=== PATIENT | male | born 1950 | race Caucasian/White ===

== ENCOUNTER → 2017-06-18 10:27 | Outpatient (REF) | payer MEDICARE, SELFPAY ==
[2017-06-18 14:22] LABS: Alanine Aminotransferase 31 U/L (12-78); Albumin Level 3.8 gm/dL (3.4-5.0); Albumin/Globulin Ratio 0.8 (1.1-1.8); Alkaline Phosphatase 78 U/L (46-116); Anion Gap 9.2 mEq/L (5-15); Aspartate Amino Transferase 27 U/L (15-37); Bilirubin,Total 0.5 mg/dL (0.2-1.0); Blood Urea Nitrogen 22 mg/dL (7-18); Calcium 9.1 mg/dL (8.5-10.1); Carbon Dioxide 30 mmol/L (21.0-32.0); Chloride 99 mmol/L (98-107); Chol/HDL Ratio 2.9 (1-3.5); Cholesterol 134 mg/dL (140-200); Creatinine,Serum 1.19 mg/dL (0.70-1.30); Estimated Glomerular Filt Rate 61 ml/min (>60); Free T4 (Free Thyroxine) 1.35 ng/dl (0.76-1.46); GFR (African American) 73 ML/MIN (>60); Globulin 4.5 gm/dl (1.3-3.2); Glucose 113 mg/dL (74-106); HDL Cholesterol 46 mg/dL (27-67); LDL Cholesterol 68 mg/dL (0-130); Potassium 4.2 mmoL/L (3.5-5.1); Sodium 134 mmol/L (136-145); Thyroid Stimulating Hormone 0.31 uIU/ml (0.358-3.740); Total Protein,Serum 8.3 gm/dL (6.4-8.2); Triglycerides 102 mg/dL (30-200); VLDL Cholesterol 20 mg/dL (0-40)
[2017-06-18 14:38] LABS: Basophils % 0.4 % (0.1-2.0); Eosinophils # 0.2 K/mm3 (0.0-0.4); Eosinophils % 1.6 % (0.1-12.0); Hematocrit 43.2 % (42.0-52.0); Hemoglobin 14.2 g/dL (14.1-18.0); Lymphocytes # 1.2 K/mm3 (0.7-4.5); Lymphocytes % 11.5 K/mm3 (10-50); Mean Corpuscular HGB Conc 32.9 g/dL (31.8-35.4); Mean Corpuscular Hemoglobin 28.8 pg (27.0-31.2); Mean Corpuscular Volume 87.6 fl (80-94); Mean Platelet Volume 8.9 fl (7.4-10.4); Monocytes # 0.6 K/mm3 (0.1-1.0); Neutrophils # 8.5 K/mm3 (1.8-7.8); Neutrophils % 80.6 % (37.0-80.0); Platelet Count 291 K/mm3 (142-424); Red Blood Count 4.93 M/mm3 (4.60-6.20); Red Cell Distribution Width 12.7 % (11.5-17.5); White Blood Count 10.6 K/mm3 (4.8-10.8)
[2017-06-21 11:53] LABS: PSA, Free 0.17 ng/mL; Prostate Specific Ag 5.3 ng/mL (0.0-4.0)
== END ==
LOC: LAB 10:27
PROVIDERS: Visit Provider Emergency Medicine
DX: R20.0 Anesthesia of skin (principal); R20.2 Paresthesia of skin; R53.83 Other fatigue; E78.5 Hyperlipidemia, unspecified; M25.562 Pain in left knee
CPT/HCPCS: 80053; 80061; 84153; 84154; 84439; 84443; 85025

== ENCOUNTER → 2017-06-27 13:09 | Outpatient (CLI) | payer MEDICARE, SELFPAY ==
--- NOTE | 2017-06-27 13:14 | US_ITS ---
US thyroid HISTORY: ITS.REASON: MULTINODULAR GOITER ORDERING PHYSICIAN: Claudy Colmenares MD PATIENT AGE: 67 years COMPARISON: None FINDINGS: There is a isoechoic isthmus nodule which measures 1.6 x 1.3 cm not significant changed. The isthmus is thickened at 6 mm. The right lobe is 4.7 x 2 x 2.1 cm. 2 small cysts are present in the upper pole. An 8 mm hypoechoic nodules present in the lower pole. An additional 9 mm mixed nodules present in the lower pole unchanged. The left lobe is 4.7 x 2.3 x 2.1 cm. A septated cyst is present in the upper pole of 4 mm. Isoechoic nodule upper follow-up 5 mm. Additional smaller cysts noted on the left unchanged. There is a millimeter hypoechoic nodule deep in the lower pole unchanged. IMPRESSION: Overall no change multinodular goiter
== END ==
PROVIDERS: PCP Emergency Medicine; Visit Provider Otolaryngology
DX: E04.2 Nontoxic multinodular goiter (principal)
CPT/HCPCS: 76536

== ENCOUNTER → 2017-08-08 09:42 | Outpatient (CLI) | payer MEDICARE, SELFPAY ==
[2017-08-08 10:57] LABS: Blood Urea Nitrogen 17 mg/dL (7-18); Creatinine,Serum 1.07 mg/dL (0.70-1.30); Estimated Glomerular Filt Rate 69 ml/min (>60); GFR (African American) 83 ML/MIN (>60)
--- NOTE | 2017-08-08 11:04 | CT_ITS ---
CT abdomen pelvis w con CLINICAL INDICATION: Prostate cancer ITS.REASON: PROSTATE CA ORDERING PHYSICIAN: Kapil Smith MD PATIENT AGE: 67 years COMPARISON: 04/11/2010 TECHNIQUE: Axial images obtained with sagittal and coronal reformats. All CT scans at the facility use one or more dose reduction, viz: automated exposure control; ma/kV adjustment per patient size (including targeted exams where dose is matched to indication; i.e. head); or iterative reconstruction technique. PROCEDURE: Oral Contrast: Redicat IV Contrast: 75 mL's of Isovue-370 performed in conjunction with the chest CT. FINDINGS: No focal liver lesion evident. There is been prior cholecystectomy without ductal dilatation. There is a small hiatal hernia. The spleen, adrenal glands, and pancreas have an unremarkable appearance. There are small bilateral renal cortical cysts the largest within the nature aspect of the left kidney at 3 cm. No obstructing renal or ureteral calculi. Unremarkable appendix. No intestinal obstruction or free air. No pelvic mass or abnormal fluid collection or focal inflammatory change. No evidence of abdominal or pelvic adenopathy. There is been prior prostatectomy. There are degenerative changes in the lumbar spine. No lytic or blastic changes evident. IMPRESSION: 1. No convincing evidence of metastatic disease. 2. Prior prostatectomy. 3. Bilateral renal cysts. 4. Small hiatal hernia
--- NOTE | 2017-08-08 11:04 | CT_ITS ---
CT chest w con HISTORY: Follow-up prostate cancer, evaluate for metastatic disease ITS.REASON: PROSTATE CA ORDERING PHYSICIAN: Kapil Smith MD PATIENT AGE: 67 years TECHNIQUE: Axial images obtained following the administration of 75 mL of Isovue 370 . Sagittal, and coronal reformatted images are also generated and reviewed. All CT scans at the facility use one or more dose reduction, viz: automated exposure control; ma/kV adjustment per patient size (including targeted exams where dose is matched to indication; i.e. head); or iterative reconstruction technique. FINDINGS: There are a few small mediastinal lymph nodes. No mediastinal or hilar adenopathy or mass is evident. Coronary artery stent is present in the first diagonal. Normal heart size. No evidence of pericardial effusion. There is a small hiatal hernia. No evidence of aortic aneurysm or central pulmonary embolus. Minimal atelectatic or fibrotic changes are present within the lingula. No suspicious pulmonary nodules. There are a few small lucencies within the right upper lobe superior segment of the right lower lobe nonspecific. No effusions or infiltrates. Mild degenerative changes in the thoracic spine. No lytic or blastic lesions. Mild thoracic kyphosis. IMPRESSION: Essentially negative CT of the chest with no acute finding and no convincing evidence of metastatic disease
== END ==
PROVIDERS: PCP Emergency Medicine; Visit Provider Urology
DX: Z03.89 Encounter for observation for other suspected diseases and conditions ruled out (principal); C61 Malignant neoplasm of prostate
CPT/HCPCS: 36415; 71260; 74177; 82565; 84520; Q9967

== ENCOUNTER → 2017-08-10 08:58 | Outpatient (CLI) | payer MEDICARE, SELFPAY ==
--- NOTE | 2017-08-10 09:01 | NM_ITS ---
NM bone scan whole body Ordering Physician: Kapil Smith MD Patient Age: 67 years: Male HISTORY: ITS.REASON: PROSTATE CArecent increased. Elevated PSA. TECHNIQUE: Body bone scan performed 3 hours after administration of 25.2 mCi Tc MDP The entire body was scanned. With additional oblique views at the SCM joint & sternal notch COMPARISON : CT chest 08/08/2017 FINDINGS I see no definitive metastatic disease., no good evidence of metastatic disease. There is increased activity at the both sides the superior sternum, right greater than left. This reflects degenerative changes scm joint as well as as well as first anterior rib ends. Activity related patient's kyphosis & cervical thoracic junction noted & dissipates on oblique views here. Slight increased activity is seen at the AC joints right greater than left reflecting mild degenerative changes here as well. Increased activity at the knees and ankles bilaterally compatible with degenerative changes. Appears be most pronounced at the left patellofemoral joint more so than right Minimal focus activity at the right mid mid T-spine most likely reflecting marginal osteophytes and possibly degenerative disc features here. Approximately T9. Kidneys function bilaterally. Skull appears intact. I would also note that a repeat spot images of pelvis were obtained immediate post void. I see no metastatic disease at the pelvic basin. ===== IMPRESSION: ========= 1. No areas suspect for metastatic disease 2. Areas of increased activity seen related to degenerative features as detailed in text
== END ==
PROVIDERS: PCP Emergency Medicine; Visit Provider Urology
DX: C61 Malignant neoplasm of prostate (principal)
CPT/HCPCS: 78306; A9539

== ENCOUNTER → 2017-09-18 15:17 | Outpatient (CLI) | payer MEDICARE, SELFPAY | PROVIDERS: Visit Provider Urology | DX: C61 Malignant neoplasm of prostate (principal) | CPT/HCPCS: 36415; 84153 ==

== ENCOUNTER → 2017-10-31 11:45 | Outpatient (CLI) | payer MEDICARE, SELFPAY ==
[2017-10-31 12:13] LABS: Basophils % 0.7 % (0.1-2.0); Eosinophils # 0.1 K/mm3 (0.0-0.4); Eosinophils % 2.7 % (0.1-12.0); Hematocrit 42.7 % (42.0-52.0); Hemoglobin 14.1 g/dL (14.1-18.0); Lymphocytes # 1.5 K/mm3 (0.7-4.5); Lymphocytes % 28.8 K/mm3 (10-50); Mean Platelet Volume 7.2 fl (7.4-10.4); Monocytes # 0.4 K/mm3 (0.1-1.0); Monocytes % 8.3 % (1.7-9.3); Neutrophils % 59.5 % (37.0-80.0); Platelet Count 236 K/mm3 (142-424); Red Blood Count 5.03 M/mm3 (4.60-6.20); Red Cell Distribution Width 12.9 % (11.5-17.5); White Blood Count 5.1 K/mm3 (4.8-10.8)
[2017-10-31 13:16] LABS: Anion Gap 8.3 mEq/L (5-15); Blood Urea Nitrogen 19 mg/dL (7-18); CKMB Relative Index 1.7 U/L (0-4.0); Calcium 9.2 mg/dL (8.5-10.1); Carbon Dioxide 31 mmol/L (21.0-32.0); Chloride 103 mmol/L (98-107); Creatine Kinase 255 U/L (39-308); Creatine Kinase MB 4.3 ng/ml (0.0-3.6); Creatinine,Serum 0.99 mg/dL (0.70-1.30); Estimated Glomerular Filt Rate 75 ml/min (>60); GFR (African American) 91 ML/MIN (>60); Glucose 99 mg/dL (74-106); Potassium 4.3 mmoL/L (3.5-5.1); Sodium 138 mmol/L (136-145); Troponin I < 0.02 ng/ml (0.00-0.06)
== END ==
PROVIDERS: Visit Provider Physician Assistant
DX: R07.9 Chest pain, unspecified (principal)
CPT/HCPCS: 36415; 80048; 82550; 82553; 84484; 85025

== ENCOUNTER → 2017-11-06 14:16 | Outpatient (CLI) | payer MEDICARE, SELFPAY ==
--- NOTE | 2017-11-06 14:17 | CA_ITS ---
PROCEDURE: 2-D M-mode and color Doppler study INDICATIONS FOR THE TEST: Chest pain X COPD Heart Murmur Tobacco Smoking Palpitations Fatigue Syncope Edema HypertensionXDiabetes Mellitus Rheumatic Fever SOBXDOE Obesity HyperlipidemiaX Family History HD Additional History CAD,BRADYCARDIA,ARRHYTHMIA PATIENT INFORMATION HEIGHT: 74 WEIGHT:250 GENDER: Male B/P:133/79 2-D/M-MODE INTERPRETATION: 2-D MEASUREMENTS OBSERVED VALUES IN CMS Right Ventricular Dimension (RVDd) 1.8 Interventricular Septum (Thickness)(IVsd) 1.2 Left Ventricular Internal Dimensions(LVIDd) 4.6 Left Ventricular Posterior Wall (Thickness)(LVPWd) 1.1 Aortic Root 3.7 Aortic Cusp Separation 1.8 Left Atrial Dimensions (LAD) 3.2 2D 1. Left atrium is mildly enlarged, left ventricle is normal size, mild concentric left ventricular hypertrophy, visually estimated ejection fraction 55% with no obvious regional wall motion abnormality. 2. The right atrium ventricular normal size and contractility. 3. The aortic valve is minimally thickened and fibrosed. 4. The mitral and tricuspid valve leaflets are minimally thickened. 5. The pulmonic valve is poorly visualized. 6. No significant pericardial effusion noted. DOPPLER INTERROGATION: Doppler interrogation of the aortic, mitral and tricuspid valvular presence of mild mitral and tricuspid regurgitation, calculated right ventricular systolic pressure is 44 mmHg consistent with moderate pulmonary hypertension, grade 1 diastolic dysfunction seen with tissue Doppler evidence of raised left atrial pressure. CONCLUSION: 1. Mildly, normal left ventricular size, mild concentric left ventricular hypertrophy, visually estimated ejection fraction 55% with no obvious regional wall motion abnormality, grade 1 diastolic dysfunction seen with tissue Doppler evidence of raised left atrial pressure. 2. Mild mitral and tricuspid regurgitation, calculated right ventricular systolic pressure is 44 mmHg consistent with moderate pulmonary hypertension. 3. No significant pericardial effusion noted.
== END ==
PROVIDERS: PCP Emergency Medicine; Visit Provider Internal Medicine
DX: R07.9 Chest pain, unspecified (principal); I25.10 Atherosclerotic heart disease of native coronary artery without angina pectoris
CPT/HCPCS: 93306

== ENCOUNTER → 2017-11-12 11:40 | Outpatient (CLI) | payer MEDICARE, SELFPAY ==
[2017-11-12 12:32] LABS: Blood Urea Nitrogen 17 mg/dL (7-18); Creatinine,Serum 0.98 mg/dL (0.70-1.30); Estimated Glomerular Filt Rate 76 ml/min (>60); GFR (African American) 92 ML/MIN (>60)
== END ==
PROVIDERS: Visit Provider Internal Medicine Cardiovascular Disease
DX: Z01.812 Encounter for preprocedural laboratory examination (principal)
CPT/HCPCS: 36415; 82565; 84520

== ENCOUNTER → 2017-11-13 10:27 | Outpatient (CLI) | payer MEDICARE, SELFPAY ==
--- NOTE | 2017-11-13 10:28 | CT_ITS ---
CT angio chest HISTORY: Chest pain, dyspnea on exertion, history of pulmonary embolus ITS.REASON: LEDESMA, chest pain, History of PE ORDERING PHYSICIAN: Leeroy Erwin MD PATIENT AGE: 67 years COMPARISON: TECHNIQUE: Axial images obtained following the administration of 75 mL of Isovue 370 . Sagittal, and coronal reformatted images are also generated and reviewed. All CT scans at the facility use one or more dose reduction, viz: automated exposure control, ma/kV adjustment per patient size (including targeted exams where dose is matched to indication, i.e. head), or iterative reconstruction technique. FINDINGS: There is nodularity along the isthmus slightly toward the right at 1 cm. No mediastinal or hilar mass or adenopathy is evident. Coronary artery stent/calcification noted. No evidence of pulmonary embolus or aortic aneurysm. There is a small hiatal hernia. No lobar consolidation or collapse. There is a 12 mm opacity within the lingula which is developed since the previous exam. This could be due to an area of atelectasis or focal consolidation. Developing nodule is an additional consideration. [address] follow-up recommended in this patient with history of pancreatic cancer. Upper abdominal images show bilateral renal cysts There are degenerative changes in the thoracic spine with mild kyphosis. IMPRESSION: 1. No evidence of pulmonary embolus or aortic aneurysm. 2. 12 mm nodular opacity within the lingula which may be due to an area of focal atelectasis or infiltrate. Consider 3 month follow-up to confirm stability or resolution.
== END ==
PROVIDERS: PCP Emergency Medicine; Visit Provider Internal Medicine Cardiovascular Disease
DX: R07.9 Chest pain, unspecified (principal); R06.09 Other forms of dyspnea; Z86.711 Personal history of pulmonary embolism
CPT/HCPCS: 71275; Q9967

== ENCOUNTER → 2018-01-15 13:47 | Outpatient (CLI) | payer MEDICARE, SELFPAY ==
[2018-01-17 09:32] LABS: PSA, Free 0.23 ng/mL; Prostate Specific Ag 6.2 ng/mL (0.0-4.0)
== END ==
PROVIDERS: PCP Emergency Medicine; Visit Provider Urology
DX: N39.9 Disorder of urinary system, unspecified (principal); C61 Malignant neoplasm of prostate
CPT/HCPCS: 36415; 84153; 84154

== ENCOUNTER → 2018-05-13 09:44 | Outpatient (CLI) | payer MEDICARE, SELFPAY ==
[2018-05-13 12:07] LABS: Blood Urea Nitrogen 22 mg/dL (7-18); Creatinine,Serum 0.97 mg/dL (0.70-1.30); Estimated Glomerular Filt Rate 77 ml/min (>60); GFR (African American) 93 ML/MIN (>60)
[2018-05-13 12:17] LABS: Alanine Aminotransferase 31 U/L (12-78); Albumin Level 3.5 gm/dL (3.4-5.0); Alkaline Phosphatase 75 U/L (46-116); Aspartate Amino Transferase 30 U/L (15-37); Bilirubin,Direct 0.1 mg/dL (0.0-0.2); Bilirubin,Indirect 0.3 mg/dL (0.0-0.9); Bilirubin,Total 0.4 mg/dL (0.2-1.0); Chol/HDL Ratio 3.3 (1-3.5); Cholesterol 138 mg/dL (140-200); HDL Cholesterol 42 mg/dL (27-67); LDL Cholesterol 83 mg/dL (0-130); Total Protein,Serum 8.2 gm/dL (6.4-8.2); Triglycerides 67 mg/dL (30-200); VLDL Cholesterol 13 mg/dL (0-40)
== END ==
PROVIDERS: Internal Medicine; Visit Provider Nurse Practitioner Family
DX: E78.5 Hyperlipidemia, unspecified (principal); G47.33 Obstructive sleep apnea (adult) (pediatric); I25.10 Atherosclerotic heart disease of native coronary artery without angina pectoris; I44.0 Atrioventricular block, first degree; I48.0 Paroxysmal atrial fibrillation; R00.1 Bradycardia, unspecified; R06.00 Dyspnea, unspecified; R91.1 Solitary pulmonary nodule
CPT/HCPCS: 36415; 80061; 80076; 82565; 84520

== ENCOUNTER → 2018-05-14 12:50 | Outpatient (CLI) | payer MEDICARE, SELFPAY ==
--- NOTE | 2018-05-14 12:51 | CT_ITS ---
CT chest w con HISTORY: Follow-up lung nodule ITS.REASON: . ORDERING PHYSICIAN: Misha Hughes MD PATIENT AGE: 68 years COMPARISON: 11/13/2017 TECHNIQUE: Axial images obtained following the administration of 75 mL of Isovue 370 . Sagittal, and coronal reformatted images are also generated and reviewed. All CT scans at the facility use one or more dose reduction, viz: automated exposure control, ma/kV adjustment per patient size (including targeted exams where dose is matched to indication, i.e. head), or iterative reconstruction technique. FINDINGS: No mediastinal or hilar mass or adenopathy. Coronary artery calcifications and stents are noted. There is a small hiatal hernia. No evidence of aortic aneurysm or dissection. No evidence of central pulmonary embolus. No suspicious pulmonary nodules are evident. Previously noted nodular opacity in the lingula is no longer apparent. There is some patchy atelectasis or infiltrate within the lingula. There are a few scattered small pneumatoceles in the lower lung zones. Upper abdominal images reveal no acute finding. No acute bony anomalies are evident. There is mild thoracic kyphosis. IMPRESSION: 1. Previously noted nodular opacity within the lingula no longer apparent. 2. There is patchy atelectasis or infiltrate within the lingula 3. Coronary artery disease
== END ==
PROVIDERS: PCP Emergency Medicine; Visit Provider Internal Medicine
DX: G47.33 Obstructive sleep apnea (adult) (pediatric) (principal); I25.10 Atherosclerotic heart disease of native coronary artery without angina pectoris; I44.0 Atrioventricular block, first degree; I48.0 Paroxysmal atrial fibrillation; R00.1 Bradycardia, unspecified; R06.00 Dyspnea, unspecified
CPT/HCPCS: 71260; Q9967

== ENCOUNTER → 2018-05-21 12:08 | Outpatient (CLI) | payer MEDICARE, SELFPAY ==
[2018-05-21 13:17] LABS: Prostate Specific Ag, Diagnost 9.32 ng/mL (0.0-4.0)
== END ==
PROVIDERS: Visit Provider Urology
DX: C61 Malignant neoplasm of prostate (principal)
CPT/HCPCS: 36415; 84153

== ENCOUNTER → 2018-06-26 10:23 | Outpatient (CLI) | payer MEDICARE, SELFPAY ==
--- NOTE | 2018-06-26 10:29 | US_ITS ---
US thyroid HISTORY: Follow-up multinodular goiter ITS.REASON: Goiter ORDERING PHYSICIAN: Claudy Colmenares MD PATIENT AGE: 68 years Comparison: 06/27/2017 FINDINGS: The isthmus is thickened at 5 mm. There is a 1.5 x 1.2 cm solid-appearing nodule within the right aspect of the isthmus unchanged. The right lobe is 5.1 x 2.3 x 3 cm. A stable 1.2 cm nodule is present in the upper pole posteriorly. Other smaller hypoechoic nodules are present. A solid-appearing nodule is noted inferiorly at 8 mm unchanged. The left lobe is 4.3 x 2.2 x 2.5 cm. 5 mm complex cystic nodules present in the upper pole unchanged. 5 mm isoechoic nodule mid polar region unchanged. A 6 mm hypoechoic nodule is present in the lower pole unchanged. 1 cm isoechoic nodule is present in the lower pole unchanged. IMPRESSION: No change multinodular goiter
[2018-06-26 13:08] LABS: Free T4 (Free Thyroxine) 1.25 ng/dl (0.76-1.46); Thyroid Stimulating Hormone 0.33 uIU/ml (0.358-3.740)
== END ==
PROVIDERS: PCP Emergency Medicine; Visit Provider Otolaryngology
DX: E04.9 Nontoxic goiter, unspecified (principal); E04.1 Nontoxic single thyroid nodule
CPT/HCPCS: 36415; 76536; 84439; 84443

== ENCOUNTER → 2018-09-13 09:03 | Outpatient (CLI) | payer MEDICARE, SELFPAY ==
[2018-09-13 11:47] LABS: Prostate Specific Ag, Diagnost 8.38 ng/mL (0.0-4.0)
== END ==
PROVIDERS: Visit Provider Urology
DX: C61 Malignant neoplasm of prostate (principal)
CPT/HCPCS: 36415; 84153

== ENCOUNTER → 2019-05-13 09:38 | Outpatient (CLI) | payer MEDICARE, SELFPAY | PROVIDERS: PCP Emergency Medicine; Visit Provider Physician Assistant | DX: I25.10 Atherosclerotic heart disease of native coronary artery without angina pectoris (principal) | CPT/HCPCS: 93225; 93226 ==

== ENCOUNTER → 2019-05-15 10:49 | Outpatient (CLI) | payer MEDICARE, SELFPAY ==
--- NOTE | 2019-05-15 10:50 | CA_ITS ---
APPROVED REPORT EXAM: Comprehensive 2D, Doppler, and color-flow Echocardiogram Stone Polisher: Janny Grady RVT Ht: 6 ft 2 in Wt: 257lbs BSA: 2.42 BP: 126/77 mmHg Indications: Chest Pain, Palpitations, CAD, Hyperlipidemia, Hypertension,Stent 2D Dimensions LVOT 1.72 cm (M/F) 1.5-2.5 M-Mode Dimensions RVDd 2.86 cm (0.9-2.6) LVDd 3.14 cm (3.5-5.7) LVDs 1.53 cm (3.5-5.7) IVSd 0.93 cm (0.6-1.1) PWd 1.05 cm (0.6-1.1) EF (Teich) 83.60% FS 51.30% EDV (Teich) 39.10 mL ESV (Teich) 6.40 mL LV Diastology E/A Ratio 0.69 Aortic Valve LVOT Max 141.00 (70-110 cm/s) LVOT VTI 39.06 cm Mitral Valve MV A Velocity 52.00 (40-130 cm/s) Left Ventricle Left atrium is mildly enlarged, left ventricle is normal size, mild concentric left ventricular hypertrophy, visually estimated ejection fraction 55% with no regional wall motion abnormality. Diastolic parameters are inconclusive. Right Ventricle Right atrium and right ventricle are mildly enlarged with normal contractility. Aortic Valve Aortic valve is minimally thickened and fibrosed, there is no aortic stenosis or aortic insufficiency. Mitral Valve Mitral valve is grossly normal, there is mild mitral regurgitation. Tricuspid Valve Tricuspid valve is grossly normal, there is mild tricuspid regurgitation. Tricuspid radiation jet velocity is inadequate for calculation of the right ventricular systolic pressure. Pulmonic Valve Pulmonic valve is poorly visualized. Great Vessels Aortic root is normal size. Pericardium No significant pericardial effusion noted. Conclusion 1. Mild mitral enlargement, normal left ventricular size, mild concentric left ventricular hypertrophy, visually estimated ejection fraction 55% with no regional wall motion abnormality, diastolic parameters are inconclusive. 2. Mildly enlarged right ventricle with normal contractility. 3. Mild mitral and tricuspid regurgitation. 4. No significant pericardial effusion noted. Electronically signed by : Leeroy Erwin, 05/16/2019 15:15:39
== END ==
PROVIDERS: PCP Emergency Medicine; Visit Provider Physician Assistant
DX: I25.10 Atherosclerotic heart disease of native coronary artery without angina pectoris (principal)
CPT/HCPCS: 93306

== ENCOUNTER → 2019-07-07 09:50 | Outpatient (CLI) | payer MEDICARE, SELFPAY ==
--- NOTE | 2019-07-07 09:50 | US_ITS ---
PROCEDURE: US THYROID CLINICAL INDICATION: Thyroid nodule Follow-up thyroid nodules COMPARISON: THY US thyroid from 06/26/2018 FINDINGS: Right lobe: 4.7 x 2.3 x 2 cm. There is a complex nodule in the right aspect of the isthmus measuring 15 x 9 mm not significantly change with of small cystic area laterally. There are few small cysts in the right lobe of the thyroid gland. In the lower pole there is a 10 mm ill-defined hypoechoic nodule not significantly changed. Left lobe: 4.3 x 1.5 x 2.3 cm. There are scattered small cysts present. A 10 x 7 mm hypoechoic nodule is present inferiorly IMPRESSION: Overall no change in the bilateral nodules with mildly enlarged thyroid gland Dictated by: Henri Daly MD 07/07/2019 15:01 Electronically signed by Henri Daly MD in [facility] 07/07/2019 15:01
== END ==
PROVIDERS: PCP Emergency Medicine; Visit Provider Otolaryngology
DX: E04.1 Nontoxic single thyroid nodule (principal)
CPT/HCPCS: 76536

== ENCOUNTER → 2019-09-17 12:42 | Outpatient (CLI) | payer MEDICARE, SELFPAY ==
[2019-09-17 14:18] LABS: Basophils % 0.7 % (0.1-2.0); Eosinophils # 0.1 K/mm3 (0.0-0.4); Eosinophils % 2.7 % (0.1-12.0); Lymphocytes # 1.3 K/mm3 (0.7-4.5); Lymphocytes % 25.7 % (10-50); Mean Corpuscular HGB Conc 33.5 g/dL (31.8-35.4); Mean Corpuscular Hemoglobin 28.8 pg (27.0-31.2); Mean Platelet Volume 8.9 fl (7.4-10.4); Monocytes # 0.5 K/mm3 (0.1-1.0); Monocytes % 9.7 % (1.7-9.3); Neutrophils % 61.2 % (37.0-80.0); Platelet Count 290 K/mm3 (142-424); Red Blood Count 4.88 M/mm3 (4.60-6.20); Red Cell Distribution Width 13.3 % (11.5-17.5); White Blood Count 4.9 K/mm3 (4.8-10.8)
[2019-09-17 14:34] LABS: Chloride 102 mmol/L (98-107)
[2019-09-17 14:35] LABS: Potassium 4.2 mmoL/L (3.5-5.1); Sodium 139 mmol/L (136-145)
[2019-09-17 14:37] LABS: Alanine Aminotransferase 42 U/L (12-78); Alkaline Phosphatase 82 U/L (38-126); Anion Gap 12.2 mEq/L (5-15); Aspartate Amino Transferase 49 U/L (17-59); Bilirubin,Total 0.7 mg/dl (0.2-1.3); Blood Urea Nitrogen 27 mg/dl (9-20); Carbon Dioxide 29 mmol/L (22.0-30.0); Cholesterol 157 mg/dl (140-200); Estimated Glomerular Filt Rate 66 ml/min (>60); GFR (African American) 80 ML/MIN (>60); Triglycerides 130 mg/dl (30-150); VLDL Cholesterol 26 mg/dL (0-40)
[2019-09-17 14:38] LABS: Albumin Level 4.3 g/dl (3.5-5.0); Calcium 9.9 mg/dl (8.4-10.2); Chol/HDL Ratio 3.7 (1-3.5); Globulin 4.1 g/dL (1.3-3.2); Glucose 108 mg/dl (74-100); HDL Cholesterol 43 mg/dl (40-60); Total Protein,Serum 8.4 g/dl (6.3-8.2)
[2019-09-17 14:53] LABS: Free T4 (Free Thyroxine) 1.72 ng/dl (0.78-2.19)
[2019-09-17 15:24] LABS: Direct LDL Cholesterol 78.76 mg/dL (100-129)
[2019-09-17 15:47] LABS: Thyroid Stimulating Hormone 0.15 uIU/mL (0.465-4.68)
[2019-09-18 10:00] LABS: Vitamin D 25 Hydroxy 39.1 ng/mL (30.0-100.0)
== END ==
PROVIDERS: Visit Provider Emergency Medicine
DX: I48.0 Paroxysmal atrial fibrillation (principal); E66.9 Obesity, unspecified
CPT/HCPCS: 80053; 80061; 82652; 84439; 84443; 85025

== ENCOUNTER → 2019-10-06 08:17 | Outpatient (CLI) | payer MEDICARE, SELFPAY ==
[2019-10-06 11:29] LABS: Thyroid Stimulating Hormone 0.41 uIU/mL (0.465-4.68)
== END ==
PROVIDERS: Visit Provider Physician Assistant
DX: R00.2 Palpitations (principal)
CPT/HCPCS: 36415; 84443

== ENCOUNTER 2020-04-17 12:47 | Emergency (ER) | payer MEDICARE, SELFPAY ==
[2020-04-17 12:48] VITALS: BP 100/64; PULSE 87; RESP 16; TEMP 37.2; O2SAT 98; BMI 31.6
--- NOTE | 2020-04-17 13:56 | XR_ITS ---
PROCEDURE: XR CHEST PORTABLE CLINICAL HISTORY: covid 19 Generalized weakness COMPARISON: CR CXR1 CHEST-PORTABLE from 08/03/[address] chest w con from 05/14/2018 FINDINGS: The cardiomediastinal silhouette and pulmonary vascularity are within normal limits. The lungs are clear without infiltrates, suspicious nodules, or pleural effusions. There is partial eventration right hemidiaphragm No acute bony abnormalities. IMPRESSION: No acute findings. Dictated by: Dr. Devon Palacio MD 04/17/2020 17:20 Dr. Devon Palacio MD in [facility] 04/17/2020 17:20
--- NOTE | 2020-04-17 14:12 | [facility].EDGENADL ---
ED Disposition Clinical Impression: Pneumonia due to COVID-19 virus Disposition: Home, Self-Care Condition on Discharge: Fair Additional Instructions: Rest, drink plenty of fluids. Return to the emergency department if increasing shortness of breath, severe weakness, or vomiting so that you are unable to hold down fluids. Outpatient monoclonal antibody infusion as arranged. Referrals: Justen Palomo MD [Primary Care Provider] - - Critical Care Critical Care Time: No Attestation: On 04/17/20, the high probability of a clinically significant, sudden or life threatening deterioration of the following system(s) required my full and direct attention, intervention and personal management. The time I documented below is in addition to time spent performing reported procedures but includes the following listed in this critical care notation. Medical Decision Making - [place]avo Inquiry Pt receiving controlled substance: No Vital Signs: 04/17/20 12:48 04/17/20 14:24 04/17/20 15:47 Temperature 98.9 F Temperature Source Oral Pulse Rate [Right] 87 68 64 Respiratory Rate 16 20 18 Blood Pressure [Right Arm] 100/64 L 115/70 106/76 L Blood Pressure Mean [Right Arm] 76 85 86 Blood Pressure Source [Right Arm] Automatic Cuff Automatic Cuff Blood Pressure Position [Right Arm] Sitting Sitting 02 Sat by Pulse Oximetry 98 97 99 Oxygen Delivery Method Room Air 04/17/20 16:30 04/17/20 17:01 Temperature Temperature Source Pulse Rate [Right] 67 70 Respiratory Rate 20 20 Blood Pressure [Right Arm] 113/77 106/74 L Blood Pressure Mean [Right Arm] 89 84 Blood Pressure Source [Right Arm] Automatic Cuff Automatic Cuff Blood Pressure Position [Right Arm] Sitting Sitting 02 Sat by Pulse Oximetry 100 98 Oxygen Delivery Method Room Air - Lab Data Lab Results 04/17/20 14:36: WBC 5.2, RBC 5.22, Hgb 14.9, Hct 44.2, MCV 84.6, MCH 28.4, MCHC 33.6, RDW 14.1, Plt Count 153, MPV 7.9, Neut % (Auto) 70.7, Lymph % (Auto) 16.9, [place] % (Auto) 11.1 H, Eos % (Auto) 0.4, Baso % (Auto) 0.9, Neut # (Auto) 3.7, Lymph # (Auto) 0.9, [place] # (Auto) 0.6, Eos # (Auto) 0.0, Baso # (Auto) 0.1 04/17/20 14:36: Sodium 135 L, Potassium 4.0, Chloride 96 L, Carbon Dioxide 30, Anion Gap 13.0, BUN 31 H, Creatinine 1.40 H, Estimated Creat Clear 73, Estimated GFR 50 L, Est GFR ( Amer) 60, Glucose 125 H, Calcium 9.6, Total Bilirubin 0.7, AST 84 H, ALT 76, Alkaline Phosphatase 90, Total Protein 9.5 H, Albumin 4.5, Globulin 5.0 H, Albumin/Globulin Ratio 0.9 L Result diagrams: 04/17/20 14:36 04/17/20 14:36 Orders (Tests/Meds): ED MEDICATIONS Discontinued Medications Generic Name Dose Route Start Last Admin Trade Name Freq PRN Reason Stop Dose Admin Iopamidol 60 ml 04/17/20 15:37 04/17/20 15:38 Iopamidol-370 (76%);100ml Bottle IV 04/17/20 15:38 60 ml ONCE ONE Administration Sodium Chloride 50 ml 04/17/20 15:37 04/17/20 15:38 0.9 % Sodium Chloride 50 Ml Vial IV 04/17/20 15:38 50 ml ONCE ONE Administration Sodium Chloride 10 ml 04/17/20 15:37 04/17/20 15:38 Sodium Chloride 0.9% 10ml Syr (Rad Only) IV 04/17/20 15:38 10 ml ONCE ONE Administration ORDERS Category Date Time Status CXR --portable [XR chest portable] Stat Exams 04/17/20 13:56 Taken - CT Data CT Scan: Chest (CTA) Time Received: 16:[address] Reviewed: Yes: I have viewed the radiologist's interpretation Findings Narrative: PROCEDURE: CT ANGIO CHEST (Volume slab post processing reconstruction images included) The Referring Doctor: Cesar Wen Patient Age:70Y CLINCIAL INDICATION: sob Covid positive as of Sunday period weaker today COMPARISON: CT CHESTW CT chest w con from 08/08/[address] angio chest from 11/13/2017 TECHNIQUE: IV Contrast: 70ML Isovue 370 Thin-section helical axial images obtained with mi the thick slab volume MIP sagittal and coronal reformats on CT workstation. All CT scans
[2020-04-17 14:24] VITALS: BP 115/70; PULSE 68; RESP 20; O2SAT 97
--- NOTE | 2020-04-17 14:40 | CT_ITS ---
PROCEDURE: CT ANGIO CHEST (Volume slab post processing reconstruction images included) The Referring Doctor: Cesar Wen Patient Age:70Y CLINCIAL INDICATION: sob Covid positive as of Sunday period weaker today COMPARISON: CT CHESTW CT chest w con from 08/08/[address] angio chest from 11/13/2017 TECHNIQUE: IV Contrast: 70ML Isovue 370 Thin-section helical axial images obtained with mi the thick slab volume MIP sagittal and coronal reformats on CT workstation. All CT scans at the facility use one or more dose reduction, viz: automated exposure control, ma/kV adjustment per patient size (including targeted exams where dose is matched to indication, i.e. head), or iterative reconstruction technique. FINDINGS: PULMONARY ARTERIES: No pulmonary embolus evident. AORTA: . size and contour no aneurysm. No dissection. LUNGS: Numerous peripheral patchy and small round areas of low-density infiltrates; period-. This pattern suggestive and typical of developing early covid pneumonia. These infiltrates and findings are a changed from previous 10/15/2017 CT chest as well. The PLEURAL SPACES: No significant effusion. No evidence of pneumothorax. HEART: U coronary artery calcification and possible stents. Able. Normal heart size. No significant pericardial effusion. MEDIASTINAL AND HILAR STRUCTURES: No mediastinal or hilar mass evident. No dominant adenopathy a few precarinal nodes are slightly more prominent but are still within normal limits and merely reflects some reactive nodes.. BONY STRUCTURES: No acute bony abnormalities apparent.. Degenerative changes thoracic spine no lesions. LYMPH NODES: No enlarged lymph nodes evident. Suspect small slight hiatal hernia upper normal thickness at the distal esophagus. Nonspecific could reflect reflux or mild esophagitis if symptoms period UPPER ABDOMEN: . fatty changes liver Small cysts upper pole right kidney. 14 mm cyst lateral upper pole with 21 mm cyst at the medial upper pole on right. Left kidney stable benign cyst anteriorly 3.5 mm. There is some air-fluid levels and liquid stool seen at transverse colon and appendix flexure could reflect some developing loose stool common diarrhea. There also is a small I believe diverticulum off the posterior fundus of the stomach of measuring 20 mm. IMPRESSION: 1..Numerous small peripheral patchy areas of infiltrate bilaterally-More numerous areas noted along periphery right lung than left. . Pattern suggestive and typical of developing early covid pneumonia pattern 2... No evidence of pulmonary embolism. Aorta unremarkable. No significant mediastinal nor hilar adenopathy or mass. 3. Incidental note-liquid stool appearance at the transverse and right colon which may reflect impending loose stool/diarrhea The Other minor incidental findings and body of report: The Dictated by: Thang Simon MD 04/17/2020 15:57 Thang Simon MD in [facility] 04/17/2020 15:57
[2020-04-17 14:45] LABS: Basophils # 0.1 K/mm3 (0-0.2); Basophils % 0.9 % (0.1-2.0); Eosinophils % 0.4 % (0.1-12.0); Hematocrit 44.2 % (42.0-52.0); Hemoglobin 14.9 g/dL (14.1-18.0); Lymphocytes # 0.9 K/mm3 (0.7-4.5); Lymphocytes % 16.9 % (10-50); Mean Corpuscular HGB Conc 33.6 g/dL (31.8-35.4); Mean Corpuscular Hemoglobin 28.4 pg (27.0-31.2); Mean Corpuscular Volume 84.6 fl (80-94); Mean Platelet Volume 7.9 fl (7.4-10.4); Monocytes # 0.6 K/mm3 (0.1-1.0); Monocytes % 11.1 % (1.7-9.3); Neutrophils # 3.7 K/mm3 (1.8-7.8); Neutrophils % 70.7 % (37.0-80.0); Platelet Count 153 K/mm3 (142-424); Red Blood Count 5.22 M/mm3 (4.60-6.20); Red Cell Distribution Width 14.1 % (11.5-17.5); White Blood Count 5.2 K/mm3 (4.8-10.8)
[2020-04-17 14:55] LABS: Alanine Aminotransferase 76 U/L (12-78); Albumin Level 4.5 g/dl (3.5-5.0); Albumin/Globulin Ratio 0.9 (1.1-1.8); Alkaline Phosphatase 90 U/L (38-126); Aspartate Amino Transferase 84 U/L (17-59); Bilirubin,Total 0.7 mg/dl (0.2-1.3); Blood Urea Nitrogen 31 mg/dl (9-20); Calcium 9.6 mg/dl (8.4-10.2); Carbon Dioxide 30 mmol/L (22.0-30.0); Chloride 96 mmol/L (98-107); Creatinine Clearance Estimated 73 mL/min (50-200); Estimated Glomerular Filt Rate 50 ml/min (>60); GFR (African American) 60 ML/MIN (>60); Glucose 125 mg/dl (74-100); Sodium 135 mmol/L (136-145); Total Protein,Serum 9.5 g/dl (6.3-8.2)
--- NOTE | 2020-04-17 15:11 | PC.NURSE ---
Pt going to rad
[2020-04-17 15:47] VITALS: BP 106/76; PULSE 64; RESP 18; O2SAT 99
[2020-04-17 16:30] VITALS: BP 113/77; PULSE 67; RESP 20; O2SAT 100
[2020-04-17 17:01] VITALS: BP 106/74; PULSE 70; RESP 20; O2SAT 98
--- NOTE | 2020-04-17 17:08 | PC.NURSE ---
Spoke with Dr. Johnston who gave me a verbal order for the bam infusion. Spoke wiht pt and scheduled pt to come in at 8am on Sunday. Notified pharmacy via email.
[2020-04-17 17:28] VITALS: BP 113/79; PULSE 69; RESP 16; TEMP 36.6; O2SAT 98
== END 2020-04-17 17:29 | disposition home or self-care (01) ==
PROVIDERS: Emergency Provider Emergency Medicine; PCP Emergency Medicine
DX: J12.82 Pneumonia due to coronavirus disease 2019 (principal); I25.10 Atherosclerotic heart disease of native coronary artery without angina pectoris; I10 Essential (primary) hypertension; K21.9 Gastro-esophageal reflux disease without esophagitis; E78.5 Hyperlipidemia, unspecified; Z79.899 Other long term (current) drug therapy
CPT/HCPCS: 71045; 71275; 80053; 85025; 99283; Q9967

== ENCOUNTER 2020-04-19 07:54 | Outpatient (CLI) | payer MEDICARE, SELFPAY | END 2020-04-19 11:02 | disposition home or self-care (01) | PROVIDERS: PCP Emergency Medicine; Visit Provider Emergency Medicine | DX: U07.1 COVID-19 (principal) | CPT/HCPCS: 96365 ==

== ENCOUNTER 2020-04-22 13:58 | Emergency (ER) | payer MEDICARE, SELFPAY ==
[2020-04-22 14:00] VITALS: BP 128/93; PULSE 78; RESP 22; TEMP 36.5; O2SAT 98; BMI 30.2
[2020-04-22 14:27] LABS: Basophils % 0.5 % (0.1-2.0); Eosinophils % 0.4 % (0.1-12.0); Hematocrit 42.1 % (42.0-52.0); Hemoglobin 14.1 g/dL (14.1-18.0); Lymphocytes # 0.7 K/mm3 (0.7-4.5); Lymphocytes % 13.1 % (10-50); Mean Corpuscular HGB Conc 33.5 g/dL (31.8-35.4); Mean Corpuscular Hemoglobin 28.3 pg (27.0-31.2); Mean Corpuscular Volume 84.3 fl (80-94); Mean Platelet Volume 8.5 fl (7.4-10.4); Monocytes # 0.4 K/mm3 (0.1-1.0); Monocytes % 8.2 % (1.7-9.3); Neutrophils # 4.1 K/mm3 (1.8-7.8); Neutrophils % 77.8 % (37.0-80.0); Platelet Count 191 K/mm3 (142-424); Red Cell Distribution Width 13.1 % (11.5-17.5); White Blood Count 5.3 K/mm3 (4.8-10.8)
[2020-04-22 14:32] VITALS: BP 130/82; PULSE 71; RESP 18; O2SAT 96
[2020-04-22 14:35] LABS: Chloride 94 mmol/L (98-107); Sodium 136 mmol/L (136-145)
[2020-04-22 14:36] LABS: Potassium 3.7 mmoL/L (3.5-5.1)
[2020-04-22 14:38] LABS: Alanine Aminotransferase 67 U/L (12-78); Albumin Level 4.3 g/dl (3.5-5.0); Albumin/Globulin Ratio 0.8 (1.1-1.8); Alkaline Phosphatase 91 U/L (38-126); Anion Gap 15.7 mEq/L (5-15); Aspartate Amino Transferase 83 U/L (17-59); Bilirubin,Total 1.1 mg/dl (0.2-1.3); Blood Urea Nitrogen 33 mg/dl (9-20); Carbon Dioxide 30 mmol/L (22.0-30.0); Creatinine Clearance Estimated 84 mL/min (50-200); Estimated Glomerular Filt Rate 60 ml/min (>60); GFR (African American) 72 ML/MIN (>60); Globulin 5.2 g/dL (1.3-3.2); Total Protein,Serum 9.5 g/dl (6.3-8.2)
[2020-04-22 14:39] LABS: Calcium 9.8 mg/dl (8.4-10.2); Glucose 131 mg/dl (74-100)
--- NOTE | 2020-04-22 14:51 | ECG_ITS ---
APPROVED REPORT Exam: Resting ECG HR:70 bpm ECG Measurements Heart Rate 70 AXES QRSd 98 QRS -34 QT 420 T 21 QTc 453 Conclusion Accelerated Junctional rhythm Left axis deviation Abnormal ECG Electronically signed by : Yohannes Millan, 04/23/2020 15:21:19
--- NOTE | 2020-04-22 14:56 | CT_ITS ---
PROCEDURE: CT HEAD/BRAIN WO CON CLINICAL INDICATION: FALL Head injury with headache/pain, contusion, abrasion or hematoma COMPARISON: No exams were available for comparison TECHNIQUE: Axial images obtained. All CT scans at the facility use one or more dose reduction, viz: automated exposure control, ma/kV adjustment per patient size (including targeted exams where dose is matched to indication, i.e. head), or iterative reconstruction technique. FINDINGS: No midline shift, mass effect, intracranial hemorrhage, hydrocephalus, or extra-axial fluid collection is evident. The calvarium has an unremarkable appearance. No mastoid effusion. No sinus air-fluid level. IMPRESSION: No acute intracranial finding Dictated by: Henri Daly MD 04/22/2020 16:10 Henri Daly MD in [facility] 04/22/2020 16:10
--- NOTE | 2020-04-22 14:56 | CT_ITS ---
PROCEDURE: CT CERVICAL SPINE WO CON CLINICAL INDICATION: FALL Posttraumatic pain, scalp laceration COMPARISON: CT CT HEAD/BRAIN WO CON from 04/22/2020 TECHNIQUE: Axial images obtained with sagittal and coronal reformats. All CT scans at the facility use one or more dose reduction, viz: automated exposure control, ma/kV adjustment per patient size (including targeted exams where dose is matched to indication, i.e. head), or iterative reconstruction technique. Axial spiral CT scanning performed of the cervical spine beginning at the base of the skull and continuing to the upper T-spine. 3-D multiplanar reconstruction with 3-D manipulation of volumetric data set in image rendering was completed by the radiologist and/or technologist with the supervision of the radiologist on independent workstation. FINDINGS: There is normal alignment. No acute fracture or dislocation is evident. There is mild exaggeration of the cervical lordosis. Mild multilevel cervical spondylosis is present. Small anterior osteophytes noted. No bony canal stenosis. Lung apices are clear. IMPRESSION: No acute fracture. Cervical spondylosis Dictated by: Henri Daly MD 04/22/2020 16:14 Henri Daly MD in [place] 04/22/2020 16:14
--- NOTE | 2020-04-22 15:09 | HMH.EDGENADL ---
ED Disposition Clinical Impression: Scalp laceration Qualifiers: Encounter type: initial encounter Qualified Code(s): S01.01XA - Laceration without foreign body of scalp, initial encounter Disposition: Home, Self-Care Condition on Discharge: Good Instructions: DI for Laceration Repair -- [place] Additional Instructions: Additional instructions for SCALP LACERATION: Clean the wound daily with soap and water. You may shower and shampoo your hair. Avoid submerging the wound. No swimming.. Apply a thin film of antibiotic ointment such as neosporin, polysporin, or triple antibiotic daily after showering. Be careful when combing or brushing hair so that you so not snag the maria dolores with a comb or brush. See your primary care physician or return to the [facility] in 7 days for staple removal. The [facility] is open 9 AM to 9 PM 7 days a week. Return if any signs of infection including increasing pain, pus drainage, swelling, redness, red streaks, or fever. Additional instructions for HEAD INJURY: See your physician as soon as possible for further evaluation. Return immediately if severe headache, vomiting, problems with vision or speech, numbness or weakness of the extremities, or severe neck pain. Referrals: PCP,No [Primary Care Provider] - - Critical Care Critical Care Time: No Attestation: On 04/22/20, the high probability of a clinically significant, sudden or life threatening deterioration of the following system(s) required my full and direct attention, intervention and personal management. The time I documented below is in addition to time spent performing reported procedures but includes the following listed in this critical care notation. Medical Decision Making - Chavo Inquiry Pt receiving controlled substance: No Vital Signs: 04/22/20 14:00 04/22/20 14:32 04/22/20 15:37 Temperature 97.7 F Temperature Source Oral Pulse Rate Pulse Rate [Radial] 78 71 74 Respiratory Rate 22 18 18 Blood Pressure Blood Pressure [Right Radial Artery] 128/93 H 130/82 157/102 H Blood Pressure Mean [Right Radial Artery] 104 98 120 Blood Pressure Source Blood Pressure Source [Right Radial Artery] Automatic Cuff Automatic Cuff Blood Pressure Position Blood Pressure Position [Right Radial Artery] Sitting Sitting Sitting 02 Sat by Pulse Oximetry 98 96 98 Oxygen Delivery Method Room Air 04/22/20 16:10 04/22/20 17:05 04/22/20 17:28 Temperature 98 F Temperature Source Pulse Rate 72 Pulse Rate [Radial] 73 72 Respiratory Rate 20 18 16 Blood Pressure 156/90 H Blood Pressure [Right Radial Artery] 162/101 H 156/94 H Blood Pressure Mean [Right Radial Artery] 121 114 Blood Pressure Source Automatic Cuff Blood Pressure Source [Right Radial Artery] Automatic Cuff Blood Pressure Position Sitting Blood Pressure Position [Right Radial Artery] Sitting Sitting 02 Sat by Pulse Oximetry 97 97 Oxygen Delivery Method Room Air - Lab Data Lab results reviewed: Yes: I reviewed the patient's lab results. Lab Results 04/22/20 14:00: WBC 5.3, RBC 5.00, Hgb 14.1, Hct 42.1, MCV 84.3, MCH 28.3, MCHC 33.5, RDW 13.1, Plt Count 191, MPV 8.5, Neut % (Auto) 77.8, Lymph % (Auto) 13.1, Johnson % (Auto) 8.2, Eos % (Auto) 0.4, Baso % (Auto) 0.5, Neut # (Auto) 4.1, Lymph # (Auto) 0.7, Johnson # (Auto) 0.4, Eos # (Auto) 0.0, Baso # (Auto) 0.0 04/22/20 14:00: Sodium 136, Potassium 3.7, Chloride 94 L, Carbon Dioxide 30, Anion Gap 15.7 H, BUN 33 H, Creatinine 1.20, Estimated Creat Clear 84, Estimated GFR 60, Est GFR ( Amer) 72, Glucose 131 H, Calcium 9.8, Total Bilirubin 1.1, AST 83 H, ALT 67, Alkaline Phosphatase 91, Total Protein 9.5 H, Albumin 4.3, Globulin 5.2 H, Albumin/Globulin Ratio 0.8 L 04/22/20 14:00: Troponin I < 0.01 Result diagrams: 04/22/20 14:00 04/22/20 14:00 Orders (Tests/Meds): ED MEDICATIONS Discontinued Medications Generic Name Dose Route Start Last Admin
[2020-04-22 15:15] LABS: Troponin I < 0.01 ng/ml (0.00-0.034)
[2020-04-22 15:37] VITALS: BP 157/102; PULSE 74; RESP 18; O2SAT 98
[2020-04-22 16:10] VITALS: BP 162/101; PULSE 73; RESP 20; O2SAT 97
[2020-04-22 17:05] VITALS: BP 156/94; PULSE 72; RESP 18; O2SAT 97
[2020-04-22 17:28] VITALS: BP 156/90; PULSE 72; RESP 16; TEMP 36.6; O2SAT 98
== END 2020-04-22 17:29 | disposition home or self-care (01) ==
PROVIDERS: Emergency Provider Emergency Medicine
DX: S01.01XA Laceration without foreign body of scalp, initial encounter (principal); J12.82 Pneumonia due to coronavirus disease 2019; W18.39XA Other fall on same level, initial encounter; Y92.019 Unspecified place in single-family (private) house as the place of occurrence of the external cause; I25.10 Atherosclerotic heart disease of native coronary artery without angina pectoris; K21.9 Gastro-esophageal reflux disease without esophagitis; E78.5 Hyperlipidemia, unspecified; I10 Essential (primary) hypertension; Z79.899 Other long term (current) drug therapy; Z23 Encounter for immunization
CPT/HCPCS: 12002; 70450; 72125; 80053; 84484; 85025; 90471; 90714; 93005; 99284

== ENCOUNTER 2020-04-29 13:17 | Emergency (ER) | payer MEDICARE, SELFPAY ==
[2020-04-29 14:00] VITALS: BP 142/88; PULSE 82; RESP 18; TEMP 36.8; O2SAT 99; BMI 26.2
[2020-04-29 14:04] VITALS: BP 142/88; PULSE 82; RESP 18; TEMP 36.8; O2SAT 99
== END 2020-04-29 14:05 | disposition home or self-care (01) ==
LOC: UTC 13:37
PROVIDERS: Emergency Provider Nurse Practitioner; PCP Emergency Medicine
DX: S01.01XD Laceration without foreign body of scalp, subsequent encounter (principal)

== ENCOUNTER → 2020-06-22 13:15 | Outpatient (CLI) | payer MEDICARE, SELFPAY ==
--- NOTE | 2020-06-22 13:15 | US_ITS ---
PROCEDURE: US THYROID CLINICAL INDICATION: hypothyroid COMPARISON: US THY US thyroid from 06/26/2018 US US THYROID from 07/07/2019 FINDINGS: The right lobe measures 4.5 x 2.3 x 2.7 cm in demonstrates heterogeneous echogenicity. There is a 3 mm hypoechoic nodule in the mid polar region unchanged. In the lower pole there is a 6 mm hypoechoic nodule not previously demonstrated. Additionally in the lower pole there is a 7 mm mixed nodule unchanged. The left lobe is 4 x 2.5 x 2.6 cm. A 7 mm cyst is present in the upper pole. 3 mm cyst is present in the mid polar region. 8 mm hypoechoic nodules present in the mid polar area which appears solid unchanged. 4 mm cyst is present in the lower pole. The isthmus is slightly thickened. A 12 mm solid-appearing nodules present in the right aspect of the isthmus not significantly changed. IMPRESSION: No change multiple bilateral thyroid nodules Dictated by: Henri Daly MD 06/22/2020 18:20 Henri Daly MD in [place] 06/22/2020 18:20
== END ==
PROVIDERS: PCP Emergency Medicine; Visit Provider Otolaryngology
DX: E03.9 Hypothyroidism, unspecified (principal)
CPT/HCPCS: 76536

== ENCOUNTER → 2020-09-14 18:07 | Outpatient (CLI) | payer MEDICARE, SELFPAY ==
[2020-09-14 18:57] LABS: Basophils % 0.4 % (0.1-2.0); Eosinophils # 0.1 K/mm3 (0.0-0.4); Eosinophils % 2.4 % (0.1-12.0); Hematocrit 40.6 % (42.0-52.0); Hemoglobin 13.5 g/dL (14.1-18.0); Lymphocytes # 1.5 K/mm3 (0.7-4.5); Lymphocytes % 25.9 % (10-50); Mean Corpuscular HGB Conc 33.2 g/dL (31.8-35.4); Mean Corpuscular Hemoglobin 28.6 pg (27.0-31.2); Mean Corpuscular Volume 86.1 fl (80-94); Monocytes # 0.5 K/mm3 (0.1-1.0); Monocytes % 9.3 % (1.7-9.3); Neutrophils # 3.5 K/mm3 (1.8-7.8); Platelet Count 252 K/mm3 (142-424); Red Blood Count 4.72 M/mm3 (4.60-6.20); Red Cell Distribution Width 13.6 % (11.5-17.5); White Blood Count 5.6 K/mm3 (4.8-10.8)
[2020-09-14 19:47] LABS: Alanine Aminotransferase 31 U/L (12-78); Albumin Level 4.4 g/dl (3.5-5.0); Albumin/Globulin Ratio 1.1 (1.1-1.8); Alkaline Phosphatase 80 U/L (38-126); Anion Gap 10.7 mEq/L (5-15); Aspartate Amino Transferase 42 U/L (17-59); Bilirubin,Total 0.7 mg/dl (0.2-1.3); Blood Urea Nitrogen 24 mg/dl (9-20); Calcium 9.6 mg/dl (8.4-10.2); Carbon Dioxide 29 mmol/L (22.0-30.0); Chloride 103 mmol/L (98-107); Chol/HDL Ratio 4.9 (1-3.5); Cholesterol 190 mg/dl (140-200); Estimated Glomerular Filt Rate 66 ml/min (>60); GFR (African American) 80 ML/MIN (>60); Globulin 3.9 g/dL (1.3-3.2); Glucose 92 mg/dl (74-100); HDL Cholesterol 39 mg/dl (40-60); Potassium 4.7 mmoL/L (3.5-5.1); Sodium 138 mmol/L (136-145); Total Protein,Serum 8.3 g/dl (6.3-8.2); Triglycerides 226 mg/dl (30-150); VLDL Cholesterol 45 mg/dL (0-40)
[2020-09-14 19:58] LABS: Direct LDL Cholesterol 65.86 mg/dL (100-129)
[2020-09-14 20:11] LABS: Thyroid Stimulating Hormone 0.26 uIU/mL (0.465-4.68)
[2020-09-14 20:22] LABS: Prostate Specific Ag Screen 12.9 ng/ml (0.0-4.0)
== END ==
PROVIDERS: Visit Provider Emergency Medicine
DX: E66.9 Obesity, unspecified (principal); E78.5 Hyperlipidemia, unspecified; G47.33 Obstructive sleep apnea (adult) (pediatric); I11.9 Hypertensive heart disease without heart failure; I25.10 Atherosclerotic heart disease of native coronary artery without angina pectoris; S90.32XA Contusion of left foot, initial encounter; Z12.5 Encounter for screening for malignant neoplasm of prostate; Z68.32 Body mass index [BMI] 32.0-32.9, adult
CPT/HCPCS: 80053; 80061; 84436; 84443; 85025; G0103

== ENCOUNTER → 2020-11-02 15:16 | Outpatient (CLI) | payer MEDICARE, SELFPAY | PROVIDERS: Visit Provider Urology | DX: C61 Malignant neoplasm of prostate (principal); R97.20 Elevated prostate specific antigen [PSA] | CPT/HCPCS: 36415; 84153 ==

== ENCOUNTER → 2020-11-18 11:16 | Outpatient (CLI) | payer MEDICARE, SELFPAY ==
--- NOTE | 2020-11-18 11:16 | NM_ITS ---
APPROVED REPORT Exam: Nuclear Stress Test Indication: Abnormal EKG, SOB, Syncope, HTN, High cholesterol, CAD, Dysrhythmia Patient Location: Outpatient Stress Tech: Sun Valdivia [place] Tech:GUSTAVO Molina RT(R)(N) Ht: 6 ft 2 in Wt: 250 lbs HR: 48 bpm BP: 152/78 mmHg BSA: 2.39 m2 BMI: 32.0 History: Abnormal EKG, SOB, Syncope, HTN, High cholesterol, CAD, Dysrhythmia Procedure: Patient received a 0.4 mg of intravenous Lexiscan, resting heart rate 48 bpm, resting blood pressure 152/78 mmHg, with Lexiscan maximum heart rate achived was 67 bpm which is Less than 85 % of the maximum predicted heart rate and blood pressure was 164/86 mmHg. With Lexiscan, patient denied any complaint of chest pain. Electrocardiogram Resting electrocardiogram shows sinus rhythm with Lexiscan there is less than 1.[address] segment depression noted from the baseline EKG. The EKG portion of the Lexiscan is nondiagnostic. Cardiac Stress and Resting SPECT Images: Cardiac Stress and Resting SPECT images were obtained using technetium 99m Myoview 31.2 mCi stress and 10.28 mCi at rest. Gated SPECT for analysis of segmental wall motion and calculation of the ejection fraction also done. Prone images were also obtained. Cardiac stress and resting SPECT images show partial reversible defect involving a moderate sized area in the inferior wall consistent with mixed ischemia and scar, computer derived ejection fraction is 53% with moderate inferior wall hypokinesis, right ventricle is mildly enlarged with normal contractility. Conclusion: 1. The EKG portion of the Lexiscan is nondiagnostic. 2. Scintigraphic evidence of mixed ischemia and scar involving the inferior wall, computer derived ejection fraction is 53% with segmental wall motion abnormality described above, right ventricle is mildly enlarged with normal contractility. 3. Abnormal Lexiscan Myoview study. Electronically signed by : Leeroy Erwin MD 11/19/2020 10:13:57
--- NOTE | 2020-11-18 14:25 | CA_ITS ---
APPROVED REPORT Exam: Pharmacologic Technologist: Sun Valdivia, Ht: 6 ft 2 in Wt: 254 lbs BSA: 2.41 m2 HR: 48 bpm BP: 152/78 mmHg Medical History Medications: Aspirin,,,,, Pravastatin,,,,, Pantoprazole,,,,, Carvedilol,,,,, Nitroglycerin,,,,, Lisinopril HCTZ,,,,, Stress Test Details Test: LEXISCAN HR Resting HR: 56 bpm Max Heart Rate (APMHR): 148 bpm Max HR Achieved: 95 bpm Target HR (85% APMHR): 125 bpm % of APMHR: 64 Recovery HR: 67 bpm BP Resting BP: 152/78 mmHg Max BP: 176/76 mmHg Recovery BP: 165.0/86.0 mmHg ECG Resting ECG: Sinus daily, PVC's, PAC's, 1 degree AVB, early repolarization changes Clinical Exercise duration: 04:01 min Highest Stage Achieved: Exercise capacity: 1.0 METs Stress ECG Conclusion Symptoms: SOA, malaise, mild stomach discomfort. Arrhythmias/Ectopy: Occ PVC. 1.8 second sinus pause vs non-conducted PAC. ST-T Changes: No significant changes. Conclusion: Non-diagnostic Lexiscan stress. Myoview images reported separately. Electronically signed by : Leeroy Erwin MD 11/18/2020 14:56:56
--- NOTE | 2020-11-18 14:53 | HMH.ITSHM ---
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 []PRAVASTATIN PANTOPRAZOLE NITRO LISINOPRIL CARVEDILOL ASA
== END ==
PROVIDERS: PCP Emergency Medicine; Visit Provider Physician Assistant
DX: E78.2 Mixed hyperlipidemia (principal); G47.33 Obstructive sleep apnea (adult) (pediatric); I11.9 Hypertensive heart disease without heart failure; I25.10 Atherosclerotic heart disease of native coronary artery without angina pectoris; I48.0 Paroxysmal atrial fibrillation; R53.83 Other fatigue; R94.31 Abnormal electrocardiogram [ECG] [EKG]
CPT/HCPCS: 78452; 93017; A9502; J2785

== ENCOUNTER → 2020-11-24 16:32 | Outpatient (CLI) | payer MEDICARE, SELFPAY ==
[2020-11-24 17:01] LABS: Basophils % 0.7 % (0.1-2.0); Eosinophils # 0.2 K/mm3 (0.0-0.4); Eosinophils % 3.2 % (0.1-12.0); Hematocrit 37.7 % (42.0-52.0); Hemoglobin 12.7 g/dL (14.1-18.0); Lymphocytes # 1.5 K/mm3 (0.7-4.5); Lymphocytes % 27.4 % (10-50); Mean Corpuscular HGB Conc 33.8 g/dL (31.8-35.4); Mean Corpuscular Hemoglobin 28.8 pg (27.0-31.2); Mean Corpuscular Volume 85.2 fl (80-94); Mean Platelet Volume 7.7 fl (7.4-10.4); Monocytes # 0.4 K/mm3 (0.1-1.0); Monocytes % 7.3 % (1.7-9.3); Neutrophils # 3.5 K/mm3 (1.8-7.8); Neutrophils % 61.4 % (37.0-80.0); Platelet Count 224 K/mm3 (142-424); Red Blood Count 4.43 M/mm3 (4.60-6.20); Red Cell Distribution Width 14.1 % (11.5-17.5); White Blood Count 5.6 K/mm3 (4.8-10.8)
[2020-11-24 17:25] LABS: Chloride 101 mmol/L (98-107); Potassium 4.1 mmoL/L (3.5-5.1); Sodium 138 mmol/L (136-145)
[2020-11-24 17:28] LABS: Blood Urea Nitrogen 20 mg/dl (9-20); Calcium 9.2 mg/dl (8.4-10.2); Estimated Glomerular Filt Rate 73 ml/min (>60); GFR (African American) 89 ML/MIN (>60); Glucose 118 mg/dl (74-100)
[2020-11-24 17:51] LABS: Anion Gap 14.1 mEq/L (5-15); Carbon Dioxide 27 mmol/L (22.0-30.0)
== END ==
PROVIDERS: Visit Provider Physician Assistant
DX: E78.5 Hyperlipidemia, unspecified (principal); G47.33 Obstructive sleep apnea (adult) (pediatric); I11.9 Hypertensive heart disease without heart failure; I25.10 Atherosclerotic heart disease of native coronary artery without angina pectoris; I48.0 Paroxysmal atrial fibrillation; R53.83 Other fatigue; Z01.812 Encounter for preprocedural laboratory examination; Z20.822 Contact with and (suspected) exposure to COVID-19
CPT/HCPCS: 36415; 80048; 85025; U0003

== ENCOUNTER 2020-11-25 08:04 | Day surgery (SDC) | payer MEDICARE, SELFPAY ==
[2020-11-25] VITALS (11 sets, daily range): BP systolic 122–167; BP diastolic 62–98; PULSE 43–68; RESP 18; O2SAT 94–97; BMI 32.7
--- NOTE | 2020-11-25 | IR_ITS ---
APPROVED REPORT Patient Location: Outpatient PROCEDURES Left heart catheterization Left ventriculogram Selective coronary angiogram INDICATION Preoperative evaluation, Abnormal Myoview Informed consent was obtained prior to the procedure. COMPLICATIONS NONE Estimated Blood Loss: LESS THAN 10 ML TECHNIQUE One percent lidocaine used to anesthetize the right anterior aspect of the wrist. The right radial artery was accessed via the Seldinger technique. A 6 Kinyarwanda sheath was placed in the right radial artery. 2.5 mg of verapamil, 800 mcg of nitroglycerin, 1mg Lidocaine and 5000 U Heparin were given through the arterial sheath. The trap catheter was also used to perform left heart catheterization, left ventriculogram and selective coronary angiogram. At the end of the procedure the sheath was removed good hemostasis was achieved using Traclet band, patient was transferred to the postop holding area in stable condition. ANGIOGRAPHIC RESULTS The left main artery Normal The left anterior descending artery Has proximal and mid vessel concentric 30% stenosis. The circumflex artery Gives rise to a large ramus intermedius which has a stent in the proximal segment which has mild concentric 30 to 40% in-stent restenosis it is otherwise widely patent. The circumflex artery is nondominant with mild 10% luminal irregularities The right coronary artery Is a large dominant vessel with mild diffuse 10 to 20% luminal irregularities The CLEANING ventriculogram reveals Normal 60% The left ventricular end-diastolic pressure 10 to 15 mmHg IMPRESSION Widely patent stent in the ramus intermedius with mild nonflow limiting in stent restenosis Mild nonflow limiting coronary disease Normal ejection fraction Borderline elevated LVEDP PLAN 1. Patient is alone acceptable risk to proceed with elective prostate procedure 2. Continue medical management for coronary disease Electronically signed by : Misha Hughes MD 11/25/2020 11:16:04
== END 2020-11-25 14:20 | disposition home or self-care (01) ==
LOC: CATHLAB 08:06
PROVIDERS: PCP Emergency Medicine; Visit Provider Internal Medicine
DX: I48.0 Paroxysmal atrial fibrillation (principal); I44.0 Atrioventricular block, first degree; I25.10 Atherosclerotic heart disease of native coronary artery without angina pectoris; Z79.899 Other long term (current) drug therapy; I10 Essential (primary) hypertension; E78.5 Hyperlipidemia, unspecified; Z95.5 Presence of coronary angioplasty implant and graft; T82.855A Stenosis of coronary artery stent, initial encounter; Y83.1 Surgical operation with implant of artificial internal device as the cause of abnormal reaction of the patient, or of later complication, without mention of misadventure at the time of the procedure
CPT/HCPCS: 93225; 93458; 99152; C1725; C1769; J1644; Q9967

== ENCOUNTER → 2021-02-28 09:36 | Outpatient (CLI) | payer MEDICARE, SELFPAY ==
[2021-02-28 11:57] LABS: Prostate Specific Ag, Diagnost 0.292 ng/ml (0.0-4.0)
== END ==
PROVIDERS: Visit Provider Urology
DX: C61 Malignant neoplasm of prostate (principal); R97.20 Elevated prostate specific antigen [PSA]
CPT/HCPCS: 36415; 84153

== ENCOUNTER → 2021-05-03 13:02 | Outpatient (CLI) | payer MEDICARE, SELFPAY | PROVIDERS: Visit Provider Nurse Practitioner | DX: Z20.822 Contact with and (suspected) exposure to COVID-19 (principal) | CPT/HCPCS: C9803; U0003; U0005 ==

== ENCOUNTER → 2021-06-28 09:04 | Outpatient (CLI) | payer MEDICARE, SELFPAY ==
--- NOTE | 2021-06-28 09:15 | XR_ITS ---
FINAL REPORT CLINICAL HISTORY: 4 view WB; knee pain FINDINGS: 4 views of the left knee were obtained. There is no acute fracture or dislocation. There are mild and moderate degenerative changes worse in the patellofemoral compartment. The soft tissues are unremarkable. IMPRESSION: Mild and moderate degenerative changes. Reviewed, Interpreted and Dictated by Jens Vergara III, MD Transcribed by Nikolai Mercer Authenticated by Jens Vergara III, MD on 06/28/2021 10:45:06 AM [facility]
== END ==
PROVIDERS: PCP Emergency Medicine; Visit Provider Orthopaedic Surgery
DX: M25.562 Pain in left knee (principal)
CPT/HCPCS: 73564

== ENCOUNTER → 2021-10-12 16:29 | Outpatient (CLI) | payer MEDICARE, SELFPAY ==
[2021-10-12 14:14] LABS: Basophils % 0.6 % (0.1-2.0); Eosinophils # 0.2 K/mm3 (0.0-0.4); Eosinophils % 3.3 % (0.1-12.0); Hemoglobin 12.4 g/dL (14.1-18.0); Lymphocytes # 1.3 K/mm3 (0.7-4.5); Lymphocytes % 27.9 % (10-50); Mean Corpuscular HGB Conc 33.6 g/dL (31.8-35.4); Mean Corpuscular Hemoglobin 28.3 pg (27.0-31.2); Mean Corpuscular Volume 84.2 fl (80-94); Mean Platelet Volume 7.6 fl (7.4-10.4); Monocytes # 0.4 K/mm3 (0.1-1.0); Monocytes % 8.9 % (1.7-9.3); Neutrophils # 2.7 K/mm3 (1.8-7.8); Neutrophils % 59.2 % (37.0-80.0); Platelet Count 245 K/mm3 (142-424); Red Cell Distribution Width 13.1 % (11.5-17.5); White Blood Count 4.6 K/mm3 (4.8-10.8)
[2021-10-12 14:22] LABS: Alanine Aminotransferase 37 U/L (12-78); Albumin Level 3.8 g/dl (3.5-5.0); Alkaline Phosphatase 95 U/L (38-126); Anion Gap 13.8 mEq/L (5-15); Aspartate Amino Transferase 50 U/L (17-59); Bilirubin,Total 0.2 mg/dl (0.2-1.3); Blood Urea Nitrogen 20 mg/dl (9-20); Calcium 9.6 mg/dl (8.4-10.2); Carbon Dioxide 27 mmol/L (22.0-30.0); Chloride 100 mmol/L (98-107); Chol/HDL Ratio 4.2 (1-3.5); Cholesterol 173 mg/dl (140-200); Estimated Glomerular Filt Rate 111 ml/min (>60); GFR (African American) 134 ML/MIN (>60); Globulin 3.9 g/dL (1.3-3.2); Glucose 119 mg/dl (74-100); HDL Cholesterol 41 mg/dl (40-60); Potassium 3.8 mmoL/L (3.5-5.1); Sodium 137 mmol/L (136-145); Total Protein,Serum 7.7 g/dl (6.3-8.2); Triglycerides 163 mg/dl (30-150); VLDL Cholesterol 33 mg/dL (0-40)
[2021-10-12 14:32] LABS: Direct LDL Cholesterol 60.36 mg/dL (100-129)
[2021-10-12 14:37] LABS: Free T4 (Free Thyroxine) 1.64 ng/dl (0.78-2.19)
[2021-10-12 14:39] LABS: 25-OH Vitamin D, Total 42.8 ng/mL (30-100)
[2021-10-12 14:52] LABS: Prostate Specific Ag Screen < 0.1 ng/ml (0.0-4.0); Thyroid Stimulating Hormone 0.46 uIU/mL (0.465-4.68)
== END ==
PROVIDERS: Visit Provider Emergency Medicine
DX: R53.83 Other fatigue (principal); Z00.00 Encounter for general adult medical examination without abnormal findings; Z68.32 Body mass index [BMI] 32.0-32.9, adult; E66.9 Obesity, unspecified; Z12.5 Encounter for screening for malignant neoplasm of prostate; Z79.899 Other long term (current) drug therapy
CPT/HCPCS: 80053; 80061; 82306; 84439; 84443; 85025; G0103

== ENCOUNTER 2021-12-19 13:41 | Emergency (ER) | payer MEDICARE, SELFPAY ==
--- NOTE | 2021-12-19 14:36 | EXP.UTC ---
Discharge Plan Disposition Patient Disposition: Home, Self-Care Condition: Good Prescriptions Prescriptions: New cephalexin [cephalexin] 500 mg capsule 500 mg PO Q6H 10 Days Qty: 40 0RF mupirocin 2 % ointment 1 applic topical TID 7 Days Qty: 1 0RF No Action aspirin [Adult Low Dose Aspirin] 81 mg tablet,delayed release (DR/EC) 81 mg PO QDAY lisinopril-hydrochlorothiazide 20-12.5 mg tablet 1 tab PO BID Qty: 180 3RF nitroglycerin 0.4 mg tablet, sublingual 0.4 mg SUBLINGUAL Q5-15M PRN (Reason: chest pain) Qty: 30 6RF Rx Instructions: until response; do not exceed 3 doses per episode pantoprazole 40 mg tablet,delayed release (DR/EC) 40 mg PO DAILY Qty: 90 3RF pravastatin 10 mg tablet 10 mg PO HS Qty: 90 3RF carvedilol 25 mg tablet See Rx Instructions .ROUTE .COMPLEX Qty: 180 1RF Dose Instruction: TAKE 1 TABLET BY MOUTH TWICE DAILY Rx Instructions: TAKE 1 TABLET BY MOUTH TWICE DAILY Referrals Follow up/Referrals: Justen Palomo MD [Primary Care Provider] - See instructions Gardenia Posey DPM [Staff Physician] - See instructions Activity Restrictions/Add. Instructions Additional Instructions/Restrictions: Rest the extremity, apply ice for 15 minutes as tolerated three or four times per day, Wear the chava wrap for compression, Elevate the extremity as tolerated while you are resting. Take ibuprofen for pain. I sent in a prescription to your pharmacy. Follow up with Dr. Posey (podiatry). I put in a referral but you need to call her office and schedule an appointment. Follow up with your regular doctor. GO TO THE ER FOR ANY WORSENING SYMPTOMS Clinical Impressions Clinical Impression: Foot ulcer, right, Cellulitis Instructions Patient Instructions: Cellulitis Discharge ED Provider: Valeriy Carlos [facility] General Stated complaint: blister on R foot Time Seen by Provider: 12/19/21 14:37 History of Present Illness Provider Complaint: He has a small wound on the lateral side of his right foot that has been present for the past week. He states that he scraped it on something and he then developed the wound. He denies any foreign body. He is not a diabetic. Related Data Home Medications Medication Instructions Recorded Confirmed aspirin 81 mg tablet,delayed 81 mg PO QDAY thinner 04/25/17 12/20/21 release (Adult Low Dose Aspirin) Previous Rx's Medication Instructions Recorded nitroglycerin 0.4 mg sublingual 0.4 mg sublingual Q5-15M PRN chest 11/01/17 tablet pain #30 tabs pantoprazole 40 mg tablet,delayed 40 mg PO DAILY #90 tabs 04/11/21 release pravastatin 10 mg tablet 10 mg PO HS #90 tabs 04/11/21 lisinopril 20 1 tab PO BID #180 tabs 05/10/21 mg-hydrochlorothiazide 12.5 mg tablet carvedilol 25 mg tablet See Rx Instructions .Route 10/26/21 .COMPLEX #180 tabs cephalexin 500 mg capsule 500 mg PO Q6H 10 days #40 caps 12/19/21 mupirocin 2 % topical ointment 1 applic topical TID 7 days #1 g 12/19/21 Allergies Allergy/AdvReac Type Severity Reaction Status Date / Time pecan nut Allergy Intermediate Rash Verified 12/20/21 15:05 [facility] Medical History Fatigue First degree AV block CAYETANO (obstructive sleep apnea) PAF (paroxysmal atrial fibrillation) Prostate cancer genetic susceptibility Sinus bradycardia Social History Smoking Status: Never smoker second hand exposure: No alcohol intake: never counseling provided: none substance use type: denies use current occupational status: employed Travel in the last 8 weeks: Inside the [place] household members: spouse housing: house current occupational exposures/hazards: No caffeine: Yes ROS Obtained: Yes All systems reviewed & no additional complaints except as documented Constitutional Constitutional: Denies chills and Denies fever(s)
[2021-12-19 14:46] VITALS: BP 152/80; PULSE 60; RESP 15; TEMP 36.6; O2SAT 98; BMI 32.1
[2021-12-19 15:11] VITALS: BP 152/80; PULSE 60; RESP 15; TEMP 36.6
== END 2021-12-19 15:12 | disposition home or self-care (01) ==
PROVIDERS: Emergency Provider Nurse Practitioner Family; PCP Emergency Medicine
DX: L98.499 Non-pressure chronic ulcer of skin of other sites with unspecified severity; L03.115 Cellulitis of right lower limb; B96.89 Other specified bacterial agents as the cause of diseases classified elsewhere; Z79.82 Long term (current) use of aspirin; I48.0 Paroxysmal atrial fibrillation; G47.33 Obstructive sleep apnea (adult) (pediatric); R00.1 Bradycardia, unspecified; I44.0 Atrioventricular block, first degree; I25.10 Atherosclerotic heart disease of native coronary artery without angina pectoris; E78.5 Hyperlipidemia, unspecified
CPT/HCPCS: 87070; 87077; 87186; 87205; 99212; G0463

== ENCOUNTER → 2022-01-12 11:00 | Outpatient (CLI) | payer MEDICARE, SELFPAY ==
--- NOTE | 2022-01-12 11:32 | XR_ITS ---
FINAL REPORT CLINICAL HISTORY: abn chest ct COMPARISON: April 17, 2020 FINDINGS: CHEST TWO-VIEW The lungs are clear. There is no evidence of effusion or other pleural disease. The mediastinum as a normal appearance. The cardiac silhouette is unremarkable. IMPRESSION: UNREMARKABLE CHEST EXAM. Reviewed, Interpreted and Dictated by Keila Campos MD Transcribed by Nikolai Mercer Authenticated and [facility]
--- NOTE | 2022-01-12 11:32 | XR_ITS ---
FINAL REPORT CLINICAL HISTORY: acute pain, history of cancer FINDINGS: Cervical spine 5 views were obtained. There is no acute fracture. Alignment is normal. Mild diffuse degenerative disc disease. IMPRESSION: Mild degenerative disc disease. Thoracic spine 2 views were obtained. There is no acute fracture. Alignment is normal. Thoracic kyphosis. Moderate spondylosis. IMPRESSION: Moderate spondylosis. Lumbar spine 5 views were obtained. There is no acute fracture. Alignment is normal. Advanced degenerative disc disease at L5-S1. Moderate degenerative disc disease at L4-L5. Moderate facet arthropathy. IMPRESSION: Advanced degenerative changes in the lower lumbar spine. Reviewed, Interpreted and Dictated by Keila Campos MD Transcribed by Nikolai Mercer Authenticated and [facility]
[2022-01-12 11:58] LABS: Basophils % 0.5 % (0.1-2.0); Eosinophils # 0.2 K/mm3 (0.0-0.4); Eosinophils % 3.1 % (0.1-12.0); Hematocrit 39.4 % (42.0-52.0); Hemoglobin 12.7 g/dL (14.1-18.0); Lymphocytes # 1.3 K/mm3 (0.7-4.5); Lymphocytes % 24.9 % (10-50); Mean Corpuscular HGB Conc 32.3 g/dL (31.8-35.4); Mean Corpuscular Hemoglobin 28.3 pg (27.0-31.2); Mean Corpuscular Volume 87.6 fl (80-94); Mean Platelet Volume 7.5 fl (7.4-10.4); Monocytes # 0.4 K/mm3 (0.1-1.0); Neutrophils # 3.3 K/mm3 (1.8-7.8); Neutrophils % 63.5 % (37.0-80.0); Platelet Count 264 K/mm3 (142-424); Red Cell Distribution Width 13.8 % (11.5-17.5); White Blood Count 5.2 K/mm3 (4.8-10.8)
[2022-01-12 12:08] LABS: Hemoglobin A1C 5.7 % (4.0-6.0)
[2022-01-12 12:22] LABS: Alanine Aminotransferase 31 U/L (12-78); Albumin Level 3.9 g/dl (3.5-5.0); Albumin/Globulin Ratio 1.1 (1.1-1.8); Alkaline Phosphatase 99 U/L (38-126); Aspartate Amino Transferase 43 U/L (17-59); Bilirubin,Total 0.4 mg/dl (0.2-1.3); Blood Urea Nitrogen 17 mg/dl (9-20); Calcium 9.7 mg/dl (8.4-10.2); Carbon Dioxide 30 mmol/L (22.0-30.0); Chloride 98 mmol/L (98-107); Estimated Glomerular Filt Rate 95 ml/min (>60); GFR (African American) 115 ML/MIN (>60); Globulin 3.7 g/dL (1.3-3.2); Glucose 102 mg/dl (74-100); Sodium 138 mmol/L (136-145); Total Protein,Serum 7.6 g/dl (6.3-8.2)
[2022-01-12 12:27] LABS: C-Reactive Protein 2.9 mg/L (0-4)
[2022-01-12 13:02] LABS: Erythrocyte Sedimentation Rate 72 mm/hr (0-20)
[2022-01-12 15:14] LABS: Folate > 20.00 ng/mL
[2022-01-12 16:14] LABS: Vitamin B12 670 pg/mL (239-931)
[2022-01-14 18:36] LABS: Antinuclear Antibodies (ANA) Negative
[2022-01-18 19:09] LABS: 1,25 Dihydroxy Vitamin D 26 pg/mL (.); 1,25-Dihydroxy, Vitamin D-2 <10 pg/mL (.); 1,25-Dihydroxy, Vitamin D-3 26 pg/mL (.)
[2022-02-03 10:47] LABS: AChR Blocking Abs 65%
== END ==
PROVIDERS: PCP Emergency Medicine; Visit Provider Specialist
DX: C61 Malignant neoplasm of prostate (principal); E78.2 Mixed hyperlipidemia; G47.33 Obstructive sleep apnea (adult) (pediatric); G70.9 Myoneural disorder, unspecified; I11.9 Hypertensive heart disease without heart failure; I25.10 Atherosclerotic heart disease of native coronary artery without angina pectoris; I44.0 Atrioventricular block, first degree; I48.0 Paroxysmal atrial fibrillation; R00.1 Bradycardia, unspecified; R73.9 Hyperglycemia, unspecified; Z95.5 Presence of coronary angioplasty implant and graft; Z51.81 Encounter for therapeutic drug level monitoring; M54.9 Dorsalgia, unspecified
CPT/HCPCS: 36415; 71046; 72084; 80053; 82607; 82652; 82746; 83036; 84238; 84443; 85025; 85651; 86038; 86140

== ENCOUNTER → 2022-01-16 09:01 | Outpatient (CLI) | payer MEDICARE, SELFPAY ==
--- NOTE | 2022-01-16 09:53 | FL_ITS ---
FINAL REPORT CLINICAL HISTORY: . difficulty swallowing FINDINGS: ESOPHAGRAM HISTORY: Dysphagia PROCEDURE: The patient ingested barium. Effervescent crystals were also administered. Spot and overhead films were obtained. FINDINGS: The esophagus has a normal mucosa. There is a small to moderate size sliding type hiatal hernia. There is no gastroesophageal reflux. Peristalsis is normal. a gastric fundal diverticulum is incidentally noted. IMPRESSION: 1. Small sliding type hiatal hernia. 2. Gastric fundal diverticulum. Films reviewed , interpreted and dictated by Dr. Vergara Transcribed by Navjot Khan PA-C. Reviewed, Interpreted and Dictated by Jens Vergara III, MD Transcribed by NGUYỄN Linder Authenticated and [facility]
[2022-01-18 19:09] LABS: QuantiFERON-TB Gold Plus Negative (Negative)
== END ==
PROVIDERS: PCP Emergency Medicine; Visit Provider Specialist
DX: R13.10 Dysphagia, unspecified (principal); G70.9 Myoneural disorder, unspecified; I48.0 Paroxysmal atrial fibrillation; R73.9 Hyperglycemia, unspecified; C61 Malignant neoplasm of prostate; Z11.1 Encounter for screening for respiratory tuberculosis
CPT/HCPCS: 36415; 74220; 86480

== ENCOUNTER → 2022-01-20 12:54 | Outpatient (CLI) | payer MEDICARE, SELFPAY ==
[2022-01-20 14:05] VITALS: PULSE 61
== END ==
PROVIDERS: PCP Emergency Medicine; Visit Provider Specialist
DX: R13.10 Dysphagia, unspecified (principal); R06.02 Shortness of breath
CPT/HCPCS: 94060; 94618; 94640; 94727; 94729

== ENCOUNTER → 2022-01-23 12:55 | Outpatient (CLI) | payer MEDICARE, SELFPAY ==
--- NOTE | 2022-01-23 12:55 | MR_ITS ---
FINAL REPORT CLINICAL HISTORY: ptosis, weakness, diplopia, hx of ca. HX PROSTATE CANCER IN 2003. BLURRED VISION. 20ML PROHANCE GIVEN. FINDINGS: Multiplanar MR imaging of the brain was performed without and with contrast. There is mild age-appropriate atrophy. Scattered foci of increased T2 signal are seen in the cerebral white matter that have a nonspecific appearance but likely represent mild chronic ischemic/gliotic changes. There is no evidence of intracranial hemorrhage or mass. No abnormal ventricular dilatation is identified. There is no evidence of shift of the midline structures. No abnormal extra-axial fluid collection is seen. No area of abnormal restricted diffusion is identified. The posterior fossa and brainstem have an unremarkable appearance. No abnormal contrast enhancement is seen. Normal major vessel vascular flow voids are seen. IMPRESSION: Mild atrophy and chronic ischemic/gliotic changes. No acute intracranial abnormality. Reviewed, Interpreted and Dictated by Jens Vergara III, MD Transcribed by Mickie Jose Authenticated and [facility]
== END ==
PROVIDERS: PCP Emergency Medicine; Visit Provider Specialist
DX: C61 Malignant neoplasm of prostate (principal); E78.2 Mixed hyperlipidemia; G47.33 Obstructive sleep apnea (adult) (pediatric); I11.9 Hypertensive heart disease without heart failure; I25.10 Atherosclerotic heart disease of native coronary artery without angina pectoris; I44.0 Atrioventricular block, first degree; I48.0 Paroxysmal atrial fibrillation; R00.1 Bradycardia, unspecified; R73.9 Hyperglycemia, unspecified; Z95.5 Presence of coronary angioplasty implant and graft; G70.89 Other specified myoneural disorders
CPT/HCPCS: 70553; A9576

== ENCOUNTER → 2022-01-27 08:58 | Outpatient (CLI) | payer MEDICARE, SELFPAY ==
--- NOTE | 2022-01-27 08:58 | NM_ITS ---
FINAL REPORT CLINICAL HISTORY: Prostate cancer FINDINGS: EXISTING RELEVANT IMAGING STUDIES: Chest x-ray from December 2021; bone scan July 2017 TECHNIQUE: The patient was injected with 25.9 mCi of technetium 99-MDP. 3 hour delayed images were obtained. FINDINGS: There is increased tracer activity in the shoulders, wrists, knees, thoracic spine, and right foot. These are stable and felt to represent degenerative change. There are foci of increased tracer activity in the bilateral anterior 6th rib ends that appears symmetric. Due to the configuration this is felt to be posttraumatic. There is no convincing evidence of metastatic bone disease. IMPRESSION: No convincing evidence of metastatic bone disease. Increased tracer activity in the bilateral anterior 6th rib ends is felt to be posttraumatic. If indicated this could be further evaluated with CT or follow-up bone scan. Reviewed, Interpreted and Dictated by Jens Vergara III, MD Transcribed by Nikolai Mercer Authenticated and [facility]
== END ==
PROVIDERS: PCP Emergency Medicine; Visit Provider Specialist
DX: M89.8X9 Other specified disorders of bone, unspecified site (principal)
CPT/HCPCS: 78306; A9503

== ENCOUNTER → 2022-01-30 12:43 | Outpatient (CLI) | payer MEDICARE, SELFPAY ==
--- NOTE | 2022-01-30 12:43 | CT_ITS ---
FINAL REPORT TECHNIQUE: Pre and post contrast axial imaging of the chest was obtained. This study was performed with techniques to keep radiation doses as low as reasonably achievable (ALARA). Individualized dose reduction techniques using automated exposure control or adjustment of mA and/or kV according to the patient's size were employed. CLINICAL HISTORY: ptosis, weakness, diplopia, hx of ca COMPARISON: 04/17/2020 FINDINGS: There is no pulmonary mass or adenopathy. Mild pulmonary scarring is noted. The lungs are otherwise clear. There is no pleural or pericardial effusion. The heart is normal in size. Thoracic aorta is normal in caliber. There is a 17 mm mass in the upper pole of the right kidney measuring 25-30 Hounsfield units on postcontrast imaging concerning for neoplasm. IMPRESSION: 17 mm right renal mass worrisome for neoplasm. These findings were discussed with patient's nurse, Dena Weinstein at 2:34 p.m.. Reviewed, Interpreted and Dictated by Jens Vergara III, MD Transcribed by Kristy Nix Authenticated and [facility]
== END ==
PROVIDERS: PCP Emergency Medicine; Visit Provider Specialist
DX: C61 Malignant neoplasm of prostate (principal); E78.2 Mixed hyperlipidemia; G47.33 Obstructive sleep apnea (adult) (pediatric); G70.9 Myoneural disorder, unspecified; I11.9 Hypertensive heart disease without heart failure; I25.10 Atherosclerotic heart disease of native coronary artery without angina pectoris; I44.0 Atrioventricular block, first degree; I48.0 Paroxysmal atrial fibrillation; R00.1 Bradycardia, unspecified; R73.9 Hyperglycemia, unspecified; Z95.5 Presence of coronary angioplasty implant and graft
CPT/HCPCS: 71270; Q9967

== ENCOUNTER 2022-01-31 09:01 | Outpatient (CLI) | payer MEDICARE, SELFPAY ==
[2022-01-31] VITALS (7 sets, daily range): BP systolic 130–158; BP diastolic 59–87; PULSE 58–66; RESP 18–20; TEMP 36.3–36.4; O2SAT 97–99
== END 2022-01-31 13:34 | disposition home or self-care (01) ==
LOC: INF 09:03
PROVIDERS: PCP Emergency Medicine; Visit Provider Specialist
DX: G70.00 Myasthenia gravis without (acute) exacerbation (principal)
CPT/HCPCS: 96365; 96366; J1459

== ENCOUNTER 2022-05-03 08:57 | Outpatient (CLI) | payer MEDICARE, SELFPAY ==
[2022-05-03 10:05] VITALS: BP 132/73; PULSE 55; RESP 18; TEMP 36.1; O2SAT 99
[2022-05-03 10:35] VITALS: BP 114/64; PULSE 55; RESP 18; O2SAT 99
[2022-05-03 11:15] VITALS: BP 132/66; PULSE 58; RESP 18; O2SAT 99
[2022-05-03 11:45] VITALS: BP 124/69; PULSE 61; RESP 18; O2SAT 99
[2022-05-03 12:15] VITALS: BP 132/71; PULSE 64; RESP 18; O2SAT 98
[2022-05-03 13:05] VITALS: BP 127/71; PULSE 74; RESP 18; O2SAT 99
== END 2022-05-03 13:05 | disposition home or self-care (01) ==
LOC: INF 08:57
PROVIDERS: PCP Emergency Medicine; Visit Provider Specialist
DX: G70.9 Myoneural disorder, unspecified; G70.00 Myasthenia gravis without (acute) exacerbation
CPT/HCPCS: 96365; 96366; J1459

== ENCOUNTER 2022-07-26 09:52 | Outpatient (CLI) | payer MEDICARE, SELFPAY ==
[2022-07-26] VITALS (9 sets, daily range): BP systolic 121–146; BP diastolic 69–90; PULSE 53–65; RESP 20; TEMP 36.6; O2SAT 96–97
== END 2022-07-26 13:50 | disposition home or self-care (01) ==
PROVIDERS: PCP Emergency Medicine; Visit Provider Specialist
DX: G70.00 Myasthenia gravis without (acute) exacerbation (principal); Z51.12 Encounter for antineoplastic immunotherapy
CPT/HCPCS: 96365; 96366; J1459

== ENCOUNTER → 2022-07-27 10:01 | Outpatient (CLI) | payer MEDICARE, SELFPAY ==
--- NOTE | 2022-07-27 10:06 | XR_ITS ---
FINAL REPORT CLINICAL HISTORY: knee pain FINDINGS: Three views of the left knee reveal no evidence of fracture or dislocation. The bony alignment is normal. There are mild degenerative changes. There is no evidence of joint effusion. No localized soft tissue abnormality is seen. IMPRESSION: Mild degenerative change with no acute bony abnormality. Reviewed, Interpreted and Dictated by Jens Vergara III, MD Transcribed by Rosa Powers Authenticated and [facility]
== END ==
PROVIDERS: PCP Emergency Medicine; Visit Provider Orthopaedic Surgery
DX: M25.562 Pain in left knee (principal)
CPT/HCPCS: 73562

== ENCOUNTER → 2022-09-12 10:56 | Outpatient (CLI) | payer MEDICARE, SELFPAY ==
--- NOTE | 2022-09-12 11:05 | XR_ITS ---
FINAL REPORT CLINICAL HISTORY: rt knee pain FINDINGS: RIGHT KNEE 3 views of the right knee were obtained. There is no acute fracture or dislocation. Visualized joint spaces are normally aligned. Soft tissues are unremarkable. There is mild narrowing of the medial compartment joint space. Osteophytes are present on the superior margin of the patella. IMPRESSION: No acute bony abnormality. Mild changes of osteoarthritis particularly in the medial and patellofemoral compartments. Reviewed, Interpreted and Dictated by Jarad Gil MD Transcribed by Shamika White Authenticated and [facility]
== END ==
PROVIDERS: PCP Emergency Medicine; Visit Provider Orthopaedic Surgery
DX: M25.561 Pain in right knee (principal)
CPT/HCPCS: 73562

== ENCOUNTER 2022-10-18 09:59 | Outpatient (CLI) | payer MEDICARE, SELFPAY ==
[2022-10-18] VITALS (8 sets, daily range): BP systolic 121–132; BP diastolic 59–75; PULSE 51–58; RESP 18; TEMP 36.9; O2SAT 98
== END 2022-10-18 14:07 | disposition home or self-care (01) ==
LOC: INF 10:00
PROVIDERS: PCP Emergency Medicine; Visit Provider Specialist
DX: Z51.12 Encounter for antineoplastic immunotherapy; G70.00 Myasthenia gravis without (acute) exacerbation
CPT/HCPCS: 96365; 96366; J1459

== ENCOUNTER → 2022-11-09 13:54 | Outpatient (CLI) | payer MEDICARE, SELFPAY ==
[2022-11-09 14:26] LABS: Basophils % 0.3 % (0.1-2.0); Eosinophils % 0.5 % (0.1-12.0); Hematocrit 35.9 % (42.0-52.0); Hemoglobin 11.7 g/dL (14.1-18.0); Lymphocytes # 0.8 K/mm3 (0.7-4.5); Lymphocytes % 11.8 % (10-50); Mean Corpuscular HGB Conc 32.5 g/dL (31.8-35.4); Mean Corpuscular Hemoglobin 28.5 pg (27.0-31.2); Mean Corpuscular Volume 87.9 fl (80-94); Mean Platelet Volume 7.6 fl (7.4-10.4); Monocytes # 0.4 K/mm3 (0.1-1.0); Monocytes % 5.3 % (1.7-9.3); Neutrophils # 5.8 K/mm3 (1.8-7.8); Neutrophils % 81.9 % (37.0-80.0); Platelet Count 272 K/mm3 (142-424); Red Blood Count 4.09 M/mm3 (4.60-6.20)
[2022-11-09 15:13] LABS: Free T4 (Free Thyroxine) 1.54 ng/dl (0.78-2.19)
[2022-11-09 16:24] LABS: Chloride 104 mmol/L (98-107)
[2022-11-09 16:25] LABS: Potassium 4.4 mmoL/L (3.5-5.1); Sodium 138 mmol/L (136-145)
[2022-11-09 16:27] LABS: Alanine Aminotransferase 35 U/L (12-78); Anion Gap 7.4 mEq/L (5-15); Aspartate Amino Transferase 51 U/L (17-59); Bilirubin,Unconjugated 0.6 mg/dL (0.0-1.1); Blood Urea Nitrogen 22 mg/dl (9-20); Carbon Dioxide 31 mmol/L (22.0-30.0); Estimated Glomerular Filt Rate 110 ml/min (>60); GFR (African American) 133 ML/MIN (>60)
[2022-11-09 16:28] LABS: Alkaline Phosphatase 57 U/L (38-126); Bilirubin,Direct 0.3 mg/dl (0.0-0.4); Bilirubin,Indirect 0.6 mg/dL (0.0-0.9); Bilirubin,Total 0.9 mg/dl (0.2-1.3); Calcium 9.9 mg/dl (8.4-10.2); Chol/HDL Ratio 2.6 (1-3.5); Cholesterol 178 mg/dl (140-200); Glucose 113 mg/dl (74-100); HDL Cholesterol 69 mg/dl (40-60); Total Protein,Serum 7.8 g/dl (6.3-8.2); Triglycerides 161 mg/dl (30-150); VLDL Cholesterol 32 mg/dL (0-40)
[2022-11-09 16:39] LABS: Direct LDL Cholesterol 59.12 mg/dL (100-129)
[2022-11-09 16:58] LABS: Thyroid Stimulating Hormone 0.13 uIU/mL (0.465-4.68)
[2022-11-13 10:44] LABS: Iron 117 ug/dL (49-181)
[2022-11-13 10:53] LABS: Total Iron Binding Capacity 288 ug/dL (261-462)
[2022-11-13 11:20] LABS: Ferritin 283 ng/ml (17.9-464)
== END ==
PROVIDERS: PCP Emergency Medicine; Visit Provider Internal Medicine
DX: E78.5 Hyperlipidemia, unspecified (principal); G47.33 Obstructive sleep apnea (adult) (pediatric); I11.9 Hypertensive heart disease without heart failure; I25.10 Atherosclerotic heart disease of native coronary artery without angina pectoris; I48.0 Paroxysmal atrial fibrillation; R00.2 Palpitations; R06.00 Dyspnea, unspecified; I63.9 Cerebral infarction, unspecified; E11.9 Type 2 diabetes mellitus without complications; J12.82 Pneumonia due to coronavirus disease 2019
CPT/HCPCS: 36415; 80048; 80061; 80076; 82728; 83540; 83550; 84439; 84443; 85025

== ENCOUNTER → 2022-11-21 11:12 | Outpatient (POV) | payer MEDICARE, SELFPAY | PROVIDERS: Visit Provider Dermatology | DX: Z00.00 Encounter for general adult medical examination without abnormal findings (principal) ==

== ENCOUNTER 2022-12-15 19:58 | Inpatient (IN) | payer MEDICARE, SELFPAY ==
[2022-12-15] VITALS (8 sets, daily range): BP systolic 130–171; BP diastolic 67–99; PULSE 91–97; RESP 20–29; TEMP 37.1; O2SAT 98–99; BMI 34.7
--- NOTE | 2022-12-15 20:08 | ECG_ITS ---
APPROVED REPORT Exam: Resting ECG HR:82 bpm ECG Measurements Heart Rate 82 AXES QRSd 101 QRS -26 QT 341 T 47 QTc 379 Conclusion ATRIAL FIBRILLATION BORDERLINE LEFT AXIS DEVIATION [QRS AXIS < -20] VOLTAGE CRITERIA FOR LVH [MEETS CRITERIA IN ONE OF: R(aVL), S(V1), R(V5), R(V5/V6)+S(V1)] ABNORMAL ECG UNCONFIRMED REPORT Electronically signed by : Yohannes Millan MD 12/18/2022 15:55:10
--- NOTE | 2022-12-15 20:32 | CT_ITS ---
PROCEDURE INFORMATION: Exam: CTA Chest With Contrast Exam date and time: 12/15/2022 9:30 PM Age: 72 years old Clinical indication: Shortness of breath and tachypnea; Additional info: Recent surgery status post nephrectomy, tachypnea TECHNIQUE: Imaging protocol: Computed tomographic angiography of the chest with contrast. Exam focused on the arteries. 3D rendering (Not supervised by radiologist): MIP and/or 3D reconstructed images were created by the technologist. Radiation optimization: All CT scans at this facility use at least one of these dose optimization techniques: automated exposure control; mA and/or kV adjustment per patient size (includes targeted exams where dose is matched to clinical indication); or iterative reconstruction. Contrast material: ISOVUE; Contrast volume: 70 ml; Contrast route: INTRAVENOUS (IV); REPORTING DATA: Count of CT and Cardiac NM exams in prior 12 months: This patient has received [address] and 0 known cardiac nuclear medicine studies in the 12 months prior to the current study. COMPARISON: CT ANGIO CHEST 04/17/2020 3:16 PM FINDINGS: Pulmonary arteries: Acute pulmonary emboli within the right middle lobe pulmonary artery and its branches. No other definite pulmonary emboli. Main pulmonary artery is upper normal in caliber measuring 3 cm in diameter. Aorta: No aortic aneurysm. No aortic dissection or evidence of acute aortic abnormality. Mild scattered calcified plaque. Lungs: Scattered subsegmental atelectasis in the lungs. Mild right basilar opacities. Pleural spaces: No pneumothorax. No pleural effusion. Heart: Heart size is normal. No pericardial effusion. Heart RV/LV ratio: RV-LV ratio: 1.04. Coronary arteries: Mild/moderate coronary artery calcifications. Lymph nodes: No adenopathy. Bones/joints: No acute abnormality. Multilevel degenerative changes of the included spine are again demonstrated. Soft tissues: Unremarkable. Other findings: Scattered foci of free air in the included upper abdomen. Mild fat stranding/fluid within the included right renal bed. Indeterminate partially imaged soft tissue density adjacent to cholecystectomy clips along the anterior margin of the inferior liver, note this is only partially imaged and further imaging of the abdomen could be obtained to further evaluate as clinically indicated. Diverticulum at the gastric fundus is redemonstrated. Colonic diverticulosis. IMPRESSION: 1. Acute pulmonary emboli within the right middle lobe pulmonary artery and its branches. No other definite pulmonary emboli. RV:LV ratio: 1.04. Main pulmonary artery is upper normal caliber. 2. Scattered foci of free air in the included upper abdomen and mild fat stranding/fluid in the included right renal fossa, presumably related to recent surgery. 3. Scattered subsegmental atelectasis in the lungs. Mild right basilar opacities which may be due to atelectasis versus infectious/inflammatory process. 4. Indeterminate partially imaged soft tissue density adjacent to cholecystectomy clips along the anterior margin of the inferior liver, note this is only partially imaged and further imaging of the abdomen could be obtained to further evaluate as clinically indicated. 5. Multiple other chronic and incidental findings as above. THIS REPORT CONTAINS FINDINGS THAT MAY BE CRITICAL TO PATIENT CARE. The findings were verbally communicated via telephone conference at 10:06 PM EDT on 12/15/2022 with Reece Carmona. The findings were acknowledged and understood.
--- NOTE | 2022-12-15 20:32 | HMH.EDGENADL ---
Discharge Plan Disposition Patient Disposition: Admitted Chief Complaint: Shortness of Breath/Dyspnea Clinical Impressions Clinical Impression: Pulmonary embolism on right, Acute respiratory distress Discharge ED Provider: Reece Carmona General Adult HPI General Chief complaint: Shortness of Breath/Dyspnea Stated complaint: SOA Time Seen by Provider: 12/15/22 20:00 Mode of Arrival: Family Vehicle Source of Information: Patient and Spouse Limitations: No Limitations Description of Symptoms (Recalled from ER Triage Doc. 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 Pt stated that he feels like he cannot take a full breath. He feels like he is struggling for air. 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 Patient states that he had surgery on Sunday at [facility]. Since that time, has felt short of breath. Was discharged while feeling mildly short of breath, but not this bad. Assumed it would get better, but has gotten worse over the past couple of days. Came for further evaluation. Denies chest pain, nausea or vomiting, fevers or chills, or any other concerns. Related Data Home Medications Medication Instructions Recorded Confirmed aspirin 81 mg tablet,delayed 81 mg PO QDAY thinner 04/25/17 12/15/22 release (Adult Low Dose Aspirin) carvedilol 25 mg tablet 25 mg PO BID heart rate 07/26/22 12/15/22 pantoprazole 40 mg tablet,delayed 40 mg PO DAILY gerd 07/26/22 12/15/22 release pravastatin 10 mg tablet 10 mg PO HS Cholesterol 07/26/22 12/15/22 prednisone 10 mg tablet 15 mg PO DIRECTED Myasthenia 10/10/22 12/15/22 gravis lisinopril 20 See Rx Instructions .Route 12/15/22 12/15/22 mg-hydrochlorothiazide 12.5 mg .COMPLEX . tablet Previous Rx's Medication Instructions Recorded nitroglycerin 0.4 mg sublingual 0.4 mg sublingual Q5-15M PRN chest 11/01/17 tablet pain #30 tabs pyridostigmine bromide 60 mg 60 mg PO TID Myasthenia #360 tabs 03/27/22 tablet (Mestinon) Allergies Allergy/AdvReac Type Severity Reaction Status Date / Time pecan nut Allergy Intermediate Rash Verified 11/23/22 14:16 [facility] Disclaimer: The information contained in this section may have been updated after the patient was seen, as this information can be updated by other users. Medical History Fatigue First degree AV block Myasthenic syndrome Neurology consult 01/12/2022: Subacute onset of slowly progressive muscle weakness over the last month. 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 He was initially treated with prednisone 60 mg daily currently on 20 mg daily. Advised to decrease to 15 mg poqd as 07/10/2022, (upon returning from vacation in 2 weeks). Mestinon initially 30 mg p.o. 3 times daily for symptomatic therapy currently on 60 mg p.o. 3-4 times daily since 01/24/2022 and occasionally 30 mg in between doses. CAYETANO (obstructive sleep apnea) Back on AutoPap with excellent compliance, asymptomatic. Weight loss adviced today, (AHI >8). PAF (paroxysmal atrial fibrillation) Active follow-up with [facility] cardiology. Stable Prostate cancer genetic susceptibility Sinus bradycardia Surgical History H/O heart artery stent H/O vasectomy Hx of cholecystectomy Family History Other Cancer Coronary artery disease Heart attack Stroke Social History Smoking Status: Never smoker second hand exposure: No alcohol i
--- NOTE | 2022-12-15 20:33 | XR_ITS ---
PROCEDURE INFORMATION: Exam: XR Chest Exam date and time: 12/15/2022 9:14 PM Age: 72 years old Clinical indication: Tachypnea; Additional info: Recent surgery, tachypnea TECHNIQUE: Imaging protocol: Radiologic exam of the chest. Views: 1 view. COMPARISON: CT CHEST WO/W CON 01/30/2022 1:05 PM FINDINGS: Lungs: Hypoaeration of the lungs. Scattered subsegmental atelectasis in the left lung. Pleural spaces: No pleural effusion. No pneumothorax. Heart/Mediastinum: Cardiomediastinal silhouette is normal. Diaphragm: Mild asymmetric elevation of the left hemidiaphragm. Bones/joints: No acute abnormality. Intraperitoneal space: Known small amount of pneumoperitoneum below the right hemidiaphragm from recent surgery. IMPRESSION: 1. Scattered subsegmental atelectasis in the lungs. 2. Known small amount of pneumoperitoneum below the right hemidiaphragm from recent surgery.
[2022-12-15 20:43] LABS: Basophils % 0.1 % (0.1-2.0); Eosinophils # 0.2 K/mm3 (0.0-0.4); Eosinophils % 1.5 % (0.1-12.0); Hemoglobin 11.4 g/dL (14.1-18.0); Lymphocytes # 1.2 K/mm3 (0.7-4.5); Lymphocytes % 8.1 % (10-50); Mean Corpuscular HGB Conc 33.5 g/dL (31.8-35.4); Mean Corpuscular Volume 89.5 fl (80-94); Mean Platelet Volume 7.9 fl (7.4-10.4); Monocytes % 7.2 % (1.7-9.3); Neutrophils # 11.9 K/mm3 (1.8-7.8); Platelet Count 356 K/mm3 (142-424); Red Cell Distribution Width 14.1 % (11.5-17.5); White Blood Count 14.3 K/mm3 (4.8-10.8)
[2022-12-15 20:44] LABS: Lactic Acid 1.4 mmol/L (0.7-2.1)
[2022-12-15 20:45] LABS: Alanine Aminotransferase 42 U/L (12-78); Albumin Level 3.8 g/dl (3.5-5.0); Albumin/Globulin Ratio 1.1 (1.1-1.8); Alkaline Phosphatase 66 U/L (38-126); Anion Gap 9.7 mEq/L (5-15); Aspartate Amino Transferase 52 U/L (17-59); Bilirubin,Total 0.4 mg/dl (0.2-1.3); Blood Urea Nitrogen 36 mg/dl (9-20); Calcium 9.4 mg/dl (8.4-10.2); Carbon Dioxide 30 mmol/L (22.0-30.0); Chloride 100 mmol/L (98-107); Creatinine Clearance Estimated 102 mL/min (50-200); Estimated Glomerular Filt Rate 65 ml/min (>60); GFR (African American) 79 ML/MIN (>60); Globulin 3.4 g/dL (1.3-3.2); Glucose 111 mg/dl (74-100); Potassium 3.7 mmoL/L (3.5-5.1); Sodium 136 mmol/L (136-145); Total Protein,Serum 7.2 g/dl (6.3-8.2)
[2022-12-15 20:58] LABS: NT Pro Brain Natriuretic Pep. 559 pg/mL (0-125)
[2022-12-15 20:59] LABS: Troponin I < 0.01 ng/ml (0.00-0.034)
--- NOTE | 2022-12-15 21:06 | PC.NURSE ---
pt states his surgeon at [facility] told him not to take ASA related to bleeding because of his surgery, provider aware
[2022-12-15 21:16] LABS: Thyroid Stimulating Hormone 0.31 uIU/mL (0.465-4.68)
[2022-12-15 21:21] LABS: VBG Base Excess 2.4 mmol/L (-2.4-2.3); VBG HCO3 27.4 mmol/L (23-30); VBG Oxygen Saturation 75.9 % (50-70); VBG PCO2 46.7 mmol/L (35-51); VBG PH 7.39 mmol/L (7.31-7.41); VBG Total CO2 28.9 mmol/L (23-27)
--- NOTE | 2022-12-15 22:01 | PC.NURSE ---
on phone with RICH
--- NOTE | 2022-12-15 22:26 | PC.NURSE ---
Dr Carmona speaking to Hospitalist
--- NOTE | 2022-12-15 22:35 | PC.NURSE ---
placed call to [facility] hospitalist to call back.
--- NOTE | 2022-12-15 22:38 | PC.NURSE ---
pt wishes to stay here, [facility] called and [facility] to cancel transfer
--- NOTE | 2022-12-15 22:56 | PC.NURSE ---
OBSERVATION ADMISSION 208 DX OF PE, TO SERVICE OF THE HOSPITALIST.
--- NOTE | 2022-12-15 23:12 | PC.NURSE ---
Called report to marina STEPHEN
--- NOTE | 2022-12-15 23:15 | PC.NURSE ---
2300 received report from Monroe Powers rn/ed. 72 yo male admitted to med surg with PE. currently on Heparine drip. to be admitted to room 208.
--- NOTE | 2022-12-15 23:17 | EXP.HP ---
History of Present Illness *Admission Date: 12/16/22 *Reason for visit:: PE *History of present illness: 72-year-old male presented to the ED for c/o SOB since Sunday night. The pt was discharged from Health system on night s/p biopsy of right kidney for renal mass. PMHX of hypertension, hyperlipidemia, myasthenia gravis, paroxysmal A-fib not on anticoagulation. Assumed the SOB would get better, but has gotten worse over the past couple of days. Came for further evaluation. Denies chest pain, nausea or vomiting, fevers or chills, or any other concerns. ED workup revealed CTA of chest that resulted in Acute pulmonary emboli within the right middle lobe pulmonary artery. The RV:LV ratio is 1.0. The PESI score is a class 3. His blood work revealed a leukocytosis of 14.3 and BNP of 559. The pt c/o left lower leg pain as well. He states the left leg is colder than the right and both legs are swollen more than normal. The ED physician attempted to transfer the pt back to [facility] due to post operative complication. The pt refused. The ED physician spoke with the hospitalist team for further medical management. The patient was admitted to the medical floor with a cardiology and pulmonary consult placed. He is alert and oriented X 4. He is no respiratory distress. His troponins are negative and his ekg is with out ST elevation. [facility] Disclaimer: The information contained in this section may have been updated after the patient was seen, as this information can be updated by other users. Medical History Fatigue First degree AV block Myasthenic syndrome Neurology consult 01/12/2022: Subacute onset of slowly progressive muscle weakness over the last month. 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 He was initially treated with prednisone 60 mg daily currently on 20 mg daily. Advised to decrease to 15 mg poqd as 07/10/2022, (upon returning from vacation in 2 weeks). Mestinon initially 30 mg p.o. 3 times daily for symptomatic therapy currently on 60 mg p.o. 3-4 times daily since 01/24/2022 and occasionally 30 mg in between doses. CAYETANO (obstructive sleep apnea) Back on AutoPap with excellent compliance, asymptomatic. Weight loss adviced today, (AHI >8). PAF (paroxysmal atrial fibrillation) Active follow-up with [facility] cardiology. Stable Prostate cancer genetic susceptibility Sinus bradycardia Surgical History H/O heart artery stent H/O vasectomy Hx of cholecystectomy Family History Other Cancer Coronary artery disease Heart attack Stroke Social History (Updated 12/16/22 @ 00:11 by Mildred Pacheco RN) Smoking Status: Never smoker second hand exposure: No alcohol intake: never counseling provided: none substance use type: denies use current occupational status: retired Travel in the last 8 weeks: Inside the [place] household members: spouse housing: house current occupational exposures/hazards: No caffeine: Yes Review of Systems *Cardiovascular Cardiovascular: Reports dyspnea and Reports dyspnea on exertion *Respiratory Respiratory: Reports dyspnea, Reports dyspnea on exertion and Reports pain on inspiration *Gastrointestinal Gastrointestinal: Reports system reviewed and no additional complaints, except as documented *Genitourinary Genitourinary: Reports system reviewed and no additional complaints, except as documented *Musculoskeletal Musculoskeletal: Reports back pain *Neurologic Neurologic: Reports system reviewed and no additional complaints, except as documented Meds Home Medications and Allergies Home Medications Medication Instructions Recorded Confirmed Type aspirin 81
--- NOTE | 2022-12-15 23:20 | PC.NURSE ---
pt arrived to floor via stretcher @8600
[2022-12-16] VITALS: BP 144/83; PULSE 95; RESP 30; TEMP 36.8; O2SAT 90; BMI 27.6
[2022-12-16 00:13] LABS: Troponin I 0.01 ng/ml (0.00-0.034)
--- NOTE | 2022-12-16 00:40 | PC.NURSE ---
0035 SPOKE WITH [facility] PHARMACIST RE APTT 200. INSTRUCTED TO CONTINUE HEPAINE DRIP IS AND REPEAT THE APTT.
--- NOTE | 2022-12-16 01:08 | ECG_ITS ---
APPROVED REPORT Exam: Resting ECG HR:91 bpm ECG Measurements Heart Rate 91 AXES ID 258 P 74 QRSd 115 QRS -40 QT 367 T 73 QTc 416 Conclusion SINUS RHYTHM WITH FIRST DEGREE AV BLOCK LEFT AXIS DEVIATION [QRS AXIS < -30] MINIMAL VOLTAGE CRITERIA FOR LVH, CONSIDER NORMAL VARIANT [MEETS CRITERIA IN ONE OF: R(aVL), S(V1), R(V5), R(V5/V6)+S(V1)] POSSIBLE SEPTAL MYOCARDIAL INFARCTION , PROBABLY OLD [30 ms Q WAVE IN V1/V2] POSSIBLE LATERAL MYOCARDIAL INFARCTION , OF INDETERMINATE AGE [30 ms Q WAVE IN I/aVL/V5/V6] ABNORMAL ECG UNCONFIRMED REPORT Electronically signed by : Yohannes Millan MD 12/18/2022 15:54:50
[2022-12-16 02:04] LABS: PTT Heparin (inpatient only) > 200.0 Seconds (23.6-34.0)
--- NOTE | 2022-12-16 02:08 | PC.NURSE ---
0209 Leilani from [facility] called to inform me that aptt was > 200. no changes to be made at this time. continue Heparin drip at 2000units/hr.
--- NOTE | 2022-12-16 02:11 | PC.NURSE ---
NEXT APTT WILL BE DUE AT 0530.
[2022-12-16 03:09] LABS: Troponin I 0.02 ng/ml (0.00-0.034)
[2022-12-16 04:00] VITALS: BP 116/71; PULSE 77; PULSE 84; RESP 28; TEMP 36.8; O2SAT 97; BMI 27.6
--- NOTE | 2022-12-16 06:15 | PC.NURSE ---
PATIENT RESTING IN BED. HAS NOT RESTED WELL. SLEPT AT SHORT INTERVAL. ABDOMEN SOFT, DISTENDED, BOWEL SOUNDS ACTIVE X 4. PASSING SMALL AMTS GAS. NO BM SINCE SURGERY 12/11 TO REMOVE TUMOR FROM RIGHT KIDNEY. SURGICAL WOUNDS X 5 NOTED. DRESSINGS WERE NOT CHANGED. LARGE REDDISH BRUISE UNCHANGED TO LEFT BACK. 1+ EDEMA BLEs. HAS MALE PUREWICK. HAS 02 AT 4LNC. HIGH DOSE HEPARIN PROTOCOL IN USE. [facility] GUIDING ADMINISTRATION OF HEPARIN.
[2022-12-16 08:00] VITALS: BP 156/74; PULSE 85; RESP 24; TEMP 36.8; O2SAT 100
[2022-12-16 08:06] VITALS: PULSE 60
[2022-12-16 08:15] LABS: Basophils % 0.3 % (0.1-2.0); Eosinophils # 0.4 K/mm3 (0.0-0.4); Eosinophils % 3.5 % (0.1-12.0); Hematocrit 33.1 % (42.0-52.0); Hemoglobin 10.8 g/dL (14.1-18.0); Lymphocytes # 1.4 K/mm3 (0.7-4.5); Lymphocytes % 12.1 % (10-50); Mean Corpuscular HGB Conc 32.6 g/dL (31.8-35.4); Mean Corpuscular Hemoglobin 29.5 pg (27.0-31.2); Mean Corpuscular Volume 90.6 fl (80-94); Mean Platelet Volume 8.5 fl (7.4-10.4); Monocytes % 8.7 % (1.7-9.3); Neutrophils # 8.6 K/mm3 (1.8-7.8); Neutrophils % 75.4 % (37.0-80.0); Platelet Count 320 K/mm3 (142-424); Red Blood Count 3.65 M/mm3 (4.60-6.20); White Blood Count 11.4 K/mm3 (4.8-10.8)
[2022-12-16 08:22] LABS: Anion Gap 12.1 mEq/L (5-15); Blood Urea Nitrogen 32 mg/dl (9-20); Calcium 8.8 mg/dl (8.4-10.2); Carbon Dioxide 27 mmol/L (22.0-30.0); Chloride 100 mmol/L (98-107); Creatinine Clearance Estimated 90 mL/min (50-200); Estimated Glomerular Filt Rate 82 ml/min (>60); GFR (African American) 100 ML/MIN (>60); Glucose 126 mg/dl (74-100); Potassium 3.1 mmoL/L (3.5-5.1); Sodium 136 mmol/L (136-145)
[2022-12-16 08:31] LABS: Troponin I 0.02 ng/ml (0.00-0.034)
--- NOTE | 2022-12-16 08:35 | EXP.PN ---
Subjective *Date: 12/16/22 *Time: 08:35 Exam Data for Last 24 hours Vital signs and Labs for Last 24 Hours: Temp Pulse Resp BP Pulse Ox O2 Del Method O2 Flow Rate 98.3 F 84 28 H 116/71 97 Nasal Cannula 4 12/16/22 04:00 12/16/22 04:00 12/16/22 04:00 12/16/22 04:00 12/16/22 04:00 12/16/22 08:20 12/16/22 08:20 Laboratory Results - last 24 hr 12/15/22 20:09: WBC 14.3 H, RBC 3.80 L, Hgb 11.4 L, Hct 34.0 L, MCV 89.5, MCH 30.0, MCHC 33.5, RDW 14.1, Plt Count 356, MPV 7.9, Neut % (Auto) 83.0 H, Lymph % (Auto) 8.1 L, Chaves % (Auto) 7.2, Eos % (Auto) 1.5, Baso % (Auto) 0.1, Neut # (Auto) 11.9 H, Lymph # (Auto) 1.2, Chaves # (Auto) 1.0, Eos # (Auto) 0.2, Baso # (Auto) 0.0, APTT 23.0 L, Sodium 136, Potassium 3.7, Chloride 100, Carbon Dioxide 30, Anion Gap 9.7, BUN 36 H, Creatinine 1.10, Estimated Creat Clear 102, Estimated GFR 65, Est GFR ( Amer) 79, Glucose 111 H, Lactate 1.4, Calcium 9.4, Total Bilirubin 0.4, AST 52, ALT 42, Alkaline Phosphatase 66, Troponin I < 0.01, NT-Pro-B Natriuret Pep 559 H, Total Protein 7.2, Albumin 3.8, Globulin 3.4 H, Albumin/Globulin Ratio 1.1, TSH 0.31 L, Thyroxine (T4) 13.0 H 12/15/22 20:33: VBG pH 7.39, VBG pCO2 46.7, VBG pO2 42.0 H, VBG HCO3 27.4, VBG Total CO2 28.9 H, VBG O2 Saturation 75.9 H, VBG Base Excess 2.4 H 12/15/22 23:35: APTT 200.0 H*, Troponin I 0.01 12/16/22 01:30: APTT > 200.0 H* 12/16/22 02:40: Troponin I 0.02 12/16/22 06:29: WBC 11.4 H, RBC 3.65 L, Hgb 10.8 L, Hct 33.1 L, MCV 90.6, MCH 29.5, MCHC 32.6, RDW 14.0, Plt Count 320, MPV 8.5, Neut % (Auto) 75.4, Lymph % (Auto) 12.1, Chaves % (Auto) 8.7, Eos % (Auto) 3.5, Baso % (Auto) 0.3, Neut # (Auto) 8.6 H, Lymph # (Auto) 1.4, Chaves # (Auto) 1.0, Eos # (Auto) 0.4, Baso # (Auto) 0.0, Sodium 136, Potassium 3.1 L, Chloride 100, Carbon Dioxide 27, Anion Gap 12.1, BUN 32 H, Creatinine 0.90, Estimated Creat Clear 90, Estimated GFR 82, Est GFR ( Amer) 100 D, Glucose 126 H, Calcium 8.8, Troponin I 0.02 I & O for Last 24 hours: Intake & Output 12/13/22 12/14/22 12/15/22 12/16/22 23:59 23:59 23:59 23:59 Output Total 500 / 500 Balance -500 / -500 Weight 122.924 kg 97.795 kg
--- NOTE | 2022-12-16 10:24 | EXP.DC.SUM ---
General Admission date:: 12/15/22 Discharge date: 12/16/22 HPI HPI HPI: Forwarded from Admission H&P: 72-year-old male presented to the ED for c/o SOB since Sunday. The pt was discharged from [facility] on s/p biopsy of right kidney for renal mass. PMHX of hypertension, hyperlipidemia, myasthenia gravis, paroxysmal A-fib not on anticoagulation. Assumed the SOB would get better, but has gotten worse over the past couple of days. Came for further evaluation. Denies chest pain, nausea or vomiting, fevers or chills, or any other concerns. ED workup revealed CTA of chest that resulted in Acute pulmonary emboli within the right middle lobe pulmonary artery. The RV:LV ratio is 1.0. The PESI score is a class 3. His blood work revealed a leukocytosis of 14.3 and BNP of 559. The pt c/o left lower leg pain as well. He states the left leg is colder than the right and both legs are swollen more than normal. The ED physician attempted to transfer the pt back to [facility] due to post operative complication. The pt refused. The ED physician spoke with the hospitalist team for further medical management. The patient was admitted to the medical floor with a cardiology and pulmonary consult placed. He is alert and oriented X 4. He is no respiratory distress. His troponins are negative and his ekg is with out ST elevation. Hospital Course Hospital Course Hospital Course: Forwarded from Admission H&P: ((((((((72-year-old male presented to the ED for c/o SOB since Sunday. The pt was discharged from [facility] on s/p biopsy of right kidney for renal mass. Denies chest pain, nausea or vomiting, fevers or chills, or any other concerns. ED workup revealed CTA of chest that resulted in Acute pulmonary emboli within the right middle lobe pulmonary artery. The RV:LV ratio is 1.0. The PESI score is a class 3. His blood work revealed a leukocytosis of 14.3 and BNP of 559. The ED physician attempted to transfer the pt back to [facility] due to post operative complication. The pt refused. The ED physician spoke with the hospitalist team for further medical management. The patient was admitted to the medical floor with a cardiology and pulmonary consult placed. He is alert and oriented X 4. He is no respiratory distress. His troponins are negative and his ekg is with out ST elevation. PE S/P BIOPSY OF KIDNEY -pt was discharged from [facility] on night s/p biopsy of right kidney for renal mass. He has been c/o SOB since Sunday. -The ED physician attempted to transfer the pt back to [facility] due to post operative complication. Pt refused -CTA of chest was obtained in ED and revealed Acute pulmonary emboli within the right middle lobe pulmonary artery. -HIS RV:LV ratio is 1.0 and his PESI was a class 3 -ECHO pending, Duplex doppler LE pending -EKG obtained in ED was full of artifact. Repeat EKG upon admission reveals first degree AV block. No St elevation -Pt was started on heparin gtt for treatment of PE -> Trend CBC daily -Maintain 02 above 92% -Cardiology and pulmonary consult placed. Thank you for the recommendations PAF CAD HLD CAD HTN MYASTHENIA -continue home carvediolol 25mg, lisinopril hydrochlorothiazide, pantoprazole 40 mg, pravastatin 10 mg, and pyridostigmine bromide 60 mg ))))))) After the patient arrived to the floor he became agreeable to transfer to [facility]. The patient's troponin levels trended <0.01 -0.01 -0.02 - 0.02 I discussed the case with Dr. Conley and he recommended transfer to a higher level of care. The patient will be transferring to [facility]. Accepting physician is Dr. Coyle. Exam Data for Last 24 hours Vital signs and Labs for Last 24 Hours: Temp Pulse Resp BP Pulse Ox O2 Del Method O2 Flow Rate 98.3 F 60 24 156/74 H 100 Nasal Cannula 4 12/16/22 08:00 12/16/22 08:06 12/16/22 08:00
--- NOTE | 2022-12-16 10:53 | PC.WOUNDNOTE ---
PT IS BEING TRANSFERRED TO [facility]. REPORT CALLED TO [facility]. DRESSINGS TO PT'S ABDOMEN CHANGED. PT HAS BEEN UP TO THE [facility] WITH 1 ASSIST. PT GETS VERY SOA WITH MINIMAL ACTIVITY. PURWICK IN PLACE. AWAITING AMBULANCE TRANSFER.
== END 2022-12-16 11:28 | disposition short-term general hospital (02) | DRG 301 ==
LOC: ER 20:04 → 2ND 22:59
PROVIDERS: Internal Medicine; Nurse Practitioner Critical Care Medicine; Admitting Provider Internal Medicine; Emergency Provider Emergency Medicine; PCP Emergency Medicine; Visit Provider Internal Medicine
DX: T81.718A Complication of other artery following a procedure, not elsewhere classified, initial encounter (principal); I26.99 Other pulmonary embolism without acute cor pulmonale; E78.2 Mixed hyperlipidemia; I48.0 Paroxysmal atrial fibrillation; I25.10 Atherosclerotic heart disease of native coronary artery without angina pectoris; I10 Essential (primary) hypertension; G70.00 Myasthenia gravis without (acute) exacerbation; G47.33 Obstructive sleep apnea (adult) (pediatric); Z86.718 Personal history of other venous thrombosis and embolism
CPT/HCPCS: 36415; 71045; 71275; 80048; 80053; 82803; 83605; 83880; 84436; 84443; 84484; 85025; 85730; 93005; 99291; G0378; Q9967

== ENCOUNTER 2023-01-17 10:01 | Outpatient (CLI) | payer MEDICARE, SELFPAY ==
[2023-01-17] VITALS (7 sets, daily range): BP systolic 128–155; BP diastolic 62–80; PULSE 50–68; RESP 18; TEMP 36.7; O2SAT 98–99
== END 2023-01-17 14:10 | disposition home or self-care (01) ==
LOC: INF 10:02
PROVIDERS: PCP Emergency Medicine; Visit Provider Specialist
DX: G70.00 Myasthenia gravis without (acute) exacerbation (principal); Z51.12 Encounter for antineoplastic immunotherapy
CPT/HCPCS: 96365; 96366; J1459

== ENCOUNTER → 2023-01-31 12:32 | Outpatient (CLI) | payer MEDICARE, SELFPAY ==
--- NOTE | 2023-01-31 12:38 | XR_ITS ---
FINAL REPORT CLINICAL HISTORY: back pain, NO KNOWN INJURY , H/O CANCER FINDINGS: Pelvis A single view was obtained. There is no acute fracture or dislocation. There are postoperative changes in the lower pelvis. There are degenerative changes in the lower lumbar spine and both hips. No soft tissue abnormality is identified. IMPRESSION: Degenerative and postoperative changes as above. Reviewed, Interpreted and Dictated by Jens Vergara III, MD Transcribed by Gisselle Edouard Authenticated and [facility]
--- NOTE | 2023-01-31 12:38 | XR_ITS ---
FINAL REPORT CLINICAL HISTORY: back pain, NO KNOWN INJURY, HX OF CANCER FINDINGS: LUMBAR SPINE Five views demonstrate no acute fracture. There are mild and moderate degenerative changes with multilevel osteophytes. There is no malalignment. IMPRESSION: Degenerative changes as above. Reviewed, Interpreted and Dictated by Jens Vergara III, MD Transcribed by Gisselle Edouard Authenticated and [facility]
== END ==
PROVIDERS: PCP Emergency Medicine; Visit Provider Emergency Medicine
DX: M54.9 Dorsalgia, unspecified (principal); M54.50 Low back pain, unspecified
CPT/HCPCS: 72110; 72170

== ENCOUNTER → 2023-02-19 14:00 | Outpatient (CLI) | payer MEDICARE, SELFPAY ==
[2023-02-19 15:38] LABS: Alanine Aminotransferase 29 U/L (12-78); Albumin Level 3.8 g/dl (3.5-5.0); Albumin/Globulin Ratio 1.2 (1.1-1.8); Alkaline Phosphatase 78 U/L (38-126); Anion Gap 10.2 mEq/L (5-15); Aspartate Amino Transferase 42 U/L (17-59); Bilirubin,Total 0.4 mg/dl (0.2-1.3); Blood Urea Nitrogen 25 mg/dl (9-20); Calcium 9.5 mg/dl (8.4-10.2); Carbon Dioxide 31 mmol/L (22.0-30.0); Chloride 100 mmol/L (98-107); Estimated Glomerular Filt Rate 82 ml/min (>60); GFR (African American) 100 ML/MIN (>60); Globulin 3.3 g/dL (1.3-3.2); Glucose 108 mg/dl (74-100); Potassium 4.2 mmoL/L (3.5-5.1); Sodium 137 mmol/L (136-145); Total Protein,Serum 7.1 g/dl (6.3-8.2)
== END ==
PROVIDERS: PCP Emergency Medicine; Visit Provider Specialist
DX: C61 Malignant neoplasm of prostate (principal); G70.00 Myasthenia gravis without (acute) exacerbation; M54.50 Low back pain, unspecified
CPT/HCPCS: 36415; 80053

== ENCOUNTER → 2023-02-22 13:26 | Outpatient (CLI) | payer MEDICARE, SELFPAY ==
--- NOTE | 2023-02-22 13:30 | MR_ITS ---
FINAL REPORT CLINICAL HISTORY: New severe back pain, prostate cancer, kidney mass. patient states nki but new onset of LBP. COMPARISON: None FINDINGS: Multiplanar MR imaging of the lumbar spine was performed without and with contrast. On the sagittal T2-weighted images, abnormal decreased signal is seen throughout. There is for 20% loss of height at the superior endplate of L4. There is mild edema at the superior endplate of L4, probably due to subacute insufficiency. There is no evidence of fracture. The conus is seen at approximately the L1 level and has an unremarkable appearance. L1-2: No significant canal stenosis or neuroforaminal narrowing is seen. L2-3: No significant canal stenosis or neuroforaminal narrowing is seen. L3-4: Mild endplate hypertrophy. Mild bilateral neuroforaminal narrowing. L4-5: Mild to moderate diffuse disc bulge. Mild bilateral neuroforaminal narrowing. L5-S1: Mild diffuse disc bulge. Mild bilateral neuroforaminal narrowing. On postinfusion images, there is enhancement seen within the abnormal signal of the superior portion of the L4 vertebra. There is mild indentation of the superior plate of L5 which appears chronic. IMPRESSION: Indentations at the superior endplates of L4 and L5 with marrow edema and enhancement involving the superior endplate of L4 probably due to to light subacute insufficiency fracture. Reviewed, Interpreted and Dictated by Jarad Gil MD Transcribed by Lyndsey Michaud Authenticated and [facility]
== END ==
PROVIDERS: PCP Emergency Medicine; Visit Provider Specialist
DX: M54.50 Low back pain, unspecified (principal); C61 Malignant neoplasm of prostate
CPT/HCPCS: 72158; 76376

== ENCOUNTER → 2023-02-28 11:01 | Outpatient (POV) | payer MEDICARE, SELFPAY ==
[2023-02-28 11:53] VITALS: BP 125/64; PULSE 69; RESP 18; O2SAT 98; BMI 34.0
--- NOTE | 2023-02-28 13:06 | EXP.PAIN.OV ---
HPI Data of Consult Requesting Physician: Aline Zepeda APRN Primary Care Provider: Justen Palomo MD Consult Narrative Reason for consult: Low back pain, left hip pain History of present illness: Mr. Ayala is a 73 year old male who presents today as a new patient. He is a referral from Dr. Herndon's office. Today he rates his pain a 5 out of 10. Patient states his pain is all in his low back with occasional radiating symptoms to his left hip. Patient does state that he has had a long history of low back pain in the past and that it can wax and wane however his pain worsened 4 weeks ago. He describes this as a sharp stabbing sensation that can be dull with medication however he states its been staying fairly constant. Patient states the pain does interfere with his ability perform activities of daily living such as cooking or cleaning or even ambulation. Patient has tried [id number] medications as well as ice and a TENS unit with minimal improvement. Patient did go to his primary care provider and was prescribed Percocet 5 mg 3 times a day. He states this does help. He is interested in any help we may be able to provide. Patient does have a heart history, myasthenia's gravis and prostate cancer. His Chavo has been reviewed and appropriate. CC: Aline Zepeda APRN [facility] Disclaimer: The information contained in this section may have been updated after the patient was seen, as this information can be updated by other users. Medical History (Updated 02/28/23 @ 13:10 by Aline Zepeda APRN) Fatigue First degree AV block Myasthenic syndrome CAYETANO (obstructive sleep apnea) PAF (paroxysmal atrial fibrillation) Prostate cancer Prostate cancer genetic susceptibility Sinus bradycardia Surgical History H/O heart artery stent H/O vasectomy Hx of cholecystectomy Family History Other Cancer Coronary artery disease Heart attack Stroke Social History (Updated 02/28/23 @ 11:57 by Antonia Posey RN) Smoking Status: Never smoker second hand exposure: No alcohol intake: never counseling provided: none substance use type: denies use current occupational status: retired Travel in the last 8 weeks: None household members: spouse housing: house current occupational exposures/hazards: No caffeine: Yes Review of Systems Review of Systems Review of systems:: pertinent systems reviewed and negative unless documented below Review of systems (narrative): Review of Systems: General: No recent weight changes, no fever, no sleep disturbances Respiratory: No cough, no shortness of air, no recurring pulmonary infections Cardiovascular/peripheral vascular: No chest pain, no palpitations, no edema, no shortness of breath Gastrointestinal: No new onset incontinence, normal bowel movements reported Genitourinary: No new onset incontinence Musculoskeletal: Low back pain, left hip pain Psychiatric: [Normal mood/affect] Neurological: [Denies weakness in extremities], [denies balance issues] Meds Home Medications and Allergies Home Medications Medication Instructions Recorded Confirmed Type aspirin 81 mg tablet,delayed 81 mg PO QDAY thinner 04/25/17 02/28/23 History release (Adult Low Dose Aspirin) nitroglycerin 0.4 mg sublingual 0.4 mg sublingual Q5-15M PRN chest 11/01/17 02/28/23 Rx tablet pain #30 tabs pyridostigmine bromide 60 mg 60 mg PO TID Myasthenia #360 tabs 03/27/22 02/28/23 Rx tablet (Mestinon) lisinopril 20 See Rx Instructions .Route 12/15/22 02/28/23 History mg-hydrochlorothiazide 12.5 mg .COMPLEX . tablet pantoprazole 40 mg tablet,delayed See Rx Instructions .Route 12/29/22 02/28/23 Rx release .COMPLEX #90 tabs pravastatin 10 mg tablet See Rx Instructions .Route 12/29/22 02/28/23 Rx .COMPLEX #90 tabs apixaban 5 mg tablet (Eliquis) 5 mg PO BID #60 tabs 01/17/23
== END ==
PROVIDERS: PCP Emergency Medicine; Visit Provider Nurse Practitioner Family
DX: M54.50 Low back pain, unspecified (principal); G89.29 Other chronic pain; M25.552 Pain in left hip
CPT/HCPCS: 99202; G0463

== ENCOUNTER 2023-03-14 13:00 | Outpatient (RCR) | payer MEDICARE, SELFPAY | END 2023-03-14 14:20 | disposition home or self-care (01) | LOC: PT 13:00 | PROVIDERS: PCP Emergency Medicine; Visit Provider Specialist | DX: M54.50 Low back pain, unspecified (principal) | CPT/HCPCS: 97010; 97014; 97110; 97163; 97530; G0283 ==

== ENCOUNTER → 2023-03-28 09:24 | Outpatient (CLI) | payer MEDICARE, SELFPAY ==
--- NOTE | 2023-03-28 09:24 | XR_ITS ---
FINAL REPORT CLINICAL HISTORY: osteoporosis screening, h/o prostate cancer, pain in low back COMPARISON: None FINDINGS: Using L1-4, the bone mineral density of the spine is 1.127 g/cm2, corresponding to T-score of 0.3, within normal limits. Using the left hip, the bone mineral density of the femoral neck is 0.791 g/cm2, corresponding to a T-score of -1.0, within normal limits. Using the right hip, the bone mineral density of the femoral neck is 0.840 g/cm2, corresponding to a T-score of -0.7, within normal limits. FRAX not reported because all T-scores at or above -1.0 NOTE: T-score: Standard deviation compared with peak bone mass of young adult mean. *Following the recommendations of the International Society of Bone densitometry, classification of hip BMD is based on the lower of two T-scores; total hip or femoral neck. IMPRESSION: Normal bone mineral density of the lumbar spine and hips. Reviewed, Interpreted and Dictated by Jarad Gil MD Transcribed by Lyndsey Michaud Authenticated and [facility]
== END ==
PROVIDERS: PCP Internal Medicine; Visit Provider Specialist
DX: M81.0 Age-related osteoporosis without current pathological fracture (principal); M54.50 Low back pain, unspecified; G89.29 Other chronic pain
CPT/HCPCS: 77080

== ENCOUNTER → 2023-03-29 13:08 | Outpatient (POV) | payer MEDICARE, SELFPAY ==
[2023-03-29 13:49] VITALS: BP 136/77; PULSE 68; RESP 18; O2SAT 99; BMI 34.0
--- NOTE | 2023-03-29 15:17 | EXP.PAIN.SOA ---
[facility] Pain Management SOAP Note Subjective:: Patient is a pleasant 73-year-old male who presents today for follow-up. We are currently treating the patient for low back pain, left hip pain, degenerative disc disease of lumbar spine with lumbar radiculopathy symptoms, superior endplate fracture of L4 and L5. Today he rates his pain a 5 out of 10. Patient denies any new trauma or injury. He states he continues to have significant pain in his low back with some radiating symptoms to his hip. Patient did previously have chronic low back pains however approximately 6 weeks ago had a sudden change in his low back pain with sharp shooting pains. Patient states he had not had any fall just happened all of a sudden. Patient states the pain is debilitating and does affect his ability perform activities of daily living. Patient did have MRI imaging without contrast that did show superior endplate fractures of L4 and L5. Patient was ordered a DEXA scan however his findings were within normal limits. Patient does have a history of prostate cancer and myasthenia gravis that was diagnosed last year. Patient was put on high-dose steroids at the time of his diagnosis. Patient has tried and failed conservative therapy such as oral medication, heat and ice, topicals, TENS unit. Patient is unable to tolerate physical therapy due to his worsening pain. At our last visit we did discuss possible kyphoplasty intervention due to the endplate fractures shown on imaging that did show edema. Patient was given educational handouts and states today that he would like to proceed forward with this plan of care. He states his pain is not getting any better however worsening and that the medication does not do a good job to provide relief. Patient was also on endocrine however he states he did not notice significant improvement. Patient does currently use ibuprofen 800 mg once a day along with some amitriptyline and tizanidine at night. Patient was previously tried on gabapentin however could not tolerate the grogginess. His Chavo has been reviewed and is appropriate. Review of Systems: General: No recent weight changes, no fever, no sleep disturbances Respiratory: No cough, no shortness of air, no recurring pulmonary infections Cardiovascular/peripheral vascular: No chest pain, no palpitations, no edema, no shortness of breath Gastrointestinal: No new onset incontinence, normal bowel movements reported Genitourinary: No new onset incontinence Musculoskeletal: Low back pain, hip pain Psychiatric: [Normal mood/affect] Neurological: [Denies weakness in extremities], [denies balance issues] Objective:: Physical Exam: General: Alert and oriented x3, no acute distress, pleasant and cooperative Lungs: Respirations even and unlabored, symmetrical chest expansion Eyes: PERRL Musculoskeletal: Flexion and extension of lumbar [spine] somewhat guarded secondary to pain, [antalgic gait noted] Neurological: Speech clear, no gross sensory deficit Assessment:: Degenerative disc disease of lumbar spine with lumbar radiculopathy symptoms, bilateral hip pain, superior endplate fracture of L4 and L5 Plan:: Patient continues to have severe pain in his low back and hips that does correlate with a superior endplate fracture of L4-L5. Patient did have a sudden onset of change in pain symptoms and does have a history of high-dose steroid use for his myasthenia gravis diagnosis over the last year. Patient's MRI did show edema present with a 20% height loss. I have discussed the risk and benefits of the kyphoplasty procedure and he would like to proceed forward with this plan of care. Patient is currently on blood thinners and we will have to contact his provider to confirm he can stop this medication prior to this procedure. Patient has tried and failed conservative therapy such as oral medications, heat and ice, topicals, TENS units. We will submit to insurance for a kyphoplasty of L4-L5. Patient has been
== END ==
PROVIDERS: PCP Internal Medicine; Visit Provider Nurse Practitioner Family
DX: M51.16 Intervertebral disc disorders with radiculopathy, lumbar region (principal); M25.551 Pain in right hip; M25.552 Pain in left hip; S32.040D Wedge compression fracture of fourth lumbar vertebra, subsequent encounter for fracture with routine healing; S32.050D Wedge compression fracture of fifth lumbar vertebra, subsequent encounter for fracture with routine healing
CPT/HCPCS: 99212; G0463

== ENCOUNTER 2023-03-30 17:23 | Emergency (ER) | payer MEDICARE, SELFPAY ==
[2023-03-30 17:23] VITALS: BP 162/77; PULSE 61; RESP 18; TEMP 36.7; O2SAT 97; BMI 34.0
--- NOTE | 2023-03-30 17:28 | [facility]H.EDCP ---
Discharge Plan Disposition Patient Disposition: Home, Self-Care Chief Complaint: Fall Prescriptions Prescriptions: No Action pyridostigmine bromide [Mestinon] 60 mg tablet 60 mg PO TID MDD 240 mg Qty: 360 3RF Rx Instructions: 60 mg p.o. 3-4 times daily, tizanidine 2 mg capsule 2 mg PO Q8H PRN (Reason: muscle spasticity) 30 Days Qty: 60 2RF amitriptyline 10 mg tablet 10 mg PO HS PRN (Reason: pain and sleep) Qty: 60 2RF Rx Instructions: 1-2 tablets at bedtime. aspirin [Adult Low Dose Aspirin] 81 mg tablet,delayed release (DR/EC) 81 mg PO QDAY prednisone 5 mg tablet 5 mg PO DAILY Rx Instructions: takes at 12noon nitroglycerin 0.4 mg tablet, sublingual 0.4 mg SUBLINGUAL Q5-15M PRN (Reason: chest pain) Qty: 30 6RF Rx Instructions: until response; do not exceed 3 doses per episode pravastatin 10 mg tablet See Rx Instructions .ROUTE .COMPLEX Qty: 90 1RF Dose Instruction: TAKE 1 TABLET BY MOUTH AT BEDTIME Rx Instructions: TAKE 1 TABLET BY MOUTH AT BEDTIME pantoprazole 40 mg tablet,delayed release (DR/EC) See Rx Instructions .ROUTE .COMPLEX Qty: 90 1RF Dose Instruction: TAKE 1 TABLET BY MOUTH ONCE DAILY Rx Instructions: TAKE 1 TABLET BY MOUTH ONCE DAILY Eliquis 5 mg tablet 5 mg PO BID Qty: 60 5RF carvedilol 25 mg tablet 25 mg PO BID Qty: 180 1RF Rx Instructions: TAKE 1 TABLET BY MOUTH TWICE DAILY lisinopril-hydrochlorothiazide 20-12.5 mg tablet See Rx Instructions .ROUTE .COMPLEX Qty: 90 3RF Hold Instructions: Resume on 12/23/22. Rx Instructions: TAKE 1 TABLET BY MOUTH daily prednisone 10 mg tablet 10 mg PO DAILY Qty: 30 1RF Referrals Follow up/Referrals: Jamal Borja DO [Primary Care Provider] - See instructions Activity Restrictions/Add. Instructions Additional Instructions/Restrictions: Call your family doctor to establish care for this visit to the emergency department and schedule follow-up within 48 hours to ensure improvement. If you have any worsening of your condition or any other concerning signs or symptoms, return to the emergency department or your primary care doctor for further evaluation. Talk to your spine surgeon about new deformity L3 prior to kyphoplasty next week. Take Tylenol 1000 mg every 6 hours (4 times daily) and ibuprofen 400 mg every 6 hours (4 times daily) as needed with food and water to prevent GI upset and kidney damage. Clinical Impressions Clinical Impression: Closed compression fracture of L3 vertebra Qualifiers: Encounter type: initial encounter Qualified Code(s): S32.030A - Wedge compression fracture of third lumbar vertebra, initial encounter for closed fracture Discharge ED Provider: Reece Carmona HPI General Chief Complaint: Fall Stated Complaint: Fall Time Seen by Provider: 03/30/23 17:25 History of Present Illness HPI narrative: 73-year-old male hypertension, hyperlipidemia, chronic back pain, CAD, recent pulmonary embolus currently on Eliquis presenting with fall. Patient was in the shower, lost his footing, fell backward. He has not taken his Eliquis in over 24 hours because he has a procedure coming up next week for kyphoplasty and was told to withhold medications. Did not lose consciousness on this fall. Currently hurting in the back of his head, as well as in his lumbar spine. Pain is mild, does not radiate. Denies neurologic deficits. Related Data Home Medications Medication Instructions Recorded Confirmed aspirin 81 mg tablet,delayed 81 mg PO QDAY thinner 04/25/17 03/29/23 release (Adult Low Dose Aspirin) prednisone 5 mg tablet 5 mg PO DAILY 03/06/23 03/29/23 Previous Rx's Medication Instructions Recorded nitroglycerin 0.4 mg sublingual 0.4 mg sublingual Q5-15M PRN chest 11/01/17 tablet pain #30 tabs pyridostigmine bromide 60 mg 60 mg PO TID Myasthenia #360 tabs 03/27/22 tablet (Mestinon) pantoprazole 40 m
--- NOTE | 2023-03-30 17:42 | PC.NURSE ---
DR ALDRICH AT BEDSIDE
--- NOTE | 2023-03-30 17:48 | CT_ITS ---
PROCEDURE INFORMATION: Exam: CT Thoracic Spine Without Contrast Exam date and time: 03/30/2023 6:16 PM Age: 73 years old Clinical indication: Pain in thoracic spine; Additional info: Fall, L spine pain TECHNIQUE: Imaging protocol: Computed tomography of the thoracic spine without contrast. Radiation optimization: All CT scans at this facility use at least one of these dose optimization techniques: automated exposure control; mA and/or kV adjustment per patient size (includes targeted exams where dose is matched to clinical indication); or iterative reconstruction. REPORTING DATA: Count of CT and Cardiac NM exams in prior 12 months: This patient has received [address] and 0 known cardiac nuclear medicine studies in the 12 months prior to the current study. COMPARISON: 1. CR XR MULTIPLE SPINE 6+V 01/12/2022 11:41 AM 2. NM BONE SCAN WHOLE BODY 01/27/2022 12:50 PM 3. BONEWB NM bone scan whole body 08/10/2017 1:22 PM FINDINGS: Bones/joints: No evidence of acute spondylolisthesis or vertebral subluxation. Vertebral body heights are generally preserved, but some endplate sclerosis and anterior osteophytes are noted at multiple levels. Narrowing of multiple intervertebral disc spaces observed, indicative of degenerative disc disease. Hypertrophic changes are seen in the facet joints, consistent with osteoarthritis. No fractures or bony lesions identified. No abnormalities seen in adjacent osseous structures. Soft tissues: Unremarkable. Other findings: No obvious abnormalities seen in the prevertebral and paravertebral soft tissues. IMPRESSION: Degenerative changes without acute abnormality detected.
--- NOTE | 2023-03-30 17:48 | CT_ITS ---
PROCEDURE INFORMATION: Exam: CT Head Without Contrast Exam date and time: 03/30/2023 6:11 PM Age: 73 years old Clinical indication: Injury or trauma; Fall; Blunt trauma (contusions or hematomas); Additional info: Fall, head trauma on eliquis TECHNIQUE: Imaging protocol: Computed tomography of the head without contrast. Radiation optimization: All CT scans at this facility use at least one of these dose optimization techniques: automated exposure control; mA and/or kV adjustment per patient size (includes targeted exams where dose is matched to clinical indication); or iterative reconstruction. REPORTING DATA: Count of CT and Cardiac NM exams in prior 12 months: This patient has received [address] and 0 known cardiac nuclear medicine studies in the 12 months prior to the current study. COMPARISON: 1. MR HEAD/BRAIN WO/W CON 01/23/2022 1:[address] HEAD/BRAIN WO CON 04/22/2020 3:23 PM 3. NM BONE SCAN WHOLE BODY 01/27/2022 12:50 PM FINDINGS: Brain: The brain parenchyma appears normal for an elderly patient, with no evidence of acute ischemia, hemorrhage, or masses. The padron-white matter differentiation is preserved. Mild periventricular white matter hypodensities are consistent with chronic small vessel ischemic changes, which are often seen in elderly patients and are not indicative of acute pathology. Cerebral ventricles: Ventricles and sulci are consistent with patient age, showing mild age-related atrophy but no significant enlargement. Paranasal sinuses: The orbits and paranasal sinuses are free of marked disease. No opacifications are observed in the visible sinus cavities. Mastoid air cells: Visualized mastoid air cells are well aerated. Nasal cavity: There is leftward deviation of the bony nasal septum. Bones/joints: The cranial bones are intact with no signs of fractures or lytic lesions. Soft tissues: Unremarkable. IMPRESSION: In this patient, the head CT reveals no evidence of acute intracranial pathology. The observed structures including the brain parenchyma, vascular structures, cranial bones, and soft tissues appear within normal limits, except for age-related atrophic and chronic ischemic changes which are not unexpected for this age group.
--- NOTE | 2023-03-30 17:48 | CT_ITS ---
PROCEDURE INFORMATION: Exam: CT Cervical Spine Without Contrast Exam date and time: 03/30/2023 6:13 PM Age: 73 years old Clinical indication: Neck pain; Additional info: Fall, head trauma TECHNIQUE: Imaging protocol: Computed tomography of the cervical spine without contrast. Radiation optimization: All CT scans at this facility use at least one of these dose optimization techniques: automated exposure control; mA and/or kV adjustment per patient size (includes targeted exams where dose is matched to clinical indication); or iterative reconstruction. REPORTING DATA: Count of CT and Cardiac NM exams in prior 12 months: This patient has received [address] and 0 known cardiac nuclear medicine studies in the 12 months prior to the current study. COMPARISON: 1. CT CERVICAL SPINE WO CON 04/22/2020 3:23 PM 2. CR XR MULTIPLE SPINE 6+V 01/12/2022 11:41 AM 3. NM BONE SCAN WHOLE BODY 01/27/2022 12:50 PM FINDINGS: Bones/joints: The alignment of the cervical spine appears normal with no evidence of subluxation or dislocation. The vertebral bodies are well-maintained without compression fractures. Disc spaces are generally preserved, although there are degenerative changes noted including disc space narrowing and osteophyte formation. These changes are consistent with age-related degenerative disc disease. The facet joints are intact but show some evidence of degenerative changes including hypertrophy and osteophyte formation. No facet dislocation is identified. The spinal canal is patent without evidence of central canal stenosis. Despite the post-traumatic clinical setting, there are no signs of acute fractures, dislocations, or ligamentous injury in the cervical spine. There is ossification of the nuchal ligament. Lungs: Lung apices are normal. Nerves: The neural foramina are also open but slightly narrowed due to degenerative changes, without signs of nerve root impingement. Soft tissues: Soft tissues appear normal without signs of acute trauma or hematoma. Paraspinal muscles are unremarkable. IMPRESSION: This post-traumatic cervical spine CT demonstrates no acute traumatic findings such as fractures or ligamentous injury. There are age-related degenerative changes that include disc space narrowing and osteophyte formation. These degenerative changes are not uncommon for the patient's age and should be clinically correlated for a comprehensive assessment.
--- NOTE | 2023-03-30 17:48 | CT_ITS ---
PROCEDURE INFORMATION: Exam: CT Lumbar Spine Without Contrast Exam date and time: 03/30/2023 6:19 PM Age: 73 years old Clinical indication: Low back pain; Additional info: Fall, L spine pain TECHNIQUE: Imaging protocol: Computed tomography of the lumbar spine without contrast. Radiation optimization: All CT scans at this facility use at least one of these dose optimization techniques: automated exposure control; mA and/or kV adjustment per patient size (includes targeted exams where dose is matched to clinical indication); or iterative reconstruction. REPORTING DATA: Count of CT and Cardiac NM exams in prior 12 months: This patient has received [address] and 0 known cardiac nuclear medicine studies in the 12 months prior to the current study. COMPARISON: 1. MR LUMBAR SPINE WO/W CON 02/22/2023 1:40 PM 2. CR XR LUMBAR SPINE MIN 4V 01/31/2023 12:54 PM 3. CR XR MULTIPLE SPINE 6+V 01/12/2022 11:41 AM FINDINGS: Bones/joints: Stable subacute compression deformity of the superior endplate of L4. There is a new compression injury of the inferior endplate of L3. There is diffuse osseous demineralization. Soft tissues: Unremarkable. IMPRESSION: Stable appearing superior endplate compression deformity of L4. New compression deformity of the inferior endplate of L3
[2023-03-30 18:00] VITALS: BP 155/77; PULSE 62; O2SAT 97
--- NOTE | 2023-03-30 18:05 | PC.NURSE ---
PT TO CT
[2023-03-30 18:31] VITALS: BP 146/71; PULSE 62; O2SAT 99
--- NOTE | 2023-03-30 18:55 | PC.NURSE ---
Dr. Carmona at BS to update pt/family on results and POC
[2023-03-30 19:13] VITALS: BP 144/71; PULSE 56; RESP 14; TEMP 36.6; O2SAT 96
== END 2023-03-30 19:14 | disposition home or self-care (01) ==
PROVIDERS: Emergency Provider Emergency Medicine; PCP Internal Medicine
DX: S32.030A Wedge compression fracture of third lumbar vertebra, initial encounter for closed fracture (principal); I10 Essential (primary) hypertension; E78.5 Hyperlipidemia, unspecified; I25.10 Atherosclerotic heart disease of native coronary artery without angina pectoris; I48.0 Paroxysmal atrial fibrillation; G73.3 Myasthenic syndromes in other diseases classified elsewhere; Z86.711 Personal history of pulmonary embolism; Z79.01 Long term (current) use of anticoagulants; W18.2XXA Fall in (into) shower or empty bathtub, initial encounter
CPT/HCPCS: 70450; 72125; 72128; 72131; 96374; 99285

== ENCOUNTER → 2023-04-11 08:44 | Outpatient (CLI) | payer MEDICARE, SELFPAY ==
[2023-04-11 22:56] LABS: Microalbumin/Creatinine Ratio 35.3
[2023-04-11 22:58] LABS: Creatinine,Urine Random 156 mg/dL (Not Estab.)
== END ==
LOC: LAB.DROPOF 04-18 08:45
PROVIDERS: PCP Family Medicine; Visit Provider Family Medicine
DX: N15.9 Renal tubulo-interstitial disease, unspecified (principal); R53.83 Other fatigue
CPT/HCPCS: 82043; 82570; 87086

== ENCOUNTER 2023-04-11 17:20 | Emergency (ER) | payer MEDICARE, SELFPAY ==
[2023-04-11 17:21] VITALS: BP 146/88; PULSE 74; RESP 20; TEMP 36.9; O2SAT 99; BMI 33.3
[2023-04-11 17:31] VITALS: BP 139/84; PULSE 74; O2SAT 97
[2023-04-11 18:00] VITALS: BP 148/81; PULSE 69; O2SAT 99
--- NOTE | 2023-04-11 18:36 | CT_ITS ---
PROCEDURE INFORMATION: Exam: CT Abdomen And Pelvis Without Contrast Exam date and time: 04/11/2023 6:56 PM Age: 73 years old Clinical indication: Pain and injury or trauma; Fall; Blunt; Generalized; Abdominal pain; Prior surgery; Surgery date: 6+ months; Surgery type: Lumbar surgery, partial kidney removed. ; Additional info: Back and lower abd pain hematuria TECHNIQUE: Imaging protocol: Computed tomography of the abdomen and pelvis without contrast. Radiation optimization: All CT scans at this facility use at least one of these dose optimization techniques: automated exposure control; mA and/or kV adjustment per patient size (includes targeted exams where dose is matched to clinical indication); or iterative reconstruction. REPORTING DATA: Count of CT and Cardiac NM exams in prior 12 months: This patient has received 5 known CTs and 0 known cardiac nuclear medicine studies in the 12 months prior to the current study. COMPARISON: ABDPEL CT abdomen pelvis w con 08/08/2017 11:44 AM FINDINGS: Tubes, catheters and devices: None noted. Lungs: Lung bases appear clear. Heart: No significant coronary calcifications. No cardiomegaly. No significant pericardial effusion. Liver: Normal. No mass. Gallbladder and bile ducts: Cholecystectomy. No ductal dilation. Pancreas: Normal. No ductal dilation. Spleen: Normal. No splenomegaly. Adrenal glands: Normal. No mass. Kidneys and ureters: Surgical changes right kidney. No hydronephrosis. Stomach and bowel: Unremarkable. No obstruction. No mucosal thickening. Appendix: No evidence of appendicitis. Intraperitoneal space: Unremarkable. No free air. No significant fluid collection. Retroperitoneal space: No significant retroperitoneal inflammatory changes are noted. Vasculature: Unremarkable. No abdominal aortic aneurysm. Lymph nodes: Unremarkable. No enlarged lymph nodes. Urinary bladder: Unremarkable as visualized. Reproductive: Prostatectomy. Bones/joints: Vertebroplasty L3 and L4. Compression fracture superior endplate L5 unchanged since 2018. No acute fracture. Soft tissues: Unremarkable. IMPRESSION: 1. No acute findings. 2. Prostatectomy. 3. Cholecystectomy. 4. Vertebroplasty L3 and L4.
--- NOTE | 2023-04-11 18:37 | ED_ITS ---
Discharge Plan Disposition Patient Disposition: Home, Self-Care Prescriptions Prescriptions: No Action amitriptyline 10 mg tablet 10 mg PO HS PRN (Reason: pain and sleep) Qty: 60 2RF Rx Instructions: 1-2 tablets at bedtime. oxycodone 10 mg tablet 10 mg PO DAILY prednisone 10 mg tablet 10 mg PO DAILY aspirin [Adult Low Dose Aspirin] 81 mg tablet,delayed release (DR/EC) 81 mg PO QDAY nitroglycerin 0.4 mg tablet, sublingual 0.4 mg SUBLINGUAL Q5-15M PRN (Reason: chest pain) Qty: 30 6RF Rx Instructions: until response; do not exceed 3 doses per episode pravastatin 10 mg tablet See Rx Instructions .ROUTE .COMPLEX Qty: 90 1RF Dose Instruction: TAKE 1 TABLET BY MOUTH AT BEDTIME Rx Instructions: TAKE 1 TABLET BY MOUTH AT BEDTIME pantoprazole 40 mg tablet,delayed release (DR/EC) See Rx Instructions .ROUTE .COMPLEX Qty: 90 1RF Dose Instruction: TAKE 1 TABLET BY MOUTH ONCE DAILY Rx Instructions: TAKE 1 TABLET BY MOUTH ONCE DAILY Eliquis 5 mg tablet 5 mg PO BID Qty: 60 5RF carvedilol 25 mg tablet 25 mg PO BID Qty: 180 1RF Rx Instructions: TAKE 1 TABLET BY MOUTH TWICE DAILY lisinopril-hydrochlorothiazide 20-12.5 mg tablet See Rx Instructions .ROUTE .COMPLEX Qty: 90 3RF Hold Instructions: Resume on 12/23/22. Rx Instructions: TAKE 1 TABLET BY MOUTH daily pyridostigmine bromide [Mestinon] 60 mg tablet 60 mg PO TID MDD 240 mg Qty: 360 3RF Rx Instructions: 60 mg p.o. 3-4 times daily, Referrals Follow up/Referrals: Jamal Borja DO [Primary Care Provider] - See instructions Activity Restrictions/Add. Instructions Additional Instructions/Restrictions: No emergent medical condition identified CT scan was unremarkable labs unremarkable specifically no evidence of any blood in your urine or urinary tract infection. Your symptoms are severe but appear to be chronic. You are already on significant and aggressive oral medications which are potentially dangerous from a falling standpoint. I offered admission for PT OT evaluation and possible placement into an acute rehab facility which I think still may be of a good idea but at the moment you opted to go home with home health and attempt to do this in an outpatient setting but please keep in mind that that is an option at any point if you feel like you cannot manage at home. At which point if your pain is so severe and you cannot function at home I would return to the emergency department. Clinical Impressions Clinical Impression: Acute exacerbation of chronic low back pain Instructions Patient Instructions: DI for Low Back Pain Discharge ED Provider: Ruby Wallis General Adult HPI General Chief complaint: Back Pain/Injury Stated complaint: blood in urine, back pain Time Seen by Provider: 04/11/23 18:26 Mode of Arrival: Ambulatory Source of Information: Patient Limitations: No Limitations Description of Symptoms (Recalled from ER Triage Doc. by RN): PT REPORTS LOWER BACK PAIN, STATES HE HAS BEEN DEALING WITH THIS FOR [address] ALEXANDRE FOR PAIN CONTROL, HAD AN EPIDURAL STEROID INJECTION A FEW WEEKS AGO, HAD CEMENT INJECTED INTO HIS SPINE 04/02/23, FELL ON 03/30/23 AND WAS SEEN AT THE ER HERE, SLIPPED IN THE SHOWER AND HIT HIS HEAD, PT STATES HE HAS A L3 AND L4 FRACTURE, ALSO STATES HIS STOMACH GETS BLOATED AT NIGHT AND OCCASIONALLY CRAMPS, REPORTS DECREASED APPETITIE AND SOME CONSTIPATION, TOOK OXY PRIOR TO ARRIVAL HERE RATES PAIN 5/10 CURRENTLY STATES IT IS DULL, ACHING PAIN AT THE SITE WHERE CEMENT WAS INJECTED AND A SHARP PAIN BELOW THE SITE ON HIS BACK History of Present Illness HPI narrative: Is a 73-year-old male who has chronic lower back pain had a fall on March 30 was treated with kyphoplasty's on L3 and L4 by Dr. Alexandre on the has had significant worsening of his lower back pain and abdominal pain and went to his primary care doctor today due to the worsening pain and stated that he had hematuria was sent to the emergency department to rule out stones. Very aggressive pain medication regimen including tizanidine oxycodone amitriptyline. He is followed by pain medicine specialist as well as his primary care doctor for his chronic pain. Related Data Home Medications Medication Instructions Recorded Confirmed aspirin 81 mg tablet,delayed 81 mg PO QDAY thinner 04/25/17 04/11/23 release (Adult Low Dose Aspirin) oxycodone 10 mg tablet 10 mg PO DAILY 04/05/23 04/11/23 prednisone 10 mg tablet 10 mg PO DAILY 04/05/23 04/11/23 Previous Rx's Medication Instructions Recorded nitroglycerin 0.4 mg sublingual 0.4 mg sublingual Q5-15M PRN chest 11/01/17 tablet pain #30 tabs pantoprazole 40 mg tablet,delayed See Rx Instructions .Route 12/29/22 release .COMPLEX #90 tabs pravastatin 10 mg tablet See Rx Instructions .Route 12/29/22 .COMPLEX #90 tabs apixaban 5 mg tablet (Eliquis) 5 mg PO BID #60 tabs 01/17/23 carvedilol 25 mg tablet 25 mg PO BID heart rate #180 tabs 01/29/23 lisinopril 20 See Rx Instructions .Route 03/06/23 mg-hydrochlorothiazide 12.5 mg .COMPLEX . #90 tabs tablet amitriptyline 10 mg tablet 10 mg PO HS PRN pain and sleep #60 03/16/23 tabs pyridostigmine bromide 60 mg 60 mg PO TID Myasthenia #360 tabs 04/02/23 tablet (Mestinon) Allergies Allergy/AdvReac Type Severity Reaction Status Date / Time pecan nut Allergy Intermediate Rash Verified 04/11/23 17:54 [facility] Disclaimer: The information contained in this section may have been updated after the patient was seen, as this information can be updated by other users. Medical History Chronic lower back pain See above. Compression fracture There is a new compression fracture of the inferior endplates of L3. This was after his fall. Distally Dr. Alexandre's injections were very helpful with his pain. I have also suggested that they split the oxycodone 10 mg tablets in half and use 5 mg. Fatigue First degree AV block Myasthenic syndrome Neurology consult 01/12/2022: Subacute onset of slowly progressive muscle weakness over the last month. 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 He was initially treated with prednisone 60 mg daily currently on 20 mg daily. Advised to decrease to 15 mg poqd as 07/10/2022, (upon returning from vacation in 2 weeks). Mestinon initially 30 mg p.o. 3 times daily for symptomatic therapy currently on 60 mg p.o. 3-4 times daily since 01/24/2022 and occasionally 30 mg in between doses. CAYETANO (obstructive sleep apnea) Back on AutoPap with excellent compliance, asymptomatic. Weight loss adviced today, (AHI >6). PAF (paroxysmal atrial fibrillation) Active follow-up with [facility] cardiology. Stable Prostate cancer Active follow-up with Dr. Jens Alcala, [facility] and Alex Chakraborty Jr. urologist in [place] Prostate cancer genetic susceptibility Sinus bradycardia Surgical History H/O heart artery stent H/O vasectomy Hx of cholecystectomy Family History Other Cancer Coronary artery disease Heart attack Stroke Social History Smoking Status: Never smoker second hand exposure: No alcohol intake: never counseling provided: none substance use type: denies use current occupational status: retired Travel in the last 8 weeks: None household members: spouse housing: house current occupational exposures/hazards: No caffeine: Yes ROS Obtained: Yes All systems reviewed & no additional complaints except as documented Physical Exam General General appearance: alert Respiratory Respiratory exam: Present normal lung sounds bilaterally Cardiovascular Cardiovascular exam: Present regular rate Abdominal Exam Abdominal exam: Present soft; Absent distention, tenderness or guarding Back Exam Back exam: Absent CVA tenderness (R) or CVA tenderness (L) Neurological Exam Neurological exam: Present alert and oriented X3 Medical Decision Making Chavo Inquiry Pt receiving controlled substance: No Vital Signs: 04/11/23 17:21 04/11/23 17:31 04/11/23 18:00 Temperature 98.5 F Temperature Source Oral Pulse Rate 74 69 Pulse Rate [Left Radial] 74 Respiratory Rate 20 Blood Pressure 139/84 148/81 H Blood Pressure [Right Arm] 146/88 H Blood Pressure Mean [Right Arm] 107 Blood Pressure Source [Right Arm] Automatic Cuff Blood Pressure Position [Right Arm] Sitting 02 Sat by Pulse Oximetry 99 97 99 Oxygen Delivery Method Room Air Room Air Room Air Lab Data Lab results reviewed: Yes I reviewed the patient's lab results. Lab Results 04/11/23 19:19: WBC 7.5, RBC 4.10 L, Hgb 12.1 L, Hct 35.4 L, MCV 86.4, MCH 29.6, MCHC 34.2, RDW 14.0, Plt Count 287, MPV 7.5, Neut % (Auto) 77.2, Lymph % (Auto) 16.0, [place] % (Auto) 5.4, Eos % (Auto) 1.0, Baso % (Auto) 0.4, Neut # (Auto) 5.8, Lymph # (Auto) 1.2, [place] # (Auto) 0.4, Eos # (Auto) 0.1, Baso # (Auto) 0.0, Sodium 131 L, Potassium 4.5, Chloride 101, Carbon Dioxide 28, Anion Gap 6.5, BUN 15, Creatinine 0.90, Estimated Creat Clear 106, Estimated GFR 82, Est GFR ( Amer) 100, Glucose 115 H, Calcium 9.2, Total Bilirubin 0.5, AST 55, ALT 32, Alkaline Phosphatase 121, Total Protein 7.4, Albumin 3.9, Globulin 3.5 H, Albumin/Globulin Ratio 1.1 04/11/23 21:38: Urine Color Yellow, Urine Appearance Clear, Urine pH 6.0, Ur Specific [place] 1.020, Urine Protein Negative, Urine Glucose (UA) Negative, Urine Ketones Negative, Urine Blood Negative, Urine Nitrate Negative, Urine Bilirubin Negative, Urine Urobilinogen 0.2, Ur Leukocyte Esterase Negative 04/11/23 19:19 04/11/23 19:19 Orders (Tests/Meds): ED MEDICATIONS Discontinued Medications Generic Name Dose Route Start Last Admin Trade Name Freq PRN Reason Stop Dose Admin Ketorolac Tromethamine 15 mg 04/11/23 20:12 04/11/23 20:18 Ketorolac 30mg/Ml Vial IV 04/11/23 20:13 15 mg ONCE ONE Administration ORDERS Category Date Time Status CT abdomen pelvis wo con Stat Cat Scan 04/11/23 18:36 Completed CBC w/Auto Diff [Complete Blood Count Auto Diff] Stat Lab 04/11/23 19:19 Completed CMP [Comprehensive Metabolic Panel] Stat Lab 04/11/23 19:19 Completed UA [Urinalysis and Microscopic] Stat Lab 04/11/23 21:38 Results Medical Decision Narrative: 73-year-old male with chronic and severe lower back pain with multiple recent compression fractures followed by Dr. Alexandre on aggressive pain management regimen as stated above. Will get a noncontrasted CT scan to evaluate and rule out stones and urinalysis I suspect this is all worsening of his chronic pain but will reassess. Reassessment 10:14 PM patient still in severe chronic pain. CT scan performed which I personally interpreted and also looked at radiology read there is no acute abdominal pelvic emergency. Specifically no evidence of any kidney stone urinalysis also unremarkable no hematuria or evidence of kidney infection. All of this seems to be associate with his chronic pain. He is already on aggressive pain medications as stated above and has had numerous attempts at ge tting his pain under control. Still is having significant difficulty with any type of movement. I offered admission for PT OT evaluation and acute rehab placement but he declined this and would like to go home with home health and to continue discussed this with Dr. Ng and his pain medicine specialist Dr. Alexandre. Return precautions emphasized and discussed patient discharged in stable but chronically painful condition Critical Care Critical Care Time Critical Care Time: No
--- NOTE | 2023-04-11 18:48 | PC.NURSE ---
PT GOING TO CT
[2023-04-11 19:29] LABS: Basophils % 0.4 % (0.1-2.0); Eosinophils # 0.1 K/mm3 (0.0-0.4); Hematocrit 35.4 % (42.0-52.0); Hemoglobin 12.1 g/dL (14.1-18.0); Lymphocytes # 1.2 K/mm3 (0.7-4.5); Mean Corpuscular HGB Conc 34.2 g/dL (31.8-35.4); Mean Corpuscular Hemoglobin 29.6 pg (27.0-31.2); Mean Corpuscular Volume 86.4 fl (80-94); Mean Platelet Volume 7.5 fl (7.4-10.4); Monocytes # 0.4 K/mm3 (0.1-1.0); Monocytes % 5.4 % (1.7-9.3); Neutrophils # 5.8 K/mm3 (1.8-7.8); Neutrophils % 77.2 % (37.0-80.0); Platelet Count 287 K/mm3 (142-424); White Blood Count 7.5 K/mm3 (4.8-10.8)
[2023-04-11 19:37] LABS: Alanine Aminotransferase 32 U/L (12-78); Albumin Level 3.9 g/dl (3.5-5.0); Albumin/Globulin Ratio 1.1 (1.1-1.8); Alkaline Phosphatase 121 U/L (38-126); Anion Gap 6.5 mEq/L (5-15); Aspartate Amino Transferase 55 U/L (17-59); Bilirubin,Total 0.5 mg/dl (0.2-1.3); Blood Urea Nitrogen 15 mg/dl (9-20); Calcium 9.2 mg/dl (8.4-10.2); Carbon Dioxide 28 mmol/L (22.0-30.0); Chloride 101 mmol/L (98-107); Creatinine Clearance Estimated 106 mL/min (50-200); Estimated Glomerular Filt Rate 82 ml/min (>60); GFR (African American) 100 ML/MIN (>60); Globulin 3.5 g/dL (1.3-3.2); Glucose 115 mg/dl (74-100); Potassium 4.5 mmoL/L (3.5-5.1); Sodium 131 mmol/L (136-145); Total Protein,Serum 7.4 g/dl (6.3-8.2)
--- NOTE | 2023-04-11 20:15 | PC.NURSE ---
Provided urinal for patient and encouraged attempt for urine sample at this time. Lowered bed height and the movement of the bed caused 10/10 back pain for patient. Reported to provider, orders received.
[2023-04-11] MEDS: KETOROLAC 30MG/ML VIAL 15 MG IV (20:18)
[2023-04-11 21:43] LABS: Appearance,Urine CLEAR (Clear); Bilirubin,Urine Negative (Negative); Blood, Urine Negative (Negative); Color,Urine YELLOW (Yellow); Glucose,Urine (UA) Negative (Negative); Ketones,Urine Negative (Negative); Leukocyte Esterase,Urine Negative (Negative); Microscopic, Urine URINE MICROSCOPIC (MICROSCOPIC); Nitrate,Urine Negative (Negative); Protein,Urine Negative (Negative); Urobilinogen,Urine 0.2 EU/dl (0.2)
[2023-04-11 22:14] LABS: Squamous Epithelial Cell,Urine Occasional #/hpf (0-5)
[2023-04-11 22:15] VITALS: BP 139/80; PULSE 66; RESP 18; TEMP 36.9; O2SAT 99
[2023-04-12 10:32] LABS: Hemoglobin A1C 5.7 % (4.0-6.0)
== END 2023-04-11 22:18 | disposition home or self-care (01) ==
PROVIDERS: Family Medicine; Emergency Provider Student in an Organized Health Care Education/Training Program; PCP Internal Medicine
DX: M54.50 Low back pain, unspecified (principal); R10.9 Unspecified abdominal pain; R31.9 Hematuria, unspecified; I48.0 Paroxysmal atrial fibrillation; G47.33 Obstructive sleep apnea (adult) (pediatric); G73.3 Myasthenic syndromes in other diseases classified elsewhere; R73.9 Hyperglycemia, unspecified
CPT/HCPCS: 74176; 80053; 81001; 83036; 85025; 96374; 99285

== ENCOUNTER 2023-04-15 19:00 | Observation (INO) | payer MEDICARE, SELFPAY ==
[2023-04-15 19:04] VITALS: BP 146/66; PULSE 82; RESP 18; TEMP 36.7; O2SAT 100; BMI 33.6
--- NOTE | 2023-04-15 19:31 | ED_ITS ---
Discharge Plan Disposition Patient Disposition: Admitted Chief Complaint: Back Pain/Injury Clinical Impressions Clinical Impression: Back pain, Declining functional status Discharge ED Provider: Jozef Caballero General Adult HPI General Chief complaint: Back Pain/Injury Stated complaint: low back pain, Time Seen by Provider: 04/15/23 19:08 History of Present Illness HPI narrative: Patient is a 73-year-old male with past medical history of myasthenia on medical therapy, traumatic superior endplate fractures of L4 and L3 status post kyphoplasty with persistent back pain who presents emergency department for evaluation of functional decline and back pain. Patient was recently seen and offered admission and placement after PT/OT evaluation however patient subsequently declined. Patient has had difficulty transferring out of bed due to his pain and at the behest of his presents here for evaluation. No new trauma. No urinary incontinence, no saddle anesthesia. Related Data Home Medications Medication Instructions Recorded Confirmed aspirin 81 mg tablet,delayed 81 mg PO QDAY thinner 04/25/17 04/11/23 release (Adult Low Dose Aspirin) oxycodone 10 mg tablet 10 mg PO DAILY 04/05/23 04/11/23 prednisone 10 mg tablet 10 mg PO DAILY 04/05/23 04/11/23 Previous Rx's Medication Instructions Recorded nitroglycerin 0.4 mg sublingual 0.4 mg sublingual Q5-15M PRN chest 11/01/17 tablet pain #30 tabs pantoprazole 40 mg tablet,delayed See Rx Instructions .Route 12/29/22 release .COMPLEX #90 tabs pravastatin 10 mg tablet See Rx Instructions .Route 12/29/22 .COMPLEX #90 tabs apixaban 5 mg tablet (Eliquis) 5 mg PO BID #60 tabs 01/17/23 carvedilol 25 mg tablet 25 mg PO BID heart rate #180 tabs 01/29/23 lisinopril 20 See Rx Instructions .Route 03/06/23 mg-hydrochlorothiazide 12.5 mg .COMPLEX . #90 tabs tablet amitriptyline 10 mg tablet 10 mg PO HS PRN pain and sleep #60 03/16/23 tabs pyridostigmine bromide 60 mg 60 mg PO TID Myasthenia #360 tabs 04/02/23 tablet (Mestinon) Allergies Allergy/AdvReac Type Severity Reaction Status Date / Time pecan nut Allergy Intermediate Rash Verified 04/11/23 17:54 PFSH PFSH Disclaimer: The information contained in this section may have been updated after the patient was seen, as this information can be updated by other users. Medical History Chronic lower back pain See above. Compression fracture There is a new compression fracture of the inferior endplates of L3. This was after his fall. Distally Dr. Alexandre's injections were very helpful with his pain. I have also suggested that they split the oxycodone 10 mg tablets in half and use 5 mg. Fatigue First degree AV block Myasthenic syndrome Neurology consult 01/12/2022: Subacute onset of slowly progressive muscle weakness over the last month. 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 He was initially treated with prednisone 60 mg daily currently on 20 mg daily. Advised to decrease to 15 mg poqd as 07/10/2022, (upon returning from vacation in 2 weeks). Mestinon initially 30 mg p.o. 3 times daily for symptomatic therapy currently on 60 mg p.o. 3-4 times daily since 01/24/2022 and occasionally 30 mg in between doses. CAYETANO (obstructive sleep apnea) Back on AutoPap with excellent compliance, asymptomatic. Weight loss adviced today, (AHI >6). PAF (paroxysmal atrial fibrillation) Active follow-up with [facility] cardiology. Stable Prostate cancer Active follow-up with Dr. Jens Alcala, [facility] and Alex Chakraborty Jr. urologist in [place] Prostate cancer genetic susceptibility Sinus bradycardia Surgical History H/O heart artery stent H/O vasectomy Hx of cholecystectomy Family History Other Cancer Coronary artery disease Heart attack Stroke Social History Smoking Status: Never smoker second hand exposure: No alcohol intake: never counseling provided: none substance use type: denies use current occupational status: retired Travel in the last 8 weeks: None household members: spouse housing: house current occupational exposures/hazards: No caffeine: Yes ROS Obtained: Yes Systems reviewed as appropriate & no additional complaints except as documented Physical Exam General General appearance: alert and in no apparent distress Head Head exam: atraumatic and normocephalic Eye Eye exam: Present PERRL and EOMI ENT ENT exam: Present mucous membranes moist Neck Neck exam: Present normal inspection Chest Chest inspection: Present normal inspection and symmetric chest wall rise Respiratory Respiratory exam: Present normal lung sounds bilaterally; Absent respiratory distress Cardiovascular Cardiovascular exam: Present regular rate and normal rhythm Abdominal Exam Abdominal exam: Present soft; Absent tenderness Extremities Exam Extremities exam: Present normal inspection Neurological Exam Neurological exam: Present alert and oriented X3 Psychiatric Psychiatric exam: Present normal affect Skin Skin exam: Present warm and dry Medical Decision Making Chavo Inquiry Pt receiving controlled substance: No Vital Signs: 04/15/23 19:04 Temperature 98.1 F Temperature Source Oral Pulse Rate [Left Radial] 82 Respiratory Rate 18 Blood Pressure [Right Arm] 146/66 H Blood Pressure Mean [Right Arm] 92 Blood Pressure Source [Right Arm] Automatic Cuff Blood Pressure Position [Right Arm] Sitting 02 Sat by Pulse Oximetry 100 Oxygen Delivery Method Room Air Lab Data Lab Results 04/15/23 20:00: WBC 9.0, RBC 4.43 L, Hgb 12.8 L, Hct 38.2 L, MCV 86.1, MCH 28.8, MCHC 33.5, RDW 14.1, Plt Count 389, MPV 8.1, Neut % (Auto) 72.8, Lymph % (Auto) 18.9, [place] % (Auto) 6.7, Eos % (Auto) 1.1, Baso % (Auto) 0.5, Neut # (Auto) 6.6, Lymph # (Auto) 1.7, [place] # (Auto) 0.6, Eos # (Auto) 0.1, Baso # (Auto) 0.0, Sodium 137, Potassium 4.1, Chloride 101, Carbon Dioxide 28, Anion Gap 12.1, BUN 22 H, Creatinine 1.00, Estimated Creat Clear 107, Estimated GFR 73, Est GFR ( Amer) 88, Glucose 117 H, Calcium 9.8, Total Bilirubin 0.7, AST 53, ALT 32, Alkaline Phosphatase 147 H, Total Protein 8.3 H, Albumin 4.2, Globulin 4.1 H , Albumin/Globulin Ratio 1.0 L 04/15/23 20:00 04/15/23 20:00 Orders (Tests/Meds): ED MEDICATIONS Discontinued Medications Generic Name Dose Route Start Last Admin Trade Name Kendall PRN Reason Stop Dose Admin Acetaminophen 1,000 mg 04/15/23 19:30 04/15/23 19:55 Acetaminophen 1,000mg/100ml Vial IV 04/15/23 19:31 Not Given ONCE ONE Acetaminophen 1,000 mg 04/15/23 19:56 04/15/23 19:57 Acetaminophen 500mg Tab PO 04/15/23 19:57 1,000 mg ONCE ONE Administration Methocarbamol 500 mg 04/15/23 19:31 04/15/23 19:54 Methocarbamol 500mg Tablet PO 04/15/23 19:32 500 mg ONCE ONE Administration Oxycodone HCl 10 mg 04/15/23 19:31 04/15/23 19:53 Oxycodone 5mg Immediate Release Tablet PO 04/15/23 19:32 10 mg ONCE ONE Administration ORDERS Category Date Time Status CBC w/Auto Diff [Complete Blood Count Auto Diff] Stat Lab 04/15/23 20:00 Completed CMP [Comprehensive Metabolic Panel] Stat Lab 04/15/23 20:00 Completed Medical Decision Narrative: In summary patient is a 73-year-old male with past medical history described above who presents emergency department for evaluation of low back pain and functional decline. Patient is hemodynamically stable and nontoxic-appearing upon arrival, afebrile. Repeat baseline hematologic labs will be obtained. Patient has functional decline and uncontrolled back pain which warrants inpatient physical therapy/Occupational Therapy evaluation and possible placement. Initial interventions include oxycodone, IV Tylenol, methocarbamol. Workup with imaging was considered however patient has been previously imaged and has no acute trauma therefore will be deferred. Case was discussed with hospital medicine regarding management who admit the patient to their service for continued evaluation at this time. Critical Care Critical Care Time Critical Care Time: No
[2023-04-15] MEDS: OXYCODONE 5MG IMMEDIATE RELEASE TABLET 10 MG PO (19:53)
[2023-04-15] MEDS: METHOCARBAMOL 500MG TABLET 500 MG PO (19:54)
[2023-04-15] MEDS: ACETAMINOPHEN 500MG TAB 1000 MG PO (19:57)
[2023-04-15 20:06] LABS: Basophils % 0.5 % (0.1-2.0); Eosinophils # 0.1 K/mm3 (0.0-0.4); Eosinophils % 1.1 % (0.1-12.0); Hematocrit 38.2 % (42.0-52.0); Hemoglobin 12.8 g/dL (14.1-18.0); Lymphocytes # 1.7 K/mm3 (0.7-4.5); Lymphocytes % 18.9 % (10-50); Mean Corpuscular HGB Conc 33.5 g/dL (31.8-35.4); Mean Corpuscular Hemoglobin 28.8 pg (27.0-31.2); Mean Corpuscular Volume 86.1 fl (80-94); Mean Platelet Volume 8.1 fl (7.4-10.4); Monocytes # 0.6 K/mm3 (0.1-1.0); Monocytes % 6.7 % (1.7-9.3); Neutrophils # 6.6 K/mm3 (1.8-7.8); Neutrophils % 72.8 % (37.0-80.0); Platelet Count 389 K/mm3 (142-424); Red Blood Count 4.43 M/mm3 (4.60-6.20); Red Cell Distribution Width 14.1 % (11.5-17.5)
--- NOTE | 2023-04-15 20:12 | PC.NURSE ---
Notified house historic site administrator of admission and need of bed.
[2023-04-15 20:13] LABS: Chloride 101 mmol/L (98-107); Potassium 4.1 mmoL/L (3.5-5.1); Sodium 137 mmol/L (136-145)
[2023-04-15 20:15] LABS: Blood Urea Nitrogen 22 mg/dl (9-20); Creatinine Clearance Estimated 107 mL/min (50-200); Estimated Glomerular Filt Rate 73 ml/min (>60); GFR (African American) 88 ML/MIN (>60)
[2023-04-15 20:16] LABS: Alanine Aminotransferase 32 U/L (12-78); Albumin Level 4.2 g/dl (3.5-5.0); Alkaline Phosphatase 147 U/L (38-126); Anion Gap 12.1 mEq/L (5-15); Aspartate Amino Transferase 53 U/L (17-59); Bilirubin,Total 0.7 mg/dl (0.2-1.3); Calcium 9.8 mg/dl (8.4-10.2); Carbon Dioxide 28 mmol/L (22.0-30.0); Globulin 4.1 g/dL (1.3-3.2); Glucose 117 mg/dl (74-100); Total Protein,Serum 8.3 g/dl (6.3-8.2)
--- NOTE | 2023-04-15 20:19 | PC.NURSE ---
OBSERVATION ADMISSION TO 205 WITH DX OF BACK PAIN TO SERVICE OF THE HOSPITALIST.
--- NOTE | 2023-04-15 20:45 | PC.NURSE ---
Nurse to nurse report to E[place] STEPHEN
--- NOTE | 2023-04-15 20:45 | EXP.HP ---
History of Present Illness *Admission Date: 04/15/23 *Reason for visit:: intractable back pain *History of present illness: This is a 73-year-old male with PMHx of chronic lower back, history of myasthenia on medical therapy, traumatic superior endplate fractures of L4 and L3 status post kyphoplasty with persistent back pain who presents emergency department for evaluation of functional decline and back pain. pain had a fall at home on March 30, that made pain worsened. Patient was recently seen and offered admission and placement after PT/OT evaluation however patient subsequently declined. Patient has had difficulty transferring out of bed due to his pain and at the behest of his presents here for evaluation. Very aggressive pain medication regimen including tizanidine oxycodone amitriptyline. He is followed by pain medicine specialist as well as his primary care doctor for his chronic pain.No new trauma. No urinary incontinence, no saddle anesthesia. Admitted for management and treatment. [facility] Disclaimer: The information contained in this section may have been updated after the patient was seen, as this information can be updated by other users. Medical History Chronic lower back pain See above. Compression fracture There is a new compression fracture of the inferior endplates of L3. This was after his fall. Distally Dr. Alexandre's injections were very helpful with his pain. I have also suggested that they split the oxycodone 10 mg tablets in half and use 5 mg. Fatigue First degree AV block Myasthenic syndrome Neurology consult 01/12/2022: Subacute onset of slowly progressive muscle weakness over the last month. 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 He was initially treated with prednisone 60 mg daily currently on 20 mg daily. Advised to decrease to 15 mg poqd as 07/10/2022, (upon returning from vacation in 2 weeks). Mestinon initially 30 mg p.o. 3 times daily for symptomatic therapy currently on 60 mg p.o. 3-4 times daily since 01/24/2022 and occasionally 30 mg in between doses. CAYETANO (obstructive sleep apnea) Back on AutoPap with excellent compliance, asymptomatic. Weight loss adviced today, (AHI >6). PAF (paroxysmal atrial fibrillation) Active follow-up with [facility] cardiology. Stable Prostate cancer Active follow-up with Dr. Jens Alcala, [facility] and Alex Chakraborty Jr. urologist in [place] Prostate cancer genetic susceptibility Sinus bradycardia Surgical History H/O heart artery stent H/O vasectomy Hx of cholecystectomy Family History Other Cancer Coronary artery disease Heart attack Stroke Social History (Updated 04/15/23 @ 21:06 by Ely Mcgrath RN) Smoking Status: Never smoker second hand exposure: No alcohol intake: never counseling provided: none substance use type: denies use current occupational status: retired Travel in the last 8 weeks: None household members: spouse housing: house current occupational exposures/hazards: No caffeine: Yes Review of Systems Review of Systems Review of systems:: pertinent systems reviewed and negative unless documented below Meds Home Medications and Allergies Home Medications Medication Instructions Recorded Confirmed Type aspirin 81 mg tablet,delayed 81 mg PO QDAY thinner 04/25/17 04/15/23 History release (Adult Low Dose Aspirin) nitroglycerin 0.4 mg sublingual 0.4 mg sublingual Q5-15M PRN chest 11/01/17 04/15/23 Rx tablet pain #30 tabs pantoprazole 40 mg tablet,delayed See Rx Instructions .Route 12/29/22 04/15/23 Rx release .COMPLEX #90 tabs pravastatin 10 mg tablet See Rx Instructions .Route 12/29/22 04/15/23 Rx .COMPLEX #90 tabs apixaban 5 mg tablet (Eliquis) 5 mg PO BID #60 tabs 01/17/23 04/15/23 Rx carvedilol 25 mg tablet 25 mg PO BID heart rate #180 tabs 01/29/23 04/15/23 Rx lisinopril 20 See Rx Instructions .Route 03/06/23 04/15/23 Rx mg-hydrochlorothiazide 12.5 mg .COMPLEX . #90 tabs tablet amitriptyline 10 mg tablet 10 mg PO HS PRN pain and sleep #60 03/16/23 04/15/23 Rx tabs pyridostigmine bromide 60 mg 60 mg PO TID Myasthenia #360 tabs 04/02/23 04/15/23 Rx tablet (Mestinon) oxycodone 10 mg tablet 10 mg PO DAILY 04/05/23 04/15/23 History prednisone 10 mg tablet 10 mg PO DAILY 04/05/23 04/15/23 History New Prescriptions to Start Prescriptions: Allergies Allergy/AdvReac Type Severity Reaction Status Date / Time pecan nut Allergy Intermediate Rash Verified 04/11/23 17:54 Exam Data for Last 24 hours Vital signs and Labs for Last 24 Hours: Temp Pulse Resp BP Pulse Ox O2 Del Method 98.1 F 82 18 146/66 H 100 Room Air 04/15/23 19:04 04/15/23 19:04 04/15/23 19:04 04/15/23 19:04 04/15/23 19:04 04/15/23 19:04 Laboratory Results - last 24 hr 04/15/23 20:00: WBC 9.0, RBC 4.43 L, Hgb 12.8 L, Hct 38.2 L, MCV 86.1, MCH 28.8, MCHC 33.5, RDW 14.1, Plt Count 389, MPV 8.1, Neut % (Auto) 72.8, Lymph % (Auto) 18.9, Terry % (Auto) 6.7, Eos % (Auto) 1.1, Baso % (Auto) 0.5, Neut # (Auto) 6.6, Lymph # (Auto) 1.7, Terry # (Auto) 0.6, Eos # (Auto) 0.1, Baso # (Auto) 0.0, Sodium 137, Potassium 4.1, Chloride 101, Carbon Dioxide 28, Anion Gap 12.1, BUN 22 H, Creatinine 1.00, Estimated Creat Clear 107, Estimated GFR 73, Est GFR ( Amer) 88, Glucose 117 H, Calcium 9.8, Total Bilirubin 0.7, AST 53, ALT 32, Alkaline Phosphatase 147 H, Total Protein 8.3 H, Albumin 4.2, Globulin 4.1 H, Albumin/Globulin Ratio 1.0 L I & O for Last 24 hours: Intake & Output 04/12/23 04/13/23 04/14/23 04/15/23 23:59 23:59 23:59 23:59 Weight 118.841 kg *Routine HEENT Exam Head: Present normocephalic Eye: Present EOMI ENT: Present mucous membranes moist *Routine Neck Exam Neck: Present full ROM *Routine Respiratory Exam Respiratory: Present distant breath sounds and symmetric chest movement; Absent normal respiratory effort *Routine Cardiovascular Exam Cardiovascular: Present irregular rhythm *Routine Abdominal Exam Abdominal: Present soft and normoactive bowel sounds; Absent tenderness Comments: surgical scar on right low abd *Routine Rectal Exam Rectal:: deferred *Routine Genitalia Exam Genitalia:: deferred *Routine Extremities Exam Extremities: Present full ROM *Routine Skin Exam Skin: Present scars Comments: right lower abd *Routine Neurological Exam Neurological: Present alert and oriented X3 H&P: Result Imaging and Cardiology CT scan - abdomen: Status: image reviewed by me, Preliminary report and final report Assessment and Plan *Assessment and plan (1) Acute exacerbation of chronic low back pain: Status: Acute Category: Medical Code(s): M54.50 - Low back pain, unspecified; G89.29 - Other chronic pain (2) Compression fracture: Problem Comment: There is a compression fracture of the inferior endplates of L3. This was after his fall. Distally Dr. Alexandre's injections were very helpful with his pain. I have also suggested that they split the oxycodone 10 mg tablets in half and use 5 mg. Status: Acute Category: Medical (3) Declining functional status: Status: Acute Category: Medical Code(s): R53.81 - Other malaise (4) Myasthenia: Problem Comment: Stable on Mestinon 60 mg p.o. 3 times daily, 30 mg twice daily as needed only; back on prednisone 15mg po qd, IVIG infusion every 3 months. Status: Chronic Category: Medical Code(s): G70.00 - Myasthenia gravis without (acute) exacerbation (5) HTN (hypertension): Status: Chronic Qualifiers: Hypertension type: primary hypertension Qualified Code(s): I10 - Essential (primary) hypertension Category: Medical Code(s): I10 - Essential (primary) hypertension Plan 73-year-old male with PMHx of chronic lower back, history of myasthenia on medical therapy, traumatic superior endplate fractures of L4 and L3 status post kyphoplasty with persistent back pain who presents emergency department for evaluation of functional decline and back pain. All patient work up was done on 04/11, since the patient refused admission at that day and returned today with no improvement at all. on that day CT of abd/pelvis showed Vertebroplasty L3 and L4. Compression fracture superior endplate. Findings were discussed with ER provider. Agreed for admission. Plan as follow: -Acute exacerbation of chronic low back pain, worsened by compression fracture: Presented as an intractable pain and declining function unable to take care of himself: Admit patient for medical services. MedSurg Continues pain management including Morphine as needed, home regimen of oxycodone, and Tylenol, lidocaine patch PT OT consulted for evaluation and treatment Fall precaution Supportive care -Myasthenia: Patient on Pyridostigmine. And prednisone. resumed -Hypertension On lisinopril hydrochlorothiazide, carvedilol Other chronic conditions: History of pulmonary embolism. On Eliquis History of coronary artery disease. On aspirin and statin SCD for DVT prophylaxis, on Protonix for GERD and GI protection Full code Rounded on patient after nurse practitioner. Personally examined and interviewed patient. Agree with exam findings and care plan as documented.
[2023-04-15 20:48] VITALS: O2SAT 100
[2023-04-15 21:14] VITALS: BP 109/73; PULSE 69; RESP 17; TEMP 36.7; O2SAT 98
[2023-04-15 21:15] VITALS: BP 109/73; PULSE 68; RESP 20; TEMP 36.7; O2SAT 100
[2023-04-15] MEDS: DOCUSATE SODIUM 100 MG CAPSULE PO (22:44)
[2023-04-15] MEDS: PYRIDOSTIGMINE BROMIDE 60 MG 60 EACH PO (22:44)
[2023-04-15] MEDS: PANTOPRAZOLE 40MG TABLET 40 MG PO (22:44)
[2023-04-15] MEDS: LIDOCAINE 5% TRANSDERMAL PATCH 1 EACH TP (23:13)
[2023-04-16] VITALS: BP 158/84; PULSE 62; RESP 18; TEMP 36.9; O2SAT 99
[2023-04-16] MEDS: ACETAMINOPHEN 325MG TAB 650 MG PO ×2 (01:05→07:11)
[2023-04-16 04:00] VITALS: BP 147/87; PULSE 65; RESP 18; TEMP 36.6; O2SAT 99; BMI 31.7
--- NOTE | 2023-04-16 04:49 | PC.NURSE ---
PT IS ALERT AND ORIENTED X4, AND CURRENTLY TOLERATING RA WELL. PT HAS A HX OF APNEA AND USES A CPAP AT HOME. pT DOSE NOT HAVE HIS CPAP HERE AT THE HOSPITAL AND PLANS TO BRING IT LATER TODAY. pT HAS COMPLAINED OF MILD TO MODERATE NECK AND BACK PAIN THAT HAS BEEN TREATED PER MAR. PT DENIES PAIN AND OTHER NEEDS AT THIS TIME.
[2023-04-16] MEDS: MORPHINE 4MG/ML SYRINGE 4 MG IV (07:34)
[2023-04-16 07:42] LABS: Basophils # 0.1 K/mm3 (0-0.2); Basophils % 0.8 % (0.1-2.0); Eosinophils # 0.2 K/mm3 (0.0-0.4); Hematocrit 34.5 % (42.0-52.0); Hemoglobin 11.7 g/dL (14.1-18.0); Lymphocytes # 2.4 K/mm3 (0.7-4.5); Lymphocytes % 35.7 % (10-50); Mean Corpuscular HGB Conc 33.8 g/dL (31.8-35.4); Mean Corpuscular Hemoglobin 29.2 pg (27.0-31.2); Mean Corpuscular Volume 86.3 fl (80-94); Mean Platelet Volume 7.6 fl (7.4-10.4); Monocytes # 0.5 K/mm3 (0.1-1.0); Monocytes % 7.6 % (1.7-9.3); Neutrophils # 3.6 K/mm3 (1.8-7.8); Neutrophils % 52.9 % (37.0-80.0); Platelet Count 301 K/mm3 (142-424); Red Cell Distribution Width 14.1 % (11.5-17.5); White Blood Count 6.8 K/mm3 (4.8-10.8)
[2023-04-16 07:50] LABS: Alanine Aminotransferase 26 U/L (12-78); Albumin Level 3.7 g/dl (3.5-5.0); Albumin/Globulin Ratio 1.1 (1.1-1.8); Alkaline Phosphatase 123 U/L (38-126); Anion Gap 6.3 mEq/L (5-15); Aspartate Amino Transferase 38 U/L (17-59); Bilirubin,Total 0.6 mg/dl (0.2-1.3); Blood Urea Nitrogen 18 mg/dl (9-20); Calcium 9.4 mg/dl (8.4-10.2); Carbon Dioxide 29 mmol/L (22.0-30.0); Chloride 102 mmol/L (98-107); Creatinine Clearance Estimated 101 mL/min (50-200); Estimated Glomerular Filt Rate 82 ml/min (>60); GFR (African American) 100 ML/MIN (>60); Globulin 3.3 g/dL (1.3-3.2); Glucose 94 mg/dl (74-100); Magnesium 1.7 mg/dl (1.6-2.3); Potassium 3.3 mmoL/L (3.5-5.1); Sodium 134 mmol/L (136-145)
[2023-04-16 07:52] VITALS: BP 165/97; PULSE 60; RESP 18; TEMP 36.4; O2SAT 99
--- NOTE | 2023-04-16 08:00 | P.PN_ITS ---
Subjective *Date: 04/16/23 *Time: 15:44 Interval history: Still having significant low back pain. Needing assistance to get out of bed. Complaining of abdominal pain as well, has not had a bowel movement in over 2 days. Afebrile. No nausea or vomiting Medical Exam Vital signs and Labs for Last 24 Hours: Vital Signs Temp Pulse Pulse Resp BP BP Pulse Ox 04/16/23 07:52 97.6 F 60 18 165/97 H 99 04/16/23 06:39 04/16/23 04:49 04/16/23 04:00 97.8 F 65 18 147/87 H 99 04/16/23 03:00 04/16/23 00:57 04/16/23 00:00 98.4 F 62 18 158/84 H 99 04/15/23 21:15 98.1 F 68 20 109/73 L 100 04/15/23 23:00 04/15/23 21:20 04/15/23 21:14 98.1 F 69 17 109/73 L 04/15/23 20:48 100 04/15/23 19:04 98.1 F 82 18 146/66 H 100 O2 Del Method 04/16/23 07:52 Room Air 04/16/23 06:39 Room Air 04/16/23 04:49 Room Air 04/16/23 04:00 Room Air 04/16/23 03:00 Room Air 04/16/23 00:57 Room Air 04/16/23 00:00 Room Air 04/15/23 21:15 Room Air 04/15/23 23:00 Room Air 04/15/23 21:20 Room Air 04/15/23 21:14 Room Air 04/15/23 20:48 Room Air 04/15/23 19:04 Room Air Intake and Output 04/15/23 04/16/23 04/16/23 23:59 07:59 15:59 Intake Total 120 / 120 240 / 240 Balance 120 / 120 240 / 240 Intake: Intake, Oral Amount 120 / 120 240 / 240 Other: Weight 118.841 kg 112.173 kg Patient Weight 04/16/23 23:59 Weight 112.173 kg Laboratory Results - last 24 hr 04/15/23 20:00: WBC 9.0, RBC 4.43 L, Hgb 12.8 L, Hct 38.2 L, MCV 86.1, MCH 28.8, MCHC 33.5, RDW 14.1, Plt Count 389, MPV 8.1, Neut % (Auto) 72.8, Lymph % (Auto) 18.9, Cochran % (Auto) 6.7, Eos % (Auto) 1.1, Baso % (Auto) 0.5, Neut # (Auto) 6.6, Lymph # (Auto) 1.7, Cochran # (Auto) 0.6, Eos # (Auto) 0.1, Baso # (Auto) 0.0, Sodium 137, Potassium 4.1, Chloride 101, Carbon Dioxide 28, Anion Gap 12.1, BUN 22 H, Creatinine 1.00, Estimated Creat Clear 107, Estimated GFR 73, Est GFR ( Amer) 88, Glucose 117 H, Calcium 9.8, Total Bilirubin 0.7, AST 53, ALT 32, Alkaline Phosphatase 147 H, Total Protein 8.3 H, Albumin 4.2, Globulin 4.1 H , Albumin/Globulin Ratio 1.0 L 04/16/23 07:09: WBC 6.8, RBC 4.00 L, Hgb 11.7 L, Hct 34.5 L, MCV 86.3, MCH 29.2, MCHC 33.8, RDW 14.1, Plt Count 301, MPV 7.6, Neut % (Auto) 52.9, Lymph % (Auto) 35.7, Cochran % (Auto) 7.6, Eos % (Auto) 3.0, Baso % (Auto) 0.8, Neut # (Auto) 3.6, Lymph # (Auto) 2.4, Cochran # (Auto) 0.5, Eos # (Auto) 0.2, Baso # (Auto) 0.1, Sodium 134 L, Potassium 3.3 L, Chloride 102, Carbon Dioxide 29, Anion Gap 6.3, BUN 18, Creatinine 0.90, Estimated Creat Clear 101, Estimated GFR 82, Est GFR ( Amer) 100, Glucose 94, Calcium 9.4, Magnesium 1.7, Total Bilirubin 0.6, AST 38 D, ALT 26, Alkaline Phosphatase 123, Total Protein 7.0, Albumin 3.7 D, Globulin 3.3 H, Albumin/Globulin Ratio 1.1 I & O for Labs for Last 24 Hours: Intake & Output 04/13/23 04/14/23 04/15/23 04/16/23 23:59 23:59 23:59 23:59 Intake Total 120 / 120 240 / 240 Balance 120 / 120 240 / 240 Weight 118.841 kg 112.173 kg Constitutional: Present no acute distress, obese and cooperative Head: Present atraumatic and normocephalic ENT: Present normal exam Respiratory: Present normal respiratory effort; Absent rhonchi, wheezes or crackles Cardiac: Present Reg Rate and Rhythm GI: Present soft, tenderness (Nonfocal, diffuse, worse in lower abdomen) and normal bowel sounds; Absent distention Extremities: Present normal inspection and full ROM Skin: Present intact; Absent erythema Neuro: Present Grossly Intact, alert, awake, oriented x 3 and moves all extremities Assessment and Plan *Assessment and plan (1) Acute exacerbation of chronic low back pain: Status: Acute Category: Medical Code(s): M54.50 - Low back pain, unspecified; G89.29 - Other chronic pain (2) Compression fracture: Problem Comment: There is a compression fracture of the inferior endplates of L3. This was after his fall. Distally Dr. Alexandre's injections were very helpful with his pain. I have also suggested that they split the oxycodone 10 mg tablets in half and use 5 mg. Status: Acute Category: Medical (3) Declining functional status: Status: Acute Category: Medical Code(s): R53.81 - Other malaise (4) Myasthenia: Problem Comment: Stable on Mestinon 60 mg p.o. 3 times daily, 30 mg twice daily as needed only; back on prednisone 15mg po qd, IVIG infusion every 3 months. Status: Chronic Category: Medical Code(s): G70.00 - Myasthenia gravis without (acute) exacerbation (5) HTN (hypertension): Status: Chronic Qualifiers: Hypertension type: primary hypertension Qualified Code(s): I10 - Essential (primary) hypertension Category: Medical Code(s): I10 - Essential (primary) hypertension Plan 73-year-old male with PMHx of chronic lower back, history of myasthenia on medical therapy, traumatic superior endplate fractures of L4 and L3 status post kyphoplasty with persistent back pain who presents emergency department for evaluation of functional decline and back pain. All patient work up was done on 04/11, since the patient refused admission at that day and returned today with no improvement at all. on that day CT of abd/pelvis showed Vertebroplasty L3 and L4. Compression fracture superior endplate. Findings were discussed with ER provider. Agreed for admission. Patient tolerating pain regimen at this time, needing significant assistance, awaiting pain management consult and therapy eval. Continues to require inpatient management. Problems addressed as follows: -Acute exacerbation of chronic low back pain, worsened by compression fracture: Presented as an intractable pain and declining function unable to take care of himself: Transition off IV morphine to p.o. oxycodone every 4-6 hours for severe pain Initiate Toradol 15 mg IV every 6 hours as needed for moderate to severe pain PT/OT consulted for evaluation and treatment Pain management consult placed, appreciate their assistance Case management consulted to assist with placement Initiated on bowel regimen for constipation and abdominal pain. Continue docusate senna twice daily and MiraLAX -Myasthenia: Patient on Pyridostigmine and prednisone 10 mg daily. Continue home regimen. -Hypertension: Resume lisinopril 20 mg daily, carvedilol 25mg twice daily. On lisinopril hydrochlorothiazide, carvedilol Other chronic conditions: History of pulmonary embolism. On Eliquis History of coronary artery disease. On aspirin and statin Eliquis twice daily Full code Cardiac diet
[2023-04-16] MEDS: MAGNESIUM OXIDE 400MG TABLET 400 MG PO (09:56)
[2023-04-16] MEDS: APIXABAN 5MG TABLET 5 MG PO (09:56)
[2023-04-16] MEDS: SENNOSIDES 8.6MG/DOCUSATE 50MG TABLET 1 TAB PO ×2 (09:56→20:32)
[2023-04-16] MEDS: predniSONE 10MG TAB 10 MG PO (09:57)
[2023-04-16] MEDS: CARVEDILOL 25MG TABLET 25 MG PO (09:57)
[2023-04-16] MEDS: POLYETHYLENE GLYCOL 3350 17 GM PACKET PO ×3 (10:01→20:32)
[2023-04-16] MEDS: OXYCODONE 10MG W/APAP 325MG TABLET 1 EACH PO ×2 (10:04→16:55)
[2023-04-16] MEDS: PYRIDOSTIGMINE 60 MG 1 EACH PO ×4 (10:08→20:32)
[2023-04-16] MEDS: PANTOPRAZOLE 40 MG 1 EACH PO (10:08)
[2023-04-16 15:15] VITALS: BP 136/80; PULSE 70; RESP 18; TEMP 36.8; O2SAT 100
--- NOTE | 2023-04-16 15:50 | PC.NURSE ---
meds not being used sent home with . controlled med counted with a orourke and with pt.
[2023-04-16 20:00] VITALS: BP 145/77; PULSE 66; RESP 18; TEMP 36.4; O2SAT 98
[2023-04-16] MEDS: CARVEDILOL 25 MG 1 EACH PO (20:32)
[2023-04-16] MEDS: AMITRIPTYLINE 10MG TABLET 10 MG PO (20:32)
[2023-04-16] MEDS: PT OWN MED *ELIQUIS 5 MG TAB 1 EACH PO (20:32)
[2023-04-16] MEDS: KETOROLAC 30MG/ML VIAL 15 MG IV (20:33)
[2023-04-16] MEDS: LIDOCAINE 5% TRANSDERMAL PATCH 1 EACH TP (22:35)
--- NOTE | 2023-04-16 23:05 | PC.NURSE ---
pt arrived to floor via wheelchair @23:05
[2023-04-17] MEDS: KETOROLAC 30MG/ML VIAL 15 MG IV (03:06)
[2023-04-17] MEDS: POLYETHYLENE GLYCOL 3350 17 GM PACKET PO ×2 (03:06→08:28)
[2023-04-17 04:00] VITALS: BP 143/75; PULSE 58; RESP 18; TEMP 36.4; O2SAT 97; BMI 32.5
--- NOTE | 2023-04-17 05:10 | PC.NURSE ---
Patient has had a good night. Pain to my knowledge has been under control. Patient has had minimal complaints or been asleep during my rounds. Reyes did have a BM this shift and stated he felt better. Patient has been up with a walker. No other complaints this shift
[2023-04-17 06:37] LABS: Basophils % 0.5 % (0.1-2.0); Eosinophils # 0.2 K/mm3 (0.0-0.4); Eosinophils % 2.5 % (0.1-12.0); Hematocrit 34.6 % (42.0-52.0); Hemoglobin 11.5 g/dL (14.1-18.0); Lymphocytes # 2.1 K/mm3 (0.7-4.5); Lymphocytes % 35.2 % (10-50); Mean Corpuscular HGB Conc 33.3 g/dL (31.8-35.4); Mean Corpuscular Volume 87.1 fl (80-94); Mean Platelet Volume 7.7 fl (7.4-10.4); Monocytes # 0.4 K/mm3 (0.1-1.0); Monocytes % 7.5 % (1.7-9.3); Neutrophils # 3.2 K/mm3 (1.8-7.8); Neutrophils % 54.3 % (37.0-80.0); Platelet Count 295 K/mm3 (142-424); Red Blood Count 3.97 M/mm3 (4.60-6.20); Red Cell Distribution Width 14.1 % (11.5-17.5); White Blood Count 5.9 K/mm3 (4.8-10.8)
[2023-04-17 06:41] LABS: Alanine Aminotransferase 23 U/L (12-78); Alkaline Phosphatase 116 U/L (38-126); Aspartate Amino Transferase 34 U/L (17-59); Bilirubin,Total 0.3 mg/dl (0.2-1.3); Blood Urea Nitrogen 21 mg/dl (9-20); Calcium 9.3 mg/dl (8.4-10.2); Carbon Dioxide 32 mmol/L (22.0-30.0); Chloride 101 mmol/L (98-107); Creatinine Clearance Estimated 104 mL/min (50-200); Estimated Glomerular Filt Rate 73 ml/min (>60); GFR (African American) 88 ML/MIN (>60); Glucose 108 mg/dl (74-100)
[2023-04-17 06:43] LABS: Albumin Level 3.5 g/dl (3.5-5.0); Albumin/Globulin Ratio 1.1 (1.1-1.8); Anion Gap 2.1 mEq/L (5-15); Globulin 3.2 g/dL (1.3-3.2); Magnesium 1.8 mg/dl (1.6-2.3); Potassium 3.1 mmoL/L (3.5-5.1); Sodium 132 mmol/L (136-145); Total Protein,Serum 6.7 g/dl (6.3-8.2)
[2023-04-17 08:00] VITALS: BP 126/53; PULSE 67; RESP 17; TEMP 36.6; O2SAT 98
[2023-04-17] MEDS: MAGNESIUM OXIDE 400MG TABLET 400 MG PO (08:28)
[2023-04-17] MEDS: SENNOSIDES 8.6MG/DOCUSATE 50MG TABLET 1 TAB PO (08:28)
[2023-04-17] MEDS: LISINOPRIL 20MG TABLET 20 MG PO (08:28)
[2023-04-17] MEDS: PREDNISONE 10 MG 1 EACH PO (08:29)
[2023-04-17] MEDS: PANTOPRAZOLE 40 MG 1 EACH PO (08:29)
[2023-04-17] MEDS: PT OWN MED *ELIQUIS 5 MG TAB 1 EACH PO (08:29)
[2023-04-17] MEDS: CARVEDILOL 25 MG 1 EACH PO (08:29)
[2023-04-17] MEDS: PYRIDOSTIGMINE 60 MG 1 EACH PO (08:29)
--- NOTE | 2023-04-17 09:56 | HMH.OTEV ---
OT Inpatient Evaluation Rehab OT IP Evaluation Start: 04/17/23 09:09 Freq: ONCE Status: Active Protocol: Document 04/17/23 09:49 JUANMELODY (Rec: 04/17/23 09:56 CHRISTEN [id number]) Rehab OT IP Assessment Subjective History This is a 73-year-old male with PMHx of chronic lower back, history of myasthenia on medical therapy, traumatic superior endplate fractures of L4 and L3 status post kyphoplasty with persistent back pain who presents emergency department for evaluation of functional decline and back pain. pain had a fall at home on March 30, that made pain worsened. Patient was recently seen and offered admission and placement after PT/OT evaluation however patient subsequently declined. Patient has had difficulty transferring out of bed due to his pain and at the behest of his presents here for evaluation. Very aggressive pain medication regimen including tizanidine oxycodone amitriptyline. He is followed by pain medicine specialist as well as his primary care doctor for his chronic pain.No new trauma. No urinary incontinence, no saddle anesthesia. Admitted for management and treatment. Its my back that has been hurting. Patient lives in 1 story home with 3-4 CANDACE with . Patient was independent with ADLs and fx'l mobility prior to hospitalization. Subjective Instructed Patient on proper hand and foot placement to complete bed mobility from supine->sit @ EOB->stand with usage of RW requiring Min A. Patient able to darcie B shoes independently after s/u. Analysis Patient's fx'l mobility within the hallways > 50ft within the hallways. Patient stated, I need to use the restroom. Assisted Patient to participate in toilet transfers with SBA with usage of RW. Left Patient sitting on toilet with call light within reach at end of session. Objective Patient Orientation Person,Name,Age,Birthday,Year Right Upper Extremity Gross ROM WFL Left Upper Extremity Gross ROM WFL Bed Mobility bed mobility - supine/sit Assist Level Minimal x 1 (25% assist) Transfer Training Sit/Stand/Pivot Transfer Assist Level Minimal x 1 (25% assist) Chair Transfer Ability Minimal x 1 (25% assist) Chair Transfer Technique Sit to/from Ambulatory Chair Transfer Assistive Devices Rolling Walker Lower Body Dressing Ability Standby Assistance Overall Commode/Toilet Transfer Ability Standby Assistance Commode/Toilet Transfer Technique Sit to/from Ambulatory Rehab OT IP prob,goals,plan Problems Date of Evaluation: 04/17/23 Rehab Potential Rehab Potential Innapropriate for Skilled Therapy Discharge Plan OT Discharge Plan Patient to return home with . Recommend HH services after medical d/c. Patient able to maneuver with usage of RW within hallways >50ft. Eval Complexity Eval Charge Codes 28753 - Low Complexity PHYSICIAN CERTIFICATION: I certify the specified therapy services for Wilber Ayala JR are required, authorized, and reviewed every 30 days.
[2023-04-17] MEDS: OXYCODONE 10MG W/APAP 325MG TABLET 1 EACH PO (10:27)
--- NOTE | 2023-04-17 10:39 | HMH.PTEV ---
Physical Therapy Evaluation Rehab PT IP Evaluation Start: 04/17/23 09:09 Freq: ONCE Status: Active Protocol: Document 04/17/23 10:18 SEBASTIAN (Rec: 04/17/23 10:38 SEBASTIAN [id number]) Subjective/History History History Pt is a 73 y/o male who presented to [facility] ED on for evaluation of functional decline and back pain. Per history & physical note, Patient has had difficulty transferring out of bed due to his pain and at the behest of his presents here for evaluation. Very aggressive pain medication regimen including tizanidine oxycodone amitriptyline. He is followed by pain medicine specialist as well as his primary care doctor for his chronic pain.No new trauma. No urinary incontinence, no saddle anesthesia. Medical History: chronic lower back, history of myasthenia on medical therapy, traumatic superior endplate fractures of L4 and L3 status post kyphoplasty Subjective Subjective Pt reports he lives at home with his in a single story home with 5 steps to enter. Pt reports he fell on March 30 trying to transfer from a shower chair independently which caused neck pain, right hip pain and increased chronic low back pain. Pt reports pain is well controlled with pain medication rated 1-2/10 on VAS scale at rest. Pt denies LE symptoms, paresthesia or b/b dysfunction. Pt reports prior to his fall he was independent with ambulation and ADLs. Pt reports since the fall he has been using a rollator walker for ambulation and his has been assisting him with LE dressing and bathing due to back pain. Pt reports his is in good health and able to assist him. New diagnosis of cancer in past 12 No months? Rehab PT IP Eval Objective Appearance Patient Behavior Appropriate,Cooperative Patient Orientation Person,Place,Name,Birthday Difficulty following instructions none Speech Pattern Clear,Appropriate Ambulation Patient Able to Ambulate Yes Ambulation Observation IP General Gait Pattern Observation Wide Based Gait Ambulation Distance (feet) 120 Ambulation Assistive Device Rolling Walker Ambulation Ability Supervision/Stand by Balance Ability to Arise Able, uses arms to help Sitting Balance Steady, safe Standing Balance Steady, wide stance Dynamic Sitting Balance Ability Good Dynamic Standing Balance Ability Good Transfers Bed Transfer Ability Supervision/Stand by Sit to Stand Bed Transfer Ability Contact Guard/Hand Hold ROM All Extremities PT ROM Status WFL Rehab PT IP prob,goals,plan Problems Date of Evaluation: 04/17/23 Discharge Plan PT Discharge Plan Pt without inpaitent needs at this time demonstrating ability to participate in mobiltiy assessment with CGA- SBA. Pt is currently appropriate to return home with assistance from his and HHPT to assist with low back pain and LE strength. Eval Complexity Eval Charge Codes 84889 - Low Complexity PHYSICIAN CERTIFICATION: I certify the specified therapy services for Wilber Ayala JR are required, authorized, and reviewed every 30 days.
--- NOTE | 2023-04-17 10:40 | HMH.PTEV ---
Physical Therapy Evaluation Rehab PT IP Evaluation Start: 04/17/23 09:09 Freq: ONCE Status: Active Protocol: Document 04/17/23 10:18 SEBASTIAN (Rec: 04/17/23 10:38 SEBASTIAN [id number]) Subjective/History History History Pt is a 73 y/o male who presented to [facility] ED on for evaluation of functional decline and back pain. Per history & physical note, Patient has had difficulty transferring out of bed due to his pain and at the behest of his presents here for evaluation. Very aggressive pain medication regimen including tizanidine oxycodone amitriptyline. He is followed by pain medicine specialist as well as his primary care doctor for his chronic pain.No new trauma. No urinary incontinence, no saddle anesthesia. Medical History: chronic lower back, history of myasthenia on medical therapy, traumatic superior endplate fractures of L4 and L3 status post kyphoplasty Subjective Subjective Pt reports he lives at home with his in a single story home with 5 steps to enter. Pt reports he fell on March 30 trying to transfer from a shower chair independently which caused neck pain, right hip pain and increased chronic low back pain. Pt reports pain is well controlled with pain medication rated 1-2/10 on VAS scale at rest. Pt denies LE symptoms, paresthesia or b/b dysfunction. Pt reports prior to his fall he was independent with ambulation and ADLs. Pt reports since the fall he has been using a rollator walker for ambulation and his has been assisting him with LE dressing and bathing due to back pain. Pt reports his is in good health and able to assist him. New diagnosis of cancer in past 12 No months? Rehab PT IP Eval Objective Appearance Patient Behavior Appropriate,Cooperative Patient Orientation Person,Place,Name,Birthday Difficulty following instructions none Speech Pattern Clear,Appropriate Ambulation Patient Able to Ambulate Yes Ambulation Observation IP General Gait Pattern Observation Wide Based Gait Ambulation Distance (feet) 120 Ambulation Assistive Device Rolling Walker Ambulation Ability Supervision/Stand by Balance Ability to Arise Able, uses arms to help Sitting Balance Steady, safe Standing Balance Steady, wide stance Dynamic Sitting Balance Ability Good Dynamic Standing Balance Ability Good Transfers Bed Transfer Ability Supervision/Stand by Sit to Stand Bed Transfer Ability Contact Guard/Hand Hold ROM All Extremities PT ROM Status WFL Rehab PT IP prob,goals,plan Problems Date of Evaluation: 04/17/23 Discharge Plan PT Discharge Plan Pt without inpaitent needs at this time demonstrating ability to participate in mobiltiy assessment with C[facility]- SBA. Pt is currently appropriate to return home with assistance from his and HHPT to assist with low back pain and LE strength. Eval Complexity Eval Charge Codes 86383 - Low Complexity PHYSICIAN CERTIFICATION: I certify the specified therapy services for Wilber Ayala JR are required, authorized, and reviewed every 30 days.
--- NOTE | 2023-04-17 10:54 | SW/DCPLANNER ---
Addendum entered by Gloria Krishnamurthy 04/17/23 14:20: Danitza al/ [facility] stated that services will start tomorrow 04/18/23 for this patient. Original Note: I spoke w/ patient and his regarding plans once medically stable for discharge. PT/OT evaluated patient and recommended returning home w/ home health services. Patient is agreeable to home health services and prefers to use [facility]. Patient information/order will be faxed to [facility] this AM. Patient will discharge home this afternoon.
--- NOTE | 2023-04-17 11:33 | PC.NURSE ---
Courtesy Round Patient awake sitting up in chair with visitor at bedside. No needs voiced at this time. Call light within reach
--- NOTE | 2023-04-17 11:52 | EXP.DC.SUM ---
General Admission date:: 04/15/23 Discharge date: 04/17/23 HPI HPI HPI: This is a 73-year-old male with PMHx of chronic lower back, history of myasthenia on medical therapy, traumatic superior endplate fractures of L4 and L3 status post kyphoplasty with persistent back pain who presents emergency department for evaluation of functional decline and back pain. pain had a fall at home on March 30, that made pain worsened. Patient was recently seen and offered admission and placement after PT/OT evaluation however patient subsequently declined. Patient has had difficulty transferring out of bed due to his pain and at the behest of his presents here for evaluation. Very aggressive pain medication regimen including tizanidine oxycodone amitriptyline. He is followed by pain medicine specialist as well as his primary care doctor for his chronic pain.No new trauma. No urinary incontinence, no saddle anesthesia. Admitted for management and treatment. Hospital Course Hospital Course Hospital Course: 73-year-old male with PMHx of chronic lower back, history of myasthenia on medical therapy, traumatic superior endplate fractures of L4 and L3 status post kyphoplasty with persistent back pain who presents emergency department for evaluation of functional decline and back pain. All patient work up was done on 04/11, since the patient refused admission at that day and returned today with no improvement at all. on that day CT of abd/pelvis showed Vertebroplasty L3 and L4. Compression fracture superior endplate. Findings were discussed with ER provider. Agreed for admission. Patient tolerating pain regimen at this time, needing significant assistance, awaiting pain management consult and therapy eval. Continues to require inpatient management. Problems addressed as follows: -Acute exacerbation of chronic low back pain, worsened by compression fracture: - improved Presented as an intractable pain and declining function unable to take care of himself - ok to go home with home health -Myasthenia: Patient on Pyridostigmine and prednisone 10 mg daily. Continue home regimen. -Hypertension: Resume lisinopril 20 mg daily, carvedilol 25mg twice daily. On lisinopril hydrochlorothiazide, carvedilol Other chronic conditions: History of pulmonary embolism. On Eliquis History of coronary artery disease. On aspirin and statin Eliquis twice daily Full code Cardiac diet Exam Data for Last 24 hours Vital signs and Labs for Last 24 Hours: Temp Pulse Resp BP Pulse Ox O2 Del Method 97.8 F 67 17 126/53 L 98 Room Air 04/17/23 08:00 04/17/23 08:00 04/17/23 08:00 04/17/23 08:00 04/17/23 08:00 04/17/23 11:00 Laboratory Results - last 24 hr 04/17/23 05:53: WBC 5.9, RBC 3.97 L, Hgb 11.5 L, Hct 34.6 L, MCV 87.1, MCH 29.0, MCHC 33.3, RDW 14.1, Plt Count 295, MPV 7.7, Neut % (Auto) 54.3, Lymph % (Auto) 35.2, [place] % (Auto) 7.5, Eos % (Auto) 2.5, Baso % (Auto) 0.5, Neut # (Auto) 3.2, Lymph # (Auto) 2.1, [place] # (Auto) 0.4, Eos # (Auto) 0.2, Baso # (Auto) 0.0, Sodium 132 L, Potassium 3.1 L, Chloride 101, Carbon Dioxide 32 H, Anion Gap 2.1 L, BUN 21 H, Creatinine 1.00, Estimated Creat Clear 104, Estimated GFR 73, Est GFR ( Amer) 88, Glucose 108 H, Calcium 9.3, Magnesium 1.8, Total Bilirubin 0.3, AST 34, ALT 23, Alkaline Phosphatase 116, Total Protein 6.7, Albumin 3.5, Globulin 3.2, Albumin/Globulin Ratio 1.1 I & O for Last 24 hours: Intake & Output 04/14/23 04/15/23 04/16/23 04/17/23 23:59 23:59 23:59 23:59 Intake Total 120 / 120 720 / 720 360 / 360 Output Total 0 / 0 0 / 0 Balance 120 / 120 720 / 720 360 / 360 Weight 118.841 kg 112.173 kg 114.901 kg Constitutional Constitutional: no acute distress *Routine HEENT Exam Head: Present normocephalic Eye: Present EOMI and PERRL ENT: Present mucous membranes moist *Routine Neck Exam Neck: Present supple; Absent lymphadenopathy *Routine Respiratory Exam Respiratory: Present CTA bilaterally *Routine Cardiovascular Exam Cardiovascular: Present RRR *Routine Abdominal Exam Abdominal: Present soft and normoactive bowel sounds; Absent tenderness *Routine Extremities Exam Extremities: Absent cyanosis, clubbing or edema *Routine Skin Exam Skin: Present warm; Absent rash *Routine Neurological Exam Neurological: Present alert and oriented X3 Results Data Completed and Pending Labs on day of discharge: Labs from last 24 hours 04/17/23 05:53 WBC 5.9 RBC 3.97 L Hgb 11.5 L Hct 34.6 L MCV 87.1 MCH 29.0 MCHC 33.3 RDW 14.1 Plt Count 295 MPV 7.7 Neut % (Auto) 54.3 Lymph % (Auto) 35.2 [place] % (Auto) 7.5 Eos % (Auto) 2.5 Baso % (Auto) 0.5 Neut # (Auto) 3.2 Lymph # (Auto) 2.1 [place] # (Auto) 0.4 Eos # (Auto) 0.2 Baso # (Auto) 0.0 Sodium 132 L Potassium 3.1 L Chloride 101 Carbon Dioxide 32 H Anion Gap 2.1 L BUN 21 H Creatinine 1.00 Estimated Creat Clear 104 Estimated GFR 73 Est GFR ( Amer) 88 Glucose 108 H Calcium 9.3 Magnesium 1.8 Total Bilirubin 0.3 AST 34 ALT 23 Alkaline Phosphatase 116 Total Protein 6.7 Albumin 3.5 Globulin 3.2 Albumin/Globulin Ratio 1.1 DS: Diagnosis Discharge Diagnosis (1) Acute exacerbation of chronic low back pain: Status: Acute Code(s): M54.50 - Low back pain, unspecified; G89.29 - Other chronic pain (2) Compression fracture: Status: Acute Problem details: There is a compression fracture of the inferior endplates of L3. This was after his fall. Distally Dr. Alexandre's injections were very helpful with his pain. I have also suggested that they split the oxycodone 10 mg tablets in half and use 5 mg. (3) Declining functional status: Status: Acute Code(s): R53.81 - Other malaise (4) Myasthenia: Status: Chronic Code(s): G70.00 - Myasthenia gravis without (acute) exacerbation Problem details: Stable on Mestinon 60 mg p.o. 3 times daily, 30 mg twice daily as needed only; back on prednisone 15mg po qd, IVIG infusion every 3 months. (5) HTN (hypertension): Status: Chronic Code(s): I10 - Essential (primary) hypertension Qualifiers: Hypertension type: primary hypertension Qualified Code(s): I10 - Essential (primary) hypertension Meds Home Medications and Allergies Home Medications Medication Instructions Recorded Confirmed Type aspirin 81 mg tablet,delayed 81 mg PO DAILY Blood Thinner 04/25/17 04/16/23 History release (Adult Low Dose Aspirin) carvedilol 25 mg tablet 25 mg PO BID heart rate #180 tabs 01/29/23 04/16/23 Rx oxycodone 10 mg tablet 10 mg PO TID Pain 04/05/23 04/16/23 History prednisone 10 mg tablet 10 mg PO DAILY myasthenia gravis 04/05/23 04/16/23 History amitriptyline 10 mg tablet 10 mg PO HSP PRN Sleep 04/16/23 04/16/23 History apixaban 5 mg tablet (Eliquis) 5 mg PO BID Blood Thinner 04/16/23 04/16/23 History lisinopril 20 1 tab PO DAILY High Blood Pressure 04/16/23 04/16/23 History mg-hydrochlorothiazide 12.5 mg tablet nitroglycerin 0.4 mg sublingual 0.4 mg sublingual Q5MINP PRN chest 04/16/23 04/16/23 History tablet pain pantoprazole 40 mg tablet,delayed 40 mg PO DAILY Acid Reflux 04/16/23 04/16/23 History release pravastatin 10 mg tablet 10 mg PO HS Cholesterol 04/16/23 04/16/23 History pyridostigmine bromide 60 mg tablet 60 mg PO QID MYASTHENIA GRAVIS 04/16/23 04/16/23 History New Prescriptions to Start Prescriptions: Allergies Allergy/AdvReac Type Severity Reaction Status Date / Time pecan nut Allergy Intermediate Rash Verified 04/11/23 17:54 Discharge Plan Disposition Patient Disposition: Home Health Service Condition: Good Discharge Order Discharge Orders: Discharge Order (Routine); Ordered 04/17/23 Ordered By: Candace Stacy Follow up Plan Follow up with: Ronak Alexandre MD [Staff Physician] - 1 week Jamal Borja DO [Primary Care Provider] - 1 week Prescriptions/Medication Reconciliation: Continued oxycodone 10 mg tablet 10 mg PO TID prednisone 10 mg tablet 10 mg PO DAILY aspirin [Adult Low Dose Aspirin] 81 mg tablet,delayed release (DR/EC) 81 mg PO DAILY carvedilol 25 mg tablet 25 mg PO BID Qty: 180 1RF amitriptyline 10 mg tablet 10 mg PO HSP PRN (Reason: Sleep) pyridostigmine bromide 60 mg tablet 60 mg PO QID Eliquis 5 mg tablet 5 mg PO BID lisinopril-hydrochlorothiazide 20-12.5 mg tablet 1 tab PO DAILY pravastatin 10 mg tablet 10 mg PO HS pantoprazole 40 mg tablet,delayed release (DR/EC) 40 mg PO DAILY nitroglycerin 0.4 mg tablet, sublingual 0.4 mg SUBLINGUAL Q5MINP PRN (Reason: chest pain) Rx Instructions: until response; do not exceed 3 doses per episode Problem Reconciliation Problems Reviewed?: Yes Patient Discharge Instructions ACTIVITY: Ambulate as tolerated DIET: continue same diet Patient Instructions: DI for Low Back Pain Providers Primary Care Provider: Jamal Borja Admit Provider: Valeriy Aguayo Attending Provider: Valeriy Aguayo
--- NOTE | 2023-04-18 15:11 | CARE MANAGER ---
Spoke with patient related to hospital discharge. He states he is doing well. He just came from MD appointment and denies any questions or concerns. ZAFAR Feliz
== END 2023-04-17 13:15 | disposition home health service (06) ==
LOC: ER 19:12 → 2ND 20:43
PROVIDERS: Nurse Practitioner Family; Admitting Provider Internal Medicine Adolescent Medicine; Emergency Provider Emergency Medicine; PCP Internal Medicine; Visit Provider Internal Medicine Adolescent Medicine
DX: M54.50 Low back pain, unspecified (principal); G89.29 Other chronic pain; R53.81 Other malaise; G70.00 Myasthenia gravis without (acute) exacerbation; I10 Essential (primary) hypertension; R29.6 Repeated falls; Z79.01 Long term (current) use of anticoagulants; Z86.711 Personal history of pulmonary embolism
CPT/HCPCS: 36415; 80053; 83735; 85025; 97161; 97165; 99285; G0378

== ENCOUNTER → 2023-04-18 14:04 | Outpatient (POV) | payer MEDICARE, SELFPAY ==
[2023-04-18 16:00] VITALS: BP 157/88; PULSE 81; RESP 18; O2SAT 98; BMI 33.6
--- NOTE | 2023-04-18 16:03 | EXP.PAIN.SOA ---
[facility] Pain Management SOAP Note Subjective:: Patient is a pleasant 73-year-old male who presents today for follow-up of kyphoplasty of L3-L4 and L4-L5 on 04/02/2023. We are currently treating the patient for degenerative disc disease of lumbar spine with lumbar radiculopathy symptoms, superior endplate fracture of L3, L4 and L5. Today he rates his pain a 2 out of 10. Patient does state that he had some initial soreness following the overall procedure however did have significant pain improvement after that. Patient states over the weekend he did start to have more severe pain in his low back and abdomen with bloating. Patient did go to the ER for evaluation and was admitted for pain control. Patient states he was given morphine and did have imaging with no acute findings. Patient did state that he had severe constipation and was given stool softeners and MiraLAX and is now had significant relief. Patient denies any other injury or new falls. He does state that he is feeling much better and feels like he has been able to increase his activity with decreased pain symptoms. Patient does state that he has been starting to experiencing worsening pain in his left knee. Patient states that he has had prior injections into this knee in the past from other providers and they did provide significant relief. He states his first injection lasted approximately 11 months and the second 1 more around 6 months. Patient states that this joint is [id number] and denies any previous surgery. He does state he is interested in injection therapy for this. He states that it has been more than 6 months since his last injection. He does state the pain interferes with his ability perform activities of daily living such as cooking and cleaning or simple ambulation. He does describe it as an aching, throbbing sensation that is worse with increased range of motion. Patient states he is using his rolling walker for help with ambulation. His Chavo has been reviewed and is appropriate. Review of Systems: General: No recent weight changes, no fever, no sleep disturbances Respiratory: No cough, no shortness of air, no recurring pulmonary infections Cardiovascular/peripheral vascular: No chest pain, no palpitations, no edema, no shortness of breath Gastrointestinal: No new onset incontinence, normal bowel movements reported Genitourinary: No new onset incontinence Musculoskeletal: Left knee pain Psychiatric: [Normal mood/affect] Neurological: [Denies weakness in extremities], [denies balance issues] Objective:: Physical Exam: General: Alert and oriented x3, no acute distress, pleasant and cooperative Lungs: Respirations even and unlabored, symmetrical chest expansion Eyes: PERRL Musculoskeletal: Flexion and extension of left knee somewhat guarded secondary to pain, [antalgic gait noted] Neurological: Speech clear, no gross sensory deficit Assessment:: Degenerative disc disease of lumbar spine with lumbar radiculopathy symptoms, superior endplate fracture of L3, L4 and L5, status post kyphoplasty of L3, L4 and L5, left knee pain Plan:: Patient is experiencing worsening pain in his left knee with limited range of motion. I have discussed with the patient that he may benefit from a repeat intra-articular knee injection. Patient has had these in the past that provided significant relief lasting more than 6 months on some. Patient will be scheduled for a left knee intra-articular knee injection. Patient has been instructed to contact the clinic with any concerns before the next appointment. Dr. Alexandre has reviewed this note and agrees with this plan of care. This note was dictated using voice recognition software and make contain errors or omissions. [facility] Disclaimer: The information contained in this section may have been updated after the patient was seen, as this information can be updated by other users. Medical History (Reviewed 04/11/23 @ 16:09 by Tanesha Cardoso [facility]) Chronic lower back pain See above. Compression fracture There is a new compression fracture of the inferior endplates of L3. This was after his fall. Distally Dr. Alexander's injections were very helpful with his pain. I have also suggested that they split the oxycodone 10 mg tablets in half and use 5 mg. Fatigue First degree AV block Myasthenic syndrome Neurology consult 01/12/2022: Subacute onset of slowly progressive muscle weakness over the last month. 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 He was initially treated with prednisone 60 mg daily currently on 20 mg daily. Advised to decrease to 15 mg poqd as 07/10/2022, (upon returning from vacation in 2 weeks). Mestinon initially 30 mg p.o. 3 times daily for symptomatic therapy currently on 60 mg p.o. 3-4 times daily since 01/24/2022 and occasionally 30 mg in between doses. CAYETANO (obstructive sleep apnea) Back on AutoPap with excellent compliance, asymptomatic. Weight loss adviced today, (AHI >6). PAF (paroxysmal atrial fibrillation) Active follow-up with [facility] cardiology. Stable Prostate cancer Active follow-up with Dr. Jens Alcala, [facility] and Alex Chakraborty Jr. urologist in [place] Prostate cancer genetic susceptibility Sinus bradycardia Surgical History H/O heart artery stent H/O vasectomy Hx of cholecystectomy Family History Other Cancer Coronary artery disease Heart attack Stroke Social History (Updated 04/15/23 @ 21:06 by Ely Mcgrath RN) Smoking Status: Never smoker second hand exposure: No alcohol intake: never counseling provided: none substance use type: denies use current occupational status: retired Travel in the last 8 weeks: None household members: spouse housing: house current occupational exposures/hazards: No caffeine: Yes
== END | disposition home or self-care (01) ==
PROVIDERS: PCP Internal Medicine; Visit Provider Nurse Practitioner Family
DX: M51.16 Intervertebral disc disorders with radiculopathy, lumbar region (principal); M25.562 Pain in left knee
CPT/HCPCS: 99212; G0463

== ENCOUNTER 2023-04-20 10:23 | Outpatient (CLI) | payer MEDICARE, SELFPAY ==
[2023-04-20] VITALS (7 sets, daily range): BP systolic 125–141; BP diastolic 62–79; PULSE 59–70; RESP 18; TEMP 36.6; O2SAT 97
[2023-04-20] MEDS: METHYLPREDNISOLONE SOD SUCC 125MG VIAL 60 MG IV (10:41)
[2023-04-20] MEDS: diphenhydrAMINE 50MG/ML VIAL 50 MG IV (10:41)
[2023-04-20] MEDS: SODIUM CHLORIDE 0.9% 50ML BAG 50 ML IV (10:41)
[2023-04-20] MEDS: IVIG IV (11:20)
== END 2023-04-20 14:25 | disposition home or self-care (01) ==
LOC: INF 10:25
PROVIDERS: PCP Internal Medicine; Visit Provider Specialist
DX: G70.00 Myasthenia gravis without (acute) exacerbation (principal); Z51.12 Encounter for antineoplastic immunotherapy
CPT/HCPCS: 96365; 96366; J1459

== ENCOUNTER 2023-04-25 18:33 | Outpatient (CLI) | payer MEDICARE, SELFPAY ==
[2023-04-25 20:28] LABS: Iron 69 ug/dL (49-181)
[2023-04-25 20:38] LABS: Total Iron Binding Capacity 233 ug/dL (261-462)
[2023-04-25 20:46] LABS: 25-OH Vitamin D, Total 71.1 ng/mL (30-100)
[2023-04-25 21:04] LABS: Ferritin 231 ng/ml (17.9-464)
[2023-04-25 22:15] LABS: Vitamin B12 630 pg/mL (239-931)
[2023-04-25 22:17] LABS: Folate > 20.00 ng/mL
== END 2023-04-25 23:59 ==
LOC: LAB.DROPOF 18:34
PROVIDERS: PCP Internal Medicine; Visit Provider Internal Medicine
DX: D64.9 Anemia, unspecified (principal); E87.6 Hypokalemia; E55.9 Vitamin D deficiency, unspecified
CPT/HCPCS: 82306; 82607; 82728; 82746; 83540; 83550

== ENCOUNTER 2023-05-18 09:39 | Outpatient (CLI) | payer MEDICARE, SELFPAY ==
--- NOTE | 2023-05-18 09:41 | CA_ITS ---
APPROVED REPORT EXAM: Comprehensive 2D, Doppler, and color-flow Echocardiogram [employer] [facility] Supervisor: Janny Grady RVT Ht: 6 ft 2 in Wt: 260lbs BSA: 2.43 BP: 128/77 mmHg Indications: CAD,HTN,HLD,FATIGUE,A-FIB VERY TDS-PT IS HAVING BACK ISSUES PT SCANNED SITTING UPRIGHT IN BED,BEST EXAM POSSIBLE 2D Dimensions IVSd 1.09 cm M: 0.6-1.2 LVEF (Visual) 47.70 % PWd 1.29 cm M: 0.6 - 1.2 LA Volume 40.90 mL LVDd 3.23 cm M: 4.2 - 5.9 LA Volume Index 16.83 mL/m2 (M/F) 16-34 LVDs 2.40 cm M: 2.5 - 4.0 EF AP4 51.10 % Left Atrium 3.87 cm M: 3.0 - 4.0 GL Strain -8.3 % LVOT 2.92 cm (M/F) 1.5-2.5 M-Mode Dimensions LVDd 3.23 cm (3.5-5.7) Ao Diam 3.44 cm (2.0-3.7) LVDs 2.40 cm (3.5-5.7) IVSd 1.09 cm (0.6-1.1) PWd 1.29 cm (0.6-1.1) FS 23.20% LV Diastology E Decel Time 150 (160-240 msec) E/A Ratio 0.6 MED E' 6.5 (>= 7 cm/sec) E'/MED E' Ratio 8.97 (<= 14) LAT E' 6.9 (>= 10 cm/sec) E/LAT E' Ratio 8.45 (<= 14) Aortic Valve LVOT Max 112.0 (70-110 cm/s) ASHWINI Index 2.31 cm2/m2 LVOT VTI 23.38 cm AoV Peak Syed. 169.0 (50-130 cm/s) AO Peak GR. 9.40 mmHg AO Mean GR. 6.00 (<5 mmHg) AO VTI 27.9 (18-25 cm) ASHWINI (VTI) 5.61 (2.5-4.5 cm2) Mitral Valve MV E Max Syed. 58.0 (40-130 cm/s) MV A Velocity 91.0 (40-130 cm/s) E/A Ratio 0.64 MV Decel. Time 150 (160-240 ms) Tricuspid Valve TR P. Velocity 220.00 cm/s RAP Estimate 10.00 mmHg RVSP 29.40 mmHg Left Ventricle The left ventricle is normal size. The left ventricular systolic function is normal. The left ventricular ejection fraction is within the normal range. There is increased LV wall thickness. Regional wall motion abnormalities cannot be reliably evaluated due to technically difficult study. Grossly, there are no obvious wall motion abnormalities noted. Transmitral Doppler flow pattern suggests impaired LV relaxation. LVEF is 55%. Right Ventricle The right ventricle is not well visualized. Atria The right atrium is not well visualized. The interatrial septum is not well visualized. Aortic Valve The aortic valve is mildly thickened. There is no aortic valvular stenosis. Trace aortic regurgitation. Mitral Valve The mitral valve leaflets are mildly thickened. No evidence of mitral valve stenosis. Trace mitral regurgitation. Tricuspid Valve The tricuspid valve leaflets are not wel-visualized. Trace tricuspid regurgitation. There is insufficient TR jet to estimate RVSP. Pulmonic Valve The pulmonic valve leaflets are not well visualized. Great Vessels The aortic root is not well visualized. The IVC is not well visualized. Pericardium There is no pericardial effusion. Other Information Study Quality: Technically Difficult Conclusion Technically difficult and technically limited study due to poor accoustic windows. Normal LV systolic function. RA/RV not well visualized. No significant valvular stenosis or regurgitation in visualized valves, but TV and PV assessment is incomplete due to difficult visualization. Electronically signed by : Ashley Montemayor MD 05/25/2023 17:28:31
== END 2023-05-18 23:59 ==
LOC: RT 09:40
PROVIDERS: PCP Internal Medicine; Visit Provider Nurse Practitioner
DX: I25.10 Atherosclerotic heart disease of native coronary artery without angina pectoris (principal); R94.31 Abnormal electrocardiogram [ECG] [EKG]
CPT/HCPCS: 93306

== ENCOUNTER 2023-05-22 20:48 | Outpatient (CLI) | payer MEDICARE, SELFPAY ==
[2023-05-22 18:33] LABS: Alanine Aminotransferase 27 U/L (12-78); Albumin Level 4.2 g/dl (3.5-5.0); Albumin/Globulin Ratio 1.2 (1.1-1.8); Alkaline Phosphatase 100 U/L (38-126); Anion Gap 11.6 mEq/L (5-15); Aspartate Amino Transferase 40 U/L (17-59); Bilirubin,Total 0.7 mg/dl (0.2-1.3); Blood Urea Nitrogen 23 mg/dl (9-20); Calcium 10.3 mg/dl (8.4-10.2); Carbon Dioxide 28 mmol/L (22.0-30.0); Chloride 103 mmol/L (98-107); Estimated Glomerular Filt Rate 82 ml/min (>60); GFR (African American) 100 ML/MIN (>60); Globulin 3.6 g/dL (1.3-3.2); Glucose 106 mg/dl (74-100); Potassium 4.6 mmoL/L (3.5-5.1); Sodium 138 mmol/L (136-145); Total Protein,Serum 7.8 g/dl (6.3-8.2)
[2023-05-22 18:51] LABS: 25-OH Vitamin D, Total 47.7 ng/mL (30-100)
[2023-05-22 19:39] LABS: Vitamin B12 735 pg/mL (239-931)
[2023-05-22 19:40] LABS: Folate > 20.00 ng/mL
[2023-05-22 19:57] LABS: Iron 52 ug/dL (49-181)
[2023-05-22 20:06] LABS: Total Iron Binding Capacity 255 ug/dL (261-462)
[2023-05-22 20:33] LABS: Ferritin 211 ng/ml (17.9-464)
== END 2023-05-22 23:59 ==
LOC: LAB.DROPOF 20:48
PROVIDERS: PCP Internal Medicine; Visit Provider Internal Medicine
DX: E55.9 Vitamin D deficiency, unspecified (principal); E78.5 Hyperlipidemia, unspecified; E87.6 Hypokalemia; D64.9 Anemia, unspecified
CPT/HCPCS: 80053; 82306; 82607; 82728; 82746; 83540; 83550

== ENCOUNTER 2023-06-14 11:38 | Outpatient (CLI) | payer MEDICARE, SELFPAY ==
[2023-06-14 12:26] LABS: Reticulocyte % (Auto) 1.8 % (0.9-3.2)
[2023-06-14 12:41] LABS: Lactate Dehydrogenase 256 U/L (313-618)
[2023-06-15 07:49] LABS: Haptoglobin 184 mg/dL (34-355)
== END 2023-06-14 23:59 ==
LOC: LAB 11:39
PROVIDERS: PCP Internal Medicine; Visit Provider Internal Medicine Medical Oncology
DX: D50.0 Iron deficiency anemia secondary to blood loss (chronic) (principal); Z85.46 Personal history of malignant neoplasm of prostate; G70.00 Myasthenia gravis without (acute) exacerbation; Z79.899 Other long term (current) drug therapy; Z51.81 Encounter for therapeutic drug level monitoring
CPT/HCPCS: 36415; 83010; 83615; 85044; 86880

== ENCOUNTER 2023-07-10 13:00 | Outpatient (RCR) | payer MEDICARE, SELFPAY ==
--- NOTE | 2023-05-03 11:39 | HMH.PTOPEV ---
PT Outpatient Evaluation Rehab PT Outpatient Evaluation Start: 05/03/23 09:18 Freq: Status: Active Protocol: Document 05/03/23 09:18 OBEDPHILIP (Rec: 05/03/23 11:38 SEBASTIAN [id number]) E-signed By Aline Prescott, PT Outpatient Therapy Subjective History Subjective History Pt is 73 y/o male who reports insidious onset of LBP 3.5 months ago. Pt reports he had previous PT treatment for LBP 2 months ago which was helping until he had a couple of set backs. Pt reports he lifted 2 cases of water which increased pain. Pt also reports on he fell backwards out of the tub and hit his head on the commode which caused increased back pain. Pt reports he presented to [facility] that day and had a lumbar CT scan on 03/30/23 with impression of Stable subacute compression deformity of the superior endplate of L4. There is a new compression injury of the inferior endplate of L3 . There is diffuse osseous demineralization. Pt reports on 04/02/23 he underwent kyphoplasty of L3-L4 and L4-L5 without complications. Pt reports improved pain and function following the surgery . Pt reports prior to surgery he was crawling into bed, states now he is able to get into bed properly with only minimal pain. Pt states he is now able to sleep on his back as well which he was unable to do prior. Pt reports he has been taking less pain medication, states he is taking 1 5mg oxycodone per day to assist with pain. Pt also states he takes 1 prednisone daily for myasthenias gravis. Pt reports pain is still aggravated by standing and prolonged walking. Pt denies radicular symptoms but states he does have peripheral neuropathy in both feet. Pt reports he mostly uses his rollator walker for stability but does use a SPC for short- distances, pt denies fall since surgery. Pt reports he often gets fatigued and short of breath with walking so he takes breaks as needed. Pt reports he has 4-5 stairs to enter his home but he has not attempted traversing them yet due to weakness, states he enters a different door. Pt reports he returns to his surgeon on 05/08/23. Pt states he plans on getting a gel injection in his left knee this date as well. Medical History: L knee OA, BLE neuropathy, myasthenia gravis, HTN, HL, prostate cancer 2003, minh, partial nephrectomy, pulmonary blood clots and coronary stents New diagnosis of cancer in past 12 Yes months? Chief Complaint Pain,Stiff,Weakness Symptom Type Ache,Dull Symptoms Relieved By Rest/Positioning,Heat, Prescription Meds Symptoms Aggravated By Standing,Physical Activity, Walking,Lifting Current Functional Limitations Lifting,Housework,Standing, Walking,Stairs Symptom Description Constant but Variable Level of pain today (0-10) 2 Pain scale - at its best (0-10) 1 Pain scale - at its worst (0-10) 8 Lumbopelvic Eval Posture Thoracic Spine Posture Standing Position Increased Kyphosis Lumbar Spine Posture Standing Position Flattened Assistive device Assistive Devices Straight Cane Palapation tenderness bilateral lumbar spinal tenderness Yes paraspinal tenderness Yes Lumbar/Sacral Palpation Findings Tenderness Range of Motion Lumbar Spine Active Flexion Range of 60 Motion (degrees) Lumbar Spine Active Extension Range of 10 Motion (degrees) Left Lumbar Spine Lateral Flexion Active 10 Range of Motion (degrees) Right Lumbar Spine Lateral Flexion 10 Active Range of Motion (degrees) Manual Muscle Test Bilateral Knee Extension Strength Grade 5 Normal Knee Flexion Strength Grade 4 Good Hip Flexion Strength Grade 4 Good Hip Abduction Strength Grade 4- Good- Hip Extension Strength Grade 3+ Fair+ Ankle Dorsiflexion Strength Grade 5 Normal Altered Sensation Comment equal and intact to light touch senation Special Tests Sciatic Nerve Tension Test Negative Left,Negative Right Unilateral Straight Leg Raise (Lasegue) Negative Left,Negative Right Test Oswestry Index Section 1 Pain Intensity The pain is mild and does not vary much Section 2 Personal Care (Washing,Dresing) my way of washing or dressing even though it causes some pain Section 3 Lifting I can only lift very light weights at most Section 4 Walking I have some pain when walking but it does not increase with distance Section 5 Sitting I can sit in any chair for as long as I like Section 6 Standing I cannot stand more than 10 minutes without increasing pain Section 7 Sleeping I get pain in bed, but it does not prevent me from sleeping well Section 8 Social Life My social life is normal but increases the degree of pain Section 9 Traveling I get some pain when traveling , but none of my usual forms of travel m Section 10 Changing Degreee of Pain My pain is getting better Score and Risk Level Oswestry Sc 15 Oswestry Risk Level Moderate Disability Outpatient Therapy Assessment Impairments Problems/Impairmments Palpation Tenderness,Impaired Range of Motion,Impaired Strength,Impaired Endurance, Impaired Gait Pattern,Impaired Walking,Impaired Standing, Impaired Lifting,Impaired Shower/Bathing,Impaired Household Care,Impaired Squatting,Impaired Bending, Subjective C/O Pain,Impaired Self Care/Self Management Prognosis Rehab Potential Good Clinical Impression Consistent with Diagnosis Yes Short Term Goals Number of Weeks 3 Increase Endurance Yes: perform NuStep for 10-15' with RPE 5/10 or less Decrease Subjective C/O Pain Yes: Improve pain at worst to 6/10 to improve overall QOL Improve Self Care/Self Management Yes 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 Number of Weeks 6 Increase Range of Motion Yes: Improve lumbar AROM flex to 70, ext & LF to 15 Increase Strength Yes: Improve BLE strength to 4 +-5/5 grossly to assist with function Improve Gait Pattern without Assistive Yes: proper gait mechanics Device with LRD to decrease fall risk Increase Ability to Stand Yes: >10' with pain 4/10 or less to assist with ADLs Improve Ability to Climb Stairs Yes: 4-5 steps with HR to assist with safe home navigation Improve Oswestry Score Yes: Improve score to 10 or less to improve overall QOL Decrease Subjective C/O Pain Yes: improve pain at worst 4/ 10 to improve overall QOL Outpatient Therapy Plan of Care Treatment Plan May Include Therapeutic Exercise Including Home Yes Exercise Program Manual Therapy Techniques Yes Neuromuscular Re-education Yes Therapeutic Activities to Return to Yes Previous Functional/Work Level ADL/Self Care Education Yes Dry Needling Yes Thermal Modalities Yes Electrical Stimulation Yes Ultrasound/Phonophoresis Yes Iontophoresis Yes Massage Yes Group Therapy for Medicare Yes Eval/Re-Eval Yes Aquatic Therapy Yes Frequency Times per week 2 Duration Number of Weeks 4-6 Addendums This patient is a candidate for social No or vocational rehab? Patient/Guardian verbally acknowledges Yes understanding of treatment program and consents to further treatment? Patient/Guardian verbally acknowledges Yes understanding of diagnosis, prognosis and goals for treatment? Eval Complexity PT Charges 23565 - Moderate Complexity Shoulder/Elbow Eval Shoulder Objective Measurements Elbow Objective Measurements PHYSICIAN CERTIFICATION: I certify the specified therapy services for Wilberlucy Finnfreddy YOUNGBLOOD are required, authorized, and reviewed every 30 days.
--- NOTE | 2023-06-06 16:11 | HMH.RHREAS ---
Rehab Reassessment Rehab OP Re-assessment Start: 05/03/23 09:18 Freq: Status: Active Protocol: Document 06/06/23 14:01 ISHSantiago (Rec: 06/06/23 16:10 SEBASTIAN [id number]) E-signed By Aline Prescott, PT Oswestry Index Section 1 Pain Intensity The pain comes and goes and is moderate Section 2 Personal Care (Washing,Dresing) increase the pain and I find it necessary to change my way of doing it Section 3 Lifting lifting heavy weights off the floor, but I can manage light to medium Section 4 Walking I cannot walk more than 1/4 mile without increasing pain Section 5 Sitting I can sit in my favorite chair for as long as I like Section 6 Standing I cannot stand more than 1/2 hour without increasing pain Section 7 Sleeping I get pain in bed, but it does not prevent me from sleeping well Section 8 Social Life Pain has no significant effect on my social life apart from limiting Section 9 Traveling I get some pain when traveling , but none of my usual forms of travel m Section 10 Changing Degreee of Pain My pain seems to be getting better, but improvement is slow Score and Risk Level Oswestry Sc 23 Oswestry Risk Level Moderate Disability Rehab Re-assessment Subjective Subjective Pt reports he feels 50% improved since starting. Pt reports he was doing well with pain at worst as 1-2/10 until last week when he lifted his 30# grandchild while sitting causing increased low back pain to 4-5/10 on VAS. Pt describes pain as a throb L>R side with intermttient sharp shooting pains across this waist line. Pt reports he is still slow and careful with supine to sit transfers but is able to perform it now with less pain. Pt reports he is able to stand longer to perform hygiene tasks. Pt reports he is ambulating mostly with a SPC versus his walker. Pt denies falls. Objective Objective Notes Lumbar AROM: 85 flex, ext 15, LF 20 LE MMT: hip flexion 4/5, hip abd 4/5, hip add 4/5, hip ext 4-/5, knee flex 4+/5, knee ext 4+/5 Assessment Assessment Notes Pt has attended PT treatment consisting of 4 land therapy sessions with fair-poor tolerance therefore was transitioned to aquatic therapy which he has attended 3 sessions with good tolerance . Pt demonstrated improved lumbar AROM, LE strength and gait this date. Pt continues to report pain with prolonged standing, walking and bending/ lifting. Pt would continue to benefit from skilled PT to further improve subjective report of pain, lumbar AROM, LE/core strength, and functional activity tolerance to assist with return to PLOF and improve overall QOL Patient goals met ST/4 LT/7 Goals Not Met p! at worst, KENDALL score, strength, standing tolerance Revised Goals n/a Plan Plan Continue initial POC Frequency of Therapy 2x/week Duration of therapy 4 more weeks Time and Billing Re-Eval Time 12 Re-Eval Billing Units 1 PHYSICIAN CERTIFICATION: I certify the specified therapy services for Wilber Ayala JR are required, authorized, and reviewed every 30 days.
--- NOTE | 2023-07-10 13:55 | HMH.RHREAS ---
Rehab Reassessment Rehab OP Re-assessment Start: 05/03/23 09:18 Freq: Status: Active Protocol: Document 07/10/23 13:03 ISHSantiago (Rec: 07/10/23 13:55 SEBASTIAN [id number]) E-signed By Aline Prescott, PT Oswestry Index Section 1 Pain Intensity The pain comes and goes and is very mild Section 2 Personal Care (Washing,Dresing) my way of washing or dressing even though it causes some pain Section 3 Lifting lifting heavy weights off the floor, but I can manage if they are Section 4 Walking I have some pain when walking but it does not increase with distance Section 5 Sitting I can sit in any chair for as long as I like Section 6 Standing I cannot stand more than 1 hour without increasing pain Section 7 Sleeping I get no pain in bed Section 8 Social Life My social life is normal but increases the degree of pain Section 9 Traveling I get some pain when traveling , but none of my usual forms of travel m Section 10 Changing Degreee of Pain My pain is getting better Score and Risk Level Oswestry Sc 9 Oswestry Risk Level Mild Disability Rehab Re-assessment Subjective Subjective Pt reports he feels 65-70% improved since starting PT. Pt reports LBP on average as 1-2 /10 and at worst as 4-5/10 on VAS. Pt reports pain is worst with prolonged standing or walking for >1 hour. Pt reports he is not using his cane as much but does use it for long distances. Pt denies feeling unsteady or falls. Objective Objective Notes Lumbar AROM: 90 flex, ext 15, LF 22 LE MMT: hip flexion 4+/5, hip abd 4+/5, hip add 4+/5, hip ext 4+/5, knee flex 5/5, knee ext 5/5 Assessment Progress Assessment Progressing as Expected Assessment Notes Pt has attended 11 aquatic therapy treatment sessions consisting of aerobic exercise , lumbar mobility, LE stretching/strengthening, and core strengthening with good tolerance. Pt demonstrated improved lumbar AROM, LE strength, gait and KENDALL score this date compared to the previous reassessment. Pt has met most PT goals and is appropriate to discharge to independent [facility]. Pt encouraged to attend water aerobic and/ or silver sneaker classes at [facility] to further assist with function and mobility upon discharge. Patient goals met LT/7 Goals Not Met pain severity at worst Revised Goals n/a Plan Plan Discharge Time and Billing Re-Eval Time 17 Re-Eval Billing Units 1 PHYSICIAN CERTIFICATION: I certify the specified therapy services for Wilber Ayala JR are required, authorized, and reviewed every 30 days.
== END 2023-07-10 14:00 | disposition home or self-care (01) ==
LOC: PT 13:00
PROVIDERS: PCP Internal Medicine; Visit Provider Internal Medicine
DX: M54.50 Low back pain, unspecified (principal)
CPT/HCPCS: 97010; 97110; 97113; 97163; 97164; 97530; 97535; 97760

== ENCOUNTER 2023-07-23 10:15 | Outpatient (CLI) | payer MEDICARE, SELFPAY ==
[2023-07-23] VITALS (7 sets, daily range): BP systolic 114–146; BP diastolic 58–68; PULSE 53–72; RESP 18; TEMP 36.8; O2SAT 96
[2023-07-23] MEDS: METHYLPREDNISOLONE SOD SUCC 125MG VIAL 60 MG IV (10:40)
[2023-07-23] MEDS: diphenhydrAMINE 50MG/ML VIAL 50 MG IV (10:40)
[2023-07-23] MEDS: ACETAMINOPHEN 500MG TAB 1000 MG PO (10:40)
[2023-07-23] MEDS: SODIUM CHLORIDE 0.9% 50ML BAG 50 ML IV (11:06)
[2023-07-23] MEDS: IVIG IV (11:06)
[2023-07-23] MEDS: [UNRECOGNIZED DRUG - OTHER] IV (11:06)
== END 2023-07-23 14:15 | disposition home or self-care (01) ==
LOC: INF 10:15
PROVIDERS: PCP Internal Medicine; Visit Provider Specialist
DX: G70.00 Myasthenia gravis without (acute) exacerbation (principal); G70.9 Myoneural disorder, unspecified
CPT/HCPCS: 96365; 96366; J1459

== ENCOUNTER 2023-10-05 09:00 | Outpatient (CLI) | payer MEDICARE, SELFPAY ==
[2023-10-05 19:22] LABS: Chol/HDL Ratio 2.7 (1-3.5); Cholesterol 180 mg/dl (140-200); HDL Cholesterol 67 mg/dl (40-60); Triglycerides 152 mg/dl (30-150); VLDL Cholesterol 30 mg/dL (0-40)
[2023-10-05 19:33] LABS: Direct LDL Cholesterol 62.89 mg/dL (100-129)
== END 2023-10-05 23:59 | disposition home or self-care (01) ==
LOC: LAB.DROPOF 10-08 09:03
PROVIDERS: PCP Internal Medicine; Visit Provider Internal Medicine
DX: I25.10 Atherosclerotic heart disease of native coronary artery without angina pectoris (principal)
CPT/HCPCS: 80061

== ENCOUNTER 2024-01-07 10:11 | Outpatient (CLI) | payer MEDICARE, SELFPAY ==
[2024-01-07] VITALS (12 sets, daily range): BP systolic 140–169; BP diastolic 74–98; PULSE 50–63; RESP 18; TEMP 36.7; O2SAT 97
[2024-01-07] MEDS: diphenhydrAMINE 50MG/ML VIAL 50 MG (10:20)
[2024-01-07] MEDS: ACETAMINOPHEN 500MG TAB 1000 MG (10:21)
[2024-01-07] MEDS: METHYLPREDNISOLONE SOD SUCC 125MG VIAL 125 MG (10:21)
[2024-01-07] MEDS: IVIG IV (10:55)
[2024-01-07] MEDS: SODIUM CHLORIDE 0.9% 50ML BAG 50 ML IV (10:55)
== END 2024-01-07 14:00 | disposition home or self-care (01) ==
LOC: INF 10:12
PROVIDERS: PCP Internal Medicine; Visit Provider Specialist
DX: G70.00 Myasthenia gravis without (acute) exacerbation (principal); C61 Malignant neoplasm of prostate; Z79.899 Other long term (current) drug therapy
CPT/HCPCS: 96365; 96366; J1200; J1459; J2919

== ENCOUNTER 2024-04-07 09:55 | Outpatient (CLI) | payer MEDICARE, SELFPAY ==
[2024-04-07] MEDS: METHYLPREDNISOLONE SOD SUCC 125MG VIAL 60 MG IV (10:16)
[2024-04-07] MEDS: SODIUM CHLORIDE 0.9% 50ML BAG 50 ML IV (10:16)
[2024-04-07] MEDS: ACETAMINOPHEN 500MG TAB 1000 MG PO (10:16)
[2024-04-07] MEDS: diphenhydrAMINE 50MG/ML VIAL 50 MG IV (10:17)
[2024-04-07 11:05] VITALS: BP 146/88; PULSE 85; RESP 18; TEMP 36.8; O2SAT 100
[2024-04-07] MEDS: IVIG IV (11:07)
[2024-04-07 11:35] VITALS: BP 138/82; PULSE 83
[2024-04-07 12:05] VITALS: BP 141/76; PULSE 85
[2024-04-07 12:35] VITALS: BP 135/74; PULSE 84
[2024-04-07 13:05] VITALS: BP 157/72; PULSE 80
[2024-04-07 13:55] VITALS: BP 150/64; PULSE 78
== END 2024-04-07 14:10 | disposition home or self-care (01) ==
LOC: INF 09:56
PROVIDERS: PCP Internal Medicine; Visit Provider Specialist
DX: G70.00 Myasthenia gravis without (acute) exacerbation (principal)
CPT/HCPCS: 96365; 96366; J1200; J1459; J2919

== ENCOUNTER 2024-05-15 10:13 | Outpatient (CLI) | payer MEDICARE, SELFPAY | END 2024-05-15 23:59 | disposition home or self-care (01) | LOC: RT 10:14 | PROVIDERS: PCP Internal Medicine; Visit Provider Physician Assistant | DX: I48.0 Paroxysmal atrial fibrillation (principal) | CPT/HCPCS: 93270 ==

== ENCOUNTER 2024-06-24 09:24 | Day surgery (SDC) | payer MEDICARE, SELFPAY ==
[2024-06-24 10:12] VITALS: BP 135/81; PULSE 62; RESP 18; TEMP 36.1; O2SAT 99; BMI 32.5
[2024-06-24] MEDS: CYCLOPENTOLATE 2% OPHTH SOLN 2ML BOTTLE OP ×3 (10:25→10:35)
[2024-06-24] MEDS: PHENYLEPHRINE 2.5% OPHTH SOLN 2ML OP ×3 (10:25→10:35)
[2024-06-24] MEDS: TETRACAINE 0.5% OPTH SOL 15ML OP ×3 (10:25→10:35)
[2024-06-24 10:57] VITALS: BP 184/87; PULSE 62; RESP 16; TEMP 36.7; O2SAT 99
[2024-06-24] MEDS: SODIUM CHLORIDE 0.9% 10ML FLUSH SYRINGE 10 ML IV (10:57)
[2024-06-24] MEDS: MIDAZOLAM 2MG/2ML VIAL 1 MG IV (10:57)
[2024-06-24 11:02] VITALS: BP 203/91; PULSE 71; RESP 16; TEMP 36.6; O2SAT 97
[2024-06-24 11:07] VITALS: BP 185/89; PULSE 66; RESP 16; TEMP 36.6; O2SAT 96
[2024-06-24] MEDS: TOBRAMYCIN/DEX OPTH SUSP 2.5ML OP (11:07)
[2024-06-24] MEDS: LIDOCAINE 1% PF 2ML AMPULE 2 ML IJ (11:07)
[2024-06-24] MEDS: TIMOLOL 0.5% OPTH SOLN 5ML OP (11:07)
[2024-06-24 11:12] VITALS: BP 182/86; PULSE 68; RESP 16; TEMP 36.6; O2SAT 96
[2024-06-24 11:26] VITALS: BP 151/84; PULSE 71; RESP 16; TEMP 36.2; O2SAT 99
--- NOTE | 2024-06-24 11:57 | P.PCN_ITS ---
[facility] Procedure Note Date: 06/24/24 Time: 11:57 Procedure Note:: Preoperative Diagnosis: Cataract combined NS Cortical Complex [Right] Eye Postop diagnosis: same Operation: Microscopic phacoemulsification with intraocular lens implant [Right] Eye Specimen: None Blood Loss: None The patient was examined in the office with a complaint of poor vision in the [right] eye. The patient reports that this interferes with ADLs such as reading, watching TV and/or driving or the vision is like looking through a foggy haze and is very troubling. The patient was examined and found to have a visually significant cataract with best corrected vision of [20/400] by refraction and/or glare testing. Treatment options, risks and benefits were explained and the patient elected to have cataract surgery in an attempt to improve their vision. The patient had the eye anesthetized with topical tetracaine, the eye ways prepped and draped in the usual fashion for cataract surgery. A paracentesis and a temporal keratotomy were made. 0.2cc of 1% lidocaine PF was placed into the anterior chamber. And aqueous/viscoelastic exchange was done and a 360 degree capsulorexis was performed. Through hydrodissection and delineation with BSS on a cannula was done. The lens nucleus was phecoemulsified with CDE of [6.97]. Residual cortical material was removed using automated I&A The capsular bag was deepened with viscoelastica and a PCIOL was placed in the capsular bag with good centration and stability. Residual viscoelastic was removed using automated I&A. The keratotomy incision was hydrated with BSS on a cannula. The wound were checked and found to be water tight. IOP was checked digitally and adjusted as needed so as not to be too high. 1 drop of timolol 0.5%, ofloxacin, prednisolone acetate and ketorolac was instilled and eye shield taped over the eye. The patient was taken to recovery in good condition and will be seen postoperatively.
== END 2024-06-24 11:27 | disposition home or self-care (01) ==
LOC: OR 09:25
PROVIDERS: PCP Internal Medicine; Visit Provider Ophthalmology
PROC: (CPT 66984; principal; 2024-06-24 12:00)
DX: H25.011 Cortical age-related cataract, right eye (principal)
CPT/HCPCS: 66984; J2250; V2632

== ENCOUNTER 2024-07-07 10:06 | Outpatient (CLI) | payer MEDICARE, SELFPAY ==
[2024-07-07] VITALS (7 sets, daily range): BP systolic 138–152; BP diastolic 69–75; PULSE 62–67; RESP 18; TEMP 36.8; O2SAT 99
[2024-07-07] MEDS: ACETAMINOPHEN 500MG TAB 1000 MG PO (10:30)
[2024-07-07] MEDS: diphenhydrAMINE 50MG/ML VIAL 50 MG IV (10:30)
[2024-07-07] MEDS: METHYLPREDNISOLONE SOD SUCC 125MG VIAL 60 MG IV (10:41)
[2024-07-07] MEDS: 0.9 % SODIUM CHLORIDE 50 ML 100 ML IV (10:42)
[2024-07-07] MEDS: IVIG IV (10:56)
== END 2024-07-07 14:00 | disposition home or self-care (01) ==
LOC: INF 10:07
PROVIDERS: PCP Internal Medicine; Visit Provider Specialist
DX: G70.00 Myasthenia gravis without (acute) exacerbation (principal)
CPT/HCPCS: 96365; 96366; J1200; J1459; J2919

== ENCOUNTER 2024-07-07 16:30 | Outpatient (CLI) | payer MEDICARE, SELFPAY | END 2024-07-07 23:59 | disposition home or self-care (01) | LOC: LAB.DROPOF 07-08 14:31 | PROVIDERS: PCP Family Medicine; Visit Provider Family Medicine | DX: D36.7 Benign neoplasm of other specified sites (principal) | CPT/HCPCS: 87070; 87205 ==

== ENCOUNTER 2024-07-08 07:07 | Day surgery (SDC) | payer MEDICARE, SELFPAY ==
[2024-07-04 12:22] VITALS: BMI 32.7
[2024-07-08] VITALS (7 sets, daily range): BP systolic 147–176; BP diastolic 69–90; PULSE 57–64; RESP 16–18; TEMP 36.3–36.6; O2SAT 96–98
[2024-07-08] MEDS: TETRACAINE 0.5% OPTH SOL 15ML OP ×3 (08:39→08:40)
[2024-07-08] MEDS: PHENYLEPHRINE 2.5% OPHTH SOLN 2ML OP ×3 (08:40)
[2024-07-08] MEDS: CYCLOPENTOLATE 2% OPHTH SOLN 2ML BOTTLE OP ×3 (08:40→08:41)
--- NOTE | 2024-07-08 11:38 | P.PCN_ITS ---
[facility] Procedure Note Date: 07/08/24 Time: 11:38 Procedure Note:: Preoperative Diagnosis: Cataract combined NS Cortical Complex [Left] Eye Postop diagnosis: same Operation: Microscopic phacoemulsification with intraocular lens implant [Left] Eye Specimen: None Blood Loss: None The patient was examined in the office with a complaint of poor vision in the [left] eye. The patient reports that this interferes with ADLs such as reading, watching TV and/or driving or the vision is like looking through a foggy haze and is very troubling. The patient was examined and found to have a visually significant cataract with best corrected vision of [20/400] by refraction and/or glare testing. Treatment options, risks and benefits were explained and the patient elected to have cataract surgery in an attempt to improve their vision. The patient had the eye anesthetized with topical tetracaine, the eye ways prepped and draped in the usual fashion for cataract surgery. A paracentesis and a temporal keratotomy were made. 0.2cc of 1% lidocaine PF was placed into the anterior chamber. And aqueous/viscoelastic exchange was done and a 360 degree capsulorexis was performed. Through hydrodissection and delineation with BSS on a cannula was done. The lens nucleus was phecoemulsified with CDE of [6.02]. Residual cortical material was removed using automated I&A The capsular bag was deepened with viscoelastica and a PCIOL was placed in the capsular bag with good centration and stability. Residual viscoelastic was removed using automated I&A. The keratotomy incision was hydrated with BSS on a cannula. The wound were checked and found to be water tight. IOP was checked digitally and adjusted as needed so as not to be too high. 1 drop of timolol 0.5%, ofloxacin, prednisolone acetate and ketorolac was instilled and eye shield taped over the eye. The patient was taken to recovery in good condition and will be seen postoperatively.
== END 2024-07-08 09:30 | disposition home or self-care (01) ==
PROVIDERS: PCP Family Medicine; Visit Provider Ophthalmology
PROC: (CPT 66984; principal; 2024-07-08 09:00)
DX: H25.012 Cortical age-related cataract, left eye (principal)
CPT/HCPCS: 66984; V2632

== ENCOUNTER 2024-10-08 10:03 | Outpatient (CLI) | payer MEDICARE, SELFPAY ==
[2024-10-08] VITALS (7 sets, daily range): BP systolic 129–151; BP diastolic 68–81; PULSE 55–60; RESP 16–18; O2SAT 100
--- OUTSIDE RECORDS SUMMARY | 2024-10-08 10:06 | XMS_ITS | Data Portability ---
Author Organization [place] [facility], [facility] Address [address] [place] [address] Assessment Encounter Date Assessment Date Assessment LastModified by Organization Details LastModified Time 03/07/2023 03/07/2023 This patient is a patient of ours that was previously seen in [place] with degenerative disc disease of the lumbar spine with lumbar radiculopathy symptoms and increasing back pain with insufficiency fracture at the superior endplate of L4. Patient does have increasing low back pain. I do believe he would benefit from a lumbar epidural steroid injection. We will seek approval for him to come off of his Eliquis and get approval for lumbar epidural steroid injection under fluoroscopy.We did also order him a TENS unit to help with his pain symptoms. He is to continue with physical therapy and he is to continue Percocet that was prescribed to him from his primary care physician. abux Not available 03/07/2023 18:37:27 03/22/2023 03/22/2023 Patient had lumbar epidural steroid injection under fluoroscopy. He has been off of his Eliquis for 5 days. We will plan on following up with him in [place] to assess Efficacy of this injection.He is no longer taking Percocet. I am concerned he may have a recurrence of his cancer Given his acute pain. We will follow-up with his primary care physician. abux Not available 03/22/2023 16:55:43 04/02/2023 04/02/2023 Patient did well with balloon kyphoplasty to L3 and L4 vertebral bodies. We did get good reduction at both vertebral levels. There was good spread of cement at both levels. Patient was discharged home neurologically intact with good relief of pain symptoms. Will follow-up with him in our [place] office. Will follow-up in 2 weeks. I will send him home on antibiotics Bactrim DS twice a day for 5 days. He is to take his Percocet as needed. abux Not available 04/02/2023 17:51:05 Plan of Treatment Reminders Order Date Submit Date Provider Last Modified By Organization Details Last Modified Time Details Appointments None recorded. Lab None recorded. Referral cardiologis t referral - Need approval to be off Eliquis for 4 days prior to lumbar pleural steroid injection. 2022 023 [email or web address] Misha Hughes MD, [address], [place], [address], 08:34:34 Procedures epidural steroid injection, lumbar (PROC) 2022 023 [email or web address] 1 Not available 10:23:44 Surgeries None recorded. Imaging None recorded. Medication Orders Bactrim DS 800 mg-160 mg tablet 2022 023 [facility], [address], [address], [place], [address], 18:01:36 Patient TargetsNo targets recorded. Patient InstructionsNo instructions recorded. 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 Referring Physician: Ronak Alexandre, Pain Management, [phone] Encounter Date: 03/07/2023 Results Created Date Observation Date Name Description Value Unit Range Abnormal Flag Note LastModifiedBy Organization Detail LastModifiedTime 04/02/2003/30/2023 CT, cervi franklyn spine , w/o contr ast No observ ation record ed. Not Available 2022 09:07:56 04/02/2003/30/2023 CT, lumba r spine , w/o contr ast No observ ation record ed. [email or web address] Not Available 2022 09:12:58 04/02/2003/30/2023 CT, thora cic spine , w/o contr ast No observ ation record ed. Not Available 2022 09:14:47 Result Notes None recorded. Problems Name Problem SNOMED Code Status Onset Date Resolution Date Notes Provider Name and Address Organization Details Recorded Time Degeneration of lumbar intervertebral disc 80648497 Active 2022 Ronak Alexandre MD [address] [facility],[address], [address], [place] [facility] 3 16:57:04 Lumbar radiculopathy 303407178 Active 2022 Ronak Alexandre MD [address],[address], [address], [place] [facility] 3 16:57:05 Compression fracture of vertebral column 57292048 Active 2022 Ronak Alexandre MD [address],[address], [address], [place] [facility] 3 16:57:06 Problem Notes None recorded. Procedures Surgical History Date Name Laterality Status Provider Name and Address Organization Details Recorded Time 04/02/20 23 Kyphoplasty completed Ronak Alexandre MD [address] [facility],[address], [address], [place] [facility] 04/02/2023 17:55:41 03/22/20 23 Lumbar ANEL: Interlaminar completed ISAI TAYLOR [place] - [facility] 03/20/2023 08:16:06 vasectomy completed Sapna Li [place] [facility] 03/07/2023 15:53:43 prostatectomy completed Sapna Li [place] [facility] 03/07/2023 15:53:53 hernia repair completed Sapna Li [place] [facility] 03/07/2023 15:54:02 procedure on gallbladder completed Sapna Li [place] [facility] 03/07/2023 15:54:18 Kidney endoscopy & biopsy completed Sapna Li [place] [facility] 03/07/2023 16:00:35 Imaging Results None recorded. Procedure Notes None recorded. Medical Equipment None Reported. Allergies Allergen ID Allergen Name Allergen Category Reaction Reaction Severity Criticality Documentation Date Start Date Code Code System Note Provider Name and Address Organization Details Recorded Time [employer] Not available Not available Not available 03/07/2023 78954 UNK Sapna Li null, [place] [facility] 3 15:49:26 No known drug allergies Medications Name Sig Start Date Stop Date Status Note LastModified by Organization Details LastModified Time carvedilol 25 mg tablet Take 1 tablet twice a day by oral route. active Not Available Not Available No t Available prednisone 10 mg tablet Take 1 tablet every day by oral route. 03/30 completed Not Available Not Available Not Available tizanidine 2 mg tablet active Not Available Not Available Not Available lisinopril 20 mg-hydrochl orothiazide 12.5 mg tablet Take 1 tablet twice a day by oral route. active Not Available Not Available No t Available hydrocodone 5 mg-acetamin ophen 325 mg tablet Take 1 tablet every 6 hours by oral route. active Not Available Not Available No t Available pantoprazol e 40 mg intravenous solution Inject by intraveno us route. active Not Available Not Available No t Available sulfamethox azole 800 mg-trimetho prim 160 mg tablet Take 1 tablet every 12 hours by oral route. active Not Available Not Available No t Available pravastatin 10 mg tablet active Not Available Not Available Not Available amitriptyli ne 10 mg tablet active Not Available Not Available Not Available pantoprazol e 40 mg tablet,ronald yed release active Not Available Not Available Not Available pyridostigm ine bromide 60 mg tablet Take 1 tablet 4 times a day by oral route. active Not Available Not Available No t Available gabapentin 300 mg capsule Take 1 capsule 3 times a day by oral route. active Not Available Not Available No t Available Asprin Ec Low Dose active Not Available Not Available Not Available oxycodone 10 mg tablet Take 1 tablet 3 times a day by oral route for 14 days. active Not Available Not Available No t Available Eliquis 5 mg tablet Take 1 tablet twice a day by oral route. active Not Available Not Available No t Available Vitals Date Recorded Body height Body mass index (BMI) Body weight Heart rate Respiratory rate Heart rate Oxygen saturation Oxygen saturation in Arterial blood by Pulse oximetry Systolic blood pressure Diastolic blood pressure Provider Name and Address Organization Details Last Updated DateTime 3 187.96 cm 34 kg/m2 683677. 98 g 64 /min 18 /min 64 /min 99 % 99 % 129 mm[Hg] 84 mm[Hg] Sapna [place] - [facility] 3 15:45:32 Date Recorded Body height Body mass index (BMI) Body weight Oxygen saturation Oxygen saturation in Arterial blood by Pulse oximetry Heart rate Systolic blood pressure Diastolic blood pressure Provider Name and Address Organization Details Last Updated DateTime 3 187.96 cm 34 kg/m2 173266. 98 g 99 % 99 % 70 /min 138 mm[Hg] 84 mm[Hg] ISAI TAYLOR [place] [facility] 3 13:10:46 Date Recorded Body height Body mass index (BMI) Body weight Oxygen saturation Oxygen saturation in Arterial blood by Pulse oximetry Heart rate Systolic blood pressure Diastolic blood pressure Provider Name and Address Organization Details Last Updated DateTime 3 187.96 cm 34 kg/m2 924674. 98 g 99 % 99 % 74 /min 144 mm[Hg] 96 mm[Hg] ISAI TAYLOR [place] [facility] 3 13:22:31 Social History Question Answer Notes LastModified by [employer] Details LastModified Time Tobacco Smoking Status Former Smoker Sapna ceballos, [place] - [facility] 03/07/2023 15:56:19 Do You Have An Advance Directive? No [email or web address] Information n ot available 03/07/2023 In The 14 Days Before Symptom Onset, Have You Had Close Contact With A Laboratory-confirm ed COVID-19 While That Case Was Ill? No [email or web address] Information n ot available 03/20/2023 In The 14 Days Before Symptom Onset, Have You Had Close Contact With A Person Who Is Under Investigation For COVID-19 While That Person Was Ill? No [email or web address] Information not available 03/20/2023 Have You Been To An Area Known To Be High Risk For COVID-19? No [email or web address] Information not available 03/20/2023 Do You Have A Medical Power Of Outside [employer]? Yes [email or web address] Information not available 03/07/2023 Sex: Unknown Functional Status Question Answer Note LastModified by [employer] Details LastModified Time Do you use any illicit or recreational drugs? No [email or web address] Information not available 03/07/2023 Do you or have you ever used any other forms of tobacco or nicotine? No [email or web address] Information not available 03/07/2023 What is your level of alcohol consumption? None [email or web address] Information not available 03/07/2023 Are you currently employed? No [email or web address] Information not available 03/07/2023 Mental Status None recorded. Family History Nothing Reported. Medical History Condition Response Coronary Artery Disease N Gout N Hernia Y Head Trauma/Injury N Thyroid Problems N Depression N COPD N Anemia Y Heart Attack (NM) N Ulcers N Diabetes N Anxiety Disorder N Bleeding Disorder N Arthritis Y Tuberculosis N AIDS/HIV N Acid Reflux (GERD) Y Cancer Y Stroke N Asthma N Substance Abuse N Back Injury Y High Cholesterol Y Hepatitis N Liver Disease N Heart Disease N Headaches N Fibromyalgia N Hypertension Y Osteoporosis N Kidney Disease N Past Encounters Encounter ID Performer Location Encounter Start Date Encounter Closed Date Diagnosis/Indication Diagnosis SNOMED-CT Code Diagnosis ICD10 Code Diagnosis Note [id number] Ronak Alexandre MD [address] MARIA [address] [place] [address] 3 03/07/2023 15:21:24 03/07/2023 17:08:13 Degeneration of lumbar intervertebral disc 67929731 M51.36 Lumbar radiculopathy 128 918564 M54.16 Compressio n fracture of vertebral column 76624979 M48.50XD [id number] Ronak Alexandre MD [address] MARIA [address] [place] [address] 3 03/22/2023 12:47:51 03/22/2023 14:40:48 Degeneration of lumbar intervertebral disc 14164004 M51.36 Lumbar radiculopathy 128 845099 M54.16 Compressio n fracture of vertebral column 79447612 M48.50XD [id number] Ronak Alexandre MD [address] MARIA [address] [place] [address] 3 04/02/2023 12:46:13 04/02/2023 17:58:50 Lumbar radiculopathy 672302860 M54.16 Degenerati on of lumbar intervertebral disc 15217721 M51.36 Compressio n fracture of vertebral column 72028505 M48.50XD Osteoporot ic fracture of vertebra 0894622511 9432668 M80.08XA Postoperative care 11990 9007 Z48.89 Health Concerns Section Related Observation LastModified by Organization Detai ls LastModified Time None Recorded Concern Status LastModified by Organization Details LastModified Time None Recorded Advance Directives Directive N: Payers Insurance Date Sequence Insurance Name Policy Number Policy Carmichael Covered Member ID Carmichael Member ID Guarantor Name 04/26/2023 1 [facility] (MEDICARE REPLACEMENT/A DVANTAGE - PPO) [id number] Wilber Ayala [id number] Wilber Ayala Notes Date Note Type Note Provider Name and Address Organization Details Recorded Time 03/07/2023 text/html Back PainReporte d bypatient.Location: lumbar; sacral Quality:sharp;stiff ness;throbbing Severity:pain level 3/10;mild (1-4);interference with work Context:overuse Alleviating Factors:physical therapy; chiropractor; tens machine Aggravating Factors:movement/po sitioning; twisting; flexing back; extending back; lifting; housework; walking Associated Symptoms:no fever; no weak limbs; no numbness of the legs/feet; no tingling; no incontinence; no shortness of breath; no unintentional weight loss; no chills; no night sweats; no gait instability; no bowel/bladder symptoms; no recent increase in stress Previous Injury:no prior injury to back Prior Imaging:MRI; X-ray Ronak Alexandre MD [address], [address], [place] [facility] 03/07/2023 18:37:41 03/22/2023 text/html Back PainReporte d bypatient.Location: lumbar; sacral Quality:sharp;stiff ness;throbbing Severity:pain level 3/10;mild (1-4);interference with work Context:overuse Alleviating Factors:physical therapy; chiropractor; tens machine Aggravating Factors:movement/po sitioning; twisting; flexing back; extending back; lifting; housework; walking Associated Symptoms:no fever; no weak limbs; no numbness of the legs/feet; no tingling; no incontinence; no shortness of breath; no unintentional weight loss; no chills; no night sweats; no gait instability; no bowel/bladder symptoms; no recent increase in stress Previous Injury:no prior injury to back Prior Imaging:MRI; X-ray Patient presents for an injection of ANJELICA Alexandre MD [address], [address], [place] - [facility] 03/22/2023 17:07:05 04/02/2023 text/html Back PainReporte d bypatient.Location: lumbar; sacral Quality:sharp;stiff ness;throbbing Severity:pain level 3/10;mild (1-4);interference with work Context:overuse Alleviating Factors:physical therapy; chiropractor; tens machine Aggravating Factors:movement/po sitioning; twisting; flexing back; extending back; lifting; housework; walking Associated Symptoms:no fever; no weak limbs; no numbness of the legs/feet; no tingling; no incontinence; no shortness of breath; no unintentional weight loss; no chills; no night sweats; no gait instability; no bowel/bladder symptoms; no recent increase in stress Previous Injury:no prior injury to back Prior Imaging:MRI; X-ray Ronak Alexandre MD [address], [address], [place] [facility] 04/02/2023 17:55:48
--- OUTSIDE RECORDS SUMMARY | 2024-10-08 10:06 | XMS_ITS | Continuity of Care Document ---
Author Organization [facility], UROLOGY [facility] Address [address] [place] [address] Care Team Providers Care Industrial Illuminating Engineer Name Role Phone TIANAMERLIN Referring Provider [facility] Primary Care Provider Assessment No assessment recorded. Plan of Treatment Reminders Order Date Submit Date Provider Last Modified By Organization Details Last Modified Time Details Appointments None record ed. Lab None record ed. Referral None record ed. Procedures None record ed. Surgeries None record ed. Imaging None record ed. Medication Orders None record ed. Patient TargetsNo targets recorded. Patient InstructionsNo instructions recorded. Reason for Referral None Reported. Results Created Date Observation Date Name Description Value Unit Range Abnormal Flag Note LastModifiedBy Organization Detail LastModifiedTime 09/25/19 25 09/24/2024 CT, abdom en, w/wo contr ast [facility] [address] [place] [id number] Patien t Name: RENUKA Henderson NOEMIFermin YOUNGBLOOD Patili t : 948 Patien t 34 Orderi ng Provid er: NATY S RAY EXAM DATE: 2024 EXAM: CT ABDOME N W/WO CONTRA ST CLINIC AL INFORM ATION: Renal nodule . TECHNI QUE: A baseli ne serum creati nine with eGFR was obtain ed prior to inject ion of contra st medium due to the patien ts risk factor s for EVERETTE. Calcul ated eGFR at time of exam was [address] images of the abdome n were obtain ed before and in the arteri al and portal venous phases after inject ion of 100 mL Omnipa que 350 (1 x 100 mL bottle of [facility] [id number]- 1414-9 1). None was wasted and discar ded. No oral contra st or water was admini stered to the patien t. COMPAR COLTEN: None. FINDIN GS: LOWER THORAX : Lung bases are clear. No obviou s cardia c abnorm ality. LIVER, PANCRE AND BILIAR Y TRACT: Liver is normal in size, outlin e and attenu ation. No focal lesion is seen in any of the three phases . Hepati c artery , portal vein, hepati c veins and their branch es and tribut stephani are normal . No intra or extrah epatic biliar y dilata tion is presen t. Gallbl adder is normal . No pancre atic mass is visual ized. Pancre atic duct is normal in calibe r.. RENAL SYSTEM : Previo us partia l right nephre ctomy. Stable appear ance with no defini te recurr ence in the operat darin bed. Benign -appea ring cysts are presen t involv ing both kidney s. The larges t is from the anteri or left kidney measur ing 3.5 cm. Again noted is the nodule from the inferi or margin of the left kidney . It measur es 12 mm. This shows enhanc ement. UPPER ABDOMI NAL ORGANS : Spleen , adrena ls and both kidney s are normal . BOWEL AND MESENT JEISON: Stomac h, small bowel and colon are normal . No mesent armando lympha denopa thy or perito kirk free fluid. RETROP ERITON EUM: Aorta, IVC and their branch es are patent and normal . No retrop eriton eal lympha denopa thy. ABDOMI NAL WALL AND SKELET AL STRUCT URES: Normal . COMBIN ED IMPRES CHRISTELLE: 1. Stable enhanc ing nodule which is indete rminat e involv ing the inferi or margin of the left kidney 2. Benign bilate ral renal cysts 3. Previo us partia l nephre ctomy on the right with no indica tion of local recurr ence Interp reted By: Jamal Krishnamurthy MD Electr onical ly Signed By: Jamal Krishnamurthy MD on 025 9:[address] Radiology [facility] [address] [place], [address], 09/29/2024 10:31:24 Result Notes None recorded. Procedures Surgical History Date Name Laterality Status Provider Name and Address Organization Details Recorded Time vasectomy completed [facility] 03/29/2022 09:36:12 screening for malignant neoplasm of prostate completed Irene [facility] 03/29/2022 09:36:27 Stent Placement completed Irene [facility] 03/29/2022 09:36:43 Hernia Repair completed Irene [facility] 03/29/2022 09:36:49 Cholecystectomy completed [facility] 03/29/2022 09:36:57 Imaging Results None recorded. Procedure Notes None recorded. Medical Equipment None Reported. Allergies No known drug allergies Medications Name Sig Start Date Stop Date Status Note LastModified by Organization Details LastModified Time carvedilol 25 mg tablet Take 1 tablet twice a day by oral route. active Not Available Not Available No t Available prednisone 10 mg tablet Take 1 tablet 3 times a day by oral route. active Not Available Not Available No t Available tizanidine 2 mg tablet active Not Available Not Available Not Available lisinopril 20 mg-hydrochlorot hiazide 12.5 mg tablet Take 1 tablet twice a day by oral route. active Not Available Not Available No t Available potassium chloride ER 10 mEq tablet,extended release active Not Available Not Available Not Available sulfamethoxazol e 800 mg-trimethoprim 160 mg tablet active Not Available Not Availabl e Not Available aspirin 81 mg tablet,delayed release Take 1 tablet every day by oral route. active Not Available Not Available No t Available oxycodone-aceta minophen 5 mg-325 mg tablet active Not Available Not Available Not Available pravastatin 10 mg tablet Take 1 tablet every day by oral route. active Not Available Not Available No t Available amitriptyline 10 mg tablet active Not Available Not Available Not Available pantoprazole 40 mg tablet,delayed release Take 1 tablet every day by oral route. active Not Available Not Available No t Available pyridostigmine bromide 60 mg tablet Take 1 tablet 3 times a day by oral route. active Not Available Not Available No t Available gabapentin 300 mg capsule active Not Available Not Available N ot Available methadone 5 mg tablet active Not Available Not Available Not Available oxycodone 5 mg tablet active Not Available Not Available Not Available duloxetine 30 mg capsule,delayed release active Not Available Not Available Not Available oxycodone 10 mg tablet active Not Available Not Available Not Available Xarelto 20 mg tablet TAKE 1 TABLET BY MOUTH ONCE A DAY WITH EVENING MEAL active Not Available Not Available No t Available Eliquis 5 mg tablet active Not Available Not Available Not Available Vitals Date Recorded Body height Body mass index (BMI) Body weight Provider Name and Address Organization Details Last Updated DateTime 08/26/2024 187.96 cm 33.6 kg/m2 504345.2 g Justyna Baeza [facility] 08/26/2024 10:53:09 Social History Question Answer Notes LastModified by Organizat ion Details LastModified Time Tobacco Smoking Status Never Smoker Irene Amaya [facility] 03/29/2022 09:36:00 What Was The Date Of Your Most Recent Tobacco Screening? 03/29/2022 [email or web address] Information not available 03/29/2022 What Is Your Relationship Status? [email or web address] Information not available 03/29/2022 Has Tobacco Cessation Counseling Been Provided? No Information not available 03/29/2022 Sex: Unknown Functional Status Question Answer Note LastModified by Organizat ion Details LastModified Time Do you use any illicit or recreational drugs? No [email or web address] Information not available 03/29/2022 Do you or have you ever used any other forms of tobacco or nicotine? No [email or web address] Information not available 03/29/2022 What is your level of alcohol consumption? None [email or web address] Information not available 03/29/2022 Mental Status None recorded. Family History Relationship Description Onset Age of this Age Resolved Age Notes LastModified by Organization Details LastModified Time Brother Family history of malignant neoplasm prosta te [email or web address] Not available 03/29/2022 09:35:45 Father Family history of malignant neoplasm prosta te [email or web address] Not available 03/29/2022 09:35:47 Maternal Grandfather Family history of malignant neoplasm prosta te [email or web address] Not available 03/29/2022 09:35:49 Mother Kidney disease [email or web address] Not available 2021 09:35:27 Medical History Condition Response Allergies/Hayfever Y Cancer Y Arthritis Y Hypertension Y Sleep Apnea Y High Cholesterol Y Immunizations Vaccine Type Date Status Note Provider Nam e and Address Organization Details Recorded Time COVID-19, mRNA, LNP-S, PF, 100 mcg/0.5mL dose or 50 mcg/0.25mL dose 1 [facility] 03/29/2022 09:33:14 Hep B, adult 8 completed [facility] 03/29/2022 09:33:14 Pneumococcal conjugate PCV 13 8 completed [facility] 03/29/2022 09:33:14 Hep B, adult 8 completed Irene Amaya [facility] 03/29/2022 09:33:14 COVID-19, mRNA, LNP-S, PF, 100 mcg/0.5mL dose or 50 mcg/0.25mL dose 1 completed Irene Amaya [facility] 03/29/2022 09:33:14 Td (adult), 2 Lf tetanus toxoid, preservative free, adsorbed 7 completed Irene Amaya [facility] 03/29/2022 09:33:14 Influenza, high-dose, trivalent, PF 1 completed Irene Amaya [facility] 03/29/2022 09:33:14 COVID-19, mRNA, LNP-S, PF, 100 mcg/0.5mL dose or 50 mcg/0.25mL dose 1 completed [facility] 03/29/2022 09:33:14 pneumococcal polysaccharide PPV23 9 completed Irene Amaya [facility] 03/29/2022 09:33:14 Td (adult) 1 completed Irene Amaya [facility] 03/29/2022 09:33:14 Influenza, high-dose, trivalent, PF 9 completed [facility] 03/29/2022 09:33:14 Influenza, high-dose, trivalent, PF 7 completed Irene Amaya null, [facility] 03/29/2022 09:33:14 Influenza, high-dose, trivalent, PF 6 completed Irene Amaya null, [facility] 03/29/2022 09:33:14 Hep B, adult 7 completed Irene Amaya null, [facility] 03/29/2022 09:33:14 Influenza, high-dose, quadrivalent, PF 2 completed Irene Amaya null, [facility] 03/29/2022 09:33:14 Influenza, high-dose, trivalent, PF 0 completed Irene Amaya null, [facility] 03/29/2022 09:33:14 Past Encounters Encounter ID Performer Location Encounter Start Date Encounter Closed Date Diagnosis/Indication Diagnosis SNOMED-CT Code Diagnosis ICD10 Code Diagnosis Note [id number] OLGA BRUCE MD UROLOGY [facility] [address] [place] [address] 08/26/2024 09:48:11 08/26/2024 10:56:31 Renal mass 302777691 N28.89 BilateralS tatus post right enucleatio n of benign cystic lesion 12/06 Multiple renal cysts 253 603157 N28.1 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 4095003453 9103 N32.0 Myasthenia gravis 074049 04 G70.00 Coronary arteriosclerosis 81672017 I25.10 Status post stent History of malignant neoplasm of prostate 549222420 Z85.46 With recent biochemica l recurrence -now on [facility] Health Concerns Section Related Observation LastModified by Organization Detai ls LastModified Time None Recorded Concern Status LastModified by Organization Details LastModified Time None Recorded Payers Encounter Date Sequence Insurance Name Policy Number Policy Carmichael Covered Member ID Carmichael Member ID Guarantor Name 08/26/2024 1 [facility] (MEDICARE REPLACEMENT/A DVANTAGE - PPO) [id number] Wilber Ayala [id number] Wilber Ayala Notes Date Note Type Note Provider Name and Address Organization Details Recorded Time 08/26/2024 text/html 74 with h/o sukhdev l mass -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 OLGA BRUCE MD [address] [place], [address], [facility] 08/29/2024 13:58:17
--- OUTSIDE RECORDS SUMMARY | 2024-10-08 10:06 | XMS_ITS | Referral Summary ---
Author Organization [employer] Address [address] [place] [address] Care Team Providers Care Ortho Nurse Name Role Phone Justen Palomo MD Primary Care Provider [phone] Alanajuana Karrie Unavailable Allergies Active Allergy Reactions Criticality Noted Date Comments Pecan Nut Swelling,Rash High 12/07/2022 Swelling around eyes Medications carvediloL (COREG) 25 MG tablet Take 1 tablet (25 mg total) by mouth 2 (two) times daily. 10/23/2022 Active lisinopril-hydr oCHLOROthiazide (PRINZIDE,ZESTO RETIC) 20-12.5 mg per tablet Take 1 tablet by mouth 2 (two) times daily. 11/27/2022 Active pantoprazole (PROTONIX) 40 MG tablet Take 1 tablet (40 mg total) by mouth daily. 10/01/2022 Active pravastatin (PRAVACHOL) 10 MG tablet Take 1 tablet (10 mg total) by mouth nightly. 10/01/2022 Active predniSONE (DELTASONE) 10 MG tablet Take 1 tablet (10 mg total) by mouth in the morning. 11/01/2022 Active pyridostigmine (MESTINON) 60 mg tablet Take 1 tablet (60 mg total) by mouth 3 (three) times daily. 11/27/2022 Active multivitamin per tablet Take 1 tablet by mouth daily. Active cholecalciferol , vitamin D3, 50 mcg (2,000 unit) Cap Take 1 capsule (2,000 Units total) by mouth daily. Active predniSONE (DELTASONE) 10 MG tablet Take 0.5 tablets (5 mg total) by mouth daily before lunch At Noon. Active apixaban (ELIQUIS) 5 mg Tab tablet 2 tab bid x 6 day, then 1 tab bid. 72 tablet 12/19/2022 Active aspirin 81 MG EC tablet Take 1 tablet (81 mg total) by mouth daily. Active Active Problems Problem Noted Date Diagnosed Date PE (pulmonary thromboembolism) 12/16/2022 Pain 12/11/2022 Right renal mass 12/08/2022 Coronary artery disease 12/08/2022 Overview (12/08/2022): s/p cardiac stent GERD (gastroesophageal reflux disease) History of prostate cancer 12/08/2022 Overview (12/08/2022): taking hormonal therapy injections q 6 months History of pulmonary embolus (PE) 12/08/2022 Overview (12/08/2022): following prostatectomy Myasthenia gravis 12/08/2022 Overview (12/08/2022): dx 12/2021 CAYETANO on CPAP 12/08/2022 Peripheral neuropathy 12/08/2022 Overview (12/08/2022): feet PONV (postoperative nausea and vomiting) 023 Overview (12/08/2022): after one surgery Social History Tobacco Use Types Packs/Day Years Used Date Smoking Tobacco: Never Passive Smoke Exposure: Never Smokeless Tobacco: Never Tobacco Cessation:Counseling Given: Not Answered Alcohol Use Standard Drinks/Week Comments Never 0 (1 standard drink = 0.6 oz pur e alcohol) Humiliation, Afraid, Rape, and Kick questionnair e Answer Date Recorded Within the last year, have y ou been afraid of your partner or ex-partner? No 12/08/2022 Within the last year, have y ou been humiliated or emotionally abused in other ways by your partner or ex-partner? No Within the last year, have y ou been kicked, hit, slapped, or otherwise physically hurt by your partner or ex-partner? No 12/08/2022 Within the last year, have y ou been raped or forced to have any kind of sexual activity by your partner or ex-partner? No 12/08/2022 PHQ-2 Answer Date Recorded Patient Health Questionnaire-2 Score 0 12/08/2022 PRAPARE - Transportation Answer Date Re corded In the past 12 months, has l ack of transportation kept you from medical appointments or from getting medications? No 12/16/2022 Lack of Transportation (Non-Medical) Not on file 12/16/2022 Housing Stability Vital Sign Answer Jovani e Recorded In the last 12 months, was t here a time when you were not able to pay the mortgage or rent on time? No 12/16/2022 In the last 12 months, how many places have you lived? 1 12/16/2022 In the last 12 months, was t here a time when you did not have a steady place to sleep or slept in a fci (including now)? No 12/16/2022 [facility] Intimate Partner Violence Answer Da te Recorded Within the last year, have y ou been afraid of your partner or ex-partner? No 12/08/2022 Within the last year, have y ou been humiliated or emotionally abused in other ways by your partner or ex-partner? No Within the last year, have y ou been kicked, hit, slapped, or otherwise physically hurt by your partner or ex-partner? No 12/08/2022 Within the last year, have y ou been raped or forced to have any kind of sexual activity by your partner or ex-partner? No 12/08/2022 Interpersonal Safety Answer Date Record ed Family or friends hurt you Not on file 04/27 Family or friends insult you Not on file 03/2024 Family or friends threaten you Not on file 0 04/27/2023 Family or friends scream or curse at you Not on file 04/27/2023 Housing Stability Answer Date Recorded Living situation today Not on file Living situation problems Not on file 2023 Food Insecurity Answer Date Recorded Food run out past 12 months Not on file 04/16 Food did not last past 12 months Not on file 04/27/2023 Employment Answer Date Recorded Help finding and keeping a job Not on file 0 04/27/2023 Family and Community Support Answer Jovani e Recorded Help with Day to Day Activities Not on file 04/27/2023 Feeling Lonely or Isolated Not on file 04/27 Educational Attainment Answer Date Pierre rded Speak language other than Martiniquais at home Not on file 04/27/2023 Want help with school or training Not on file 04/27/2023 Depression Answer Date Recorded PHQ-2 Risk Not on file 04/27/2023 Disabilities Answer Date Recorded Difficulty concentrating Not on file 024 Difficulty doing errands alone Not on file 0 04/27/2023 Substance Use Answer Date Recorded Used prescription meds for non-medical reasons N ot on file 04/27/2023 Used illegal drugs past 12 months Not on file 04/27/2023 Sex and Gender Information Value Date Recorded Sex Assigned at Male 12/16/2022 12:18 PM CDT Legal Sex Male 4:47 PM CDT Gender Identity Male 12/16/2022 12:18 PM CDT Sexual Orientation Straight 12/16/2022 12 :18 PM CDT Last Filed Vital Signs Vital Sign Reading Time Taken Comments Blood Pressure 101/63 12/19/2022 10:30 AM EDT Pulse 73 12/19/2022 11:35 AM EDT Temperature 36.8 C (98.2 F) 12/19/2022 10:25 AM EDT Respiratory Rate 20 12/19/2022 3:35 AM EDT Oxygen Saturation 98% 12/19/2022 11: 35 AM EDT Inhaled Oxygen Concentration - - Weight 125.4 kg (276 lb 7.3 oz) 12/16/2022 1:01 PM EDT Height 188 cm (6' 2 ) 12/16/2022 1:01 PM EDT Body Mass Index 35.49 12/16/2022 1:01 PM EDT Plan of Treatment Not on file Insurance Advance Directives For more information, please contact: [phone] Documents on File Type Date Recorded Patient Hospice Registered Nurse Expl anation Advance Directives and Livin g Will 12/08/2022 10:18 AM * Full Code (Latest Code Status on File) Date Activated Date Inactivated Comments 12/16/2022 12:09 PM 12/19/2022 2:18 PM * Full Code Date Activated Date Inactivated Comments 12/11/2022 12:51 PM 12/14/2022 4:43 PM Care Teams Ortho Nurse Relationship Specialty Start Date End Date Justen Palomo MD [address] [place] [id number] PCP - General Family Medicine 12/08/22 Karrie Herndon [address] [facility] [place] [address] Neurology 12/08/22
--- OUTSIDE RECORDS SUMMARY | 2024-10-08 10:06 | XMS_ITS | Clinical Summary ---
Author Organization [employer] Address [address] [facility] [place] [address] Care Team Providers Care Weigher Operator Name Role Phone Justen Palomo MD Primary Care Provider [phone] Alanajuana Karrie Unavailable Allergies Active Allergy Reactions [...] place to sleep or slept in a [place] facility (including now)? No 12/16/2022 [facility] Intimate Partner [...] Date Pierre rded Speak language other than Citizen [place] at home Not on file 04/27/2023 Want [...] 12/16/2022 1:01 PM EDT Plan of Treatment Health Maintenance Due Date Last Done Comments Depression Screening (12+) 1960 Hepatitis C Screening 02/15/1966 Shingles Vaccine (Zoster) (1 of 2) 02/15/1998 Respiratory Syncytial Virus (RSV) Adult or (1 - 1-dose 75+ series) 02/15/2023 Medicare Initial AWV [id number] 04/17/2023 COVID-19 VACCINE (4 - 2023-2 5 season) 2023 02/02/2021, 07/28/2020, 06/30/2020 Tobacco Cessation Counseling and Screening (12+) 12/17/2023 12/16/2022 Falls Risk Screening 04/16/2024 Influenza Vaccine (Season Ended) 2024 02/08/2022, 03/15/2021, 03/15/2021, Additional history exists DTAP/TDAP/TD VACCINES (3 - T d or Tdap) 04/22/2030 04/22/2020, 06/20/1996 Pneumococcal 50+ years Completed 08/08/2018, 2017 Insurance MEDICARE ADVANTAGE Advance Directives For more information, please contact: [phone] Documents on File Type Date Recorded Patient Etiquette Teacher Expl anation Advance Directives and Livin g Will 12/08/2022 10:18 AM * Full Code (Latest Code Status on File) Date Activated Date Inactivated Comments 12/16/2022 12:09 PM 12/19/2022 2:18 PM * Full Code Date Activated Date Inactivated Comments 12/11/2022 12:51 PM 12/14/2022 4:43 PM Care Teams Weigher Operator Relationship Specialty Start Date End Date Justen Palomo MD [address] [place] [id number] PCP - General Family Medicine 12/08/22 Karrie Herndon [address] [place] [address] Neurology 12/08/22
--- OUTSIDE RECORDS SUMMARY | 2024-10-08 10:06 | XMS_ITS | Data Portability ---
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 Plan of Treatment Reminders Order Date Submit Date Provider Last Modified By Organization Details Last Modified Time Details Appointments OV EST 15 2024 10:00A M Alex Chakraborty Jr, MD Not available Not available Not available Lab PSA, serum or plasma 2024 025 [facility] (Lab Registration) , [address] [place], [address], 08/06/2024 16:55:55 PSA, serum or plasma 2023 024 [facility] (Lab Registration) , [address] [place], [address], 02/06/2024 17:28:37 PSA, serum or plasma 2023 024 [email or web address] [facility] (Lab Registration) , [address] [place], [address], 08/05/2023 11:53:51 PSA, serum or plasma 2022 023 [facility] (Lab Registration) , [address] [place], [address], 01/24/2023 17:09:00 PSA, serum or plasma 2022 023 [facility] (Lab Registration) , [address] [place], [address], 07/12/2022 16:54:49 Referral None recorded. Procedures None recorded. Surgeries None recorded. Imaging None recorded. Medication Orders Eligard 45 mg (6 month) subcutane ous syringe [address], [address] [place] [address], [facility], [place], [address], 08/06/2024 14:41:33 Lupron Depot 45 mg (6 Month) intramusc ular syringe kit 2023 024 Not available 03/26/2024 07:34:14 Eligard 45 mg (6 month) subcutane ous syringe 2023 024 Not available 10/02/2023 07:20:47 Eligard 45 mg (6 month) subcutane ous syringe [address], [address] [place] [address], [facility], [place], [address], 01/25/2023 10:51:26 Eligard 45 mg (6 month) subcutane ous syringe [address], [address] [place] [address], [facility], [place], [address], 07/12/2022 16:19:24 Patient TargetsNo targets recorded. Patient InstructionsNo instructions recorded. Reason for Referral None Reported. Results Created Date Observation Date Name Description Value Unit Range Abnormal Flag Note LastModifiedBy Organization Detail LastModifiedTime 07/13/1907/12/2022 PROST ATE SPECI FIC AG (PSA) prostate specific Ag (PSA) <0.13 NG/mL 0.0-4. 0 Not Available [facility] (Lab Registration) [address] [place], [address], 07/12/2022 16:54:49 07/13/1907/12/2022 PROST ATE SPECI FIC AG (PSA) note Unles s other grove noted testi ng perfo rmed at: [facility] [address] [place] [address] [phone] Narendra mccain MD CLIA: [id number] Not Available [facility] (Lab Registration) [address] , [place], [address], 07/12/2022 16:54:49 01/25/20 23 01/24/2023 PROST ATE SPECI FIC AG (PSA) prostate specific Ag (PSA) <0.13 NG/mL 0.0-4. 0 Not Available [facility] (Lab Registration) [address], [place], [address], 01/24/2023 17:09:00 01/25/20 23 01/24/2023 PROST ATE SPECI FIC AG (PSA) note Unles s other grove noted testi ng perfo rmed at: [facility] [address] [place] [address] [phone] Narendra mccain MD CLIA: [id number] Not Available [facility] (Lab Registration) [address], [place], [address], 01/24/2023 17:09:00 08/03/19 24 08/03/2023 PROST ATE SPECI FIC AG (PSA) prostate specific Ag (PSA) <0.13 NG/mL 0.0-4. 0 Not Available [facility] (Lab Registration) [address] [place], [address], 08/03/2023 16:01:31 08/03/19 24 08/03/2023 PROST ATE SPECI FIC AG (PSA) note Unles s other grove noted testi ng perfo rmed at: [facility] [address] [place] [address] [phone] Narendra mccain MD CLIA: [id number] Not Available [facility] (Lab Registration) [address], [place], [address], 08/03/2023 16:01:31 02/06/20 24 02/06/2024 PROST ATE SPECI FIC AG (PSA) prostate specific Ag (PSA) <0.13 NG/mL 0.0-4. 0 Not Available [facility] (Lab Registration) [address], [place], [address], 02/06/2024 17:28:37 02/06/20 24 02/06/2024 PROST ATE SPECI FIC AG (PSA) note Unles s other grove noted testi ng perfo rmed at: [facility] [address] [place], [place] [id number] [phone] Narendra mccain MD CLIA: [id number] Not Available [facility] (Lab Registration) [address] [place], [address], 02/06/2024 17:28:37 08/07/19 25 08/06/2024 PROST ATE SPECI FIC AG (PSA) prostate specific Ag (PSA) <0.13 NG/mL 0.0-4. 0 Not Available [facility] (Lab Registration) [address] [place], [address], 08/06/2024 16:55:55 08/07/19 25 08/06/2024 PROST ATE SPECI FIC AG (PSA) note Unlbarbara s other grove noted testi ng perfo rmed at: [facility] [address] [place], [place] [id number] [phone] Narendra mccain MD CLIA: [id number] Not Available [facility] (Lab Registration) [address] [place], [address], 08/06/2024 16:55:55 Result Notes None recorded. Problems Name Problem SNOMED Code Status Onset Date Resolution Date Notes Provider Name and Address Organization Details Recorded Time Hypertensive disorder 58377389 Active 2021 EN Espinosa [place] [facility] [place] 14:34:10 Arthritis 6430093 Active 2021 Adalid ceballos, EN Cabrera [place] [facility] [place] 2 14:34:15 Sleep apnea 09978003 Active 2021 EN Espinosa [place] [facility] [place] 14:34:21 Problem Notes None recorded. Procedures Surgical History Date Name Laterality Status Provider Name and Address Organization Details Recorded Time vasectomy completed Adalid HAMMOND [facility] [place] 02/02/2022 14:36:21 Hernia Repair completed Adalid HAMMOND [facility] [place] 02/02/2022 14:36:27 Prostatectomy completed Adalid HAMMOND [facility] [place] 02/02/2022 14:36:39 cholecystectomy completed Adalid HAMMOND [facility] [place] 02/02/2022 14:36:46 Imaging Results None recorded. Procedure Notes None recorded. Medical Equipment None Reported. Allergies No known drug allergies Medications Name Sig Start Date Stop Date Status Note LastModified by Organization Details LastModified Time carvedilol 25 mg tablet active Not Available Not Available Not Available prednisone 10 mg tablet active Not Available Not Available Not Available tizanidine 2 mg tablet active Not Available Not Available Not Available lisinopril 20 mg-hydrochl orothiazide 12.5 mg tablet active Not Available Not Available Not Available potassium chloride ER 10 mEq tablet,exte nded release active Not Available Not Available Not Available sulfamethox azole 800 mg-trimetho prim 160 mg tablet active Not Available Not Available Not Available oxycodone-a cetaminophe n 5 mg-325 mg tablet active Not Available Not Available No t Available pravastatin 10 mg tablet active Not Available Not Available Not Available amitriptyli ne 10 mg tablet active Not Available Not Available Not Available pantoprazol e 40 mg tablet,ronald yed release active Not Available Not Available Not Available pyridostigm ine bromide 60 mg tablet active Not Available Not Available Not Available gabapentin 300 mg capsule active Not Available Not Available Not Available methadone 5 mg tablet active Not Available Not Available No t Available oxycodone 5 mg tablet active Not Available Not Available No t Available duloxetine 30 mg capsule,del ayed release active Not Available Not Available Not Available Eligard 45 mg (6 month) subcutaneou s syringe Inject 45 mg by subcutane ous route. 2024 active Not Available Not Available Not Avai lable atorvastati n active Not Available Not Available Not Available carvedilol active Not Available Not Av ailable Not Available lisinopril active Not Available Not Av ailable Not Available oxycodone 10 mg tablet active Not Available Not Available Not Available Lupron Depot 45 mg (6 Month) intramuscul ar syringe kit Inject 45 mg by intramusc ular route. 2023 active Not Available Not Available Not Avai lable Xarelto 20 mg tablet TAKE 1 TABLET BY MOUTH ONCE DAILY WITH EVENING MEAL active Not Available Not Available No t Available Eliquis 5 mg tablet 02/05 completed Not Available Not Available Not Available Eliquis 02/05 completed Not Available Not Available Not Available Vitals Date Recorded Body height Body mass index (BMI) Body weight Body temperature Provider Name and Address Organization Details Last Updated DateTime 07/12/2022 187.96 cm 32.1 kg/m2 078139.09 g 97.5 [degF] Adalid Sandhu [facility] [place] 07/12/2022 11:28:20 Date Recorded Body height Body mass index (BMI) Body weight Body temperature Provider Name and Address Organization Details Last Updated DateTime 08/03/2023 187.96 cm 32.1 kg/m2 335626.09 g 98.2 [degF] Adalid Sandhu [facility] [place] 08/03/2023 09:32:42 Date Recorded Body height Body mass index (BMI) Body weight Provider Name and Address Organization Details Last Updated DateTime 08/06/2024 187.96 cm 32.1 kg/m2 750532.09 g Lillie Ayala [facility] [place] 08/06/2024 10:11:49 Date Recorded Body height Body mass index (BMI) Body weight Body temperature Provider Name and Address Organization Details Last Updated DateTime 01/24/2023 187.96 cm 32.1 kg/m2 798495.09 g 97.5 [degF] Lillie GATICA - [facility] [place] [facility] [place] 01/24/2023 09:09:39 Date Recorded Body height Body mass index (BMI) Body weight Provider Name and Address Organization Details Last Updated DateTime 02/06/2024 187.96 cm 32.1 kg/m2 619122.09 g Lillie GATICA - [facility] [place] 02/06/2024 09:41:47 Social History None recorded. Functional Status Question Answer Note LastModified by Organization D etails LastModified Time What is your level of alcohol consumption? None [email or web address] Information not available 02/02/2022 Mental Status None recorded. Family History Relationship Description Onset Age of this Age Resolved Age Notes LastModified by Organization Details LastModified Time Mother Hypertensive disorder dec [email or web address] Not available 2021 14:34:43 Father Heart disease dec [email or web address] Not available 2021 14:35:06 Brother Heart disease dec [email or web address] Not available 2021 14:35:06 Brother Heart disease dec [email or web address] Not available 2021 14:35:06 Medical History No medical history recorded. Past Encounters Encounter ID Performer Location Encounter Start Date Encounter Closed Date Diagnosis/Indication Diagnosis SNOMED-CT Code Diagnosis ICD10 Code Diagnosis Note [id number] Alex Chakraborty Jr, MD [facility] [place] [address] 02/02/2022 13:54:09 02/02/2022 15:20:41 Renal mass 888218658 N28.89 Patient with a new diagnosis of a 17 mm right renal mass. There is evidence of enhancemen t with contrast on the CT chest. He has an appointmen t with Urology for considerat ion of treatment. He has not had a dedicated CT scan of his abdomen pelvis and I am going to order a CT scan with renal mass protocol at [facility]. 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 We discussed options today that he will likely discuss with the urologist at . They include partial nephrectom y versus Close monitoring . Malignant neoplasm of prostate 137953355 C61 patient with history of prostate cancer status post radiation in 2002. His PSA has been slowly elevating and had risen to 15 last year and we started hormonal therapy with Eligard with appropriat e decrease in the PSA. He has had minimal side effects from treatment. [id number] Alex Chakraborty Jr, MD [facility] [address] [address] 07/12/2022 11:24:12 07/12/2022 11:48:18 Carcinoma of prostate 516621016 C61 Patient with history of prostate cancer status post external beam radiation in 2002. He had a PSA recurrence and hormonal therapy was initiated in 2020 when his PSA had reached 15. His PSA has decreased appropriat bernice he returns today in routine follow-up. His six-month Eligard was given and a PSA was drawn. Renal mass 664796358 N28 .89 patient with history of a 17 mm right renal mass that is enhancing. He has seen Dr. Alcala of Urology in [place] and and they are currently managing with close monitoring . He has a CT scan coming up in the near future. [id number] Alex [facility]rab[facility] Jr, [facility] [address] [address] 01/24/2023 08:54:38 01/24/2023 09:40:55 Carcinoma of prostate 535364797 C61 Patient with history of prostate cancer status post external beam radiation 2002. He had a PSA recurrence and hormonal therapy was initiated in 2020 when his PSA had reached 15. His PSA has decreased appropriat bernice and returns today in routine follow-up. His six-month Eligard was given and a PSA was obtained. Renal mass 688914888 N28 .89 patient with history of a 17 mm right renal mass that is enhancing. He has seen Dr. Alcala of Urology in [place] and patient underwent a right open nephrectom y on December 11. The pathology showed no evidence of cancer. This is good news. [id number] Alex Chakraborty Jr, MD [facility] [address] [address] 08/03/2023 09:30:54 08/03/2023 10:24:08 Carcinoma of prostate 875494930 C61 Patient with history of prostate cancer status post radical prostatect pre[place] in 2002. He had a PSA recurrence and hormonal therapy was initiated in 2020 when his PSA had reached 15. His PSA has decreased appropriat bernice and returns today in routine follow-up. his last PSA was 0 in January 2023. His six-month Eligard was given and a PSA was obtained. Renal mass 751689056 N28 .89 patient with history of a 17 mm right renal mass that is enhancing. He has seen Dr. Alcala of Urology in [place] and patient underwent a right open nephrectom y on December 11. The pathology showed no evidence of cancer. This is good news. [id number] Alex Chakraborty Jr, MD [facility] [address] [address] 02/06/2024 09:40:21 02/06/2024 10:12:38 Carcinoma of prostate 985307576 C61 Patient with history of prostate cancer status post radical prostatect pre[place] in 2002. He had a PSA recurrence and hormonal therapy was initiated in 2020 when his PSA had reached 15. His PSA has decreased appropriat bernice and returns today in routine follow-up. his last PSA was 0 in July 2023. His six-month Eligard was given and a PSA was obtained. Renal mass 271876268 N28 .89 patient with history of a 17 mm right renal mass that is enhancing. He has seen Dr. Alcala of Urology in [place] and patient underwent a right open nephrectom y on December 11. The pathology showed no evidence of cancer.pat ient states he now has a small left renal mass that is being followed by Dr. alcala in [place]. [id number] Alex [facility]akraborty Jr, MD [facility] [address] [address] 08/06/2024 09:46:46 08/06/2024 10:55:49 Malignant neoplasm of prostate 309147507 C61 Patient with history of prostate cancer status post radical prostatect [place] in 2002 with PSA recurrence . He has been on hormonal therapy since 2020 in his PSAs have dropped to 0. His Eligard 6 month injection will be given today and we will check a PSA. Renal mass [id number] N28 .89 patient with history of a 17 mm right renal mass that is enhancing. He has seen Dr. Alcala of Urology in [place] and patient underwent a right open nephrectom y on December 11. The pathology showed no evidence of cancer.pat ient states he now has a small left renal mass that is being followed by Dr. alcala in [place]. Patient was scheduled for cryotherap y in March 2024 but that was postponed in his still waiting to hear on follow-up. Health Concerns Section Related Observation LastModified by Organization Detai ls LastModified Time None Recorded Concern Status LastModified by Organization Details LastModified Time None Recorded Advance Directives Directive None Recorded Payers Insurance Date Sequence Insurance Name Policy Number Policy Carmichael Covered Member ID Carmichael Member ID Guarantor Name 08/03/2024 1 [facility] (MEDICARE REPLACEMENT/A DVANTAGE - PPO) [id number] Wilber Lucy [id number] Wilber Finnfreddy Notes Date Note Type Note Provider Name and Address Organization Details Recorded Time 07/12/2022 text/html Patient is a 72-year-old white male with a history of prostate cancer with PSA recurrence as well as a 17 mm right renal mass. Patient was started on hormonal therapy when his PSA reached 15. He returns today in routine follow-up for his Eligard injection. His PSA has decreased appropriately. He denies any significant side effects from the Eligard.Patient was referred to Dr. Jens alcala in [place] for consideration of treatment for his small renal mass. Patient and [employer] have decided to follow the mass with watchful waiting and a CT scan is scheduled again in the near future. Patient's other medical history includes myasthenia gravis with recent exacerbation that he is recovering from. Alex Chakraborty Jr, MD [address] [place] [address], [address], [place], [address], [place] [facility] [place] 07/12/2022 12:08:10 01/24/2023 text/html Patient is a 72-year-old white male with history of prostate cancer and right renal mass. Patient's prostate cancer was treated 2002 with external beam radiation. His PSA recurred and was up to 15 when hormonal therapy was initiated in 2020. His PSA has decreased appropriately if his last PSA being 0 in June 1999 23. Patient states he has occasional hot flashes but they are not that bothersome.Patient also with history of a 17 mm right renal mass. This mass has been followed by Dr. Jens alcala in [place]. Patient did undergo a partial open nephrectomy on December 11. Patient states that the path showed no evidence of cancer. Patient states he had a blood clot about 5 days after the procedure and was placed on Eliquis. Alex Chakraborty Jr, MD [address] [facility], [address], [place], [address], [facility] [place] 01/24/2023 15:39:33 08/03/2023 text/html patient is a 73-year-old white male with a history of prostate cancer and right renal mass. Patient's prostate cancer was treated in 2002 with radical prostatectomy. His PSA recurred and was up to 15 when hormonal therapy was initiated in 2020 while I was at [facility]. His PSA has decreased appropriately with his last being 0 in January 2023. Patient has some occasional hot flashes but are not that bothersome. He is also dealing with myasthenia gravis.Patient also with history of a small right renal mass. Patient did undergo a partial open nephrectomy in November 2022. The pathology showed no evidence of cancer. Patient's course was complicated by a blood clot postop and he was placed on Eliquis. Alex Chakraborty Jr, MD [address] [facility], [address], [place], [address], [facility] - [facility] & [place] 08/12/2023 21:56:55 02/06/2024 text/html Patient is a 73-year-old white male with a history of prostate cancer and PSA recurrence as well as a right renal mass and he reports he is now being followed for a new mass on his left kidney.patient's prostate cancer was treated with radical prostatectomy in 2002. Patient's PSA had bumped up to 15 when I saw him in 2020 he was started on hormonal therapy at that time. His PSA decreased appropriately his last PSA being 0 in July 2023. He returns for his Eligard injection today.Patient did undergo a partial nephrectomy for a right renal mass that did not show evidence of cancer. He is now being followed for a small left renal mass by Dr. alcala in [place].Patient has history of myasthenia gravis. Alex Chakraborty Jr, MD [address], [address], [place], [address], [facility] - [facility] [place] [facility] [place] 02/06/2024 10:46:09 08/06/2024 text/html Patient is a 74-year-old white male with history left renal mass and prostate cancer. Patient's prostate cancer treated with radical prostatectomy in 2002. He had a PSA recurrence and hormonal therapy was initiated in 2020 when his PSA had reached 15. He is on Eligard monotherapy in his PSA is 0. He does state some fatigue and occasional hot flashes.Patient with history of bilateral renal masses. His right renal mass was resected by Dr. Alcala in the past and pathology showed no evidence of cancer. Patient currently has a small left renal mass and was scheduled for cryotherapy back in March but that was postponed and he was still waiting for treatment. He is to see Dr. Alcala again next month. Alex Chakraborty Jr, MD [address] [place] [address], [address], [place], [address], [place] [facility] [place] [facility] [place] 08/06/2024 15:15:16
--- OUTSIDE RECORDS SUMMARY | 2024-10-08 10:07 | XMS_ITS | Data Portability ---
Author Organization EN SAMANTHA Dacosta [facility]OS[facility] Address [address] [facility] [address] [place] [address] Care Team Providers Care Thread Weaver Name Role Phone MERLIN MONTIEL Referring Provider [facility] [employer] Primary Care Provider Assessment No assessment recorded. Plan of Treatment Reminders Order Date Submit Date Provider Last Modified By Organization Details Last Modified Time Details Appointments None record ed. Lab None record ed. Referral None record ed. Procedures None record ed. Surgeries None record ed. Imaging None record ed. Medication Orders None record ed. Patient TargetsNo targets recorded. Patient Instructions Encounter Date Encounter Id Patient Instructions Last Modified By Organization Details Last Modified Time 12/21/2022 [id number] Well recovered, continue activity restriction for 6 total weeks. He is back on aspirin and Eliquis with no problems. I will see him back in 1 month with CBC and BMP We will arrange CT renal mass protocol for his left renal lesion in approximately 6 to 9 months Not available 12/21/2022 13:48:38 02/20/2023 [id number] Continues RH a nd PSA checks through Dr. Montiel I will see him back in 6 months with renal mass protocol CT Not available 02/20/2023 11:59:19 08/21/[id number] renal mass protocol now shows a very stable left lower pole enhancing lesion at 1.5 cm size. This was identical to findings at last scan 9 months ago. We have discussed management options in detail. He does not feel that he would be prepared now for repeat operative endeavor. We have discussed cryotherapy consideration as well. Given the stability of the lesion and recent back procedure I think it is best that he recover further before consideration of this. Return in 6 months with next renal mass protocol CT-consider cryo therapy thereafter Not available 08/21/2023 11:23:20 02/26/[id number] repeated and reviewed again revealing a partially exophytic enhancing stable now 1.6 cm lesion in the left renal lower pole posteriorly. We have again discussed management alternatives at length. He prefers to avoid a second operative endeavor. I have suggested to him that ablative therapy with cryotherapy would be a very appropriate advisable consideration and have made referral to Dr. Boo in interventional radiology at [facility] for evaluation of this possibility. I have told him he would have to be off of his Xarelto for a short time. He takes this for atrial fibrillation. He was in normal sinus rhythm when checked today. Not available 02/26/2024 13:58:02 Reason for Referral None Reported. Results Created Date Observation Date Name Description Value Unit Range Abnormal Flag Note LastModifiedBy Organization Detail LastModifiedTime 08/21/19 24 08/17/2023 CT, abdom en, w/wo contr ast [facility] [facility] [address] [facility] [place] [address] Patili t Name: RENUKA Leiva t : 9[address] Abbie t 34 Orderi ng Provid er: NATY S RAY EXAM DATE: 2023 EXAM: CT ABDOME N W/WO CONTRA ST CLINIC AL INFORM ATION: Renal lesion TECHNI QUE: A baseli ne serum creati nine with eGFR was obtain ed prior to inject ion of contra st medium due to the patien ts risk factor s for EVERETTE. Calcul ated eGFR at time of exam was GFR > [address] images of the abdome n were obtain ed before and in the arteri al and portal venous phases after inject ion of 100 mL Omnipa que 350 (1 x 100 mL bottle of [facility] [address]- 1414-9 1). None was wasted and discar ded. Bowel was marked with water. COMPAR COLTEN: 023 FINDIN GS: LOWER THORAX : Lung bases [...] biliar y dilata tion is presen t. The gallbl adder is absent . No pancre atic mass is visual ized. Pancre atic duct is normal in calibe r. RENAL SYSTEM : There is a stable 12 mm enhanc ing mass involv ing the inferi or portio n of the left kidney . There is a stable cyst involv ing the rizwan medial left kidney . Cystic lesion previo usly noted in the right kidney is no longer visibl e. There are some scarri ng type change involv ing the superi or aspect of the right kidney . UPPER ABDOMI NAL ORGANS : Spleen , [...] Normal . COMBIN ED IMPRES CHRISTELLE: 1. Status post partia l nephre ctomy on the right. No indica tion of local or distan t recurr ence 2. Stable enhanc ing nodule involv ing the bottom of the left kidney with stable benign -appea ring left renal cysts as well Interp reted By: Jamal Krishnamurthy MD Electr onical ly Signed By: Jamal Krishnamurthy MD on 08/21/19 24 8:[address] Radiology [address], [phone], 08/21/2023 11:00:30 02/22/20 24 02/22/2024 CT, abdom en, w/wo contr ast [address] [place] [address] Patien t Name: RENUKA Henderson NOEMIFermin YOUNGBLOOD Patili t : 948 Patien t 34 Orderi ng Provid er: NATY S RAY EXAM DATE: 2023 EXAM: CT ABDOME N W/WO CONTRA ST CLINIC AL INFORM ATION: Kidney cancer TECHNI QUE: A baseli ne serum creati nine with eGFR was obtain ed prior to inject ion of contra st medium due to the patien ts risk factor s for EVERETTE. Calcul ated eGFR at time of exam was [address] images of the abdome n were obtain ed before and in the arteri al and portal venous phases after inject ion of 100 mL Omnipa que 350 (1 x 100 mL bottle of [facility] [id number]- 1414-9 1). none was wasted and discar ded. No oral contra st or water was admini stered to the patien t. COMPAR COLTEN: 2023 FINDIN GS: LOWER THORAX : Lung bases [...] Pancre atic duct is normal in calibe r. RENAL SYSTEM : Previo us partia l nephre ctomy on the right. Stable appear ance of the operat darin bed with no defini te local recurr ent diseas e. There are benign cysts involv ing the left kidney . Stable 12 mm enhanc ing nodule involv ing the inferi or left kidney . UPPER ABDOMI NAL ORGANS : Spleen , [...] Normal . COMBIN ED IMPRES CHRISTELLE: 1. Previo us partia l right nephre ctomy; stable with no local recurr ence suspec peter 2. Stable enhanc ing nodule from the bottom of the left kidney 3. Simple cysts are also noted in the left kidney Interp reted By: Jamal Krishnamurthy MD Electr onical ly Signed By: Jamal Krishnamurthy MD on 024 10:14 AM cornelia [facility] [address] [place] [address], [phone], 02/22/2024 14:28:58 09/25/19 25 09/24/2024 CT, abdom en, w/wo contr ast [place] [facility] [place] [address] Patien t Name: RENUKA AYALA JR Patien t : 948 Patien t 34 Orderi [...] 350 (1 x 100 mL bottle of [facility] [id number]- 1414-9 1). None was wasted and discar [...] Jamal Krishnamurthy MD on 025 9:[address] Rad[address], [phone], 09/29/2024 10:31:24 Result Notes Documentation Provider Name and Address Organization Details Recorded Time Ct, Abdomen, W/wo Contrast : [address] [address] Patient Name: MICHEAL AYALA JR Patient : 1950 Patient Ordering Provider: OLGA BRUCE EXAM DATE: 08/17/2023 EXAM: CT ABDOMEN W/WO CONTRAST CLINICAL INFORMATION: Renal lesion TECHNIQUE: A baseline serum creatinine with eGFR was obtained prior to injection of contrast medium due to the patients risk factors for EVERETTE. Calculated eGFR at time of exam was GFR > [address] images of the abdomen were obtained before and in the arterial and portal venous phases after injection of 100 mL Omnipaque 350 (1 x 100 mL bottle of [facility] [id number]). None was wasted and discarded. Bowel was marked with water. COMPARISON: 09/25/2022 FINDINGS: LOWER THORAX: Lung bases are clear. No obvious cardiac abnormality. LIVER, PANCREAS AND BILIARY TRACT: Liver is normal in size, outline and attenuation. No focal lesion is seen in any of the three phases. Hepatic artery, portal vein, hepatic veins and their branches and tributaries are normal. No intra or extrahepatic biliary dilatation is present. The gallbladder is absent. No pancreatic mass is visualized. Pancreatic duct is normal in caliber. RENAL SYSTEM: There is a stable 12 mm enhancing mass involving the inferior portion of the left kidney. There is a stable cyst involving the anteromedial left kidney. Cystic lesion previously noted in the right kidney is no longer visible. There are some scarring type change involving the superior aspect of the right kidney. UPPER ABDOMINAL ORGANS: Spleen, adrenals and both kidneys are normal. BOWEL AND MESENTERY: Stomach, small bowel and colon are normal. No mesenteric lymphadenopathy or peritoneal free fluid. RETROPERITONEUM: Aorta, IVC and their branches are patent and normal. No retroperitoneal lymphadenopathy. ABDOMINAL WALL AND SKELETAL STRUCTURES: Normal. COMBINED IMPRESSION: 1. Status post partial nephrectomy on the right. No indication of local or distant recurrence 2. Stable enhancing nodule involving the bottom of the left kidney with stable benign-appearing left renal cysts as well Interpreted By: Jamal Krishnamurthy MD BRUCE MD [address] [place] [address], [phone] 08/21/2023 11:00:30 Ct, Abdomen, W/wo Contrast : [address] [address] Patient Name: MICHEAL AYALA JR Patient : 1950 Patient Ordering Provider: OLGA BRUCE EXAM DATE: 02/22/2024 EXAM: CT ABDOMEN W/WO CONTRAST CLINICAL INFORMATION: Kidney cancer TECHNIQUE: A baseline serum creatinine with eGFR was obtained prior to injection of contrast medium due to the patients risk factors for EVERETTE. Calculated eGFR at time of exam was [address] images of the abdomen were obtained before and in the arterial and portal venous phases after injection of 100 mL Omnipaque 350 (1 [place] [id number]). none was wasted and discarded. No oral contrast or water was administered to the patient. COMPARISON: 08/17/2023 FINDINGS: LOWER THORAX: Lung bases are clear. No obvious cardiac abnormality. LIVER, PANCREAS AND BILIARY TRACT: Liver is normal in size, outline and attenuation. No focal lesion is seen in any of the three phases. Hepatic artery, portal vein, hepatic veins and their branches and tributaries are normal. No intra or extrahepatic biliary dilatation is present. Gallbladder is normal. No pancreatic mass is visualized. Pancreatic duct is normal in caliber. RENAL SYSTEM: Previous partial nephrectomy on the right. Stable appearance of the operative bed with no definite local recurrent disease. There are benign cysts involving the left kidney. Stable 12 mm enhancing nodule involving the inferior left kidney. UPPER ABDOMINAL ORGANS: Spleen, adrenals and both kidneys are normal. BOWEL AND MESENTERY: Stomach, small bowel and colon are normal. No mesenteric lymphadenopathy or peritoneal free fluid. RETROPERITONEUM: Aorta, IVC and their branches are patent and normal. No retroperitoneal lymphadenopathy. ABDOMINAL WALL AND SKELETAL STRUCTURES: Normal. COMBINED IMPRESSION: 1. Previous partial right nephrectomy; stable with no local recurrence suspected 2. Stable enhancing nodule from the bottom of the left kidney 3. Simple cysts are also noted in the left kidney Interpreted By: Jamal Krishnamurthy MD BRUCE MD [address] [place] [address], [phone] 02/22/2024 14:28:58 Ct, Abdomen, W/wo Contrast : [address] [address] Patient Name: MICHEAL AYALA JR Patient : 1950 Patient Ordering Provider: OLGA BRUCE EXAM DATE: 09/24/2024 EXAM: CT ABDOMEN W/WO CONTRAST CLINICAL INFORMATION: Renal nodule. TECHNIQUE: A baseline serum creatinine with eGFR was obtained prior to injection of contrast medium due to the patients risk factors for EVERETTE. Calculated eGFR at time of exam was [address] images of the abdomen were obtained before and in the arterial and portal venous phases after injection of 100 mL Omnipaque 350 (1 x 100 mL bottle of [facility] [id number]). None was wasted and discarded. No oral contrast or water was administered to the patient. COMPARISON: None. FINDINGS: LOWER THORAX: Lung bases are clear. No obvious cardiac abnormality. LIVER, PANCREAS AND BILIARY TRACT: Liver is normal in size, outline and attenuation. No focal lesion is seen in any of the three phases. Hepatic artery, portal vein, hepatic veins and their branches and tributaries are normal. No intra or extrahepatic biliary dilatation is present. Gallbladder is normal. No pancreatic mass is visualized. Pancreatic duct is normal in caliber.. RENAL SYSTEM: Previous partial right nephrectomy. Stable appearance with no definite recurrence in the operative bed. Benign-appearing cysts are present involving both kidneys. The largest is from the anterior left kidney measuring 3.5 cm. Again noted is the nodule from the inferior margin of the left kidney. It measures 12 mm. This shows enhancement. UPPER ABDOMINAL ORGANS: Spleen, adrenals and both kidneys are normal. BOWEL AND MESENTERY: Stomach, small bowel and colon are normal. No mesenteric lymphadenopathy or peritoneal free fluid. RETROPERITONEUM: Aorta, IVC and their branches are patent and normal. No retroperitoneal lymphadenopathy. ABDOMINAL WALL AND SKELETAL STRUCTURES: Normal. COMBINED IMPRESSION: 1. Stable enhancing nodule which is indeterminate involving the inferior margin of the left kidney 2. Benign bilateral renal cysts 3. Previous partial nephrectomy on the right with no indication of local recurrence Interpreted By: Jamal Krishnamurthy MD BRUCE MD [address] [place] [address], [phone] 09/29/2024 10:31:24 Procedures Surgical History Date Name Laterality Status Provider Name and Address Organization Details Recorded Time vasectomy completed [facility] 03/29/2022 09:36:12 screening for malignant neoplasm of prostate completed [facility] 03/29/2022 09:36:27 Stent Placement completed [facility] 03/29/2022 09:36:43 Hernia Repair completed [facility] 03/29/2022 09:36:49 Cholecystectomy completed [facility] 03/29/2022 09:36:57 Imaging Results None recorded. Procedure [...] and Address Organization Details Last Updated DateTime 08/21/2023 187.96 cm 33.6 kg/m2 994170.2 g Kelli Denny [facility] 08/21/2023 10:51:53 Date Recorded Body height Body mass index (BMI) Body weight Provider Name and Address Organization Details Last Updated DateTime 08/26/2024 187.96 cm 33.6 kg/m2 035256.2 g Justyna Baeza [facility] 08/26/2024 10:53:09 Date Recorded Body height Body mass index (BMI) Body weight Provider Name and Address Organization Details Last Updated DateTime 12/21/2022 187.96 cm 33.6 kg/m2 292382.2 fransico Denny [facility] 12/21/2022 13:16:22 Date Recorded Body height Body mass index (BMI) Body weight Provider Name and Address Organization Details Last Updated DateTime 02/20/2023 187.96 cm 33.6 kg/m2 897486.2 fransico Denny [facility] 02/20/2023 11:03:04 Social History Question Answer Notes LastModified by Ink[employer] Details LastModified Time Tobacco Smoking Status Never Smoker Irene Amaya [facility] 03/29/2022 09:36:00 What Was The Date Of Your Most Recent Tobacco Screening? 03/29/2022 [email or web address] Information not available 03/29/2022 What Is Your Relationship Status? [email or web address] Information not available 03/29/2022 Has Tobacco Cessation Counseling Been Provided? No [email or web address] Information not available 03/29/2022 Sex: Unknown Functional Status Question Answer Note LastModified by [email or web address] Details LastModified Time Do you use any illicit or recreational drugs? No [email or web address] Information not available 03/29/2022 Do you or have you ever used any other forms of tobacco or nicotine? No [email or web address] Information not available 03/29/2022 What is your level of alcohol consumption? None [email or web address] Information not available 03/29/2022 Mental Status None recorded. Family History Relationship Description Onset Age of this Age Resolved Age Notes LastModified by Organization Details LastModified Time Brother Family history of malignant neoplasm prosta te [email or web address] Not available 03/29/2022 09:35:45 Father Family history of malignant neoplasm prosta te [email or web address] Not available 03/29/2022 09:35:47 Maternal Grandfather Family history of malignant neoplasm prosta te [email or web address] Not available 03/29/2022 09:35:49 Mother Kidney disease [email or web address] Not available 2021 09:35:27 Medical History Condition Response Allergies/Hayfever Y Cancer Y Arthritis Y Hypertension Y Sleep Apnea Y High Cholesterol Y Immunizations Vaccine Type Date Status Note Provider Nam e and Address Organization Details Recorded Time COVID-19, mRNA, LNP-S, PF, 100 mcg/0.5mL dose or 50 mcg/0.25mL dose 1 [facility]/29/2022 09:33:14 Hep B, adult 8 completed [facility] 03/29/2022 09:33:14 Pneumococcal conjugate PCV 13 8 completed [facility] 03/29/2022 09:33:14 Hep B, adult 8 completed [facility] 03/29/2022 09:33:14 COVID-19, mRNA, LNP-S, PF, 100 mcg/0.5mL dose or 50 mcg/0.25mL dose 1 completed Irene Amaya [facility] 03/29/2022 09:33:14 Td (adult), 2 Lf tetanus toxoid, preservative free, adsorbed 7 completed Irene Amaya [facility] 03/29/2022 09:33:14 Influenza, high-dose, trivalent, PF 1 completed Irene Amaya [facility] 03/29/2022 09:33:14 COVID-19, mRNA, LNP-S, PF, 100 mcg/0.5mL dose or 50 mcg/0.25mL dose 1 completed [facility] 03/29/2022 09:33:14 pneumococcal polysaccharide PPV23 9 completed Irene Amaya [facility] 03/29/2022 09:33:14 Td (adult) 1 completed [facility] 03/29/2022 09:33:14 Influenza, high-dose, trivalent, PF 9 completed [facility] 03/29/2022 09:33:14 Influenza, high-dose, trivalent, PF 7 completed Irene Amaya null, [facility] 03/29/2022 09:33:14 Influenza, high-dose, trivalent, PF 6 completed Irene Amaya null, [facility] 03/29/2022 09:33:14 Hep B, adult 7 completed Irene Amaya null, [facility] 03/29/2022 09:33:14 Influenza, high-dose, quadrivalent, PF 2 completed Irene Amaya null, [facility] 03/29/2022 09:33:14 Influenza, high-dose, trivalent, PF 0 completed Irene Amaya null, [facility] 03/29/2022 09:33:14 Past Encounters Encounter ID Performer Location Encounter Start Date Encounter Closed Date Diagnosis/Indication Diagnosis SNOMED-CT Code Diagnosis ICD10 Code Diagnosis Note [id number] OLGA BRUCE MD UROLOGY [facility] [address] [place] [address] 03/29/2022 09:17:03 03/29/2022 10:26:34 Renal mass 942170986 N28.89 Multiple renal cysts 253 771821 N28.1 Myasthenia gravis 892373 04 G70.00 Coronary arteriosclerosis 69811169 I25.10 Status post stent History of malignant neoplasm of prostate 470745686 Z85.46 With recent biochemica l recurrence -now on [facility] [id number] OLGA BRUCE MD UROLOGY [facility] [address] [place] [address] 10/12/2022 12:58:07 10/12/2022 14:08:36 Renal mass 116876542 N28.89 Bilateral Multiple renal cysts 253 903312 N28.1 Myasthenia gravis 473112 04 G70.00 Coronary arteriosclerosis 89697694 I25.10 Status post stent History of malignant neoplasm of prostate 258160140 Z85.46 With recent biochemica l recurrence -now on [facility] [id number] OLGA BRUCE MD UROLOGY [facility] [address] [place] [address] 12/21/2022 13:06:01 12/21/2022 13:48:16 Renal mass 347411376 N28.89 BilateralS tatus post right enucleatio n of benign cystic lesion 12/06 Multiple renal cysts 253 085481 N28.1 Myasthenia gravis 200296 04 G70.00 Coronary arteriosclerosis 01313490 I25.10 Status post stent History of malignant neoplasm of prostate 618056318 Z85.46 With recent biochemica l recurrence -now on [facility] 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 0469566574 9103 N32.0 [id number] OLGA BRUCE MD UROLOGY [place] [address] 02/20/2023 10:51:36 02/20/2023 11:58:21 Renal mass 713850407 N28.89 BilateralS tatus post right enucleatio n of benign cystic lesion 12/06 Multiple renal cysts 253 737496 N28.1 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 6949455359 9103 N32.0 Myasthenia gravis 163687 04 G70.00 Coronary arteriosclerosis 35174403 I25.10 Status post stent History of malignant neoplasm of prostate 975078170 Z85.46 With recent biochemica l recurrence -now on [facility] [id number] OLGA BRUCE MD UROLOGY [place] [address] 08/21/2023 09:59:54 08/21/2023 11:16:36 Renal mass 565873725 N28.89 BilateralS tatus post right enucleatio n of benign cystic lesion 12/06 Multiple renal cysts 253 885090 N28.1 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 6785328974 9103 N32.0 Myasthenia gravis 907147 04 G70.00 Coronary arteriosclerosis 58753910 I25.10 Status post stent History of malignant neoplasm of prostate 242577865 Z85.46 With recent biochemica l recurrence -now on [facility] [id number] OLGA BRUCE MD UROLOGY [place] [address] 02/26/2024 10:12:17 02/26/2024 11:19:33 Renal mass 615277706 N28.89 BilateralS tatus post right enucleatio n of benign cystic lesion 12/06 Multiple renal cysts 253 465161 N28.1 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 0252785634 9103 N32.0 Myasthenia gravis 772953 04 G70.00 Coronary arteriosclerosis 42539024 I25.10 Status post stent History of malignant neoplasm of prostate 023162287 Z85.46 With recent biochemica l recurrence -now on [facility] [id number] OLGA BRUCE MD UROLOGY [facility] [address] [facility] [place] [address] 08/26/2024 09:48:11 08/26/2024 10:56:31 Renal mass 132257726 N28.89 BilateralS tatus post right enucleatio n of benign cystic lesion 12/06 Multiple renal cysts 253 536375 N28.1 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 6477687490 9103 N32.0 Myasthenia gravis 269777 04 G70.00 Coronary arteriosclerosis 71562208 I25.10 Status post stent History of malignant neoplasm of prostate 337730639 Z85.46 With recent biochemica l recurrence -now on [facility] Health Concerns Section Related Observation LastModified by Organization Detai ls LastModified Time None Recorded Concern Status LastModified by Organization Details LastModified Time None Recorded Advance Directives Directive None Recorded Payers Insurance Date Sequence Insurance Name Policy Number Policy Carmichael Covered Member ID Carmichael Member ID Guarantor Name 09/29/2024 1 [facility] (MEDICARE REPLACEMENT/A DVANTAGE - PPO) [id number] Micheal Ayala [id number] Micheal Ayala Notes Date Note Type Note Provider Name and Address Organization Details Recorded Time 12/21/2022 text/html 72 with h/o sukhdev l mass -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 He is recovering nicely.Additionall y he was found to have very tight bladder neck contracture and required TUI BNC. He claims he is voiding well but has a slight degree of leakage. His bowel function is returned to normal and he is fully ambulatory. 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 He has a similar left lower pole smaller lesion that is being followed. Currently he is having a lot of back pain and possible disc impingement. Due for physical therapy today. PSA last months with Dr. Montiel was undetectable. 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 He has a similar left lower pole smaller lesion that is being followed. PSA last months with Dr. Montiel was undetectable. He continues to see Dr. Montiel for [facility] therapy. He just underwent recent kyphoplasty of lower back, just now recovering from this. OLGA BRUCE MD [address] [place] [address], [id number], [facility] 08/21/2023 11:24:05 02/26/2024 text/html 74 with h/o sukhdev l mass -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 We have now been following a left renal lesion. He is doing well. He has no complaints or concerns today. He is here today to discuss repeat CT scan. He remains on LHRH therapy for prostate cancer through Dr. Montiel. He does remain on Xarelto for atrial fibrillation. He has had no recent cardiac symptoms after previous cardiac stent placement. He does have close follow-up at regular intervals with his health informatics instructor. OLGA BRUCE MD [address] [place] [address] [place], [phone], [facility] 02/26/2024 13:58:18 08/26/2024 text/html 74 with h/o sukhdev l mass -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 OLGA BRUCE MD [address] [place] [address], [phone], [facility] 08/29/2024 13:58:17
[2024-10-08] MEDS: SODIUM CHLORIDE 0.9% 50ML BAG 50 ML IV (10:33)
[2024-10-08] MEDS: diphenhydrAMINE 50MG/ML VIAL 50 MG IV (10:34)
[2024-10-08] MEDS: ACETAMINOPHEN 500MG TAB 1000 MG PO (10:34)
[2024-10-08] MEDS: METHYLPREDNISOLONE SOD SUCC 125MG VIAL 60 MG IV (10:35)
[2024-10-08] MEDS: IVIG IV (11:00)
== END 2024-10-08 14:20 | disposition home or self-care (01) ==
LOC: INF 10:04
PROVIDERS: PCP Family Medicine; Visit Provider Specialist
DX: G70.00 Myasthenia gravis without (acute) exacerbation (principal)
CPT/HCPCS: 96365; 96366; J1200; J1459; J2919

== ENCOUNTER 2024-12-31 09:57 | Outpatient (CLI) | payer MEDICARE, SELFPAY ==
[2024-12-31] VITALS (7 sets, daily range): BP systolic 132–144; BP diastolic 69–75; PULSE 69–77; RESP 18; TEMP 36.8; O2SAT 99
--- OUTSIDE RECORDS SUMMARY | 2024-12-31 10:00 | XMS_ITS | Clinical Summary ---
Author Organization [facility] Address [address] [place] [address] Care Team Providers Care Electronics Design Engineer Name Role Phone Yohannes Nevarez MD Primary Care Provider [phone] Allergies Active Allergy Reactions Criticality Noted Date Comments Pecan Nut Rash,Angioedema High 12/07/2022 Medications Xarelto 20 MG tablet Take 1 tablet by mouth Daily With Dinner. PATIENT STATES DR HAMILTON INSTRUCTED HIM TO HOLD FOR 48 HOURS Active carvedilol (COREG) 25 MG tablet Take 0.5 tablets by mouth 2 (Two) Times a Day. Active lisinopril-hydr ochlorothiazide (PRINZIDE,ZESTO RETIC) 20-12.5 MG per tablet Take 1 tablet by mouth 2 (Two) Times a Day. Active pantoprazole (PROTONIX) 40 MG EC tablet Take 1 tablet by mouth Daily. Active pravastatin (PRAVACHOL) 10 MG tablet Take 1 tablet by mouth Every Night. Active pyridostigmine (MESTINON) 60 MG tablet Take 1 tablet by mouth 3 (Three) Times a Day. Active predniSONE (DELTASONE) 10 MG tablet Take 1 tablet by mouth Daily. Active DULoxetine (CYMBALTA) 30 MG capsule Take 1 capsule by mouth Daily. 4 Active Cholecalciferol 25 MCG (1000 UT) tablet Take 2 tablets by mouth Daily. Active Multiple Vitamins-Minera ls (Multivitamin Gummies Mens) chewable tablet Chew 1 tablet Daily. NOT CURRENTLY TAKING Active prazosin (MINIPRESS) 1 MG capsule Take 1 capsule by mouth Every Night. 4 Active leuprolide (Lupron Depot, 6-Month,) 45 MG kit injection Inject 45 mg into the appropriate muscle as directed by prescriber Every 6 (Six) Months. Active Active Problems No known active problems Social History Tobacco Use Types Packs/Day Years Used Date Smoking Tobacco: Never Smokeless Tobacco: Never Tobacco Cessation:Counseling Given: Not Answered Alcohol Use Standard Drinks/Week Comments Not Currently 0 (1 standard drink = 0.6 oz pur e alcohol) Abuse Screen Answer Date Recorded Feels Unsafe at Home or Work/School no 09/25/2024 Feels Threatened by Someone no 09/14 Does Anyone Try to Keep You From Having Contact with Others or Doing Things Outside Your Home? no 09/25/2024 Physical Signs of Abuse Present no 09/25/2024 Education Answer Date Recorded Help with school or training? Not on file Preferred Language Bolivian 09/25/2024 Sex and Gender Information Value Date Recorded Sex Assigned at Not on file Legal Sex Male 2:50 PM EST Gender Identity Not on file Sexual Orientation Not on file Last Filed Vital Signs Vital Sign Reading Time Taken Comments Blood Pressure 158/74 09/29/2024 4:10 PM EDT Pulse 74 09/29/2024 4:10 PM EDT Temperature 36.1 C (96.9 F) 09/29/2024 10:27 AM EDT Respiratory Rate 18 09/29/2024 4:10 PM EDT Oxygen Saturation 98% 09/29/2024 10:27 AM EDT Inhaled Oxygen Concentration - - Weight 116 kg (255 lb) 09/29/2024 10:27 AM EDT Height 188 cm (6' 2 ) 09/29/2024 10:27 AM EDT Body Mass Index 32.74 09/29/2024 10:27 AM EDT Plan of Treatment Health Maintenance Due Date Last Done Comments ZOSTER VACCINE (1 of 2) 02/15/1998 RSV Vaccine - Adults (1 - 1- dose 75+ series) 02/15/2023 ANNUAL WELLNESS VISIT 03/05/2024 HEPATITIS C SCREENING 03/05/2024 COVID-19 Vaccine ( - 2024-2 6 season) 2024 02/02/2021, 07/28/2020, 06/30/2020 INFLUENZA VACCINE 01/14/2025 03/16/2023, , 03/15/2021, Additional history exists TDAP/TD VACCINES (3 - Tdap) 04/22/2030 04/22/2020, 0 06/20/1996 Pneumococcal Vaccine 50+ Completed 08/08/2018, 030 08/2017 Insurance [facility] Medicare Advantage GROUP PPO [place] [id number] Care Teams Electronics Design Engineer Relationship Specialty Start Date End Date Yohannes Nevarez MD [address] [address] PCP - General Family Medicine 09/25/24
[2024-12-31] MEDS: METHYLPREDNISOLONE SOD SUCC 125MG VIAL 125 MG (10:12)
[2024-12-31 10:14] LABS: Hematocrit 36.1 % (42.0-52.0); Hemoglobin 11.7 g/dL (14.1-18.0); Immature Granulocytes % 0.3 %; Mean Corpuscular HGB Conc 32.4 g/dL (31.8-35.4); Mean Corpuscular Hemoglobin 28.7 pg (27.0-31.2); Mean Corpuscular Volume 88.7 fl (80-94); Nucleated Red Blood Cells % 0 %; Platelet Count 266 K/mm3 (142-424); Red Blood Count 4.07 M/mm3 (4.60-6.20); Red Cell Distribution Width-SD 43.4 fL; White Blood Count 5.8 K/mm3 (4.8-10.8)
[2024-12-31 10:22] LABS: Albumin Level 4.3 g/dl (3.5-5.0); Chloride 104 mmol/L (98-107); Potassium 3.9 mmoL/L (3.5-5.1); Sodium 139 mmol/L (136-145)
[2024-12-31 10:25] LABS: Alanine Aminotransferase 33 U/L (12-78); Albumin/Globulin Ratio 1.0 (1.1-1.8); Alkaline Phosphatase 67 U/L (38-126); Anion Gap 10.9 mEq/L (5-15); Aspartate Amino Transferase 56 U/L (17-59); Bilirubin,Total 0.7 mg/dl (0.2-1.3); Blood Urea Nitrogen 24 mg/dl (9-20); Calcium 9.6 mg/dl (8.4-10.2); Carbon Dioxide 28 mmol/L (22.0-30.0); Creatinine,Serum 1.00 mg/dl (0.66-1.25); Estimated Glomerular Filt Rate 73 ml/min (>60); GFR (African American) 88 ML/MIN (>60); Globulin 4.1 g/dL (1.3-3.2); Glucose 88 mg/dl (74-100); Total Protein,Serum 8.4 g/dl (6.3-8.2)
[2024-12-31] MEDS: IVIG IV (10:55)
== END 2024-12-31 14:00 | disposition home or self-care (01) ==
LOC: INF 09:58
PROVIDERS: PCP Family Medicine; Visit Provider Specialist
DX: G70.00 Myasthenia gravis without (acute) exacerbation (principal); R73.9 Hyperglycemia, unspecified
CPT/HCPCS: 80053; 85025; 96365; 96366; J1200; J1459; J2919

== ENCOUNTER 2025-03-19 11:03 | Outpatient (CLI) | payer MEDICARE, SELFPAY ==
--- OUTSIDE RECORDS SUMMARY | 2025-02-10 00:02 | XMS_ITS | Continuity of Care Document ---
Author Organization [facility] Phone Care Team Providers Care Director Foundation Name Role Phone MERLIN MONTIEL JR Admitting MERLIN MONTIEL JR Primary Attending DECLINED, PCP Primary Care Unavailable MERLIN MONTIEL JR Unavailable [phone] RESULTS Patient: PAPA BURTON Date of : 1950 1 LABORATORY RESULTS ORDER 100: PROSTATE SPECIFIC AG PSA (LOINC: 2857-1) ORDER DATE: February 06, 2025 6:41:00 PM [facility] Specimen Source: Serum/Plasm a Specimen Type: Acellular blo od (serum or plasma) specimen PERFORMING LAB: [address] [id number] Result Comment: Final Result Date: February 06, 2025 7:37:00 PM [facility] (TECH: LT) LOINC TEST FLAG RESULT REFERENCE RANGE UPDA MANDIE BY 2857-1 Prostate specific Ag [Mass/volume] in Serum or Plasma N <0.13 ng/mL 0.0 ng/mL - 4.0 ng/mL January 7:37:00 PM [facility] (TECH: LT) LABORATORY NARRATIVE RESULTS Information is not available RADIOLOGY RESULTS Information is not available PATHOLOGY NARRATIVE RESULTS Information is not available MICROBIOLOGY RESULTS No Micro Labs/Results Exist for Patient BLOOD ADMIN RESULTS Information is not available MEDICATIONS HOME MEDICATIONS Status RXNORM NDC Medication Dose Route Frequency Dates Comments Reported By Updated By Drug Treatment Unknown DISCHARGE MEDICATIONS Status RXNORM NDC Medication Dose Route Frequency Dates Dis pense Data Comments Physician Updated By No Discharge Medication Info rmation Available INPATIENT MEDICATIONS Status RXNORM NDC Medication Dose Route Frequency Rat e Quantity Dates Indication Dispense Data Comments Physician Updated By No Inpatient Medication Info rmation Available SOCIAL HISTORY SOCIAL HISTORY - Smoking Status SNOMED-CT Social History Element Description Effective Dates Offered Cessation Comment Updated By [id number] Smoking Status Unknown If Ever Smoked SOCIAL HISTORY - Gender Sex: Male SOCIAL HISTORY - Status : status i nformation is not available Intention in Next Year: intention information is not available SOCIAL HISTORY - Assessments Code System Description Status Date Value of Assessment Updated By Comment Assessment Information is no t available SOCIAL HISTORY - [place] Affiliation [place] information is not av ailable SOCIAL HISTORY - Legal Sex Legal Sex information is not available SOCIAL HISTORY - Sexual Behavior Sexual Orientation Gender Identity SNOMED-CT Description SNO MED -CT Description Activity Level No of Partners Partner Type UpdatedBy Information is not available SOCIAL HISTORY - Occupation Occupation information is no t available HEALTH CONCERNS Problems Concern Status Health Concern problem infor mation not available. Smoking Status Status Years Used Consumed packs p er day Health Concern smoking histo ry information not available. Family History Concern Status Health Concern family histor y information not available. ENCOUNTERS ENCOUNTER INFORMATION Reason for Visit C61 Admission February 06, 2025 6:40:[address] [address] Discharge February 07, 2025 6:40:00 PM [facility] DISCHARGED TO HOME OR SELF CARE ENCOUNTER DIAGNOSES Notes information is not federico ilable. Code System Diagnosis Onset Date Diagnosis information is not available. 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 [id number] on February 10, 2025 5:02:25 AM [facility] CARE TEAM Care Director Foundation Role MERLIN MONTIEL Admitting MERLIN MONTIEL Primary Attending PCP [facility] Primary Care MERLIN MONTIEL Referring CARE TEAM CARE mds manager Role on Team Location Telecom Status Start Date End Jovani e Updated By TIANA Mayfield JR, MD Referring normal February 06, 2025 8:02:23 PM [facility] February 07, 2025 6:40:00 PM [facility] [id number] on February 06, 2025 8:02:23 PM [facility] TIANA Mayfield JR, MD Attending normal February 06, 2025 8:02:23 PM [facility] February 07, 2025 6:40:00 PM [facility] [id number] on February 06, 2025 8:02:23 PM [facility] TIANA Mayfield JR, MD Admitting normal February 06, 2025 8:02:23 PM UTC February 07, 2025 6:40:00 PM UTC [id number] on February 06, 2025 8:02:23 PM UTC DECLINED PCP PCP normal February 06, 2025 6:41:14 PM UTC February 07, 2025 6:40:00 PM UTC [id number] on February 06, 2025 8:02:23 PM UTC
--- OUTSIDE RECORDS SUMMARY | 2025-03-19 11:33 | XMS_ITS | Referral Summary ---
Author Organization [employer] ([place], [place], [place], [place], [place]) Address [address] [place] [address] Care Team Providers Care Copy Chaser Name Role Phone Justen Palomo MD Primary Care Provider [phone] Karrie Herndon Unavailable Allergies Active Allergy Reactions Criticality Noted [...] drink = 0.6 oz pur e alcohol) PRAPARE - Transportation Answer Date Re corded In the past 12 months, has l ack of transportation kept you from medical appointments or from getting medications? No 12/16/2022 Lack of Transportation (Non-Medical) Not on file 12/16/2022 Food Insecurity Answer Date Recorded Food run [...] Date Pierre rded Speak language other than French at home Not on file 04/27/2023 Want help with school or training Not on file 04/27/2023 Substance Use Answer Date Recorded Used [...] Plan of Treatment Not on file Insurance [facility] MEDICARE ADVANTAGE Advance Directives For more information, please contact: [phone] Documents on File Type Date Recorded Patient Ice House Supervisor Expl anation Advance Directives and Livin g Will 12/08/2022 10:18 AM * Full Code (Latest Code Status on File) Date Activated Date Inactivated Comments 12/16/2022 12:09 PM 12/19/2022 2:18 PM * Full Code Date Activated Date Inactivated Comments 12/11/2022 12:51 PM 12/14/2022 4:43 PM Care Teams Copy Chaser Relationship Specialty Start Date End Date Justen Palomo MD [address] [place] [address] PCP - General Family Medicine 12/08/22 Karrie Herndon [address] [place] [address] Neurology 12/08/22
--- OUTSIDE RECORDS SUMMARY | 2025-03-19 11:33 | XMS_ITS | Clinical Summary ---
Author Organization [facility] Address [address] [place] [address] Care Team Providers Care Director Blood Bank Name Role Phone Yohannes Nevarez MD Primary Care Provider [phone]- [phone] Allergies Active Allergy Reactions Criticality Noted Date [...] or training? Not on file Preferred Language Italian 09/25/2024 Sex and Gender Information Value Date [...] Comments ZOSTER VACCINE (1 of 2) 02/15/1998 TDAP/TD VACCINES (1 - Tdap) 04/23/2020 04/22/2020, 0 06/20/1996 RSV Vaccine - Adults (1 - 1- dose 75+ series) 02/15/2023 ANNUAL WELLNESS VISIT 03/05/2024 HEPATITIS C SCREENING 03/05/2024 INFLUENZA VACCINE 11/14/2024 03/16/2023, , 03/15/2021, Additional history exists COVID-19 Vaccine (2024-2 6 season) 2024 02/02/2021, 07/28/2020, 06/30/2020 Pneumococcal Vaccine 50+ Completed 08/08/2018, 0308/2017 Insurance [facility] Medicare Advantage GROUP PPO [place] [id number] Care Teams Director Blood Bank Relationship Specialty Start Date End Date Yohannes Nevarez MD [facility] [address] [address] PCP - General Family Medicine 09/25/24
--- OUTSIDE RECORDS SUMMARY | 2025-03-19 11:33 | XMS_ITS | Clinical Summary ---
Author Organization [employer] ([place], [place], [place], [place], [place]) Address [address] [place] [address] Care Team Providers Care Heel Shaver Name Role Phone Justen Palomo MD Primary Care Provider [phone] Karrie Herndon Unavailable Allergies Active Allergy Reactions [...] Date Pierre rded Speak language other than Emirati at home Not on file 04/27/2023 Want [...] series) 02/15/2023 Medicare Initial AWV [id number] 04/17/2023 Tobacco Cessation Counseling and Screening (12+) 12/17/2023 12/16/2022 Falls Risk Screening 04/16/2024 COVID-19 VACCINE (2024-2 6 season) 2024 02/02/2021, 07/28/2020, 06/30/2020 Influenza Vaccine (#1) 2024 , 03/15/2021, 03/15/2021, Additional history exists DTAP/TDAP/TD VACCINES (3 - T d or Tdap) 04/22/2030 04/22/2020, 06/20/1996 Pneumococcal 50+ years Completed 08/08/2018, 2017 Insurance [facility] MEDICARE ADVANTAGE Advance Directives For more information, please contact: [phone] Documents on File Type Date Recorded Patient Ground Nuclear Weapons Assembly Officer Expl anation Advance Directives and Livin g Will 12/08/2022 10:18 AM * Full Code (Latest Code Status on File) Date Activated Date Inactivated Comments 12/16/2022 12:09 PM 12/19/2022 2:18 PM * Full Code Date Activated Date Inactivated Comments 12/11/2022 12:51 PM 12/14/2022 4:43 PM Care Teams Heel Shaver Relationship Specialty Start Date End Date Justen Palomo MD [address] [place] [address] PCP - General Family Medicine 12/08/22 Karrie Herndon [address] [place] [address] Neurology 12/08/22
--- NOTE | 2025-03-19 11:54 | XR_ITS ---
FINAL REPORT CLINICAL HISTORY: left knee pain, chronic COMPARISON: 07/27/2022 FINDINGS: LEFT KNEE 3 views of the left knee were obtained. There is no acute fracture or dislocation. There is advanced narrowing of the lateral compartment joint space. Moderate osteophyte formation is noted along the undersurface of the patella. There is a small joint effusion. Mild narrowing of the medial compartment joint space is noted. Soft tissues are unremarkable. 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 Reviewed, Interpreted and Dictated by Jarad Gil MD Transcribed by Lyndsey Michaud Authenticated and [facility]
== END 2025-03-19 23:59 | disposition home or self-care (01) ==
PROVIDERS: PCP Family Medicine; Visit Provider Physician Assistant
DX: I47.20 Ventricular tachycardia, unspecified (principal); I44.1 Atrioventricular block, second degree; I45.5 Other specified heart block; I48.0 Paroxysmal atrial fibrillation; I10 Essential (primary) hypertension; I25.10 Atherosclerotic heart disease of native coronary artery without angina pectoris; M25.562 Pain in left knee
CPT/HCPCS: 73562; 93270

== ENCOUNTER 2025-03-25 10:01 | Outpatient (CLI) | payer MEDICARE, SELFPAY ==
[2025-03-25] VITALS (7 sets, daily range): BP systolic 121–131; BP diastolic 69–76; PULSE 70–75; RESP 20; O2SAT 98
[2025-03-25] MEDS: METHYLPREDNISOLONE SOD SUCC 125MG VIAL 100 MG IV (10:32)
[2025-03-25] MEDS: IVIG IV (11:08)
== END 2025-03-25 23:59 | disposition home or self-care (01) ==
LOC: INF 10:02
PROVIDERS: PCP Family Medicine; Visit Provider Specialist
DX: G70.00 Myasthenia gravis without (acute) exacerbation (principal)
CPT/HCPCS: 96365; 96366; J1200; J1459; J2919

== ENCOUNTER 2025-03-30 08:39 | Outpatient (CLI) | payer MEDICARE, SELFPAY ==
[2025-03-30 17:34] LABS: Hematocrit 36.9 % (42.0-52.0); Hemoglobin 12.5 g/dL (14.1-18.0); Immature Granulocytes % 0.3 %; Mean Corpuscular HGB Conc 33.9 g/dL (31.8-35.4); Mean Corpuscular Hemoglobin 29.2 pg (27.0-31.2); Mean Corpuscular Volume 86.2 fl (80-94); Nucleated Red Blood Cells % 0 %; Platelet Count 279 K/mm3 (142-424); Red Blood Count 4.28 M/mm3 (4.60-6.20); Red Cell Distribution Width-SD 40.1 fL; White Blood Count 5.8 K/mm3 (4.8-10.8)
[2025-03-30 18:39] LABS: Alanine Aminotransferase 26 U/L (12-78); Albumin Level 4.4 g/dl (3.5-5.0); Albumin/Globulin Ratio 0.8 (1.1-1.8); Alkaline Phosphatase 82 U/L (38-126); Anion Gap 10.5 mEq/L (5-15); Aspartate Amino Transferase 43 U/L (17-59); Bilirubin,Total 0.7 mg/dl (0.2-1.3); Blood Urea Nitrogen 25 mg/dl (9-20); Calcium 10.1 mg/dl (8.4-10.2); Carbon Dioxide 30 mmol/L (22.0-30.0); Chloride 103 mmol/L (98-107); Cholesterol 169 mg/dl (140-200); Creatinine,Serum 0.90 mg/dl (0.66-1.25); Estimated Glomerular Filt Rate 82 ml/min (>60); GFR (African American) 99 ML/MIN (>60); Globulin 5.3 g/dL (1.3-3.2); Glucose 111 mg/dl (74-100); HDL Cholesterol 55 mg/dl (40-60); Potassium 4.5 mmoL/L (3.5-5.1); Sodium 139 mmol/L (136-145); Total Protein,Serum 9.7 g/dl (6.3-8.2); Triglycerides 108 mg/dl (30-150)
--- OUTSIDE RECORDS SUMMARY | 2025-04-01 08:53 | XMS_ITS | Referral Summary ---
Author Organization [employer] ([place], [place], [place], [place], [place]) Address [address] [place] [address] Care Team Providers Care Reinforcing Steel Machine Operator Name Role Phone Justen Palomo MD Primary Care Provider [phone] Karrie Herndon Unavailable Allergies Active Allergy Reactions [...] Date Pierre rded Speak language other than Albanian at home Not on file 04/27/2023 Want [...] Plan of Treatment Not on file Insurance [facility] MEDICARE ADVANTAGE Advance Directives For more information, please contact: [phone] Documents on File Type Date Recorded Patient Still Photographer Expl anation Advance Directives and Livin g Will 12/08/2022 10:18 AM * Full Code (Latest Code Status on File) Date Activated Date Inactivated Comments 12/16/2022 12:09 PM 12/19/2022 2:18 PM * Full Code Date Activated Date Inactivated Comments 12/11/2022 12:51 PM 12/14/2022 4:43 PM Care Teams Reinforcing Steel Machine Operator Relationship Specialty Start Date End Date Justen Palomo MD [address] [place] [address] PCP - General Family Medicine 12/08/22 Karrie Herndon [address] [place] [address] Neurology 12/08/22
--- OUTSIDE RECORDS SUMMARY | 2025-04-01 08:53 | XMS_ITS | Clinical Summary ---
Author Organization [employer] ([place], [place], [place], [place], [place]) Address [address] [place] [address] Care Team Providers Care Diamond Cleaver Name Role Phone Justen Palomo MD Primary Care Provider [phone] Karrie Herndon Unavailable Allergies Active Allergy Reactions [...] Date Pierre rded Speak language other than Pashto at home Not on file 04/27/2023 Want [...] Pneumococcal 50+ years Completed 08/08/2018, 2017 Insurance [facility] MEDICARE ADVANTAGE Advance Directives For more information, please contact: [phone] Documents on File Type Date Recorded Patient Flight Test Supervisor Expl anation Advance Directives and Livin g Will 12/08/2022 10:18 AM * Full Code (Latest Code Status on File) Date Activated Date Inactivated Comments 12/16/2022 12:09 PM 12/19/2022 2:18 PM * Full Code Date Activated Date Inactivated Comments 12/11/2022 12:51 PM 12/14/2022 4:43 PM Care Teams Diamond Cleaver Relationship Specialty Start Date End Date Justen Palomo MD [address] [place] [address] PCP - General Family Medicine 12/08/22 Karrie Herndon [address] [place] [address] Neurology 12/08/22
--- OUTSIDE RECORDS SUMMARY | 2025-04-01 08:53 | XMS_ITS | Clinical Summary ---
Author Organization [facility] Address [address] [place] [address] Care Team Providers Care Silk Weaver Name Role Phone Yohannes Nevarez MD Primary Care Provider [phone] Allergies Active Allergy Reactions Criticality Noted Date [...] or training? Not on file Preferred Language Guinean 09/25/2024 Sex and Gender Information Value Date [...] Pneumococcal Vaccine 50+ Completed 08/08/2018, 0308/2017 Insurance [facility] Medicare Advantage GROUP PPO [place] [id number] Care Teams Silk Weaver Relationship Specialty Start Date End Date Yohannes Nevarez MD [facility] [address] [address] PCP - General Family Medicine 09/25/24
[2025-04-01 15:11] LABS: Albumin 3.4 g/dL (2.9-4.4); Alpha-1-Globulin 0.3 g/dL (0.0-0.4); Alpha-2-Globulin 0.7 g/dL (0.4-1.0); Gamma Globulin 3.4 g/dL (0.4-1.8)
[2025-04-02 10:46] LABS: PDF SCANNED IMAGE
== END 2025-03-30 23:59 | disposition home or self-care (01) ==
LOC: LAB.DROPOF 04-01 08:40
PROVIDERS: PCP Family Medicine; Visit Provider Family Medicine
DX: E78.2 Mixed hyperlipidemia (principal); I10 Essential (primary) hypertension; D64.9 Anemia, unspecified; R77.1 Abnormality of globulin
CPT/HCPCS: 80053; 80061; 84155; 84165; 85025

== ENCOUNTER 2025-04-02 09:17 | Outpatient (CLI) | payer MEDICARE, SELFPAY ==
--- NOTE | 2025-04-02 09:18 | XR_ITS ---
FINAL REPORT CLINICAL HISTORY: right knee pain FINDINGS: AP, lateral and oblique views of the right knee were obtained. There is no prior exam for comparison. There is no acute osseous abnormality of the right knee. There is tricompartment degenerative joint disease. The soft tissues are normal. There is no joint effusion. IMPRESSION: Tricompartment degenerative joint disease. Reviewed, Interpreted and Dictated by Petty Platt MD Transcribed by Gisselle Edouard Authenticated and [facility]
--- OUTSIDE RECORDS SUMMARY | 2025-04-02 09:31 | XMS_ITS | Referral Summary ---
Author Organization [email or web address] ([place], [place], [place], [place], [place]) Address [address] [place] [address] Care Team Providers Care Firmware Test Engineer Name Role Phone Justen Palomo MD Primary Care Provider [phone] Karrie Herndon Unavailable Allergies Active Allergy Reactions [...] Date Pierre rded Speak language other than Kyrgyz at home Not on file 04/27/2023 Want [...] Plan of Treatment Not on file Insurance [facility] MEDICARE ADVANTAGE Advance Directives For more information, please contact: [phone] Documents on File Type Date Recorded Patient Interactive Digital Media Specialist Expl anation Advance Directives and Livin g Will 12/08/2022 10:18 AM * Full Code (Latest Code Status on File) Date Activated Date Inactivated Comments 12/16/2022 12:09 PM 12/19/2022 2:18 PM * Full Code Date Activated Date Inactivated Comments 12/11/2022 12:51 PM 12/14/2022 4:43 PM Care Teams Firmware Test Engineer Relationship Specialty Start Date End Date Justen Palomo MD [address] [place] [address] PCP - General Family Medicine 12/08/22 Karrie Herndon [address] [place] [address] Neurology 12/08/22
--- OUTSIDE RECORDS SUMMARY | 2025-04-02 09:31 | XMS_ITS | Clinical Summary ---
Author Organization [facility] Address [address] [place] [address] Care Team Providers Care Plastics Plater Name Role Phone Yohannes Nevarez MD Primary Care Provider [phone] Allergies Active Allergy Reactions Criticality Noted Date [...] or training? Not on file Preferred Language Rwandan 09/25/2024 Sex and Gender Information Value Date [...] Pneumococcal Vaccine 50+ Completed 08/08/2018, 0308/2017 Insurance [facility] Medicare Advantage GROUP PPO [place] [id number] Care Teams Plastics Plater Relationship Specialty Start Date End Date Yohannes Nevarez MD [facility] [address] [address] PCP - General Family Medicine 09/25/24
--- OUTSIDE RECORDS SUMMARY | 2025-04-02 09:32 | XMS_ITS | Data Portability ---
Author Organization [place] [facility], [facility] Address [address] [place] [address] Assessment Encounter Date Assessment Date Assessment LastModified by Organization Details LastModified Time 03/07/2023 03/07/2023 This patient is a patient of ours that was previously seen in [place] with degenerative disc disease of the lumbar [...] plan on following up with him in [place] to assess Efficacy of this injection.He is [...] symptoms. Will follow-up with him in our [place] office. Will follow-up in 2 weeks. I [...] 023 [email or web address] Misha Hughes MD, [address] [facility] [address], [place], [address], 08:34:34 Procedures epidural steroid injection, lumbar (PROC) 2022 023 [email or web address] 1 Not available 10:23:44 Surgeries None recorded. Imaging None recorded. Medication Orders Bactrim DS 800 mg-160 mg tablet 2022 023 [facility], [address] [facility] [address], [place], [address], 18:01:36 Patient TargetsNo targets recorded. Patient InstructionsNo instructions recorded. 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 Referring Physician: Ronak Alexandre, Pain Management, [phone] Encounter Date: 03/07/2023 Results Created Date Observation Date Name Description Value Unit Range Abnormal Flag Note LastModifiedBy Organization Detail LastModifiedTime 04/02/2003/30/2023 CT, cervi franklyn spine , w/o contr ast No observ ation record ed. [email or web address] Not Available 2022 09:07:56 04/02/2003/30/2023 CT, lumba r spine , w/o contr ast No observ ation record ed. [email or web address] Not Available 2022 09:12:58 04/02/2003/30/2023 CT, thora cic spine , w/o contr ast No observ ation record ed. [email or web address] Not Available 2022 09:14:47 Result Notes None recorded. Problems Name Problem SNOMED Code Status Onset Date Resolution Date Notes Provider Name and Address Organization Details Recorded Time Degeneration of lumbar intervertebral disc 27257472 Active 2022 Ronak Alexandre MD [address] [facility],[address], [address], [place] [facility] 3 16:57:04 Lumbar radiculopathy 560930475 Active 2022 Ronak Alexandre MD [address] [facility],[address], [address], [place] [facility] 3 16:57:05 Compression fracture of vertebral column 60023718 Active 2022 Ronak Alexandre MD [address] [facility],[address], [address], [place] [facility] 3 16:57:06 Problem Notes None recorded. Procedures Surgical History Date Name Laterality Status Provider Name and Address Organization Details Recorded Time 04/02/20 23 Kyphoplasty completed Ronak Alexandre MD [address] [facility],[address], [address], [place] [facility] 04/02/2023 [...] Not available Not available Not available 03/07/2023 Sapna Li null, [place] [facility] [...] rate Respiratory rate Heart rate Oxygen saturation Pain severity - 0-10 verbal numeric rating [Score] - Reported Systolic And Diastolic Provider Name and Address Organization Details Last Updated DateTime 3 187.96 cm 34 kg/m2 831411. 98 g 64 /min 18 /min 64 /min 99 % 6 129/84 mm[Hg] Sapna GATICA - [facility] 3 15:45:32 Date Recorded Body height Body mass index (BMI) Body weight Oxygen saturation Heart rate Pain severity - 0-10 verbal numeric rating [Score] - Reported Systolic And Diastolic Provider Name and Address Organization Details Last Updated DateTime 3 187.96 cm 34 kg/m2 149333. 98 g 99 % 70 /min 10 138/84 mm[Hg] ISAI TAYLOR [place] - [facility] 3 13:10:46 Date Recorded Body height Body mass index (BMI) Body weight Oxygen saturation Pain severity - 0-10 verbal numeric rating [Score] - Reported Heart rate Systolic And Diastolic Provider Name and Address Organization Details Last Updated DateTime 3 187.96 cm 34 kg/m2 207529. 98 g 99 % 5 74 /min 144/96 mm[Hg] ISAI TAYLOR [place] [facility] 3 13:22:31 Social History Question Answer Notes LastModified by [employer] Details LastModified Time Tobacco Smoking Status Former Smoker Sapna ceballos, [place] - [facility] 03/07/2023 15:56:19 Do You Have An Advance Directive? No Information n ot available 03/07/2023 In The 14 Days Before Symptom Onset, Have You Had Close Contact With A Laboratory-confirm ed COVID-19 While That Case Was Ill? No [email or web address] Information n ot available 03/20/2023 In The 14 Days Before Symptom Onset, Have You Had Close Contact With A Person Who Is Under Investigation For COVID-19 While That Person Was Ill? No Information not available 03/20/2023 Have You Been To An Area Known To Be High Risk For COVID-19? No [email or web address] Information not available 03/20/2023 Do You Have A Medical Power Of Hobber? Yes [email or web address] Information not available 03/07/2023 Sex: Unknown Functional Status Question Answer Note LastModified by [employer] Details LastModified Time Do you use any illicit or recreational drugs? No [email or web address] Information not available 03/07/2023 Do you or have you ever used any other forms of tobacco or nicotine? No [email or web address] Information not available 03/07/2023 What is your level of alcohol consumption? None Information not available 03/07/2023 Are you currently employed? No [email or web address] Information not available 03/07/2023 Mental Status None recorded. Family History Nothing Reported. Medical History Condition Response Coronary Artery Disease N Gout N Hernia Y Head Trauma/Injury N Thyroid Problems N Depression N COPD N Anemia Y Heart Attack ([place]) N Ulcers N Diabetes N Anxiety Disorder [...] Diagnosis SNOMED-CT Code Diagnosis ICD10 Code Diagnosis IMO Codes Diagnosis Note [id number] Ronak Alexandre MD [address] MARIA [address] [place] [address] 3 03/07/2023 15:21:24 03/07/2023 17:08:13 Degeneration of lumbar intervertebral disc 70775875 M51.36 Lumbar radiculopathy 128 809108 M54.16 Compressio n fracture of vertebral column 39784209 M48.50XD [id number] Ronak Alexandre MD [address] MARIA [address] [place] [address] 3 03/22/2023 12:47:51 03/22/2023 14:40:48 Degeneration of lumbar intervertebral disc 79243716 M51.36 Lumbar radiculopathy 128 862686 M54.16 Compressio n fracture of vertebral column 08890605 M48.50XD [id number] Ronak Alexandre MD [address] MARIA [address] [place] [address] 3 04/02/2023 12:46:13 04/02/2023 17:58:50 Lumbar radiculopathy 119185361 M54.16 Degenerati on of lumbar intervertebral disc 48039964 M51.36 Compressio n fracture of vertebral column 98671504 M48.50XD Osteoporot ic fracture of vertebra 0423198572 8354696 M80.08XA Postoperative care 60971 9007 Z48.89 Health Concerns Section Related Observation LastModified by Organization Detai ls LastModified Time None Recorded Concern Status LastModified by Organization Details LastModified Time None Recorded Advance Directives Directive N: Payers Insurance Date Sequence Insurance Name Policy Number Policy Carmichael Covered Member ID Carmichael Member ID Guarantor Name 04/26/2023 1 [facility] (MEDICARE REPLACEMENT/A DVANTAGE - PPO) [id number] Wilber Ayala [id number] Wilber Ayala Notes Date Note Type Note Provider Name and Address Organization Details Recorded Time 03/07/2023 text/html Pain Management L-spineReported by Patient Back PainReported by PatientHPIFor quality, patient reportssharp,stiffnes s, andthrobbing. For severity, patient reportspain level 3/10,mild (1-4), andinterference with work. For location, patient reportslumbarandsacra l. For context, patient reportsoveruse. For alleviating factors, patient reportsphysical therapyandchiropracto r(tens machine). For aggravating factors, patient reportsmovement/posit ioning,twisting,flexi ng back,extending back,lifting,housewor k, andwalking. For associated symptoms, patient reportsno fever,no weak limbs,no numbness of the legs/feet,no tingling,no incontinence,no shortness of breath,no unintentional weight loss,no chills,no night sweats,no gait instability,no bowel/bladder symptoms, andno recent increase in stress. For previous injury, patient reportsno prior injury to back. For prior imaging, patient reportsmriandx-ray. L-spineReported by Patient Low back painReported by Patient Ronak Alexandre MD [address], [address], [place] [facility] 03/07/2023 18:37:41 03/22/2023 text/html Pain Management L-spineReported by Patient Back PainReported by PatientHPIFor quality, patient reportssharp,stiffnes s, andthrobbing. For severity, patient reportspain level 3/10,mild (1-4), andinterference with work. For location, patient reportslumbarandsacra l. For context, patient reportsoveruse. For alleviating factors, patient reportsphysical therapyandchiropracto r(tens machine). For aggravating factors, patient reportsmovement/posit ioning,twisting,flexi ng back,extending back,lifting,housewor k, andwalking. For associated symptoms, patient reportsno fever,no weak limbs,no numbness of the legs/feet,no tingling,no incontinence,no shortness of breath,no unintentional weight loss,no chills,no night sweats,no gait instability,no bowel/bladder symptoms, andno recent increase in stress. For previous injury, patient reportsno prior injury to back. For prior imaging, patient reportsmriandx-ray. L-spineReported by Patient Low back painReported by Patient Patient presents for an injection of ANJELICA Alexandre MD [address], [address], [place] [facility] 03/22/2023 17:07:05 04/02/2023 text/html Pain Management L-spineReported by Patient Back PainReported by PatientHPIFor quality, patient reportssharp,stiffnes s, andthrobbing. For severity, patient reportspain level 3/10,mild (1-4), andinterference with work. For location, patient reportslumbarandsacra l. For context, patient reportsoveruse. For alleviating factors, patient reportsphysical therapyandchiropracto r(tens machine). For aggravating factors, patient reportsmovement/posit ioning,twisting,flexi ng back,extending back,lifting,housewor k, andwalking. For associated symptoms, patient reportsno fever,no weak limbs,no numbness of the legs/feet,no tingling,no incontinence,no shortness of breath,no unintentional weight loss,no chills,no night sweats,no gait instability,no bowel/bladder symptoms, andno recent increase in stress. For previous injury, patient reportsno prior injury to back. For prior imaging, patient reportsmriandx-ray. L-spineReported by Patient Low back painReported by Patient Ronak Alexandre MD [address], [address], [place] [facility] 04/02/2023 17:55:48
--- OUTSIDE RECORDS SUMMARY | 2025-04-02 09:32 | XMS_ITS | Clinical Summary ---
Author Organization [facility] ([place], [place], [place], [place], [place]) Address [address] [place] [address] Care Team Providers Care Assistant Account Manager Name Role Phone Justen Palomo MD Primary Care Provider [phone] Karrie Herndon Unavailable Allergies Active Allergy Reactions [...] Date Pierre rded Speak language other than Hebrew at home Not on file 04/27/2023 Want [...] Pneumococcal 50+ years Completed 08/08/2018, 2017 Insurance [facility] MEDICARE ADVANTAGE Advance Directives For more information, please contact: [phone] Documents on File Type Date Recorded Patient Residential Team Leader Expl anation Advance Directives and Livin g Will 12/08/2022 10:18 AM * Full Code (Latest Code Status on File) Date Activated Date Inactivated Comments 12/16/2022 12:09 PM 12/19/2022 2:18 PM * Full Code Date Activated Date Inactivated Comments 12/11/2022 12:51 PM 12/14/2022 4:43 PM Care Teams Assistant Account Manager Relationship Specialty Start Date End Date Justen Palomo MD [address] [place] [address] PCP - General Family Medicine 12/08/22 Karrie Herndon [address] [place] [address] Neurology 12/08/22
--- OUTSIDE RECORDS SUMMARY | 2025-04-02 09:32 | XMS_ITS | Data Portability ---
Author Organization EN SAMANTHA Dacosta [facility] CLOSED Address [address] [facility] [facility] [address] [place] [address] Care Team Providers Care Film Producer Name Role Phone MERLIN MONTIEL Referring Provider [phone] [facility] Primary Care Provider Assessment No assessment recorded. Plan of Treatment Reminders Order Date Submit Date Provider Last Modified By Organization Details Last Modified Time Details Appointments CT SCAN 2025 10:00A M ct_scan Not available Not available Not available MALE RECHECK 2025 11:15A M OLGA BRUCE MD Not available Not available Not available Lab None recorded . Referral None recorded . Procedures None recorded . Surgeries None recorded . Imaging None recorded . Medication Orders None recorded . Patient TargetsNo targets recorded. Patient Instructions Encounter Date Encounter Id Patient Instructions Last Modified By Organization Details Last Modified Time 12/21/2022 [id number] Well recovered, continue activity restriction for 6 total weeks. He is back on aspirin and Eliquis with no problems. I will see him back in 1 month with CBC and BMP We will arrange CT renal mass protocol for his left renal lesion in approximately 6 to 9 months Not available 12/21/2022 13:48:38 02/20/2023 [id number] Continues [facility] a nd PSA checks through Dr. Montiel I will see him back in 6 months with renal mass protocol CT Not available 02/20/2023 11:59:19 08/21/[id number] renal mass protocol now shows a [...] therapy thereafter Not available 08/21/2023 11:23:20 02/26/[id number] repeated and reviewed again revealing a [...] to Dr. Boo in interventional radiology at [facility] for evaluation of this possibility. I have [...] 08/17/2023 CT, abdom en, w/wo contr ast [address] [place] [address] Abbie lopez Name: RENUKA lopez : 948 Abbie lopez 32 Orderi ng Provid er: NATY S [...] 350 (1 x 100 mL bottle of [facility] [address]- 1414-9 1). None was wasted and discar ded. Bowel was marked with water. COMPAR COLTEN: 6/12/2 023 FINDIN GS: LOWER THORAX : Lung [...] Krishnamurthy MD on 08/21/19 24 8:20 AM [facility]34 [facility] Radiology [address], [address], 08/21/2023 11:00:30 02/22/20 24 02/22/2024 CT, abdom en, w/wo contr ast [address] [place] [address] Patien t Name: RENUKA Leiva t : 948 Patili t 34 Orderi ng Provid er: NATY [...] 350 (1 x 100 mL bottle of [facility] [address]- 1414-9 1). none was wasted and discar [...] ly Signed By: Jamal Krishnamurthy MD on 10:14 AM [facility] Radiology [address], [address], 02/22/2024 14:28:58 09/25/19 25 09/24/2024 CT, abdom en, w/wo contr ast [address] [address] Patien t Name: RENUKA AYALA JR Patien [...] 350 (1 x 100 mL bottle of [facility] [address]- 1414-9 1). None was wasted and discar [...] Jamal Krishnamurthy MD on 025 9:[address] Radiology [address], [address], 09/29/2024 10:31:24 Result Notes Documentation Provider Name and Address Organization Details Recorded Time Ct, Abdomen, W/wo Contrast : [address] [address] Patient Name: MICHEAL AYALA JR Patient : [...] 350 (1 x 100 mL bottle of [facility] [address]-10). None was wasted and discarded. Bowel was [...] Interpreted By: Jamal Krishnamurthy MD BRUCE MD [address] [place] [address], [phone] 08/21/2023 11:00:30 Ct, Abdomen, W/wo Contrast : [address] [address] Patient Name: MICHEAL AYALA JR Patient : [...] 350 (1 x 100 mL bottle of [facility] [address]-55). none was wasted and discarded. No oral [...] Interpreted By: Jamal Krishnamurthy MD BRUCE MD [address] [place] [address], [phone] 02/22/2024 14:28:58 Ct, Abdomen, W/wo Contrast : [address] [address] Patient Name: MICHEAL AYALA JR Patient : [...] 350 (1 x 100 mL bottle of [facility] [address]-83). None was wasted and discarded. No oral [...] Interpreted By: Jamal Krishnamurthy MD BRUCE MD [address] [place] [address], [phone] 09/29/2024 10:31:24 Procedures Surgical History Date Name Laterality Status Provider Name and Address Organization Details Recorded Time [facility] 09:36:12 screening for malignant neoplasm [facility] 03/29/2022 09:36:27 [facility] 03/29/2022 09:36:43 [facility]air [facility] 03/29/2022 09:36:49 [facility] 03/29/2022 09:36:57 Imaging Results None recorded. Procedure Notes None recorded. Medical Equipment None Reported. Allergies Allergen ID Allergen Name Allergen Category Reaction Reaction Severity Criticality Documentation Date Start Date Code Code System Note Provider Name and Address Organization Details Recorded Time 307289 pecan allergeni c extract food,medi cation Not available Not available high 03/16/20252022 64844 2 RxNorm Swell ing aroun d eyes Not Available suwanee - External Data Service - prod 16:58:49 Medications Name Sig Start Date Stop Date [...] Updated DateTime 08/21/2023 187.96 cm 33.6 kg/m2 094776.2 [facility] 10:51:53 Date Recorded Body height Body mass index (BMI) Body weight Provider Name and Address Organization Details Last Updated DateTime 08/26/2024 187.96 cm 33.6 kg/m2 063160.2 fransico Baeza [facility] 08/26/2024 10:53:09 Date Recorded Body height Body mass index (BMI) Body weight Provider Name and Address Organization Details Last Updated DateTime 12/21/2022 187.96 cm 33.6 kg/m2 083709.2 g Kelli Denny [facility] 12/21/2022 13:16:22 Date Recorded Body height Body mass index (BMI) Body weight Provider Name and Address Organization Details Last Updated DateTime 02/20/2023 187.96 cm 33.6 kg/m2 297680.2 g [facility] 02/20/2023 11:03:04 Social History Question Answer Notes LastModified by Organizat ion Details LastModified Time Tobacco Smoking Status [facility] 03/29/2022 09:36:00 What Was The Date Of Your Most Recent Tobacco Screening? 03/29/2022 [email or web address] Information not available 03/29/2022 What Is Your Relationship Status? [email or web address] Information not available 03/29/2022 Has Tobacco Cessation Counseling Been Provided? No [email or web address] Information not available 03/29/2022 Sex: Unknown Functional Status Question Answer Note LastModified by Organizat ion Details LastModified Time Do you use any illicit or recreational drugs? No Information not available 03/29/2022 Do you or have you ever used any other forms of tobacco or nicotine? No [email or web address] Information not available 03/29/2022 What is your level of alcohol consumption? None Information not available 03/29/2022 Mental Status None recorded. Family History Relationship Description Onset Age of this Age Resolved Age Notes LastModified by Organization Details LastModified Time Brother Family history of malignant neoplasm prosta te [email or web address] Not available 03/29/2022 09:35:45 Father Family history of malignant neoplasm prosta te [email or web address] Not available 03/29/2022 09:35:47 Maternal Grandfather Family history of malignant neoplasm prosta te [email or web address] Not available 03/29/2022 09:35:49 Mother Kidney disease [email or web address] Not available 2021 09:35:27 Medical History Condition Response Allergies/Hayfever Y Cancer Y Arthritis Y Hypertension Y Sleep Apnea Y High Cholesterol Y Immunizations Vaccine Type Date Status Note Provider Nam e and Address Organization Details Recorded Time COVID-19, mRNA, LNP-S, PF, 100 mcg/0.5mL dose or 50 mcg/0.25mL dose 1 completed Irene Amaya [facility] 03/29/2022 09:33:14 Hep B, adult 8 completed Irene Amaya [facility] 03/29/2022 09:33:14 Pneumococcal conjugate PCV 13 8 completed Irene Amaya [facility] 03/29/2022 09:33:14 Hep B, adult 8 completed Irene Amaya [facility] 03/29/2022 09:33:14 COVID-19, mRNA, LNP-S, PF, 100 mcg/0.5mL dose or 50 mcg/0.25mL dose 1 completed Irene Amaya [facility] 03/29/2022 09:33:14 Td (adult), 2 Lf tetanus toxoid, preservative free, adsorbed 7 completed Irene Amaya [facility] 03/29/2022 09:33:14 Influenza, high-dose, trivalent, PF 1 completed Irene Amaya [facility] 03/29/2022 09:33:14 COVID-19, mRNA, LNP-S, PF, 100 mcg/0.5mL dose or 50 mcg/0.25mL dose 1 completed Irene Amaya null, [facility] 03/29/2022 09:33:14 pneumococcal polysaccharide PPV23 9 completed Irene Amaya null, [facility] 03/29/2022 09:33:14 Td (adult) 1 completed Irene Amaya null, [facility] 03/29/2022 09:33:14 Influenza, high-dose, trivalent, PF 9 completed Irene Amaya null, [facility] 03/29/2022 09:33:14 Influenza, high-dose, trivalent, PF 7 completed Irene Amaya null, [facility] 03/29/2022 09:33:14 Influenza, high-dose, trivalent, PF 6 completed Irene Amaya null, [facility] 03/29/2022 09:33:14 Hep B, adult 7 completed Irene Amaya null, [facility] 03/29/2022 09:33:14 Influenza, high-dose, quadrivalent, PF 2 completed Irene Amaya null, [facility] 03/29/2022 09:33:14 Influenza, high-dose, trivalent, PF 0 completed [facility]22 09:33:14 Past Encounters Encounter ID Performer Location Encounter Start Date Encounter Closed Date Diagnosis/Indication Diagnosis SNOMED-CT Code Diagnosis ICD10 Code Diagnosis IMO Codes Diagnosis Note [id number] [facility] [address] [facility] [place] [address] 03/29/2022 09:17:03 03/29/2022 10:26:34 Renal mass 820659380 N28.89 Multiple renal cysts 253 720042 N28.1 Myasthenia gravis 288278 04 G70.00 Coronary arteriosclerosis 39984366 I25.10 Status post stent History of malignant neoplasm of prostate 782820516 Z85.46 With recent biochemica l recurrence -now on [facility] [id number] OLGA [facility] [address] [facility] [place] [address] 10/12/2022 12:58:07 10/12/2022 14:08:36 Renal mass 550749736 N28.89 Bilateral Multiple renal cysts 253 598389 N28.1 Myasthenia gravis 618963 04 G70.00 Coronary arteriosclerosis 73679247 I25.10 Status post stent History of malignant neoplasm of prostate 043306760 Z85.46 With recent biochemica l recurrence -now on [facility] [id number] OLGA BRUCE MD UROLOGY [place] [address] 12/21/2022 13:06:01 12/21/2022 13:48:16 Renal mass 588147884 N28.89 BilateralS tatus post right enucleatio n of benign cystic lesion 12/06 Multiple renal cysts 253 182693 N28.1 Myasthenia gravis 187636 04 G70.00 Coronary arteriosclerosis 10405909 I25.10 Status post stent History of malignant neoplasm of prostate 849390103 Z85.46 With recent biochemica l recurrence -now on [facility] 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 7232512055 9103 N32.0 [id number] OLGA BRUCE MD UROLOGY [place] [address] 02/20/2023 10:51:36 02/20/2023 11:58:21 Renal mass 433328715 N28.89 BilateralS tatus post right enucleatio n of benign cystic lesion 12/06 Multiple renal cysts 253 829302 N28.1 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 0037076639 9103 N32.0 Myasthenia gravis 300113 04 G70.00 Coronary arteriosclerosis 12061461 I25.10 Status post stent History of malignant neoplasm of prostate 771153083 Z85.46 With recent biochemica l recurrence -now on [facility] [id number] OLGA BRUCE MD UROLOGY [facility] [address] [place] [address] 08/21/2023 09:59:54 08/21/2023 11:16:36 Renal mass 776951894 N28.89 BilateralS tatus post right enucleatio n of benign cystic lesion 12/06 Multiple renal cysts 253 197297 N28.1 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 6914712809 9103 N32.0 Myasthenia gravis 669360 04 G70.00 Coronary arteriosclerosis 71750786 I25.10 Status post stent History of malignant neoplasm of prostate 453093150 Z85.46 With recent biochemica l recurrence -now on [facility] [id number] OLGA BRUCE MD UROLOGY [place] [address] [place] [address] 02/26/2024 10:12:17 02/26/2024 11:19:33 Renal mass 446044398 N28.89 BilateralS tatus post right enucleatio n of benign cystic lesion 12/06 Multiple renal cysts 253 463929 N28.1 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 0308553732 9103 N32.0 Myasthenia gravis 844525 04 G70.00 Coronary arteriosclerosis 81492884 I25.10 Status post stent History of malignant neoplasm of prostate 320936177 Z85.46 With recent biochemica l recurrence -now on [facility] [id number] OLGA BRUCE MD UROLOGY [facility] [address] [place] [address] 08/26/2024 09:48:11 08/26/2024 10:56:31 Renal mass 966095120 N28.89 BilateralS tatus post right enucleatio n of benign cystic lesion 12/06 Multiple renal cysts 253 128445 N28.1 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 0623158904 9103 N32.0 Myasthenia gravis 841813 04 G70.00 Coronary arteriosclerosis 10389460 I25.10 Status post stent History of malignant neoplasm of prostate 370038869 Z85.46 With recent biochemica l recurrence -now on [facility] Health Concerns Section Related Observation LastModified by Organization Detai ls LastModified Time None Recorded Concern Status LastModified by Organization Details LastModified Time None Recorded Advance Directives Directive None Recorded Payers Insurance Date Sequence Insurance Name Policy Number Policy Carmichael Covered Member ID Carmichael Member ID Guarantor Name 09/29/2024 1 [facility] (MEDICARE REPLACEMENT/A DVANTAGE - PPO) [id number] Micheal Ayala [id number] Micheal Ayala Notes Date Note Type Note Provider Name and Address Organization Details Recorded Time 12/21/2022 text/html 72 with h/o renal mass -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 He is recovering nicely.Additionall y he was found to have very tight bladder neck contracture and required TUI BNC. He claims he is voiding well but has a slight degree of leakage. His bowel function is returned to normal and he is fully ambulatory. 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 He has a similar left lower pole smaller lesion that is being followed. Currently he is having a lot of back pain and possible disc impingement. Due for physical therapy today. PSA last months with Dr. Montiel was undetectable. 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 He has a similar left lower pole smaller lesion that is being followed. PSA last months with Dr. Montiel was undetectable. He continues to see Dr. Montiel for [facility] therapy. He just underwent recent kyphoplasty of lower back, just now recovering from this. 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 OLGA BRUCE MD [address] [place], [address], [facility] 02/26/2024 13:58:18 08/26/2024 text/html 74 with h/o renal mass -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 OLGA BRUCE MD [address] [place], [address], [facility] 08/29/2024 13:58:17
== END 2025-04-02 23:59 | disposition home or self-care (01) ==
LOC: RAD 09:18
PROVIDERS: PCP Family Medicine; Visit Provider Orthopaedic Surgery
DX: M17.11 Unilateral primary osteoarthritis, right knee (principal)
CPT/HCPCS: 73562